=== PATIENT | male | born 1985 | race African-American/Black ===

== ENCOUNTER 2016-07-21 06:58 | Inpatient (IN) ==
--- NOTE | 2016-07-21 07:21 | Emergency Department Note ---
Disposition Clinical Impression: Suicidal ideation Depression Qualifiers: Depression Type: major depressive disorder Major depression recurrence: recurrent Active/Remission status: currently active Major depression episode severity: moderate Qualified Code(s): F33.1 - Major depressive disorder, recurrent, moderate Disposition: Admitted As Inpatient Time of Disposition: 11:00 Psych HPI - General Chief Complaint: ED Psychiatric Symptoms Stated Complaint: needs to see 1A Time Seen by Provider: 07/21/16 07:19 Source: patient Mode of arrival: ambulatory Limitations: altered mental status Nursing Notes Reviewed: Yes Vital Signs Reviewed: Yes - History of Present Illness HPI Narrative: She presents to the emergency department with complaints of suicidal and possibly homicidal ideation. States that he has been on his medication taking it regularly however he continues to hear voices, he states that he smokes much more frustrated with people like he is going to hurt somebody. He is not on had any attempts at suicide or self-harm. States that he has done cocaine and heroin in the past couple days. States that he smokes marijuana on a daily basis. He apparently comes from [facility] and states that it he does not have a psychiatrist at this time nor does he have a counselor. He has been admitted in the to the hospital in the past for similar SI complaints. At this time is quite cooperative and agreeable. Pt complaint: suicidal ideation, feels depressed, anxiety If medical clearance, reason: psychiatric condition Onset (ago): unknown Duration: changing over time, getting worse History of similar episodes: Yes Improves with: none Worsens with: none Associated Psychiatric Symptoms: suicidal ideation, homicidal ideation, auditory hallucinations Associated symptoms: Reports: denies other symptoms Traumatic symptoms: denies traumatic injury Treatments prior to arrival: psychiatric referral Self harm or harm to others: admits thoughts of self harm, admits thoughts of harming others, denies having a plan - Related Data Previous Rx's Medication Instructions Recorded Albuterol Sulfate [Albuterol 2 puff IH [id number] PRN #1 inhaler 04/29/16 Inhaler] Benztropine [Cogentin] 0.5 mg PO BID #60 tablet 04/29/16 ClonazePAM [Klonopin] 1 mg PO BID PRN #60 tablet 04/29/16 Divalproex (24 HR) [Depakote ER 2,000 mg PO HS #120 tab.er.24h 04/29/16 (24 HR)] Fluphenazine [Prolixin] 10 mg PO DAILY #30 tablet 04/29/16 HydrOXYzine Pamoate 25 mg PO TID #90 capsule 04/29/16 Omeprazole [PriLOSEC] 20 mg PO DAILY #30 capsule. 04/29/16 Quetiapine Fumarate [Seroquel] 100 mg PO HS PRN #30 tablet 04/29/16 Allergies Allergy/AdvReac Type Severity Reaction Status Date / Time chlorpromazine Allergy Hives Verified 08/23/15 18:23 [From Thorazine] haloperidol [From Haldol] AdvReac Intermediate See Verified 02/15/16 15:12 Comments All systems ED: reviewed and negative except as stated. Constitutional: Denies: fever, chills, weakness, weight change Eyes: Denies: eye pain, eye discharge, vision change ENT ED: Denies: ear pain, throat pain, dental pain, hearing loss, epistaxis, congestion, dysphagia Cardiovascular: Denies: chest pain, palpitations, dyspnea on exertion, edema, syncope Respiratory: Denies: cough, dyspnea, wheezes, hemoptysis, stridor Psychiatric: Reports: anxiety, depression, suicidal thoughts, homicidal thoughts , auditory hallucinations Endocrine: Denies: fatigue Past Medical History - Past Medical History Attestation: Yes The following information was validated with the patient. Source: patient, nursing notes reviewed Medical history: Reports: asthma Surgical history: Reports: other Psychiatric history: Reports: schizophrenia, previous psychiatric hospitalization, other - Social History Smoking Status: Current every day smoker Smokeless Tobacco Status: No Alcohol use: Reports: occasionally Drug use: Reports: cocaine, opiates, marijuana, methamphetamine, IVDU, prescription drug abuse Physical Exam - General Limitations: no limitations General appearance: alert, in no apparent distress - Head Head exam: atraumatic, normocephalic, normal inspection - Eye Eye exam: Present: normal appearance, PERRL, EOMI - ENT ENT exam: normal exam, normal oropharynx, mucous membranes moist - Neck Neck exam: Present: normal inspection, full ROM, trachea midline - Chest Chest inspection: Present: normal inspection, symmetric chest wall rise - Respiratory Respiratory exam: Present: normal lung sounds bilaterally - Cardiovascular Cardiovascular exam: Present: regular rate, normal rhythm, normal heart sounds - Abdominal Exam Abdominal exam: Present: soft, Non-Tender, normal bowel sounds. Absent: tenderness, distention, guarding, rebound, rigidity - Extremities Exam Extremities exam: Present: normal inspection, full ROM. Absent: tenderness, pedal edema - Back Exam Back exam: Present: normal inspection, full ROM. Absent: tenderness - Neurological Exam Neurological exam: Present: alert, oriented X3, CN II-XII intact, normal gait - Psychiatric Psychiatric exam: Present: anxious, homicidal ideation, suicidal ideation - Skin Skin exam: Present: warm, dry, intact, normal color Course Vital Signs Temperature 97.8 F 07/21/16 06:59 Pulse Rate 164 07/21/16 06:59 Respiratory Rate 20 07/21/16 06:59 Blood Pressure 125/78 07/21/16 06:59 O2 Sat by Pulse Oximetry 96 07/21/16 06:59 Temperature 98.1 F 07/21/16 11:13 Pulse Rate 80 07/21/16 10:58 Respiratory Rate 16 07/21/16 11:13 Blood Pressure 100/67 07/21/16 11:13 O2 Sat by Pulse Oximetry 95 07/21/16 10:58 Oxygen Delivery Oxygen Delivery Room Air Psych - Lab Data Result diagrams: 07/21/16 07:51 07/21/16 07:51 Lab Results 07/21/16 07/21/16 07/21/16 Range/Units 07:51 07:51 08:21 WBC 13.5 H (4.3-11.1) K/mcL RBC 4.70 (4.19-5.50) M/mcL Hgb 13.6 (12.9-16.9) g/dL Hct 39.4 (37.5-50.1) % MCV 83.8 (83.0-100.0) fL MCH 28.9 (28.0-33.3) pg MCHC 34.5 (31.6-35.5) g/dL RDW 13.4 (11.5-14.5) % Plt Count 195 (140-400) K/mcL MPV 11.8 (9.4-12.4) fL Immature Gran % 0.3 (0-4) % Seg Neutrophils % 50.2 % Lymphocytes % 39.0 % Monocytes % 7.7 % Eosinophils % 2.5 % Basophils % 0.3 % Neutrophils # 6.7 (1.6-8.9) K/mcL Lymphocytes # 5.3 H (0.6-4.6) K/mcL Monocytes # 1.0 (0.0-1.3) K/mcL Eosinophils # 0.3 (0.0-0.6) K/mcL Basophils # 0.0 (0.0-0.2) K/mcL Immature Plt Fraction 11.3 H (1.1-6.1) % Sodium 139 (136-145) mEq/L Potassium 3.7 (3.5-4.5) mEq/L Chloride 108 (98-109) mEq/L Carbon Dioxide 20 (19-29) mEq/L BUN 12 (8-26) mg/dL Creatinine 0.68 L (0.72-1.25) mg/dL Est GFR ( Amer) > 60 (> 60) Est GFR (Non-Af Amer) > 60 (> 60) BUN/Creatinine Ratio 18 (6-26) Glucose 90 (70-99) mg/dL Calculated Osmolality 287 (280-300) Calcium 8.7 (8.6-10.8) mg/dL Urine Color (Yellow) Urine Clarity (Clear) Urine pH (5.0-8.0) pH Units Ur Specific [place] (1.010-1.025) Urine Protein (Neg-Trace) mg/dL Urine Glucose (UA) (Normal) mg/dL Urine Ketones (Negative) mg/dL Urine Blood (Negative) Urine Nitrite (Negative) Urine Bilirubin (Negative) Urine Urobilinogen (Normal) mg/dL Ur Leukocyte Esterase (Negative) Salicylates < 5.0 L (15-30) mg/dL Urine Opiates Screen Negative (Icoixl=664) ng/mL Acetaminophen < 1.0 L (10-30) mcg/mL Ur Barbiturates Screen Negative (Ezumvc=192) ng/mL Ur Phencyclidine Scrn Negative (Cutoff=25) ng/mL Ur Amphetamines Screen Negative (Ybcnwu=9073) ng/mL U Benzodiazepines Scrn Negative (Dvneer=994) ng/mL Urine Cocaine Screen Negative (Cutoff= 300) ng/mL U Marijuana (THC) Screen Positive H (Cutoff = 50) ng/mL Ethyl Alcohol < 10 (0-10) mg/dL 07/21/16 Range/Units 08:24 WBC (4.3-11.1) K/mcL RBC (4.19-5.50) M/mcL Hgb (12.9-16.9) g/dL Hct (37.5-50.1) % MCV (83.0-100.0) fL MCH (28.0-33.3) pg MCHC (31.6-35.5) g/dL RDW (11.5-14.5) % Plt Count (140-400) K/mcL MPV (9.4-12.4) fL Immature Gran % (0-4) % Seg Neutrophils % % Lymphocytes % % Monocytes % % Eosinophils % % Basophils % % Neutrophils # (1.6-8.9) K/mcL Lymphocytes # (0.6-4.6) K/mcL Monocytes # (0.0-1.3) K/mcL Eosinophils # (0.0-0.6) K/mcL Basophils # (0.0-0.2) K/mcL Immature Plt Fraction (1.1-6.1) % Sodium (136-145) mEq/L Potassium (3.5-4.5) mEq/L Chloride (98-109) mEq/L Carbon Dioxide (19-29) mEq/L BUN (8-26) mg/dL Creatinine (0.72-1.25) mg/dL Est GFR ( Amer) (> 60) Est GFR (Non-Af Amer) (> 60) BUN/Creatinine Ratio (6-26) Glucose (70-99) mg/dL Calculated Osmolality (280-300) Calcium (8.6-10.8) mg/dL Urine Color Yellow (Yellow) Urine Clarity Clear (Clear) Urine pH 6.0 (5.0-8.0) pH Units Ur Specific [place] 1.025 (1.010-1.025) Urine Protein Negative (Neg-Trace) mg/dL Urine Glucose (UA) Normal (Normal) mg/dL Urine Ketones Negative (Negative) mg/dL Urine Blood Negative (Negative) Urine Nitrite Negative (Negative) Urine Bilirubin Negative (Negative) Urine Urobilinogen Normal (Normal) mg/dL Ur Leukocyte Esterase Negative (Negative) Salicylates (15-30) mg/dL Urine Opiates Screen (Fuepuh=583) ng/mL Acetaminophen (10-30) mcg/mL Ur Barbiturates Screen (Sdrgpd=730) ng/mL Ur Phencyclidine Scrn (Cutoff=25) ng/mL Ur Amphetamines Screen (Gbrnwe=7597) ng/mL U Benzodiazepines Scrn (Ggcacq=834) ng/mL Urine Cocaine Screen (Cutoff= 300) ng/mL U Marijuana (THC) Screen (Cutoff = 50) ng/mL Ethyl Alcohol (0-10) mg/dL Psychiatric Medical Clearance - Medical Clearance Checklist Does the patient have a NEW psychiatric condition?: No Any abnormalities indicating possible medical illness?: No Any history of medical issues?: No Medical History: No Social History Section defined Any abnormal vital signs prior to transfer?: No Current Vitals: Last Vital Signs Temp 98.1 F 07/21/16 11:13 Pulse 80 07/21/16 10:58 Resp 16 07/21/16 11:13 BP 100/67 07/21/16 11:13 Pulse Ox 95 07/21/16 10:58 Is the patient intoxicated or cognitively impaired?: No Psychiatric Lab Panel: Drug Levels and Toxicity 07/21/16 07/21/16 07:51 08:21 Urine Opiates Screen Negative Acetaminophen < 1.0 L Ur Barbiturates Screen Negative Ur Phencyclidine Scrn Negative Ur Amphetamines Screen Negative U Benzodiazepines Scrn Negative Urine Cocaine Screen Negative U Marijuana (THC) Screen Positive H Ethyl Alcohol < 10 Any abnormalities on the physical exam?: No Any abnormal labs?: No (+Marijuana) Abnormal Labs: Abnormal lab results WBC 13.5 K/mcL (4.3-11.1) H 07/21/16 07:51 Lymphocytes # 5.3 K/mcL (0.6-4.6) H 07/21/16 07:51 Immature Plt Fraction 11.3 % (1.1-6.1) H 07/21/16 07:51 Creatinine 0.68 mg/dL (0.72-1.25) L 07/21/16 07:51 Salicylates < 5.0 mg/dL (15-30) L 07/21/16 07:51 Acetaminophen < 1.0 mcg/mL (10-30) L 07/21/16 07:51 U Marijuana (THC) Screen Positive ng/mL (Cutoff = 50) H 07/21/16 08:21 Does the patient require durable medical equiptment?: No Is the patient ambulatory?: Yes Is the patient a fall risk?: No Has the patient been medically cleared?: Yes Any acute medical condition require Tx prior to transfer?: No Statement of Medical Clearance: I have evaluated the patient, reviewed diagnostic information, and certify that the patient's medical condition is sufficiently stable that transfer to the psychiatric unit does not pose a significant risk of deterioration.
[2016-07-21 08:14] LABS: Basophils % 0.3 %; Eosinophils # 0.3 K/mcL (0.0-0.6); Eosinophils % 2.5 %; Hematocrit 39.4 % (37.5-50.1); Hemoglobin 13.6 g/dL (12.9-16.9); Immature Granulocytes % 0.3 % (0-4); Immature Platelets 11.3 % (1.1-6.1); Lymphocytes # 5.3 K/mcL (0.6-4.6); Mean Corpuscular HGB Conc 34.5 g/dL (31.6-35.5); Mean Corpuscular Hemoglobin 28.9 pg (28.0-33.3); Mean Corpuscular Volume 83.8 fL (83.0-100.0); Mean Platelet Volume 11.8 fL (9.4-12.4); Monocytes % 7.7 %; Neutrophils # 6.7 K/mcL (1.6-8.9); Platelet Count 195 K/mcL (140-400); Red Cell Distribution Width 13.4 % (11.5-14.5); Segmented Neutrophils % 50.2 %
[2016-07-21 08:38] LABS: BUN/Creatinine Ratio 18 (6-26); Blood Urea Nitrogen 12 mg/dL (8-26); Calcium 8.7 mg/dL (8.6-10.8); Carbon Dioxide 20 mEq/L (19-29); Chloride 108 mEq/L (98-109); Glucose 90 mg/dL (70-99); Osmolality,Calculated 287 (280-300); Potassium 3.7 mEq/L (3.5-4.5); Sodium 139 mEq/L (136-145); eGFR For African Americans > 60 (> 60); eGFR For Non-African Americans > 60 (> 60)
[2016-07-21 08:39] LABS: Acetaminophen < 1.0 mcg/mL (10-30); Ethanol < 10 mg/dL (0-10); Salicylate < 5.0 mg/dL (15-30)
[2016-07-21 09:05] LABS: Bilirubin,Urine Negative (Negative); Blood,Urine Negative (Negative); Clarity,Urine Clear (Clear); Color,Urine Yellow (Yellow); Glucose,Urine (UA) Normal (Normal); Ketones,Urine Negative (Negative); Leukocyte Esterase,Urine Negative (Negative); Nitrite,Urine Negative (Negative); Protein,Urine Negative (Neg-Trace); Specific Gravity,Urine 1.025 (1.010-1.025); Urobilinogen,Urine Normal (Normal)
[2016-07-21 09:11] LABS: Amphetamine Screen,Urine Negative ng/mL (Cutoff=1000); Barbiturate Screen,Urine Negative ng/mL (Cutoff=200); Benzodiazepines Screen,Urine Negative ng/mL (Cutoff=200); Cannabinoid Screen,Urine Positive ng/mL (Cutoff = 50); Cocaine Screen,Urine Negative ng/mL (Cutoff= 300); Opiate Screen,Urine Negative ng/mL (Cutoff=300); Phencyclidine Screen,Urine Negative ng/mL (Cutoff=25)
--- NOTE | 2016-07-21 10:46 | Emergency Department Note ---
START Narrative - START START: I examined this patient and my medical decision-making was reviewed with the RED LEADER/PA/Advanced Practice Nurse/Resident Physician. I agree with the documented findings, disposition and treatment plan as described except to the extent set forth below. Patient emergency department with suicidal thoughts. Also thoughts of harming others. Exam shows him in no distress. Flat affect. Heart regular lungs clear., Cooperative. Plan. Medically cleared. Evaluated by Ia and patient is appropriate for admission. [place] slip on chart.
[2016-07-21] MEDS ORDERED: MOM Conc 10 ML UD.LIQ PO PRN (15:50)
[2016-07-21] MEDS ORDERED: hydrOXYzine pamoate 25 MG CAPSULE PO PRN (15:50)
[2016-07-21] MEDS ORDERED: Mag Hydrox/Al Hydrox/Simeth 30 ML UDC PO PRN (15:50)
[2016-07-21] MEDS ORDERED: Acetaminophen 325 MG TABLET PO PRN (15:50)
[2016-07-21] MEDS ORDERED: traZODone 50 MG TABLET PO PRN (15:50)
[2016-07-21] MEDS: Divalproex (24 HR) 500 MG TABLET PO SCH (20:22)
[2016-07-21] MEDS: hydrOXYzine pamoate 25 MG CAPSULE PO SCH (20:24)
[2016-07-22] MEDS: hydrOXYzine pamoate 25 MG CAPSULE PO SCH ×3 (08:49→21:40)
[2016-07-22] MEDS: clonazePAM 1 MG TABLET PO PRN ×2 (08:55→21:40)
--- NOTE | 2016-07-22 13:05 | Psychiatry History & Physical ---
Date of Encounter: 07/23/16 Time of Encounter: 13:03 History of Present Illness Patient Stated Chief Complaint: suicidal, hearig voices Medicare Admission Attestation: For traditional Medicare patients the provided hospital inpatient services are reasonable and necessary and in the case of services not specified as inpatient -only under 42 CFR 419.22 (n), that they are appropriately provided as inpatient services in accordance 42 CFR 412.3. For Critical Access Hospital the patient may reasonably be expected to be discharged or transferred to a hospital within 96 hours after admission to the Critical Access Hospital. Admitted From: Emergency Dept History of Present Illness: Mr. Barrientos is a 30 year old male was long history of psychiatric treatment for chronic schizophrenia who presented to the emergency room complaining of auditory hallucinations and thought broadcasting. He is HE was also thinking about hurting people listen to thoughts he admitted to using drugs. His mission and cocaine and THC. Patient apparently has been noncompliant with his medication including injectable Prolixin however he presented to the hospital before she deteriorated as reported by staff who are familiar with him. Please see social work notes and emergency room notes. Past Med Surg Social Fam HX - Past Medical History Medical history: asthma - Past Psychiatric History Psychiatric history: Reports: bipolar, schizophrenia, previous psychiatric hospitalization Family psychiatric history: Unknown Family History of Suicide: Unknown - Past Surgical History Surgical History: other - Social History Smoking Status: Current every day smoker Smokeless Tobacco Status: No Alcohol use: occasionally Drug use: cocaine, opiates, marijuana, methamphetamine, IVDU, prescription drug abuse Medications & Allergies Albuterol Sulfate [Albuterol Inhaler] 2 puff IH [id number] PRN #1 inhaler 04/29/16 [Rx] Benztropine [Cogentin] 0.5 mg PO BID #60 tablet 04/29/16 [Rx] ClonazePAM [Klonopin] 1 mg PO BID PRN #60 tablet 04/29/16 [Rx] Divalproex (24 HR) [Depakote ER (24 HR)] 2,000 mg PO HS #120 tab.er.24h [Rx] Fluphenazine [Prolixin] 10 mg PO DAILY #30 tablet 04/29/16 [Rx] HydrOXYzine Pamoate 25 mg PO TID #90 capsule 04/29/16 [Rx] Omeprazole [PriLOSEC] 20 mg PO DAILY #30 capsule. 04/29/16 [Rx] Quetiapine Fumarate [Seroquel] 100 mg PO HS PRN #30 tablet 04/29/16 [Rx] Fluphenazine Decanoate [Prolixin] 25 mg IM Q4W 07/22/16 [History] Allergies chlorpromazine [From Thorazine] Allergy (Verified 08/23/15 18:23) Hives haloperidol [From Haldol] Adverse Reaction (Intermediate, Verified 02/15/16 15: 12) See Comments EPS Review of Systems Psychiatric: Reports: anxiety, suicidal ideation, auditory hallucinations Mental Status Exam Patient orientation: Yes Person, Yes Time, Yes Place Level of alertness: Sedated Patient appearance: Unkempt, Disheveled, Bizarre Behavior: nervous, anxious, suspicious, distractible, withdrawn Psychomotor activity: Slowed Eye contact: Minimal Contact Mood description: Anxious, Irritable Affect description: constricted, blunted, anxious Speech pattern: Normal rate, Normal rhythm, Clear, Limited Speech volume: Normal Thought process: Thought Blocking, Disorganized Thought content: Yes Suicidal ideation, Yes Paranoid delusion, Yes Thought broadcasting Perceptual disturbances: Yes Reacting to internal stimuli, Yes Auditory hallucinations Attention span: Unable to Focus Memory description: Immediate Impaired, Remote Impaired Patient reliability: Questionable Historian Intelligence estimate: Average Judgment: Limited Insight: Partial Results - Vital Signs Vital signs: Temp Pulse Resp BP Pulse Ox 97.6 F 69 16 130/88 95 07/22/16 09:00 07/22/16 09:00 07/22/16 09:00 07/22/16 09:00 07/21/16 10:58 - Labs Labs: Laboratory Last Values WBC 13.5 K/mcL (4.3-11.1) H 07/21/16 07:51 RBC 4.70 M/mcL (4.19-5.50) 07/21/16 07:51 Hgb 13.6 g/dL (12.9-16.9) 07/21/16 07:51 Hct 39.4 % (37.5-50.1) 07/21/16 07:51 MCV 83.8 fL (83.0-100.0) 07/21/16 07:51 MCH 28.9 pg (28.0-33.3) 07/21/16 07:51 MCHC 34.5 g/dL (31.6-35.5) 07/21/16 07:51 RDW 13.4 % (11.5-14.5) 07/21/16 07:51 Plt Count 195 K/mcL (140-400) 07/21/16 07:51 MPV 11.8 fL (9.4-12.4) 07/21/16 07:51 Immature Gran % 0.3 % (0-4) 07/21/16 07:51 Seg Neutrophils % 50.2 % 07/21/16 07:51 Lymphocytes % 39.0 % 07/21/16 07:51 Monocytes % 7.7 % 07/21/16 07:51 Eosinophils % 2.5 % 07/21/16 07:51 Basophils % 0.3 % 07/21/16 07:51 Neutrophils # 6.7 K/mcL (1.6-8.9) 07/21/16 07:51 Lymphocytes # 5.3 K/mcL (0.6-4.6) H 07/21/16 07:51 Monocytes # 1.0 K/mcL (0.0-1.3) 07/21/16 07:51 Eosinophils # 0.3 K/mcL (0.0-0.6) 07/21/16 07:51 Basophils # 0.0 K/mcL (0.0-0.2) 07/21/16 07:51 Immature Plt Fraction 11.3 % (1.1-6.1) H 07/21/16 07:51 Sodium 139 mEq/L (136-145) 07/21/16 07:51 Potassium 3.7 mEq/L (3.5-4.5) 07/21/16 07:51 Chloride 108 mEq/L (98-109) 07/21/16 07:51 Carbon Dioxide 20 mEq/L (19-29) 07/21/16 07:51 BUN 12 mg/dL (8-26) 07/21/16 07:51 Creatinine 0.68 mg/dL (0.72-1.25) L 07/21/16 07:51 Est GFR ( Amer) > 60 (> 60) 07/21/16 07:51 Est GFR (Non-Af Amer) > 60 (> 60) 07/21/16 07:51 BUN/Creatinine Ratio 18 (6-26) 07/21/16 07:51 Glucose 90 mg/dL (70-99) 07/21/16 07:51 Calculated Osmolality 287 (280-300) 07/21/16 07:51 Calcium 8.7 mg/dL (8.6-10.8) 07/21/16 07:51 Urine Color Yellow (Yellow) 07/21/16 08:24 Urine Clarity Clear (Clear) 07/21/16 08:24 Urine pH 6.0 pH Units (5.0-8.0) 07/21/16 08:24 Ur Specific [place] 1.025 (1.010-1.025) 07/21/16 08:24 Urine Protein Negative mg/dL (Neg-Trace) 07/21/16 08:24 Urine Glucose (UA) Normal mg/dL (Normal) 07/21/16 08:24 Urine Ketones Negative mg/dL (Negative) 07/21/16 08:24 Urine Blood Negative (Negative) 07/21/16 08:24 Urine Nitrite Negative (Negative) 07/21/16 08:24 Urine Bilirubin Negative (Negative) 07/21/16 08:24 Urine Urobilinogen Normal mg/dL (Normal) 07/21/16 08:24 Ur Leukocyte Esterase Negative (Negative) 07/21/16 08:24 Salicylates < 5.0 mg/dL (15-30) L 07/21/16 07:51 Urine Opiates Screen Negative ng/mL (Qfmnli=733) 07/21/16 08:21 Acetaminophen < 1.0 mcg/mL (10-30) L 07/21/16 07:51 Ur Barbiturates Screen Negative ng/mL (Brjlbc=777) 07/21/16 08:21 Ur Phencyclidine Scrn Negative ng/mL (Cutoff=25) 07/21/16 08:21 Ur Amphetamines Screen Negative ng/mL (Ggijlq=5038) 07/21/16 08:21 U Benzodiazepines Scrn Negative ng/mL (Hiwmvc=681) 07/21/16 08:21 Urine Cocaine Screen Negative ng/mL (Cutoff= 300) 07/21/16 08:21 U Marijuana (THC) Screen Positive ng/mL (Cutoff = 50) H 07/21/16 08:21 Ethyl Alcohol < 10 mg/dL (0-10) 07/21/16 07:51 Assessment and Plan (1) Chronic schizophrenia Current visit: Yes Status: Acute Plan: Admit inpatient for safety and stabilization, Close observation, Suicide Precautions per unit protocol, Encourage participation in unit milieu, Group Therapy, Monitor sleep, Monitor appetite Risks, benefits, side effects, alternatives discussed w/pt: Yes Patient agreeable to treatment: Yes Estimated Length of Stay (Days): 7
[2016-07-22] MEDS: Divalproex (24 HR) 500 MG TABLET PO SCH (21:39)
[2016-07-22] MEDS: Nicotine 2 MG GUM BC PRN (22:06)
[2016-07-23] MEDS: hydrOXYzine pamoate 25 MG CAPSULE PO SCH ×3 (08:31→21:00)
--- NOTE | 2016-07-23 14:03 | Psychiatry Progress Note ---
Date of Encounter: 07/23/16 Time of Encounter: 13:30 Subjective Interval history: Patient seen for follow-up. Nursing staff reports he is seclusive to his room most of time also reported that she spent many hours sleep is not lethargic, and not agitated he is not interested in participating in group activities or therapy. He is compliant with his medication, he is interacting appropriately with his staff. Nursing staff found out that he is on Prolixin decanoate injection that will be given by the end of the month. Will continue treatment and monitor his behaviors. Review of Systems Psychiatric: Reports: depression, anxiety, suicidal ideation, auditory hallucinations, irritability Objective: Exam Patient orientation: Yes Person, Yes Time, Yes Place Level of alertness: Sedated Patient appearance: Unkempt, Disheveled, Bizarre Behavior: nervous, anxious, suspicious, distractible, withdrawn Psychomotor activity: Slowed Eye contact: Minimal Contact Mood description: Anxious, Irritable Affect description: constricted, blunted, anxious Speech pattern: Normal rate, Normal rhythm, Clear, Limited Speech volume: Normal Thought process: Thought Blocking, Disorganized Thought content: Yes Suicidal ideation, Yes Paranoid delusion, Yes Thought broadcasting Perceptual disturbances: Yes Reacting to internal stimuli, Yes Auditory hallucinations Judgment: Limited Insight: Partial Results - Vital Signs Vital Signs: Temp Pulse Resp BP Pulse Ox 97.9 F 76 16 126/69 95 07/23/16 09:00 07/23/16 09:00 07/23/16 09:00 07/23/16 09:00 07/21/16 10:58 Assessment and Plan (1) Chronic schizophrenia Current visit: Yes Status: Acute Risks, benefits, side effects, alternatives discussed w/pt: Yes Patient agreeable to treatment: Yes Consult Discharge Plan - Plan Additional Instructions: Patient's last dose of Prolixin Decanoate 25 mg was given on 07/08/2016. Next dose is due in 4 weeks from that date. [facility]Outside[facility] - 07/27/16 3:00 pm (The above appointment is with Samantha Daniels. You will also see psychiatric prescriber, Vicki Cullen , on 08/03/2016 @ 3:20pm.)
[2016-07-23] MEDS: Nicotine 2 MG GUM BC PRN (17:11)
[2016-07-23] MEDS: Divalproex (24 HR) 500 MG TABLET PO SCH (20:59)
[2016-07-23] MEDS: clonazePAM 1 MG TABLET PO PRN (23:19)
[2016-07-24] MEDS: hydrOXYzine pamoate 25 MG CAPSULE PO SCH ×3 (09:06→21:01)
--- NOTE | 2016-07-24 13:24 | Psychiatry Progress Note ---
Date of Encounter: 07/24/16 Time of Encounter: 13:22 Subjective Interval history: Patient is here for follow-up. She self-reports he is showing some improvements he is working this auditory hallucination still continued to be seclusive to his room but is more interactive. He is tolerating his medication well. He still admitted to change his discharge plan for follow-up and I advised him to discuss this with social science teacher otherwise he is cooperative and interactive and inguinal control. Review of Systems Psychiatric: Reports: anxiety, suicidal ideation, auditory hallucinations, irritability Objective: Exam Patient orientation: Yes Person, Yes Time, Yes Place Level of alertness: Alert Patient appearance: Unkempt, Disheveled, Bizarre Behavior: cooperative, anxious, suspicious, distractible, withdrawn Psychomotor activity: Slowed Eye contact: Minimal Contact Mood description: Anxious, Irritable Affect description: constricted, blunted, anxious Speech pattern: Normal rate, Normal rhythm, Clear, Limited Speech volume: Normal Thought process: Thought Blocking, Disorganized Thought content: Yes Suicidal ideation, Yes Paranoid delusion, Yes Thought broadcasting Perceptual disturbances: Yes Reacting to internal stimuli, Yes Auditory hallucinations Judgment: Fair Insight: Partial Results - Vital Signs Vital Signs: Temp Pulse Resp BP Pulse Ox 98.3 F 79 16 106/71 95 07/24/16 08:19 07/24/16 08:19 07/24/16 08:19 07/24/16 08:19 07/21/16 10:58 Assessment and Plan (1) Chronic schizophrenia Current visit: Yes Status: Acute Plan: Continue hospitalization, Close observation, Suicide Precautions per unit protocol, Encourage participation in unit milieu, Group Therapy, Monitor sleep, Monitor appetite Risks, benefits, side effects, alternatives discussed w/pt: Yes Patient agreeable to treatment: Yes Consult Discharge Plan - Plan Additional Instructions: Patient's last dose of Prolixin Decanoate 25 mg was given on 07/08/2016. Next dose is due in 4 weeks from that date. [facility] - 07/27/16 3:00 pm (The above appointment is with Samantha Daniels. You will also see psychiatric prescriber, Vicki Cullen , on 08/03/2016 @ 3:20pm.)
[2016-07-24] MEDS: clonazePAM 1 MG TABLET PO PRN ×2 (16:56→21:12)
[2016-07-24] MEDS: Nicotine 2 MG GUM BC PRN (16:56)
[2016-07-24] MEDS: Divalproex (24 HR) 500 MG TABLET PO SCH (21:12)
[2016-07-25] MEDS: hydrOXYzine pamoate 25 MG CAPSULE PO SCH ×3 (09:19→20:54)
--- NOTE | 2016-07-25 13:53 | Psychiatry Progress Note ---
Date of Encounter: 07/25/16 Time of Encounter: 13:51 Subjective Interval history: Patient is seen for follow-up. She staff report he has been seclusive to his room most of the time and avoiding peers. He is not agitated reports voices are less and denies any problem with sleep or appetite. His current medication monitored and were maintained his compliance with medication and social work is working on his discharge plans. He is not at baseline. Review of Systems Psychiatric: Reports: anxiety, auditory hallucinations, difficulty concentrating , irritability. Denies: suicidal ideation, homicidal ideation Objective: Exam Patient orientation: Yes Person, Yes Time, Yes Place Level of alertness: Alert Patient appearance: Unkempt, Disheveled, Bizarre Behavior: cooperative, anxious, suspicious, distractible, withdrawn Psychomotor activity: Slowed Eye contact: Minimal Contact Mood description: Anxious, Irritable Affect description: constricted, blunted, anxious Speech pattern: Normal rate, Normal rhythm, Clear, Limited Speech volume: Normal Thought process: Thought Blocking, Disorganized Thought content: Yes Suicidal ideation, Yes Paranoid delusion, Yes Thought broadcasting, Yes Poverty of Content Perceptual disturbances: Yes Reacting to internal stimuli, Yes Auditory hallucinations Judgment: Fair Insight: Partial Results - Vital Signs Vital Signs: Temp Pulse Resp BP Pulse Ox 97.0 F L 73 16 116/81 95 07/25/16 08:54 07/25/16 08:54 07/25/16 08:54 07/25/16 08:54 07/21/16 10:58 Assessment and Plan (1) Chronic schizophrenia Current visit: Yes Status: Acute Plan: Continue hospitalization, Close observation, Suicide Precautions per unit protocol, Encourage participation in unit milieu, Group Therapy, Monitor sleep, Monitor appetite Risks, benefits, side effects, alternatives discussed w/pt: Yes Patient agreeable to treatment: Yes Consult Discharge Plan - Plan Additional Instructions: Patient's last dose of Prolixin Decanoate 25 mg was given on 07/08/2016. Next dose is due in 4 weeks from that date. Referrals: [facility] [Outside] - 07/27/16 3:00 pm (The above appointment is with Samantha Daniels. You will also see psychiatric prescriber, Vicki Cullen , on 08/03/2016 @ 3:20pm.)
[2016-07-25] MEDS: clonazePAM 1 MG TABLET PO PRN ×2 (17:09→20:54)
[2016-07-25] MEDS: Nicotine 2 MG GUM BC PRN (17:19)
[2016-07-25] MEDS: Divalproex (24 HR) 500 MG TABLET PO SCH (20:53)
[2016-07-26] MEDS: hydrOXYzine pamoate 25 MG CAPSULE PO SCH ×3 (09:06→21:24)
--- NOTE | 2016-07-26 16:30 | Psychiatry Progress Note ---
Date of Encounter: 07/26/16 Time of Encounter: 16:20 Subjective Interval history: Patient is here for follow-up report to the continued to be seclusive to his room. He is compliant with medication and denies any side effects. Discharge plans are review words was social work and family. Denies suicidal or homicidal ideation. Review of Systems Psychiatric: Reports: anxiety, auditory hallucinations, difficulty concentrating , irritability. Denies: suicidal ideation, homicidal ideation Objective: Exam Patient orientation: Yes Person, Yes Time, Yes Place Level of alertness: Alert Patient appearance: Unkempt, Disheveled, Bizarre Behavior: cooperative, anxious, suspicious, distractible, withdrawn Psychomotor activity: Slowed Eye contact: Minimal Contact Mood description: Anxious, Irritable Affect description: constricted, blunted, anxious Speech pattern: Normal rate, Normal rhythm, Clear, Limited Speech volume: Normal Thought process: Thought Blocking, Disorganized Thought content: Yes Suicidal ideation, Yes Paranoid delusion, Yes Thought broadcasting, Yes Poverty of Content Perceptual disturbances: Yes Reacting to internal stimuli, Yes Auditory hallucinations Judgment: Fair Insight: Partial Results - Vital Signs Vital Signs: Temp Pulse Resp BP Pulse Ox 97.6 F 77 16 116/77 95 07/26/16 08:48 07/26/16 08:48 07/26/16 08:48 07/26/16 08:48 07/21/16 10:58 Assessment and Plan (1) Chronic schizophrenia Current visit: Yes Status: Acute Plan: Continue hospitalization, Close observation, Suicide Precautions per unit protocol, Encourage participation in unit milieu, Group Therapy, Monitor sleep, Monitor appetite Risks, benefits, side effects, alternatives discussed w/pt: Yes Patient agreeable to treatment: Yes Consult Discharge Plan - Plan Additional Instructions: Patient's last dose of Prolixin Decanoate 25 mg was given on 07/08/2016. Next dose is due in 4 weeks from that date. [facility]: [facility] [Outside] - 07/27/16 3:00 pm (The above appointment is with Samantha Daniels. You will also see psychiatric prescriber, Vicki Cullen , on 08/03/2016 @ 3:20pm.)
[2016-07-26] MEDS: clonazePAM 1 MG TABLET PO PRN ×2 (17:15→21:24)
[2016-07-26] MEDS: Nicotine 2 MG GUM BC PRN (17:42)
[2016-07-26] MEDS: Divalproex (24 HR) 500 MG TABLET PO SCH (21:24)
[2016-07-27] MEDS: hydrOXYzine pamoate 25 MG CAPSULE PO SCH ×3 (09:39→21:10)
--- NOTE | 2016-07-27 14:05 | Psychiatry Progress Note ---
Date of Encounter: 07/27/16 Time of Encounter: 14:00 Subjective Interval history: Patient is here for follow-up. Nursing staff reports that he is having less auditory hallucination he is more hyperactive but seclusive to his room most of the time. He is not using any when necessary's and his sleep is stable and he reported feeling good also he is aware of his discharge plans. As mentioned before a contact and his speech is appropriate. He feels he is much better forward to discharge. Denied any suicidal or homicidal ideation but continued to have auditory hallucinations. Review of Systems Psychiatric: Reports: anxiety, auditory hallucinations, difficulty concentrating , irritability. Denies: suicidal ideation, homicidal ideation Objective: Exam Patient orientation: Yes Person, Yes Time, Yes Place Level of alertness: Alert Patient appearance: Unkempt, Disheveled, Bizarre Behavior: cooperative, anxious, suspicious, distractible, withdrawn Psychomotor activity: Slowed Eye contact: Minimal Contact Mood description: Anxious, Irritable Affect description: constricted, blunted, anxious Speech pattern: Normal rate, Normal rhythm, Clear, Limited Speech volume: Normal Thought process: Thought Blocking, Disorganized Thought content: No Suicidal ideation, No Homicidal ideation, Yes Paranoid delusion, Yes Thought broadcasting, Yes Poverty of Content Perceptual disturbances: Yes Reacting to internal stimuli, Yes Auditory hallucinations Judgment: Fair Insight: Partial Results - Vital Signs Vital Signs: Temp Pulse Resp BP Pulse Ox 97.8 F 80 16 109/76 95 07/27/16 08:49 07/27/16 08:49 07/27/16 08:49 07/27/16 08:49 07/21/16 10:58 Assessment and Plan (1) Chronic schizophrenia Current visit: Yes Status: Acute Plan: Continue hospitalization, Close observation, Suicide Precautions per unit protocol, Encourage participation in unit milieu, Group Therapy, Monitor sleep, Monitor appetite Risks, benefits, side effects, alternatives discussed w/pt: Yes Patient agreeable to treatment: Yes Consult Discharge Plan - Plan Additional Instructions: Patient's last dose of Prolixin Decanoate 25 mg was given on 07/08/2016. Next dose is due in 4 weeks from that date. Referrals: [facility] [Outside] - 08/03/16 3:00 pm (The above appointment is with Samantha Daniels. You will also see psychiatric prescriber, Vicki Cullen , on 08/03/2016 @ 3:20pm.)
[2016-07-27] MEDS: clonazePAM 1 MG TABLET PO PRN ×2 (17:53→21:13)
[2016-07-27] MEDS: Nicotine 2 MG GUM BC PRN (18:21)
[2016-07-27] MEDS: Divalproex (24 HR) 500 MG TABLET PO SCH (21:09)
[2016-07-28 08:29] VITALS: BP 113/83
[2016-07-28] MEDS: hydrOXYzine pamoate 25 MG CAPSULE PO SCH (08:46)
[2016-07-28] MEDS: Nicotine 2 MG GUM BC PRN (10:50)
--- NOTE | 2016-07-28 12:59 | Discharge Summary ---
Date of Encounter: 07/28/16 Time of Encounter: 12:50 Diagnosis - Discharge Diagnosis (1) Chronic schizophrenia Priority: Primary Status: Acute (2) Suicidal ideation Priority: Secondary Status: Acute Medications - Discharge Medications Prescriptions: Benztropine [Cogentin] 0.5 mg PO BID #60 tablet ClonazePAM [Klonopin] 1 mg PO BID PRN #60 tablet PRN Reason: Anxiety Divalproex (24 HR) [Depakote ER (24 HR)] 2,000 mg PO HS #120 tab.er.24h Fluphenazine [Prolixin] 10 mg PO DAILY #30 tablet HydrOXYzine Pamoate 25 mg PO TID #90 capsule Quetiapine Fumarate [Seroquel] 100 mg PO HS PRN #30 tablet PRN Reason: Insomnia Albuterol Sulfate [Albuterol Inhaler] 2 puff IH [id number] PRN #1 inhaler 04/29/16 [Rx] Omeprazole [PriLOSEC] 20 mg PO DAILY #30 capsule. 04/29/16 [Rx] Fluphenazine Decanoate [Prolixin] 25 mg IM Q4W 07/22/16 [History] Benztropine [Cogentin] 0.5 mg PO BID #60 tablet 07/28/16 [Rx] ClonazePAM [Klonopin] 1 mg PO BID PRN #60 tablet 07/28/16 [Rx] Divalproex (24 HR) [Depakote ER (24 HR)] 2,000 mg PO HS #120 tab.er.24h [Rx] Fluphenazine [Prolixin] 10 mg PO DAILY #30 tablet 07/28/16 [Rx] HydrOXYzine Pamoate 25 mg PO TID #90 capsule 07/28/16 [Rx] Quetiapine Fumarate [Seroquel] 100 mg PO HS PRN #30 tablet 07/28/16 [Rx] Allergies chlorpromazine [From Thorazine] Allergy (Verified 08/23/15 18:23) Hives haloperidol [From Haldol] Adverse Reaction (Intermediate, Verified 02/15/16 15: 12) See Comments EPS Provider Date of admission: 07/21/16 10:43 Primary care physician: PCP NO Discharging clinician: Joaquin Fernandez Assessment and Plan - Patient/Caregiver Discharge Instructions Activity: resume usual activities as tolerated Diet: regular diet Additional Instructions: Patient's last dose of Prolixin Decanoate 25 mg was given on 07/08/2016. Next dose is due in 4 weeks from that date. - Follow up Plan Follow up with: [facility] [Outside] - 08/03/16 3:00 pm (The above appointment is with Samantha Daniels. You will also see psychiatric prescriber, Vicki Cullen , on 08/03/2016 @ 3:20pm.) Overall status at discharge: Stable Disposition: Home, Self-Care Hospital Course Hospital course: Mr. Barrientos is a 30 year old male admitted for exacerbation of schizophrenia was auditory hallucination and suicidal ideation. For details of the admission please see H&P. On admission patient medication were reviewed and restarted, patient was compliant with his medication and showed improvement in his symptoms worse reduction of his auditory hallucinations he spent most of time in his room seclusive but she was appropriately interacting with staff and peers. He did not display any episodes of agitation. Prior to discharge he was medically stable and denies suicidal ideation morning and affect were improved he was denying suicidal ideation and he reports the voices are much less disturbing than before. His discharge plan was reviewed with him and his family and social media job titles and he is looking forward to be discharged. - Time Spent with Patient Total time spent providing and/or coordinating discharge services: Less than 30 minutes Quality - Multiple Antipsychotics Patient discharged on 2 or more antipsychotic medications: No Procedures - Procedures Procedures: Medication Management, Crisis Stabilization, Supportive Therapy, Group Therapy, Psychoeducational Therapy Mental Status Exam - Mental Status Exam Patient orientation: Yes Person, Yes Time, Yes Place Level of alertness: Alert Patient appearance: Appropriate, Bizarre Behavior: cooperative, anxious, withdrawn Psychomotor activity: Normal Eye contact: Maintains Eye Contact Mood description: Euthymic/stable, Anxious Affect description: congruent with mood, anxious Speech pattern: Normal rate, Normal rhythm, Clear, Coherent, Limited Speech Volume: Normal Thought process: Linear, Goal Oriented Thought Content: No Suicidal ideation, No Homicidal ideation, Yes Paranoid delusion, Yes Thought broadcasting Perceptual Disturbances: Yes Reacting to internal stimuli, Yes Auditory hallucinations Judgment: Fair Insight: Partial
== END 2016-07-28 14:25 | disposition home or self-care (01) | DRG 750 ==
LOC: EMEROO 06:58 → 1ANU 10:43
PROVIDERS: ADMIT Psychiatry & Neurology Psychiatry; ATTEND Psychiatry & Neurology Psychiatry

== ENCOUNTER 2016-09-24 13:54 | Inpatient (IN) ==
[2016-09-24] MEDS ORDERED: Ondansetron 4 MG/2 ML VIAL IVP PRN (16:34)
[2016-09-24] MEDS ORDERED: Naloxone 0.4 MG/ML INJ IVP PRN (16:34)
[2016-09-24] MEDS ORDERED: Acetaminophen IV 1,000 MG/100 ML INFUS..BTL IVPB PRN (16:42)
--- NOTE | 2016-09-24 16:42 | General Surg History&Physical ---
<Hunter Woodard - Last Filed: 09/24/16 16:40> Date of Encounter: 09/24/16 Time of Encounter: 16:40 Assessment and Plan (1) Acute cholecystitis Current Visit: Yes Status: Acute The assessment and plan as outlined above was discussed with the patient and/or family members who expressed understanding and agreement. All questions were answered. Direct admit from [place] [facility] Persistent RUQ pain with nausea and vomiting WBC 25.3 tachycardic: 109, hypertensive 150/109 Plan for lap cholecystectomy tomorrow NPO except ice chips, NPO after midnight IVF pain control, antiemetics IV tylenol PRN fever GI prophylaxis w/protonix 40mg qday DVT prophylaxis w/ heparin subq 5000 BID morning labs (2) Schizoaffective disorder Current Visit: Yes Status: Acute continue home meds Qualifiers: Schizoaffective disorder type: unspecified Qualified Code(s): F25.9 - Schizoaffective disorder, unspecified (3) DVT prophylaxis Current Visit: Yes Status: Acute heparin subq 5000 BID History of Present Illness Chief complaint: abdominal pain HPI: Mr. Barrientos is a 30 year old male who presented to [facility] with RUQ on 09/23. He has a hx of Schizoaffective disorder, tobacco abuse, and polysubstance abuse. The pain was rated 10/10 and was associated with nausea,vomiting, and anorexia. He was treated with pain medicine, antiemetics, and discharged home. He returned to [facility] this am with persistent RUQ pain and was then directly admitted to the surgical service for acute cholecystitis. The pain is worse with palpation, is colicky, non-radiating, rated at 10/10. He has been having nausea and vomiting with the pain for the past few days. He states he has had problems with his gallbladder in the past. Past Med Surg Social Fam HX - Past Medical History Medical history: asthma Psychiatric history: bipolar, schizophrenia, previous psychiatric hospitalization - Past Surgical History Surgical History: arthroscopy - Social History Smoking Status: Current every day smoker Packs per day: 1 Smokeless Tobacco Status: No Alcohol use: occasionally Drug use: cocaine, opiates, marijuana, methamphetamine, IVDU, prescription drug abuse - Family History Grandfather Adopted: No Family Member Ethnicity: Non- Living Status: Still Living Hx Family Cardiac Disorders: No Hx Family Respiratory Disorders: No Hx Family Cancer: No Hx Family GI Disorders: No Hx Family Genitourinary Disorders: No Hx Family Endocrine Disorder: Yes (THYROID DISORDER) Hx Family Musculoskeletal Disorders: No Hx Family Neuromuscular Disorders: No Hx Family Neurologic Disorders: No Hx Family HEENT Disorders: No Hx Family Autoimmune Disorders: No Hx Family Reproductive Disorders: No Hx Family Psychosocial Disorders: No Hx Family Medical Disorders: No Medications and Allergies Albuterol Sulfate [Albuterol Inhaler] 2 puff IH [id number] PRN #1 inhaler 04/29/16 [Rx] ClonazePAM [Klonopin] 1 mg PO BID PRN #60 tablet 07/28/16 [Rx] Divalproex (24 HR) [Depakote ER (24 HR)] 2,000 mg PO HS #120 tab.er.24h [Rx] Fluphenazine [Prolixin] 10 mg PO DAILY #30 tablet 07/28/16 [Rx] HydrOXYzine Pamoate 25 mg PO TID #90 capsule 07/28/16 [Rx] Esomeprazole Magnesium [Nexium] 20 mg PO DAILY #30 capsule.dr 09/23/16 [Rx] Benztropine Mesylate 1 mg PO BID 09/24/16 [History] FLUoxetine HCl [Fluoxetine HCl] 30 mg PO DAILY 09/24/16 [History] Quetiapine Fumarate [SEROquel] 100 mg PO HS 09/24/16 [History] Allergies chlorpromazine [From Thorazine] Allergy (Verified 08/23/15 18:23) Hives haloperidol [From Haldol] Adverse Reaction (Intermediate, Verified 02/15/16 15: 12) See Comments EPS Review of Systems All systems PM: A 10-system review of systems was performed and is negative for pertinent findings except as documented above in the HPI. - Constitutional anorexia, malaise - Cardiovascular no chest pain - Respiratory no cough, no dyspnea - Gastrointestinal abdominal pain, belching, bloating, nausea, vomiting - Neurological no confusion, no syncope - Psychiatric other (hx of schizoaffective) General Surgery Exam Vital Signs Temperature 98.9 F 09/24/16 16:39 Pulse Rate 109 09/24/16 16:39 Respiratory Rate 16 09/24/16 16:39 Blood Pressure 150/109 09/24/16 16:39 O2 Sat by Pulse Oximetry 97 09/24/16 16:39 Temperature 98.9 F 09/24/16 16:39 Pulse Rate 109 09/24/16 16:39 Respiratory Rate 16 09/24/16 16:39 Blood Pressure 150/109 09/24/16 16:39 O2 Sat by Pulse Oximetry 97 09/24/16 16:39 - General physical appearance well developed, well nourished, moderate pain, obese - Eyes normal ocular movement - Neck trachea midline - Respiratory normal expansion, clear to auscultation - Cardiovascular Cardiovascular exam: Present: tachycardia, regular rhythm - Abdomen Abdomen general surgery: Present: bowel sounds present, soft, tender. Absent: guarding, rebound Abdominal Tenderness: Present: RUQ - Neurologic Present: CN 2-12 grossly intact - Psychiatric Psychiatric general surgery: Present: A&Ox3, other (hx of schizoaffective. Flat affect) Results - Labs All other labs normal. <Syed Guerra - Last Filed: 09/25/16 13:16> Date of Encounter: 09/24/16 History of Present Illness HPI: Mr. Barrientos is a 30 year old male Review of Systems All systems PM: A 10-system review of systems was performed and is negative for pertinent findings except as documented above in the HPI. General Surgery Exam Initial Vital Signs Temp Pulse Resp BP Pulse Ox 98.9 F 109 16 150/109 97 09/24/16 16:39 09/24/16 16:39 09/24/16 16:39 09/24/16 16:39 09/24/16 16:39 Results - Labs 09/25/16 08:12 09/25/16 05:48 Abnormal lab results WBC 18.7 K/mcL (4.3-11.1) H 09/25/16 08:12 Neutrophils # 11.6 K/mcL (1.6-8.9) H 09/25/16 05:48 Monocytes # 2.0 K/mcL (0.0-1.3) H 09/25/16 05:48 Glucose 108 mg/dL (70-99) H 09/25/16 05:48 POC Glucose 106 (58-89) H 09/25/16 05:36 Calcium 8.5 mg/dL (8.6-10.8) L 09/25/16 05:48 Diabetes panel 09/25/16 Range/Units 05:48 Sodium 138 (136-145) mEq/L Potassium 3.5 (3.5-4.5) mEq/L Chloride 106 (98-109) mEq/L Carbon Dioxide 22 (19-29) mEq/L BUN 11 (8-26) mg/dL Creatinine 1.25 D (0.72-1.25) mg/dL Glucose 108 H (70-99) mg/dL Calcium 8.5 L (8.6-10.8) mg/dL Calcium panel 09/25/16 Range/Units 05:48 Calcium 8.5 L (8.6-10.8) mg/dL Pituitary panel 09/25/16 Range/Units 05:48 Sodium 138 (136-145) mEq/L Potassium 3.5 (3.5-4.5) mEq/L Chloride 106 (98-109) mEq/L Carbon Dioxide 22 (19-29) mEq/L BUN 11 (8-26) mg/dL Creatinine 1.25 D (0.72-1.25) mg/dL Glucose 108 H (70-99) mg/dL Calcium 8.5 L (8.6-10.8) mg/dL Adrenal panel 09/25/16 Range/Units 05:48 Sodium 138 (136-145) mEq/L Potassium 3.5 (3.5-4.5) mEq/L Chloride 106 (98-109) mEq/L Carbon Dioxide 22 (19-29) mEq/L BUN 11 (8-26) mg/dL Creatinine 1.25 D (0.72-1.25) mg/dL Glucose 108 H (70-99) mg/dL Calcium 8.5 L (8.6-10.8) mg/dL All other labs normal. - Attending Attestation I examined this patient and my medical decision-making was reviewed with the CORRESPONDENCE SPECIALIST/PA/Advanced Practice Nurse/Resident Physician. I agree with the documented findings, disposition and treatment plan as described except to the extent set forth below. The patient is seen and evaluated with the resident. His physical examination clinical course is consistent with acute cholecystitis however his CAT scan demonstrates minimal findings. We will plan ultrasound of the right upper quadrant and subsequent lap scop cholecystectomy if these findings are consistent with acute cholecystitis. Syed Guerra MD FACS
[2016-09-24] MEDS ORDERED: clonazePAM 1 MG TABLET PO PRN (17:07)
[2016-09-24] MEDS: *HR* Heparin 5,000 UNIT/ML VIAL SQ SCH (19:02)
[2016-09-24] MEDS: Pantoprazole 40 MG VIAL IVP SCH (19:02)
[2016-09-24] MEDS: 0.9 % Sodium Chloride 1,000 ML IVC SCH (19:02)
[2016-09-24] MEDS: *HR* HYDROmorphone (PF) 1 MG/ML SYRINGE IVP PRN ×2 (19:20→23:32)
[2016-09-24] MEDS ORDERED: Divalproex (24 HR) 500 MG TABLET PO SCH (21:00)
[2016-09-24] MEDS: cefOXitin 2,000 MG in D5% in Water (Mini-Bag+) 100 ML IVPB SCH (21:42)
[2016-09-24] MEDS: Nicotine 21 MG PATCH.TD24 TD SCH (21:42)
[2016-09-25] MEDS: cefOXitin 2,000 MG in D5% in Water (Mini-Bag+) 100 ML IVPB SCH ×2 (00:42→18:01)
[2016-09-25] MEDS: *HR* HYDROmorphone (PF) 1 MG/ML SYRINGE IVP PRN ×10 (03:32→21:56)
[2016-09-25] MEDS ORDERED: cefOXitin 2,000 MG in D5% in Water (Mini-Bag+) 100 ML IVPB SCH (05:00)
[2016-09-25] MEDS: 0.9 % Sodium Chloride 1,000 ML IVC SCH ×3 (05:03→21:37)
[2016-09-25] MEDS: *HR* Heparin 5,000 UNIT/ML VIAL SQ SCH ×2 (05:55→18:04)
[2016-09-25 06:12] LABS: Basophils # 0.1 K/mcL (0.0-0.2); Basophils % 0.4 %; Eosinophils # 0.3 K/mcL (0.0-0.6); Eosinophils % 1.7 %; Hematocrit 42.2 % (37.5-50.1); Immature Granulocytes % 0.5 % (0-4); Lymphocytes # 4.1 K/mcL (0.6-4.6); Lymphocytes % 22.5 %; Mean Corpuscular HGB Conc 33.2 g/dL (31.6-35.5); Mean Corpuscular Hemoglobin 28.2 pg (28.0-33.3); Mean Corpuscular Volume 84.9 fL (83.0-100.0); Mean Platelet Volume 12.5 fL (9.4-12.4); Monocytes % 10.8 %; Neutrophils # 11.6 K/mcL (1.6-8.9); Platelet Count 158 K/mcL (140-400); Red Blood Count 4.97 M/mcL (4.19-5.50); Red Cell Distribution Width 14.1 % (11.5-14.5); Segmented Neutrophils % 64.1 %
[2016-09-25 06:30] LABS: BUN/Creatinine Ratio 9 (6-26); Blood Urea Nitrogen 11 mg/dL (8-26); Calcium 8.5 mg/dL (8.6-10.8); Carbon Dioxide 22 mEq/L (19-29); Chloride 106 mEq/L (98-109); Glucose 108 mg/dL (70-99); Osmolality,Calculated 286 (280-300); Potassium 3.5 mEq/L (3.5-4.5); Sodium 138 mEq/L (136-145); eGFR For African Americans > 60 (> 60); eGFR For Non-African Americans > 60 (> 60)
[2016-09-25] MEDS: Pantoprazole 40 MG VIAL IVP SCH (07:31)
[2016-09-25] MEDS: Nicotine 21 MG PATCH.TD24 TD SCH (07:33)
[2016-09-25 08:23] LABS: Hematocrit 41.4 % (37.5-50.1); Hemoglobin 13.7 g/dL (12.9-16.9); Mean Corpuscular HGB Conc 33.1 g/dL (31.6-35.5); Mean Corpuscular Hemoglobin 28.1 pg (28.0-33.3); Mean Corpuscular Volume 84.8 fL (83.0-100.0); Mean Platelet Volume 12.1 fL (9.4-12.4); Platelet Count 157 K/mcL (140-400); Red Blood Count 4.88 M/mcL (4.19-5.50)
--- NOTE | 2016-09-25 08:41 | Anesthesia Evaluation PreOp ---
Date of Encounter: 09/25/16 Time of Encounter: 10:15 - Past History Planned Operation: Lap. [facility]sey. Cardiac History: Denies any Significant Hx Pulmonary History: Smoker, Asthma [place] History: Other (Bipolar, Schizophrenic) Other Medical History: Denies Any Significant HX Anesthesia History: No Prior Anesthetic Complications, Past Anesthesia (Knee scope, arm sx) Alcohol Use: occasionally Drug use: cocaine, opiates, marijuana, methamphetamine, IVDU, prescription drug abuse Medications and Allergies Albuterol Sulfate [Albuterol Inhaler] 2 puff IH [id number] PRN #1 inhaler 04/29/16 [Rx] ClonazePAM [Klonopin] 1 mg PO BID PRN #60 tablet 07/28/16 [Rx] Divalproex (24 HR) [Depakote ER (24 HR)] 2,000 mg PO HS #120 tab.er.24h [Rx] Fluphenazine [Prolixin] 10 mg PO DAILY #30 tablet 07/28/16 [Rx] HydrOXYzine Pamoate 25 mg PO TID #90 capsule 07/28/16 [Rx] Esomeprazole Magnesium [Nexium] 20 mg PO DAILY #30 capsule. 09/23/16 [Rx] Benztropine Mesylate 1 mg PO BID 09/24/16 [History] FLUoxetine HCl [Fluoxetine HCl] 30 mg PO DAILY 09/24/16 [History] Quetiapine Fumarate [SEROquel] 100 mg PO HS 09/24/16 [History] Allergies chlorpromazine [From Thorazine] Allergy (Verified 08/23/15 18:23) Hives haloperidol [From Haldol] Adverse Reaction (Intermediate, Verified 02/15/16 15: 12) See Comments EPS - Meds/Allergy Pre-op Review Medications Reviewed: Yes Allergies Reviewed: Yes Beta Blockers on Current Med List: No Anesthesia Results - Labs 09/25/16 08:12 09/25/16 05:48 - Imaging EKG: image reviewed (SR) Anesthesia Exam O2 Sat Height 1.78 m Weight 101.469 kg O2 Sat by Pulse Oximetry 97 O2 Sat by Pulse Oximetry 97 O2 Sat by Pulse Oximetry 96 O2 Sat by Pulse Oximetry 96 O2 Sat by Pulse Oximetry 98 O2 Sat by Pulse Oximetry 96 O2 Sat by Pulse Oximetry 97 Vital Signs Temp Pulse Resp BP Pulse Ox 98.9 F 109 16 150/109 97 09/24/16 16:39 09/24/16 16:39 09/24/16 16:39 09/24/16 16:39 09/24/16 16:39 Vital Signs/O2 Sat, Most Current Temp Pulse Resp BP Pulse Ox 98.6 F 99 18 157/96 97 09/25/16 07:23 09/25/16 07:23 09/25/16 07:23 09/25/16 07:23 09/25/16 07:23 Height: 5'10'' Weight: 253# NPO (# of Hours): > 8 hrs Pain Scale: 0 Pain Scale Used: Numeric (1 - 10) - HEENT Pupil (Motor): Pupils equal, EOMI Mallampati: III Teeth: Normal Oral Opening: Greater than 3 - [place] LOC: Oriented [place] Motor: Normal RUE, Normal LUE, Normal RLE, Normal LLE, Normal Face [place] Sensory: Normal: RUE, LUE, RLE, LLE, Face - Cardiac Rhythm: Regular Murmur: None JVD: No Carotid Bruit: No - Pulmonary Breath Sounds: bilateral Clear Respiratory Effort: Symmetrical Anesthesia Assess/Plan ASA Score: 3 Modified Michela Scale for Level of Consciousness: Cooperative, oriented, and tranquil Anesthetic Plan: General Autologous Blood: Yes Monitoring Plan: Standard Monitors Recovery Plan: PACU
[2016-09-25] MEDS ORDERED: *HR* Rocuronium Bromide 50 MG/5 ML VIAL ONE (09:58)
[2016-09-25] MEDS ORDERED: Lidocaine -MPF 2% 2 ML VIAL ONE (09:58)
[2016-09-25] MEDS ORDERED: Ondansetron 4 MG/2 ML VIAL ONE (09:58)
[2016-09-25] MEDS ORDERED: Dexamethasone 4 MG/ML VIAL ONE (09:58)
[2016-09-25] MEDS ORDERED: *HR* Midazolam HCl 2 MG/2 ML VIAL ONE (09:59)
[2016-09-25] MEDS ORDERED: *HR* Propofol 200 MG/20 ML VIAL IVP ONE (09:59)
[2016-09-25] MEDS ORDERED: *HR* FentaNYL (PF) 100 MCG/2 ML VIAL ONE ×3 (09:59→10:53)
[2016-09-25] MEDS ORDERED: Albuterol 2.5 MG/3 ML NEBULIZER ONE (10:12)
[2016-09-25] MEDS ORDERED: *HR* Promethazine 25 MG/ML VIAL IVP PRN (10:19)
[2016-09-25] MEDS ORDERED: *HR* Labetalol 100 MG/20 ML MDV IVP PRN (10:19)
[2016-09-25] MEDS ORDERED: Ondansetron 4 MG/2 ML VIAL IVP ONE (10:19)
[2016-09-25] MEDS ORDERED: Albuterol 2.5 MG/3 ML NEBULIZER IH ONE (10:19)
[2016-09-25] MEDS ORDERED: CefOXitin 2,000 MG VIAL IVPB ONE (10:31)
[2016-09-25] MEDS ORDERED: *HR* Labetalol 20 MG/4 ML SYRINGE IVP ONE (11:24)
--- NOTE | 2016-09-25 11:54 | Operative Note ---
Date of procedure: 09/25/16 Pre-op diagnosis: Acute cholecystitis Post-op diagnosis: other (Gangrenous cholecystitis) Procedure: Laparoscopic cholecystectomy, cholangiogram +30% gangrenous gallbladder Anesthesia: CLARISSE Surgeon: Syed Guerra Estimated blood loss (cc): 100 Specimen: Gallbladder and contents Condition: stable Disposition: PACU Procedure in Detail: Laparoscopic cholecystectomy and intraoperative cholangiogram +30% for gangrenous cholecystitis requiring prolonged dissection Operative procedure after informed consent and appropriate patient identification timeout the patient's take major operating suite and placed supine position given adequate general endotracheal anesthesia the abdomen is prepped and draped in sterile fashion utilizing ChloraPrep standard draping techniques timeout was taken patient is identified. I made a vertical midline incision below the umbilicus dissected down to level of fascia there are 2 traction stitches placed in the abdominal cavity was entered visually. A Fish trocar was placed in the abdomen and the abdomen was insufflated to 15 mmHg pressure CO2 the gallbladder was visualized. A placement 11 port in the subxiphoid area and 2 5 mm ports in the subcostal area. The gallbladder was encased in inflammatory adhesions. Once the inflammatory adhesions were removed gallbladder was totally obstructed and gangrenous.. I decompressed the gallbladder with a gallbladder decompression needle which took an additional 15 minutes. The gallbladder was grasped and elevated. A variety of blunt and sharp dissection techniques were used to isolate the cystic duct and cystic artery. The dissection took an additional 15 minutes secondary to intense inflammatory response from the gangrenous gallbladder. The cystic artery was controlled with 2 surgical clips proximally and one distally and it was divided I placed a surgical clip on the neck the gallbladder and obtained an intraoperative cholangiogram using 10 mL of Isovue. Intraoperative cholangiogram was normal. The cholangiocatheter was removed and the cystic duct was controlled with 2 surgical clips proximally and was divided the gallbladder was removed from the gallbladder fossae using electrocautery. The dissection took an additional 15 minutes because of the intense inflammatory response from gangrenous gallbladder. The gallbladder was removed through the umbilical port site in a specimen bag. This required lengthening the fascial opening in the umbilicus.. I replaced the is on port and irrigated with copious amounts of antibiotic containing solution. There is no evidence of bleeding or bile leak. All trochars were removed. Fascia was closed with 0 Vicryl skin with 2-0 and 4-0 Vicryl he tolerated the procedure well and was transferred to recovery in stable condition
--- NOTE | 2016-09-25 12:42 | Anesthesia Evaluation Post Op ---
Date of Encounter: 09/25/16 Time of Encounter: 12:40 - Vital Signs Vital Signs: Vital Signs/O2 Sat, Most Current Temp Pulse Resp BP Pulse Ox 98.2 F 75 16 135/84 98 09/25/16 11:57 09/25/16 12:27 09/25/16 12:27 09/25/16 12:27 09/25/16 12:27 - Lungs Lungs: Clear Ascult./Percussion - Airway Airway: Non-obstructed - Cardiovascular Regular Rate - Mental Status Mental Status: Alert & Oriented, Answers Appropriately - Pain Pain Scale: 7 (comfortable, eating ice chips,NAD) Pain Scale used: Numeric (1 - 10) - Nausea Vomiting Nausea Vomiting: Not Present - Hydration Hydration: Ice chips, Has not voided - Discharge PostOp Status: Transfer Patient to floor
[2016-09-25] MEDS ORDERED: Acetaminophen IV 1,000 MG/100 ML INFUS..BTL IVPB PRN (12:47)
[2016-09-25] MEDS ORDERED: clonazePAM 1 MG TABLET PO PRN (12:47)
[2016-09-25] MEDS ORDERED: Divalproex (24 HR) 500 MG TABLET PO SCH (21:00)
[2016-09-26] MEDS: cefOXitin 2,000 MG in D5% in Water (Mini-Bag+) 100 ML IVPB SCH (02:47)
[2016-09-26] MEDS: *HR* HYDROmorphone (PF) 1 MG/ML SYRINGE IVP PRN (04:58)
[2016-09-26] MEDS: *HR* Heparin 5,000 UNIT/ML VIAL SQ SCH (04:59)
[2016-09-26 06:13] LABS: Basophils % 0.1 %; Eosinophils # 0.1 K/mcL (0.0-0.6); Eosinophils % 0.9 %; Hematocrit 33.5 % (37.5-50.1); Immature Granulocytes % 0.4 % (0-4); Lymphocytes # 3.6 K/mcL (0.6-4.6); Lymphocytes % 23.7 %; Mean Corpuscular HGB Conc 33.7 g/dL (31.6-35.5); Mean Corpuscular Volume 86.1 fL (83.0-100.0); Mean Platelet Volume 12.3 fL (9.4-12.4); Monocytes # 1.5 K/mcL (0.0-1.3); Monocytes % 10.1 %; Neutrophils # 9.8 K/mcL (1.6-8.9); Platelet Count 130 K/mcL (140-400); Red Blood Count 3.89 M/mcL (4.19-5.50); Red Cell Distribution Width 14.2 % (11.5-14.5); Segmented Neutrophils % 64.8 %
[2016-09-26 06:15] LABS: Hemoglobin 11.3 g/dL (12.9-16.9)
[2016-09-26 06:23] LABS: BUN/Creatinine Ratio 11 (6-26); Blood Urea Nitrogen 7 mg/dL (8-26); Carbon Dioxide 23 mEq/L (19-29); Chloride 106 mEq/L (98-109); Glucose 96 mg/dL (70-99); Osmolality,Calculated 282 (280-300); Potassium 3.5 mEq/L (3.5-4.5); Sodium 137 mEq/L (136-145); eGFR For African Americans > 60 (> 60); eGFR For Non-African Americans > 60 (> 60)
[2016-09-26 07:17] VITALS: BP 128/76
[2016-09-26] MEDS: 0.9 % Sodium Chloride 1,000 ML IVC SCH (08:08)
--- NOTE | 2016-09-26 09:15 | Discharge Summary ---
<Hunter Woodard - Last Filed: 09/26/16 09:13> Date of Encounter: 09/26/16 Time of Encounter: 09:13 - Discharge Diagnosis (1) Acute cholecystitis Priority: Primary Status: Resolved (2) Schizoaffective disorder Priority: Secondary Status: Acute Qualifiers: Schizoaffective disorder type: unspecified Qualified Code(s): F25.9 - Schizoaffective disorder, unspecified (3) DVT prophylaxis Priority: Primary Status: Acute - Discharge Medications Prescriptions: Oxycodone HCl/Acetaminophen [Percocet 10-325 mg Tablet] 1 each PO Q6H PRN #24 tablet PRN Reason: Pain Home Medications: Albuterol Sulfate [Albuterol Inhaler] 2 puff IH [id number] PRN #1 inhaler 04/29/16 [Rx] ClonazePAM [Klonopin] 1 mg PO BID PRN #60 tablet 07/28/16 [Rx] Divalproex (24 HR) [Depakote ER (24 HR)] 2,000 mg PO HS #120 tab.er.24h [Rx] Fluphenazine [Prolixin] 10 mg PO DAILY #30 tablet 07/28/16 [Rx] HydrOXYzine Pamoate 25 mg PO TID #90 capsule 07/28/16 [Rx] Esomeprazole Magnesium [Nexium] 20 mg PO DAILY #30 capsule. 09/23/16 [Rx] Benztropine Mesylate 1 mg PO BID 09/24/16 [History] FLUoxetine HCl [Fluoxetine HCl] 30 mg PO DAILY 09/24/16 [History] Quetiapine Fumarate [Seroquel] 100 mg PO HS 09/24/16 [History] Oxycodone HCl/Acetaminophen [Percocet 10-325 mg Tablet] 1 each PO Q6H PRN #24 tablet 09/26/16 [Rx] Allergies/Adverse Reactions: Allergies chlorpromazine [From Thorazine] Allergy (Verified 08/23/15 18:23) Hives haloperidol [From Haldol] Adverse Reaction (Intermediate, Verified 02/15/16 15: 12) See Comments EPS General Surgery Exam Initial Vital Signs Temp Pulse Resp BP Pulse Ox 98.9 F 109 16 150/109 97 09/24/16 16:39 09/24/16 16:39 09/24/16 16:39 09/24/16 16:39 09/24/16 16:39 - General physical appearance well developed, well nourished, no distress - Neck trachea midline - Respiratory normal expansion, clear to auscultation - Cardiovascular Cardiovascular exam: Present: RRR, no murmurs/rubs/gallops - Abdomen Abdomen general surgery: Present: bowel sounds present, soft, tender (expected post-op incisional tenderness) - Neurologic Present: CN 2-12 grossly intact - Psychiatric Psychiatric general surgery: Present: A&Ox3 Date of admission: 09/24/16 16:34 Primary care physician: PCP NO Discharging clinician: Syed Guerra Anticipated date of discharge: 09/26/16 - Patient Status Disposition: Home, Self-Care Condition: Good Overall status at discharge: patient is progressing back to baseline - Discharge Instructions Follow Up With: Syed Guerra MD [Partnered Physician] - 10/11/16 10:10 am Additional Instructions: Follow up with Dr. Guerra in 1-2 weeks - Diet and Activity Activity: resume usual activities as tolerated Diet: low fat, low cholesterol - Hospital Course Hospital course: Mr. Barrientos is a 30 year old male who presented to [place] [facility] with RUQ on 09/23. He has a hx of Schizoaffective disorder, tobacco abuse, and polysubstance abuse. The pain was rated 10/10 and was associated with nausea,vomiting, and anorexia. He was treated with pain medicine, antiemetics, and discharged home. He returned to [place] [facility] this am with persistent RUQ pain and was then directly admitted to the surgical service for acute cholecystitis. The pain is worse with palpation, is colicky, non-radiating, rated at 10/10. He has been having nausea and vomiting with the pain for the past few days. He states he has had problems with his gallbladder in the past. Final Diagnosis: Cholecystits (resolved) by Laparoscopic cholecystectomy, cholangiogram +30% gangrenous gallbladder He was admitted to the surgical service. A gallbladder ultrasound revealed 1. Cholelithiasis, gallbladder wall thickening, sludge filled gallbladder and a positive sonographic Loaiza sign consistent with acute cholecystitis. 2. Dilatation of the common bile duct measuring 8 mm without choledocholithiasis evident. He had an elevated WBC count of 18.7 and was having severe RUQ pain. With his clinical, laboratory, and imaging findings it was felt he needed to have a cholecystectomy. Operative procedure after informed consent and appropriate patient identification timeout the patient's take major operating suite and placed supine position given adequate general endotracheal anesthesia the abdomen is prepped and draped in sterile fashion utilizing ChloraPrep standard draping techniques timeout was taken patient is identified. I made a vertical midline incision below the umbilicus dissected down to level of fascia there are 2 traction stitches placed in the abdominal cavity was entered visually. A Fish trocar was placed in the abdomen and the abdomen was insufflated to 15 mmHg pressure CO2 the gallbladder was visualized. A placement 11 port in the subxiphoid area and 2 5 mm ports in the subcostal area. The gallbladder was encased in inflammatory adhesions. Once the inflammatory adhesions were removed gallbladder was totally obstructed and gangrenous.. I decompressed the gallbladder with a gallbladder decompression needle which took an additional 15 minutes. The gallbladder was grasped and elevated. A variety of blunt and sharp dissection techniques were used to isolate the cystic duct and cystic artery. The dissection took an additional 15 minutes secondary to intense inflammatory response from the gangrenous gallbladder. The cystic artery was controlled with 2 surgical clips proximally and one distally and it was divided I placed a surgical clip on the neck the gallbladder and obtained an intraoperative cholangiogram using 10 mL of Isovue. Intraoperative cholangiogram was normal. The cholangiocatheter was removed and the cystic duct was controlled with 2 surgical clips proximally and was divided the gallbladder was removed from the gallbladder fossae using electrocautery. The dissection took an additional 15 minutes because of the intense inflammatory response from gangrenous gallbladder. The gallbladder was removed through the umbilical port site in a specimen bag. This required lengthening the fascial opening in the umbilicus.. I replaced the is on port and irrigated with copious amounts of antibiotic containing solution. There is no evidence of bleeding or bile leak. All trochars were removed. Fascia was closed with 0 Vicryl skin with 2-0 and 4-0 Vicryl he tolerated the procedure well and was transferred to recovery in stable condition Patients vitals were stable at the time of discharge. - Time Spent with Patient Total time spent providing and/or coordinating discharge services: Greater than 30 minutes Labs on day of discharge: Labs from last 24 hours 03/20/17 03/20/17 05:46 05:46 WBC 15.2 H RBC 3.89 L Hgb 11.3 L D Hct 33.5 L MCV 86.1 MCH 29.0 MCHC 33.7 RDW 14.2 Plt Count 130 L MPV 12.3 Immature Gran % 0.4 Seg Neutrophils % 64.8 Lymphocytes % 23.7 Monocytes % 10.1 Eosinophils % 0.9 Basophils % 0.1 Neutrophils # 9.8 H Lymphocytes # 3.6 Monocytes # 1.5 H Eosinophils # 0.1 Basophils # 0.0 Sodium 137 Potassium 3.5 Chloride 106 Carbon Dioxide 23 BUN 7 L Creatinine 0.66 L Est GFR ( Amer) > 60 Est GFR (Non-Af Amer) > 60 BUN/Creatinine Ratio 11 Glucose 96 Calculated Osmolality 282 Calcium 8.0 L - Impressions ITS Impressions Gallbladder Ultrasound 09/25/16 09:00 IMPRESSION: 1. Cholelithiasis, gallbladder wall thickening, sludge filled gallbladder and a positive sonographic Loaiza sign consistent with acute cholecystitis. 2. Dilatation of the common bile duct measuring 8 mm without choledocholithiasis evident. MRCP could be performed for further evaluation if clinically warranted. The findings were sent to the Radiology Results Communication [facility] at 9:26 am on 09/25/2016to be communicated to a licensed caregiver. D/ / 09/25/2016 09:28:49 Mike Bradley MD / bcarter Interpreting Provider: Mike Bradley MD Cholangiogram,Operative 09/25/16 11:13 IMPRESSION: No evidence of a leak or retained stones. Refer to surgical report. D/ / 09/25/2016 11:23:21 Raudel Harp MD / nancy Interpreting Provider: Raudel Harp MD <Syed Guerra T - Last Filed: 09/26/16 13:25> Date of Encounter: 09/26/16 General Surgery Exam Initial Vital Signs Temp Pulse Resp BP Pulse Ox 98.9 F 109 16 150/109 97 09/24/16 16:39 09/24/16 16:39 09/24/16 16:39 09/24/16 16:39 09/24/16 16:39 Date of admission: 09/24/16 16:34 Primary care physician: PCP NO - Patient Status Overall status at discharge: patient is progressing back to baseline - Hospital Course Hospital course: Mr. Barrientos is a 30 year old male - Time Spent with Patient Total time spent providing and/or coordinating discharge services: Labs on day of discharge: Labs from last 24 hours 09/26/16 09/26/16 05:46 05:46 WBC 15.2 H RBC 3.89 L Hgb 11.3 L D Hct 33.5 L MCV 86.1 MCH 29.0 MCHC 33.7 RDW 14.2 Plt Count 130 L MPV 12.3 Immature Gran % 0.4 Seg Neutrophils % 64.8 Lymphocytes % 23.7 Monocytes % 10.1 Eosinophils % 0.9 Basophils % 0.1 Neutrophils # 9.8 H Lymphocytes # 3.6 Monocytes # 1.5 H Eosinophils # 0.1 Basophils # 0.0 Sodium 137 Potassium 3.5 Chloride 106 Carbon Dioxide 23 BUN 7 L Creatinine 0.66 L Est GFR ( Amer) > 60 Est GFR (Non-Af Amer) > 60 BUN/Creatinine Ratio 11 Glucose 96 Calculated Osmolality 282 Calcium 8.0 L - Impressions ITS Impressions Gallbladder Ultrasound 09/25/16 09:00 IMPRESSION: 1. Cholelithiasis, gallbladder wall thickening, sludge filled gallbladder and a positive sonographic Loaiza sign consistent with acute cholecystitis. 2. Dilatation of the common bile duct measuring 8 mm without choledocholithiasis evident. MRCP could be performed for further evaluation if clinically warranted. The findings were sent to the Radiology Results Communication Center at 9:26 am on 09/25/2016to be communicated to a licensed caregiver. D/ / 09/25/2016 09:28:49 Mike Bradley MD / bcarter Interpreting Provider: Mike Bradley MD Cholangiogram,Operative 09/25/16 11:13 IMPRESSION: No evidence of a leak or retained stones. Refer to surgical report. D/ / 09/25/2016 11:23:21 Raudel Harp MD / nancy Interpreting Provider: Raudel Harp MD - Attending Attestation I examined this patient and my medical decision-making was reviewed with the ELIGIBILITY SPECIALIST/PA/Advanced Practice Nurse/Resident Physician. I agree with the documented findings, disposition and treatment plan as described except to the extent set forth below. The patient was seen and evaluated on morning rounds with the resident. He is having some mild incisional pain. His preoperative pain is gone. He is afebrile. He is ready for discharge. I will see him back in 1 week. Syed Guerra MD FACS
== END 2016-09-26 10:04 | disposition home or self-care (01) | DRG 263 ==
LOC: 3ANU
PROVIDERS: ADMIT Family Medicine; ATTEND Surgery

== ENCOUNTER 2016-11-16 16:13 | Inpatient (IN) ==
[2016-11-16 17:55] LABS: Bilirubin,Urine Small (Negative); Blood,Urine Negative (Negative); Clarity,Urine Clear (Clear); Color,Urine Dark Yellow (Yellow); Glucose,Urine (UA) Normal (Normal); Ketones,Urine Trace mg/dL (Negative); Leukocyte Esterase,Urine Trace (Negative); Nitrite,Urine Negative (Negative); Protein,Urine Trace mg/dL (Neg-Trace); Specific Gravity,Urine > 1.030 (1.010-1.025); Urobilinogen,Urine Normal (Normal)
[2016-11-16 17:56] LABS: Bacteria,Urine None Seen per hpf (None-Few); Hyaline Casts,Urine Moderate per lpf (None-Few); Squamous Epithelial Cell,Urine Many per lpf (None-Few)
--- NOTE | 2016-11-16 18:01 | Emergency Department Note ---
Disposition Clinical Impression: Acute psychosis, Suicidal ideation, Homicidal ideation Disposition: Admitted As Inpatient Condition: Good Time of Disposition: 20:35 Psych HPI - General Chief Complaint: ED Psychiatric Symptoms Stated Complaint: psych eval/not SI Time Seen by Provider: 11/16/16 17:32 Source: patient, family Mode of arrival: ambulatory Limitations: no limitations Nursing Notes Reviewed: Yes Vital Signs Reviewed: Yes - History of Present Illness HPI Narrative: 30-year-old with history of depression and schizophrenia presents with very poorly controlled disease despite being compliant with his medications. He states that he has been regularly hearing voices that scream at him and tell him he is worthless as well as seeing demons that try to kill him and a bird that was flying around his home today trying to kill him. He states that he would like to find a gun to kill his roommate and himself. He currently does not have access to any guns. He admits to marijuana use daily and snorting methamphetamine several times per week. He last used methamphetamine 2 days ago. He smokes cigarettes daily and drinks alcohol occasionally. He states that he drank 6 beers over the last few days. He denies any recent illness or injury. He is status post cholecystectomy one month ago with Dr. Guerra and has had significantly improved GI symptoms since then. He was afraid that he might have some gangrene in his abdomen due to mild right upper quadrant discomfort occasionally, but does note that these symptoms are improving since the surgery and are not noticeable today. Eyes any fevers, nausea or vomiting, cough or cold symptoms, changes in bowel movements or urination, rashes or edema. - Related Data Home Medications Medication Instructions Recorded Confirmed Benztropine Mesylate 1 mg PO BID 09/24/16 11/16/16 FLUoxetine HCl [Fluoxetine HCl] 30 mg PO DAILY 09/24/16 11/16/16 Quetiapine Fumarate [Seroquel] 100 mg PO HS 09/24/16 11/16/16 Previous Rx's Medication Instructions Recorded Divalproex (24 HR) [Depakote ER 2,000 mg PO HS #120 tab.er.24h 07/28/16 (24 HR)] Fluphenazine [Prolixin] 10 mg PO DAILY #30 tablet 07/28/16 clonazePAM [Klonopin] 1 mg PO BID PRN #60 tablet 07/28/16 Allergies Allergy/AdvReac Type Severity Reaction Status Date / Time chlorpromazine Allergy Hives Verified 11/16/16 16:20 [From Thorazine] haloperidol [From Haldol] AdvReac Intermediate See Verified 11/16/16 16:20 Comments All systems ED: reviewed and negative except as stated. Past Medical History - Past Medical History Attestation: Yes The following information was validated with the patient. Source: patient Medical history: Reports: asthma Surgical history: Reports: arthroscopy Psychiatric history: Reports: bipolar, schizophrenia, previous psychiatric hospitalization - Social History Smoking Status: Current every day smoker Smokeless Tobacco Status: No Alcohol use: Reports: occasionally Drug use: Reports: cocaine, opiates, marijuana, methamphetamine, IVDU, prescription drug abuse Physical Exam - Head Head exam: atraumatic, normocephalic, normal inspection - Eye Eye exam: Present: normal appearance, PERRL, EOMI - ENT ENT exam: normal exam, normal oropharynx, mucous membranes moist - Neck Neck exam: Present: normal inspection, full ROM, trachea midline - Chest Chest inspection: Present: normal inspection, symmetric chest wall rise - Respiratory Respiratory exam: Clear to auscultation bilaterally without wheezes rales or rhonchi Cardiovascular Cardiovascular exam: Present: regular rate, normal rhythm, normal heart sounds - Abdominal Exam Abdominal exam: Present: soft, Non-Tender. Absent: tenderness, distention, guarding, rebound, rigidity. Incisions clean and dry and intact without any surrounding signs of infection. - Extremities Exam Extremities exam: Present: normal inspection, full ROM - Expanded Lower Extremity Exam Hip/Pelvis exam: Present: normal inspection, full ROM - Back Exam Back exam: Present: normal inspection, full ROM. Absent: tenderness, CVA tenderness (R), CVA tenderness (L) - Neurological Exam Neurological exam: Present: alert, oriented X3, CN II-XII intact - Psychiatric Psychiatric exam: Patient appears to be having hallucinations while we talked he will look around the room apparently seeing things that are not there. At times, he seems to be hearing voices as well. - Skin Skin exam: Present: warm, dry, intact, normal color - General Limitations: no limitations General appearance: alert, in no apparent distress Course - Reevaluation(s) Reevaluation #1: Patient seen by psychiatric nurse and accepted to the psychiatric unit. Stable for admission at this time. Time: 20:34 Vital Signs Temperature 98.2 F 11/16/16 16:21 Pulse Rate 98 11/16/16 16:21 Respiratory Rate 15 11/16/16 16:21 Blood Pressure 122/83 11/16/16 16:21 O2 Sat by Pulse Oximetry 97 11/16/16 16:21 Temperature 98.2 F 11/16/16 21:00 Pulse Rate 54 11/16/16 21:00 Respiratory Rate 16 11/16/16 21:00 Blood Pressure 122/83 11/16/16 21:00 O2 Sat by Pulse Oximetry 97 11/16/16 20:24 Oxygen Delivery Oxygen Delivery Room Air Psych - Lab Data Result diagrams: 11/16/16 18:29 11/16/16 18:29 Lab Results 11/16/16 11/16/16 11/16/16 Range/Units 17:45 17:45 18:29 WBC 13.6 H (4.3-11.1) K/mcL RBC 4.53 (4.19-5.50) M/mcL Hgb 13.0 (12.9-16.9) g/dL Hct 38.8 (37.5-50.1) % MCV 85.7 (83.0-100.0) fL MCH 28.7 (28.0-33.3) pg MCHC 33.5 (31.6-35.5) g/dL RDW 14.1 (11.5-14.5) % Plt Count 192 (140-400) K/mcL MPV 12.2 (9.4-12.4) fL Immature Gran % 0.4 (0-4) % Seg Neutrophils % 57.6 % Lymphocytes % 32.0 % Monocytes % 7.4 % Eosinophils % 2.3 % Basophils % 0.3 % Neutrophils # 7.8 (1.6-8.9) K/mcL Lymphocytes # 4.4 (0.6-4.6) K/mcL Monocytes # 1.0 (0.0-1.3) K/mcL Eosinophils # 0.3 (0.0-0.6) K/mcL Basophils # 0.0 (0.0-0.2) K/mcL Sodium (136-145) mEq/L Potassium (3.5-4.5) mEq/L Chloride (98-109) mEq/L Carbon Dioxide (19-29) mEq/L BUN (8-26) mg/dL Creatinine (0.72-1.25) mg/dL Est GFR ( Amer) (> 60) Est GFR (Non-Af Amer) (> 60) BUN/Creatinine Ratio (6-26) Glucose (70-99) mg/dL Calculated Osmolality (280-300) Calcium (8.6-10.8) mg/dL Urine Color Dark Yellow (Yellow) Urine Clarity Clear (Clear) Urine pH 6.0 (5.0-8.0) pH Units Ur Specific [place] > 1.030 H (1.010-1.025) Urine Protein Trace (Neg-Trace) mg/dL Urine Glucose (UA) Normal (Normal) mg/dL Urine Ketones Trace H (Negative) mg/dL Urine Blood Negative (Negative) Urine Nitrite Negative (Negative) Urine Bilirubin Small H (Negative) Urine Urobilinogen Normal (Normal) mg/dL Ur Leukocyte Esterase Trace H (Negative) Urine Microscopic RBC 5-15 H (0-3) per hpf Urine Microscopic WBC 5-15 H (0-3) per hpf Ur Squamous Epith Cells Many H (None-Few) per lpf Urine Bacteria None Seen (None-Few) per hpf Hyaline Casts Moderate H (None-Few) per lpf Salicylates (15-30) mg/dL Urine Opiates Screen Positive H (Dipppt=986) ng/mL Acetaminophen (10-30) mcg/mL Ur Barbiturates Screen Negative (Qeqpcx=025) ng/mL Valproic Acid (50-100) mcg/mL Ur Phencyclidine Scrn Negative (Cutoff=25) ng/mL Ur Amphetamines Screen Negative (Yfsjmo=0289) ng/mL U Benzodiazepines Scrn Positive H (Rxthal=157) ng/mL Urine Cocaine Screen Positive H (Cutoff= 300) ng/mL U Marijuana (THC) Screen Positive H (Cutoff = 50) ng/mL Ethyl Alcohol (0-10) mg/dL 11/16/16 Range/Units 18:29 WBC (4.3-11.1) K/mcL RBC (4.19-5.50) M/mcL Hgb (12.9-16.9) g/dL Hct (37.5-50.1) % MCV (83.0-100.0) fL MCH (28.0-33.3) pg MCHC (31.6-35.5) g/dL RDW (11.5-14.5) % Plt Count (140-400) K/mcL MPV (9.4-12.4) fL Immature Gran % (0-4) % Seg Neutrophils % % Lymphocytes % % Monocytes % % Eosinophils % % Basophils % % Neutrophils # (1.6-8.9) K/mcL Lymphocytes # (0.6-4.6) K/mcL Monocytes # (0.0-1.3) K/mcL Eosinophils # (0.0-0.6) K/mcL Basophils # (0.0-0.2) K/mcL Sodium 140 (136-145) mEq/L Potassium 3.7 (3.5-4.5) mEq/L Chloride 107 (98-109) mEq/L Carbon Dioxide 24 (19-29) mEq/L BUN 8 (8-26) mg/dL Creatinine 0.74 (0.72-1.25) mg/dL Est GFR ( Amer) > 60 (> 60) Est GFR (Non-Af Amer) > 60 (> 60) BUN/Creatinine Ratio 11 (6-26) Glucose 85 (70-99) mg/dL Calculated Osmolality 288 (280-300) Calcium 8.9 (8.6-10.8) mg/dL Urine Color (Yellow) Urine Clarity (Clear) Urine pH (5.0-8.0) pH Units Ur Specific [place] (1.010-1.025) Urine Protein (Neg-Trace) mg/dL Urine Glucose (UA) (Normal) mg/dL Urine Ketones (Negative) mg/dL Urine Blood (Negative) Urine Nitrite (Negative) Urine Bilirubin (Negative) Urine Urobilinogen (Normal) mg/dL Ur Leukocyte Esterase (Negative) Urine Microscopic RBC (0-3) per hpf Urine Microscopic WBC (0-3) per hpf Ur Squamous Epith Cells (None-Few) per lpf Urine Bacteria (None-Few) per hpf Hyaline Casts (None-Few) per lpf Salicylates < 5.0 L (15-30) mg/dL Urine Opiates Screen (Tytggt=899) ng/mL Acetaminophen < 1.0 L (10-30) mcg/mL Ur Barbiturates Screen (Urppvf=179) ng/mL Valproic Acid 39.10 L (50-100) mcg/mL Ur Phencyclidine Scrn (Cutoff=25) ng/mL Ur Amphetamines Screen (Fcznpw=0602) ng/mL U Benzodiazepines Scrn (Rnuppf=056) ng/mL Urine Cocaine Screen (Cutoff= 300) ng/mL U Marijuana (THC) Screen (Cutoff = 50) ng/mL Ethyl Alcohol < 10 (0-10) mg/dL Psychiatric Medical Clearance - Medical Clearance Checklist Medical History: No Social History Section defined Current Vitals: Last Vital Signs Temp 98.2 F 11/16/16 21:00 Pulse 54 11/16/16 21:00 Resp 16 11/16/16 21:00 BP 122/83 11/16/16 21:00 Pulse Ox 97 11/16/16 20:24 Psychiatric Lab Panel: Drug Levels and Toxicity 11/16/16 11/16/16 17:45 18:29 Urine Opiates Screen Positive H Acetaminophen < 1.0 L Ur Barbiturates Screen Negative Ur Phencyclidine Scrn Negative Ur Amphetamines Screen Negative U Benzodiazepines Scrn Positive H Urine Cocaine Screen Positive H U Marijuana (THC) Screen Positive H Ethyl Alcohol < 10 Abnormal Labs: Abnormal lab results WBC 13.6 K/mcL (4.3-11.1) H 11/16/16 18:29 Ur Specific [place] > 1.030 (1.010-1.025) H 11/16/16 17:45 Urine Ketones Trace mg/dL (Negative) H 11/16/16 17:45 Urine Bilirubin Small (Negative) H 11/16/16 17:45 Ur Leukocyte Esterase Trace (Negative) H 11/16/16 17:45 Urine Microscopic RBC 5-15 per hpf (0-3) H 11/16/16 17:45 Urine Microscopic WBC 5-15 per hpf (0-3) H 11/16/16 17:45 Ur Squamous Epith Cells Many per lpf (None-Few) H 11/16/16 17:45 Hyaline Casts Moderate per lpf (None-Few) H 11/16/16 17:45 Salicylates < 5.0 mg/dL (15-30) L 11/16/16 18:29 Urine Opiates Screen Positive ng/mL (Iawohk=705) H 11/16/16 17:45 Acetaminophen < 1.0 mcg/mL (10-30) L 11/16/16 18:29 Valproic Acid 39.10 mcg/mL (50-100) L 11/16/16 18:29 U Benzodiazepines Scrn Positive ng/mL (Xtjyue=265) H 11/16/16 17:45 Urine Cocaine Screen Positive ng/mL (Cutoff= 300) H 11/16/16 17:45 U Marijuana (THC) Screen Positive ng/mL (Cutoff = 50) H 11/16/16 17:45 Attestation Statement - Attestation Attestation: I examined this patient and my medical decision-making was reviewed with the KILN REMOVER/PA/Advanced Practice Nurse/Resident Physician. I agree with the documented findings, disposition and treatment plan as described except to the extent set forth below. Patient emergency department with hallucinations. Has made suicidal and homicidal threats. Admits to drug abuse. Exam shows some agitated but cooperative. Plan. Medical clearance and 1A evaluation. Patient medically cleared. Awaiting 1A evaluation. Admitted to psych. Raysal slip filled out.
[2016-11-16 18:04] LABS: Amphetamine Screen,Urine Negative ng/mL (Cutoff=1000); Barbiturate Screen,Urine Negative ng/mL (Cutoff=200); Benzodiazepines Screen,Urine Positive ng/mL (Cutoff=200); Cannabinoid Screen,Urine Positive ng/mL (Cutoff = 50); Cocaine Screen,Urine Positive ng/mL (Cutoff= 300); Opiate Screen,Urine Positive ng/mL (Cutoff=300); Phencyclidine Screen,Urine Negative ng/mL (Cutoff=25)
[2016-11-16 18:39] LABS: Basophils % 0.3 %; Eosinophils # 0.3 K/mcL (0.0-0.6); Eosinophils % 2.3 %; Hematocrit 38.8 % (37.5-50.1); Immature Granulocytes % 0.4 % (0-4); Lymphocytes # 4.4 K/mcL (0.6-4.6); Mean Corpuscular HGB Conc 33.5 g/dL (31.6-35.5); Mean Corpuscular Hemoglobin 28.7 pg (28.0-33.3); Mean Corpuscular Volume 85.7 fL (83.0-100.0); Mean Platelet Volume 12.2 fL (9.4-12.4); Monocytes % 7.4 %; Neutrophils # 7.8 K/mcL (1.6-8.9); Platelet Count 192 K/mcL (140-400); Red Blood Count 4.53 M/mcL (4.19-5.50); Red Cell Distribution Width 14.1 % (11.5-14.5); Segmented Neutrophils % 57.6 %
[2016-11-16 18:52] LABS: BUN/Creatinine Ratio 11 (6-26); Blood Urea Nitrogen 8 mg/dL (8-26); Calcium 8.9 mg/dL (8.6-10.8); Carbon Dioxide 24 mEq/L (19-29); Chloride 107 mEq/L (98-109); Glucose 85 mg/dL (70-99); Osmolality,Calculated 288 (280-300); Potassium 3.7 mEq/L (3.5-4.5); Sodium 140 mEq/L (136-145); eGFR For African Americans > 60 (> 60); eGFR For Non-African Americans > 60 (> 60)
[2016-11-16 18:53] LABS: Acetaminophen < 1.0 mcg/mL (10-30); Ethanol < 10 mg/dL (0-10); Salicylate < 5.0 mg/dL (15-30)
[2016-11-16] MEDS ORDERED: *HR* LORazepam 2 MG/ML VIAL IM PRN (20:41)
[2016-11-16] MEDS ORDERED: *HR* LORazepam 1 MG TABLET PO PRN (20:41)
[2016-11-16] MEDS ORDERED: hydrOXYzine pamoate 25 MG CAPSULE PO PRN (20:41)
[2016-11-16] MEDS ORDERED: Mag Hydrox/Al Hydrox/Simeth 30 ML UDC PO PRN (20:41)
[2016-11-16] MEDS ORDERED: Acetaminophen 325 MG TABLET PO PRN (20:41)
[2016-11-16] MEDS ORDERED: MOM Conc 10 ML UD.LIQ PO PRN (20:41)
[2016-11-16] MEDS ORDERED: Ziprasidone 20 MG CAPSULE PO PRN (20:44)
[2016-11-16] MEDS: Divalproex (24 HR) 500 MG TABLET PO SCH (21:26)
[2016-11-17] MEDS: FLUoxetine HCl 10 MG CAPSULE PO SCH (09:41)
--- NOTE | 2016-11-17 14:46 | Psychiatry History & Physical ---
Date of Encounter: 11/17/16 Time of Encounter: 14:41 History of Present Illness Patient Stated Chief Complaint: homicidal ideation Medicare Admission Attestation: For traditional Medicare patients the provided hospital inpatient services are reasonable and necessary and in the case of services not specified as inpatient -only under 42 CFR 419.22 (n), that they are appropriately provided as inpatient services in accordance 42 CFR 412.3. For Critical Access Hospital the patient may reasonably be expected to be discharged or transferred to a hospital within 96 hours after admission to the Critical Access Hospital. Admitted From: Home Plans for Post Hospital Care: Transfer Inp Rehab Fac History of Present Illness: Mr. Barrientos is a 30 year old male who was admitted secondary to psychosis and homicidal ideation toward his roommate. Long standing history of drug use. Reports he does everything but PCP. Tox screen positive for multiple substances. Chronically noncompliant with treating his Schizoaffective Disorder secondary to losing housing and using drugs. Per staff he has not even been able to remain compliant with long acting injectables. He won't stay in supportive housing and rehab facilities are reluctant to take him due to his psychotic symptoms. According to social work there is a new rehab center affiliated with a respite care facility in the area. Amadou is agreeable to a referral. Reports he cannot return to his current living situation secondary to HI toward roommate. Actively psychotic. Endorses AH and VH. Responding to IS. Delayed responses. Denies suicidal ideation, plan, or intent. Past Med Surg Social Fam HX - Past Medical History Medical history: asthma - Past Psychiatric History Psychiatric history: Reports: schizophrenia, previous psychiatric hospitalization - Past Surgical History Surgical History: arthroscopy - Social History Smoking Status: Current every day smoker Smokeless Tobacco Status: No Alcohol use: occasionally Drug use: cocaine, opiates, marijuana, methamphetamine, IVDU, prescription drug abuse - Family History Grandfather Adopted: No Family Member Ethnicity: Non- Living Status: Still Living Hx Family Cardiac Disorders: No Hx Family Respiratory Disorders: No Hx Family Cancer: No Hx Family GI Disorders: No Hx Family Endocrine Disorder: Yes (THYROID DISORDER) Hx Family Neuromuscular Disorders: No Hx Family Neurologic Disorders: No Hx Family HEENT Disorders: No Hx Family Autoimmune Disorders: No Medications & Allergies Divalproex (24 HR) [Depakote ER (24 HR)] 2,000 mg PO HS #120 tab.er.24h [Rx] Fluphenazine [Prolixin] 10 mg PO DAILY #30 tablet 07/28/16 [Rx] clonazePAM [Klonopin] 1 mg PO BID PRN #60 tablet 07/28/16 [Rx] Benztropine Mesylate 1 mg PO BID 09/24/16 [History] FLUoxetine HCl [Fluoxetine HCl] 30 mg PO DAILY 09/24/16 [History] Quetiapine Fumarate [Seroquel] 100 mg PO HS 09/24/16 [History] Allergies chlorpromazine [From Thorazine] Allergy (Verified 11/16/16 16:20) Hives haloperidol [From Haldol] Adverse Reaction (Intermediate, Verified 11/16/16 16: 20) See Comments EPS Review of Systems Constitutional: Denies: fever, chills, weakness, weight change Eyes: Denies: eye pain, vision change Ears, Nose, Throat: Denies: ear pain, throat pain, dental pain, hearing loss, congestion Cardiovascular: Denies: chest pain, palpitations, dyspnea on exertion Respiratory: Denies: cough, dyspnea, wheezes Gastrointestinal: Denies: abdominal pain, nausea, vomiting, diarrhea, constipation Genitourinary male: Denies: urgency, dysuria, frequency, genital lesions Genitourinary female: Denies: urgency, dysuria, frequency, abnormal menses, dyspareunia Musculoskeletal: Denies: joint swelling, joint pain Integumentary: Denies: rash, lesions, pruritus Neurological: Denies: headache, weakness, numbness, memory loss Endocrine: Denies: fatigue, heat or cold intolerance Hematologic/Lymphatic: Denies: easy bruising, lymphadenopathy Allergic/Immunologic: Denies: urticaria, itchy eyes Mental Status Exam Patient orientation: Yes Person, Yes Time, Yes Place Level of alertness: Alert Patient appearance: Unkempt, Disheveled Behavior: distractible Psychomotor activity: Normal Eye contact: Minimal Contact Mood description: Depressed Affect description: congruent with mood Speech pattern: Delayed Speech volume: Normal Thought process: Thought Blocking Thought content: Yes Homicidal ideation Perceptual disturbances: Yes Reacting to internal stimuli, Yes Auditory hallucinations, Yes Visual hallucinations Attention span: Unable to Sustain Attention Memory description: Grossly Intact Patient reliability: Questionable Historian Intelligence estimate: Average Judgment: Poor Insight: Minimal Exam - HEENT Head exam IM: Present: atraumatic Eye exam IM: Present: EOMI ENT exam IM: Present: mucous membranes moist - Neurological Neurological exam IM: Present: alert, oriented X3 - Respiratory Respiratory exam IM: Present: CTAB - GI/Abdominal GI/Abdominal exam IM: Present: normal bowel sounds - Extremities Extremities exam IM: Present: full ROM - Skin Skin exam IM: Present: normal color Results - Vital Signs Vital signs: Temp Pulse Resp BP Pulse Ox 98 F 85 18 133/85 97 11/17/16 09:00 11/17/16 09:00 11/17/16 09:00 11/17/16 09:00 11/16/16 20:24 - Labs Labs: Laboratory Last Values WBC 13.6 K/mcL (4.3-11.1) H 11/16/16 18:29 RBC 4.53 M/mcL (4.19-5.50) 11/16/16 18:29 Hgb 13.0 g/dL (12.9-16.9) 11/16/16 18:29 Hct 38.8 % (37.5-50.1) 11/16/16 18:29 MCV 85.7 fL (83.0-100.0) 11/16/16 18:29 MCH 28.7 pg (28.0-33.3) 11/16/16 18: MCHC 33.5 g/dL (31.6-35.5) 11/16/16 18:29 RDW 14.1 % (11.5-14.5) 11/16/16 18:29 Plt Count 192 K/mcL (140-400) 11/16/16 18:29 MPV 12.2 fL (9.4-12.4) 11/16/16 18:29 Immature Gran % 0.4 % (0-4) 11/16/16 18:29 Seg Neutrophils % 57.6 % 11/16/16 18:29 Lymphocytes % 32.0 % 11/16/16 18:29 Monocytes % 7.4 % 11/16/16 18:29 Eosinophils % 2.3 % 11/16/16 18:29 Basophils % 0.3 % 11/16/16 18:29 Neutrophils # 7.8 K/mcL (1.6-8.9) 11/16/16 18: Lymphocytes # 4.4 K/mcL (0.6-4.6) 11/16/16 18:29 Monocytes # 1.0 K/mcL (0.0-1.3) 11/16/16 18:29 Eosinophils # 0.3 K/mcL (0.0-0.6) 11/16/16 18:29 Basophils # 0.0 K/mcL (0.0-0.2) 11/16/16 18:29 Sodium 140 mEq/L (136-145) 11/16/16 18: Potassium 3.7 mEq/L (3.5-4.5) 11/16/16 18: Chloride 107 mEq/L (98-109) 11/16/16 18: Carbon Dioxide 24 mEq/L (19-29) 11/16/16 18: BUN 8 mg/dL (8-26) 11/16/16 18: Creatinine 0.74 mg/dL (0.72-1.25) 11/16/16 18: Est GFR ( Amer) > 60 (> 60) 11/16/16 18: Est GFR (Non-Af Amer) > 60 (> 60) 11/16/16 18: BUN/Creatinine Ratio 11 (6-26) 11/16/16 18: Glucose 85 mg/dL (70-99) 11/16/16 18: Calculated Osmolality 288 (280-300) 11/16/16 18: Calcium 8.9 mg/dL (8.6-10.8) 11/16/16 18:29 Urine Color Dark Yellow (Yellow) 11/16/16 17:45 Urine Clarity Clear (Clear) 11/16/16 17:45 Urine pH 6.0 pH Units (5.0-8.0) 11/16/16 17:45 Ur Specific [place] > 1.030 (1.010-1.025) H 11/16/16 17:45 Urine Protein Trace mg/dL (Neg-Trace) 11/16/16 17:45 Urine Glucose (UA) Normal mg/dL (Normal) 11/16/16 17:45 Urine Ketones Trace mg/dL (Negative) H 11/16/16 17:45 Urine Blood Negative (Negative) 11/16/16 17:45 Urine Nitrite Negative (Negative) 11/16/16 17:45 Urine Bilirubin Small (Negative) H 11/16/16 17:45 Urine Urobilinogen Normal mg/dL (Normal) 11/16/16 17:45 Ur Leukocyte Esterase Trace (Negative) H 11/16/16 17:45 Urine Microscopic RBC 5-15 per hpf (0-3) H 11/16/16 17:45 Urine Microscopic WBC 5-15 per hpf (0-3) H 11/16/16 17:45 Ur Squamous Epith Cells Many per lpf (None-Few) H 11/16/16 17:45 Urine Bacteria None Seen per hpf (None-Few) 11/16/16 17:45 Hyaline Casts Moderate per lpf (None-Few) H 11/16/16 17:45 Salicylates < 5.0 mg/dL (15-30) L 11/16/16 18:29 Urine Opiates Screen Positive ng/mL (Wueirv=782) H 11/16/16 17:45 Acetaminophen < 1.0 mcg/mL (10-30) L 11/16/16 18:29 Ur Barbiturates Screen Negative ng/mL (Ouuvat=456) 11/16/16 17:45 Valproic Acid 39.10 mcg/mL (50-100) L 11/16/16 18:29 Ur Phencyclidine Scrn Negative ng/mL (Cutoff=25) 11/16/16 17:45 Ur Amphetamines Screen Negative ng/mL (Mrlckp=1836) 11/16/16 17:45 U Benzodiazepines Scrn Positive ng/mL (Jptutr=011) H 11/16/16 17:45 Urine Cocaine Screen Positive ng/mL (Cutoff= 300) H 11/16/16 17:45 U Marijuana (THC) Screen Positive ng/mL (Cutoff = 50) H 11/16/16 17:45 Ethyl Alcohol < 10 mg/dL (0-10) 11/16/16 18:29 Assessment and Plan (1) Psychosis Current visit: No Status: Acute Plan: Admit inpatient for safety and stabilization, Close observation, Suicide Precautions per unit protocol, Encourage participation in unit milieu, Group Therapy, Monitor sleep, Monitor appetite, Secure weapons Risks, benefits, side effects, alternatives discussed w/pt: Yes Patient agreeable to treatment : Yes Plans for Post Hospital Care: Transfer Inp Rehab Fac Qualifiers: Psychosis type: schizoaffective disorder Schizoaffective disorder type: bipolar Qualified Code(s): F25.0 - Schizoaffective disorder, bipolar type
[2016-11-17] MEDS: Divalproex (24 HR) 500 MG TABLET PO SCH (21:02)
[2016-11-17] MEDS: clonazePAM 1 MG TABLET PO PRN (21:11)
[2016-11-18] MEDS: FLUoxetine HCl 10 MG CAPSULE PO SCH (09:17)
--- NOTE | 2016-11-18 10:50 | Psychiatry Progress Note ---
Date of Encounter: 11/18/16 Time of Encounter: 10:46 Subjective Interval history: Looks a little better. Reports he is still experiencing AH and VH but far less responding to IS is noted by this check writer salesperson. Slept well overnight and ate 100% of breakfast. Feels he is overmedicated but meds do seem to be helping him. Less HI toward roommate today. Still agreeable to inpatient rehab but has already told other staff he wants to leave. Staff are very familiar with him and have let him go from ER on past evaluations. However, this time he looked bad with hands and feet caked with dirt and actively psychotic. Likely needs to be a little more stable before a rehab facility will take him. Review of Systems Constitutional: Denies: fever, chills, weakness, weight change Eyes: Denies: eye pain, vision change Ears, Nose, Throat: Denies: ear pain, throat pain, dental pain, hearing loss, congestion Cardiovascular: Denies: chest pain, palpitations, dyspnea on exertion Respiratory: Denies: cough, dyspnea, wheezes Gastrointestinal: Denies: abdominal pain, nausea, vomiting, diarrhea, constipation Musculoskeletal: Denies: joint swelling, joint pain Neurological: Denies: headache, weakness, numbness, memory loss Objective: Exam Patient orientation: Yes Person, Yes Time, Yes Place Level of alertness: Alert Patient appearance: Unkempt, Disheveled Behavior: distractible Psychomotor activity: Normal Eye contact: Minimal Contact Mood description: Irritable Affect description: congruent with mood Speech pattern: Normal rate, Normal rhythm, Normal tone Speech volume: Normal Thought process: Thought Blocking Thought content: No Suicidal ideation, No Homicidal ideation, No Overt delusions Perceptual disturbances: Yes Reacting to internal stimuli, Yes Auditory hallucinations, Yes Visual hallucinations Judgment: Poor Insight: Minimal Results - Vital Signs Vital Signs: Temp Pulse Resp BP Pulse Ox 99.2 F 75 18 112/72 97 11/18/16 09:00 11/18/16 09:00 11/18/16 09:00 11/18/16 09:00 11/16/16 20:24 Assessment and Plan (1) Psychosis Current visit: No Status: Acute Plan: Continue hospitalization, Close observation, Suicide Precautions per unit protocol, Encourage participation in unit milieu, Group Therapy, Monitor sleep, Monitor appetite, Secure weapons Risks, benefits, side effects, alternatives discussed w/pt: Yes Patient agreeable to treatment: Yes Qualifiers: Psychosis type: schizoaffective disorder Schizoaffective disorder type: bipolar Qualified Code(s): F25.0 - Schizoaffective disorder, bipolar type Consult Discharge Plan - Plan Referrals: NO,PCP [Primary Care Provider] -
[2016-11-18] MEDS: clonazePAM 1 MG TABLET PO PRN ×2 (14:41→20:40)
[2016-11-18] MEDS: Divalproex (24 HR) 500 MG TABLET PO SCH (20:40)
[2016-11-19] MEDS: FLUoxetine HCl 10 MG CAPSULE PO SCH (09:37)
--- NOTE | 2016-11-19 10:06 | Psychiatry Progress Note ---
Date of Encounter: 11/19/16 Time of Encounter: 10:02 Subjective Interval history: Reports he is feeling better. Still experiencing AH and VH but they have lessened. Continues to respond to IS but it is less intense. Clearly wanting to use as he is asking to leave. Insisting he be discharged no later then Monday. Will not wait for rehab bed if it is not available on Monday. According to staff he is coming out for meals and meds but he is otherwise isolating to his room. Staff report this is typical behavior for him as is wanting to leave shortly after starting treatment. Still psychotic but no longer reporting any suicidal ideation, plan, or intent. Review of Systems Constitutional: Denies: fever, chills, weakness, weight change Eyes: Denies: eye pain, vision change Ears, Nose, Throat: Denies: ear pain, throat pain, dental pain, hearing loss, congestion Cardiovascular: Denies: chest pain, palpitations, dyspnea on exertion Respiratory: Denies: cough, dyspnea, wheezes Gastrointestinal: Denies: abdominal pain, nausea, vomiting, diarrhea, constipation Musculoskeletal: Denies: joint swelling, joint pain Neurological: Denies: headache, weakness, numbness, memory loss Objective: Exam Patient orientation: Yes Person, Yes Time, Yes Place Level of alertness: Alert Patient appearance: Unkempt, Disheveled Behavior: anxious Psychomotor activity: Increased Eye contact: Minimal Contact Mood description: Irritable Affect description: congruent with mood Speech pattern: Normal rate, Normal rhythm, Normal tone Speech volume: Normal Thought process: Thought Blocking Thought content: No Suicidal ideation, No Homicidal ideation, No Overt delusions Perceptual disturbances: Yes Reacting to internal stimuli, Yes Auditory hallucinations, Yes Visual hallucinations Judgment: Poor Insight: Minimal Results - Vital Signs Vital Signs: Temp Pulse Resp BP Pulse Ox 97.6 F 76 16 110/78 97 11/18/16 20:35 11/18/16 20:35 11/18/16 20:35 11/18/16 20:35 11/16/16 20:24 Assessment and Plan (1) Psychosis Current visit: No Status: Acute Plan: Continue hospitalization, Close observation, Suicide Precautions per unit protocol, Encourage participation in unit milieu, Group Therapy, Monitor sleep, Monitor appetite, Secure weapons Risks, benefits, side effects, alternatives discussed w/pt: Yes Patient agreeable to treatment: Yes Qualifiers: Psychosis type: schizoaffective disorder Schizoaffective disorder type: bipolar Qualified Code(s): F25.0 - Schizoaffective disorder, bipolar type Consult Discharge Plan - Plan Referrals: NO,PCP [Primary Care Provider] -
[2016-11-19] MEDS: clonazePAM 1 MG TABLET PO PRN ×2 (10:58→17:47)
[2016-11-19] MEDS: Nicotine 2 MG GUM BC PRN (17:58)
[2016-11-19] MEDS: Divalproex (24 HR) 500 MG TABLET PO SCH (20:54)
[2016-11-20] MEDS: clonazePAM 1 MG TABLET PO PRN ×2 (07:31→13:59)
[2016-11-20] MEDS: FLUoxetine HCl 10 MG CAPSULE PO SCH (10:06)
--- NOTE | 2016-11-20 10:29 | Psychiatry Progress Note ---
Date of Encounter: 11/20/16 Time of Encounter: 10:22 Subjective Interval history: Itching to leave. 72 hour hold expires tomorrow. Plan is to have rehab facility evaluate him for inpatient alcohol and drug treatment. Amadou is willing to talk to them but will only consider it if they can see him tomorrow. Still psychotic but symptoms have improved. Admits he has AH and VH at his baseline. Still responding to IS but much less so and able to have a more lucid conversation. Reports he can go back to his previous living situation because roommate not currently there. Denying HI toward his roommate now but admits "I always have those thoughts." Denying suicidal ideation, plan, or intent. Likely not probatable at this point but really needs AOD treatment. Amadou will likely refuse as he is chronically noncompliant with treatment but the facility is new and something he has not tried before if he can tolerate waiting until they evaluate him. Review of Systems Constitutional: Denies: fever, chills, weakness, weight change Eyes: Denies: eye pain, vision change Ears, Nose, Throat: Denies: ear pain, throat pain, dental pain, hearing loss, congestion Cardiovascular: Denies: chest pain, palpitations, dyspnea on exertion Respiratory: Denies: cough, dyspnea, wheezes Gastrointestinal: Denies: abdominal pain, nausea, vomiting, diarrhea, constipation Musculoskeletal: Denies: joint swelling, joint pain Neurological: Denies: headache, weakness, numbness, memory loss Objective: Exam Patient orientation: Yes Person, Yes Time, Yes Place Level of alertness: Alert Patient appearance: Unkempt, Disheveled Behavior: calm Psychomotor activity: Increased Eye contact: Minimal Contact Mood description: Irritable Affect description: congruent with mood Speech pattern: Normal rate, Normal rhythm, Normal tone Speech volume: Normal Thought process: Thought Blocking Thought content: No Suicidal ideation, No Homicidal ideation, No Overt delusions Perceptual disturbances: Yes Reacting to internal stimuli, Yes Auditory hallucinations, Yes Visual hallucinations Judgment: Limited Insight: Minimal Results - Vital Signs Vital Signs: Temp Pulse Resp BP Pulse Ox 97.7 F 77 18 115/77 97 11/20/16 09:00 11/20/16 09:00 11/20/16 09:00 11/20/16 09:00 11/16/16 20:24 Assessment and Plan (1) Psychosis Current visit: No Status: Acute Plan: Continue hospitalization, Close observation, Suicide Precautions per unit protocol, Encourage participation in unit milieu, Group Therapy, Monitor sleep, Monitor appetite, Secure weapons Risks, benefits, side effects, alternatives discussed w/pt: Yes Patient agreeable to treatment: Yes Qualifiers: Psychosis type: schizoaffective disorder Schizoaffective disorder type: bipolar Qualified Code(s): F25.0 - Schizoaffective disorder, bipolar type Consult Discharge Plan - Plan Referrals: NO,PCP [Primary Care Provider] -
[2016-11-20] MEDS: Nicotine 2 MG GUM BC PRN (13:55)
[2016-11-20] MEDS: Divalproex (24 HR) 500 MG TABLET PO SCH (21:04)
[2016-11-21] MEDS: FLUoxetine HCl 10 MG CAPSULE PO SCH (09:31)
[2016-11-21 10:35] VITALS: BP 103/73
[2016-11-21] MEDS: Nicotine 2 MG GUM BC PRN (11:15)
[2016-11-21] MEDS: clonazePAM 1 MG TABLET PO PRN (11:22)
--- NOTE | 2016-11-21 13:55 | Discharge Summary ---
Date of Encounter: 11/21/16 Time of Encounter: 13:30 Diagnosis - Discharge Diagnosis (1) Chronic schizophrenia Status: Acute (2) Cannabis abuse Status: Acute Medications - Discharge Medications Prescriptions: Benztropine Mesylate 1 mg PO BID #60 tablet Divalproex (24 HR) [Depakote ER (24 HR)] 2,000 mg PO HS #120 tab.er.24h FLUoxetine HCl [Fluoxetine HCl] 30 mg PO DAILY #30 capsule Fluphenazine [Prolixin] 10 mg PO DAILY #30 tablet Quetiapine Fumarate [Seroquel] 50 mg PO HS PRN #60 tablet PRN Reason: Insomnia Quetiapine Fumarate [Seroquel] 300 mg PO HS #30 tablet clonazePAM [Klonopin] 1 mg PO BID PRN #60 tablet 07/28/16 [Rx] Benztropine Mesylate 1 mg PO BID #60 tablet 11/21/16 [Rx] Divalproex (24 HR) [Depakote ER (24 HR)] 2,000 mg PO HS #120 tab.er.24h [Rx] FLUoxetine HCl [Fluoxetine HCl] 30 mg PO DAILY #30 capsule 11/21/16 [Rx] Fluphenazine [Prolixin] 10 mg PO DAILY #30 tablet 11/21/16 [Rx] Quetiapine Fumarate [Seroquel] 50 mg PO HS PRN #60 tablet 11/21/16 [Rx] Quetiapine Fumarate [Seroquel] 300 mg PO HS #30 tablet 11/21/16 [Rx] Allergies chlorpromazine [From Thorazine] Allergy (Verified 11/16/16 16:20) Hives haloperidol [From Haldol] Adverse Reaction (Intermediate, Verified 11/16/16 16: 20) See Comments EPS Provider Date of admission: 11/16/16 20:35 Primary care physician: PCP NO Discharging clinician: Joaquin Fernandez Assessment and Plan - Patient/Caregiver Discharge Instructions Activity: resume usual activities as tolerated Diet: regular diet - Follow up Plan Follow up with: [facility] [Outside] - 12/01/16 11:00 am (The above appointment is with Zita Santana for counseling. You will alse see Vicki Cullen, psychiatric provider, on 12/13/2016 at 10:30am.) Functional capacity at discharge: independent ambulation Overall status at discharge: Stable Disposition: Home, Self-Care Hospital Course Hospital course: Mr. Barrientos is a 30 year old male admitted for exacerbation of schizophrenia and homicidal ideation. For details of the admission please see H&P On the units patient was started on his medication, he was cooperative and compliant with medication. He denied auditory or visual hallucinations, he denied suicidal and homicidal ideation. He was aware of his discharge plan and follow-up plans. [employer] knock out worker contacted his mother and shared with her discharge plans and safety issues. Prior to discharge patient was medically stable and future oriented. - Time Spent with Patient Total time spent providing and/or coordinating discharge services: Greater than 30 minutes Quality - Multiple Antipsychotics Patient discharged on 2 or more antipsychotic medications: Yes - Justification Documentation of: History 3 failed trials of monotherapy Procedures - Procedures Procedures: Medication Management, Crisis Stabilization, Supportive Therapy, Group Therapy, Psychoeducational Therapy Mental Status Exam - Mental Status Exam Patient orientation: Yes Person, Yes Time, Yes Place Level of alertness: Alert Patient appearance: Appropriate, Unkempt, Disheveled Behavior: cooperative, nervous, anxious Psychomotor activity: Normal Eye contact: Minimal Contact Mood description: Euthymic/stable, Anxious Affect description: congruent with mood, labile Speech pattern: Normal rate, Normal rhythm, Normal tone Speech Volume: Normal Thought process: Linear, Goal Oriented Thought Content: No Suicidal ideation, No Homicidal ideation, No Overt delusions Perceptual Disturbances: No Auditory hallucinations, No Visual hallucinations Judgment: Limited Insight: Partial
== END 2016-11-21 17:45 | disposition home or self-care (01) | DRG 750 ==
LOC: EMEROO 16:13 → 1ANU 20:35 → SUATTDRO 20:35 → 1ANU 20:42
PROVIDERS: ADMIT Psychiatry & Neurology Psychiatry; ATTEND Psychiatry & Neurology Psychiatry

== ENCOUNTER 2016-12-07 20:59 | Inpatient (IN) ==
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
[2016-12-07 21:30] LABS: Bilirubin,Urine Small (Negative); Blood,Urine Negative (Negative); Clarity,Urine Clear (Clear); Color,Urine Yellow (Yellow); Glucose,Urine (UA) Normal (Normal); Ketones,Urine 80 mg/dL (Negative); Leukocyte Esterase,Urine Negative (Negative); Nitrite,Urine Negative (Negative); PH,Urine 5.5 pH Units (5.0-8.0); Protein,Urine Negative (Neg-Trace); Specific Gravity,Urine > 1.030 (1.010-1.025); Urobilinogen,Urine Normal (Normal)
[2016-12-07 21:36] LABS: Amphetamine Screen,Urine Positive ng/mL (Cutoff=1000); Barbiturate Screen,Urine Negative ng/mL (Cutoff=200); Benzodiazepines Screen,Urine Negative ng/mL (Cutoff=200); Cannabinoid Screen,Urine Positive ng/mL (Cutoff = 50); Cocaine Screen,Urine Negative ng/mL (Cutoff= 300); Opiate Screen,Urine Negative ng/mL (Cutoff=300); Phencyclidine Screen,Urine Negative ng/mL (Cutoff=25)
[2016-12-07 21:46] LABS: Basophils # 0.1 K/mcL (0.0-0.2); Basophils % 0.3 %; Eosinophils # 0.4 K/mcL (0.0-0.6); Eosinophils % 2.5 %; Hematocrit 43.1 % (37.5-50.1); Hemoglobin 14.4 g/dL (12.9-16.9); Immature Granulocytes % 0.5 % (0-4); Lymphocytes # 4.2 K/mcL (0.6-4.6); Lymphocytes % 27.4 %; Mean Corpuscular HGB Conc 33.4 g/dL (31.6-35.5); Mean Corpuscular Volume 83.7 fL (83.0-100.0); Mean Platelet Volume 11.9 fL (9.4-12.4); Monocytes % 13.1 %; Neutrophils # 8.7 K/mcL (1.6-8.9); Platelet Count 225 K/mcL (140-400); Red Blood Count 5.15 M/mcL (4.19-5.50); Red Cell Distribution Width 13.7 % (11.5-14.5); Segmented Neutrophils % 56.2 %
[2016-12-07 22:04] LABS: BUN/Creatinine Ratio 32 (6-26); Blood Urea Nitrogen 36 mg/dL (8-26); Calcium 9.6 mg/dL (8.6-10.8); Carbon Dioxide 22 mEq/L (19-29); Chloride 100 mEq/L (98-109); Glucose 80 mg/dL (70-99); Osmolality,Calculated 285 (280-300); Potassium 3.9 mEq/L (3.5-4.5); Sodium 134 mEq/L (136-145); eGFR For African Americans > 60 (> 60); eGFR For Non-African Americans > 60 (> 60)
[2016-12-07 22:05] LABS: Acetaminophen < 1.0 mcg/mL (10-30); Ethanol < 10 mg/dL (0-10); Salicylate < 5.0 mg/dL (15-30)
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
[2016-12-07] MEDS ORDERED: *HR* LORazepam 2 MG/ML VIAL IM ONE (23:37)
[2016-12-07] MEDS ORDERED: Ziprasidone injection 20 MG/ML VIAL IM ONE (23:37)
[2016-12-07] MEDS ORDERED: Water for inj. (sterile) 10 ML IV ONE (23:45)
[2016-12-08] MEDS ORDERED: Mag Hydrox/Al Hydrox/Simeth 30 ML UDC PO PRN (00:13)
[2016-12-08] MEDS ORDERED: *HR* LORazepam 2 MG/ML VIAL IM PRN (00:13)
[2016-12-08] MEDS ORDERED: MOM Conc 10 ML UD.LIQ PO PRN (00:13)
[2016-12-08] MEDS ORDERED: Ziprasidone injection 20 MG/ML VIAL IM PRN (00:23)
[2016-12-08] MEDS ORDERED: Ziprasidone 20 MG CAPSULE PO PRN (00:25)
[2016-12-08] MEDS: Nicotine 21 MG PATCH.TD24 TD SCH (08:14)
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
[2016-12-08] MEDS: Ibuprofen 400 MG TABLET PO PRN ×2 (12:03→20:55)
[2016-12-08] MEDS: *HR* LORazepam 1 MG TABLET PO PRN (12:30)
[2016-12-08] MEDS: FLUoxetine HCl 10 MG CAPSULE PO SCH (20:54)
[2016-12-08] MEDS: clonazePAM 1 MG TABLET PO PRN (20:55)
[2016-12-08] MEDS: Divalproex (24 HR) 500 MG TABLET PO SCH (20:55)
[2016-12-08] MEDS: traZODone 50 MG TABLET PO PRN (20:56)
[2016-12-09] MEDS: FLUoxetine HCl 10 MG CAPSULE PO SCH (08:21)
[2016-12-09] MEDS: Nicotine 21 MG PATCH.TD24 TD SCH (08:22)
--- NOTE | 2016-12-09 14:15 | Psychiatry Progress Note ---
Date of Encounter: 12/09/16 Time of Encounter: 14:00 Subjective Interval history: Patient is seen for follow-up. He reports feeling tired and sleeping. He denies any problem with medication. He was reported by staff yesterday he was talking to himself loud and pacing, he was delusional and his speech was disorganized. Patient was off his medication for several weeks prior to admission. He is guarded and answered questions briefly but coherent. Review of Systems Psychiatric: Reports: anxiety, abnormal sleep pattern, auditory hallucinations, confusion Objective: Exam Patient orientation: Yes Person, Yes Time, Yes Place Level of alertness: Alert, Sedated Patient appearance: Appropriate, Well Groomed Behavior: calm, cooperative, guarded, distractible Psychomotor activity: Slowed Eye contact: Minimal Contact Mood description: Anxious Affect description: congruent with mood, blunted, flat Speech pattern: Normal rate, Normal rhythm, Normal tone, Limited, Impoverished Speech volume: Normal Thought process: Tangential, Thought Blocking, Disorganized Thought content: No Suicidal ideation, No Homicidal ideation, No Overt delusions Perceptual disturbances: Yes Auditory hallucinations, Yes Visual hallucinations Judgment: Fair Insight: Partial Results - Vital Signs Vital Signs: Temp Pulse Resp BP Pulse Ox 97.8 F 99 16 132/76 97 12/09/16 09:00 12/09/16 09:00 12/09/16 09:00 12/09/16 09:00 12/07/16 21:08 Assessment and Plan (1) Schizoaffective disorder, bipolar type Current visit: Yes Status: Acute Plan: Continue hospitalization, Close observation, Suicide Precautions per unit protocol, Encourage participation in unit milieu, Group Therapy, Monitor sleep, Monitor appetite Risks, benefits, side effects, alternatives discussed w/pt: Yes Patient agreeable to treatment: Yes (2) Cannabis abuse Current visit: No Status: Acute Plan: Continue hospitalization, Close observation, Suicide Precautions per unit protocol, Encourage participation in unit milieu, Group Therapy, Monitor sleep, Monitor appetite (3) Methamphetamine abuse Current visit: Yes Status: Acute Plan: Continue hospitalization, Close observation, Suicide Precautions per unit protocol, Encourage participation in unit milieu, Group Therapy, Monitor sleep, Monitor appetite Consult Discharge Plan - Plan Referrals: [facility] [Outside]
[2016-12-09] MEDS: clonazePAM 1 MG TABLET PO PRN (17:23)
[2016-12-09] MEDS: Divalproex (24 HR) 500 MG TABLET PO SCH (20:17)
[2016-12-10] MEDS: FLUoxetine HCl 10 MG CAPSULE PO SCH (08:16)
[2016-12-10] MEDS: Nicotine 21 MG PATCH.TD24 TD SCH (08:17)
--- NOTE | 2016-12-10 12:30 | Psychiatry Progress Note ---
Date of Encounter: 12/10/16 Time of Encounter: 12:30 Subjective Interval history: Patient is seen for follow-up. Staff report he is less paranoid, cooperative and not pacing or talking to self loudly. He is compliant with medication and reports feeling tired and need for sleep. He denies any auditory hallucinations or suicidal ideation. Review of Systems Psychiatric: Reports: anxiety, abnormal sleep pattern, auditory hallucinations, confusion Objective: Exam Patient orientation: Yes Person, Yes Time, Yes Place Level of alertness: Alert Patient appearance: Appropriate, Unkempt Behavior: calm, cooperative, guarded, withdrawn Psychomotor activity: Normal Eye contact: Minimal Contact Mood description: Euthymic/stable Affect description: congruent with mood, blunted Speech pattern: Normal rate, Normal rhythm, Normal tone, Limited Speech volume: Normal Thought process: Linear, Goal Oriented Thought content: No Suicidal ideation, No Homicidal ideation, No Overt delusions Perceptual disturbances: No Auditory hallucinations, No Visual hallucinations Judgment: Fair Insight: Partial Results - Vital Signs Vital Signs: Temp Pulse Resp BP Pulse Ox 97.4 F L 83 16 106/69 97 12/10/16 09:00 12/10/16 09:00 12/10/16 09:00 12/10/16 09:00 12/07/16 21:08 Assessment and Plan (1) Schizoaffective disorder, bipolar type Current visit: Yes Status: Acute Plan: Continue hospitalization, Close observation, Suicide Precautions per unit protocol, Encourage participation in unit milieu, Group Therapy, Monitor sleep, Monitor appetite Additional Plan: Depakote level will be checked Monday Risks, benefits, side effects, alternatives discussed w/pt: Yes Patient agreeable to treatment: Yes (2) Cannabis abuse Current visit: No Status: Acute Plan: Continue hospitalization, Close observation, Suicide Precautions per unit protocol, Encourage participation in unit milieu, Group Therapy, Monitor sleep, Monitor appetite (3) Methamphetamine abuse Current visit: Yes Status: Acute Plan: Continue hospitalization, Close observation, Suicide Precautions per unit protocol, Encourage participation in unit milieu, Group Therapy, Monitor sleep, Monitor appetite Consult Discharge Plan - Plan Referrals: [facility] [Outside] - 12/21/16 1:00 pm (The above appointment is with Zita Santana for counseling. You will also see Vicki Cullen, psychiatric prescriber, on 02/07/2017 at 1:00pm. This is the first available appointment. You may contact the office regularly to check for cancellations that would allow you to be seen sooner.)
[2016-12-10] MEDS: Divalproex (24 HR) 500 MG TABLET PO SCH (20:41)
[2016-12-11] MEDS: Nicotine 21 MG PATCH.TD24 TD SCH (08:33)
[2016-12-11] MEDS: FLUoxetine HCl 10 MG CAPSULE PO SCH (08:41)
--- NOTE | 2016-12-11 13:06 | Psychiatry Progress Note ---
Date of Encounter: 12/11/16 Time of Encounter: 13:00 Subjective Interval history: Patient is seen for follow-up. Staff report she is less paranoid and more interactive continued to be internally stimulated and distractible. His medication compliant complaining of feeling tired and sleeping extended hours and he is agreeable to reduce his dose of Seroquel from 300 to 200mg hs. he is interested and anxious to get into rehabilitation. Denies any suicidal ideation or auditory hallucinations. Review of Systems Psychiatric: Reports: anxiety, abnormal sleep pattern, auditory hallucinations, confusion Objective: Exam Patient orientation: Yes Person, Yes Time, Yes Place Level of alertness: Alert Patient appearance: Appropriate, Well Groomed Behavior: calm, cooperative, anxious, guarded Psychomotor activity: Normal Eye contact: Maintains Eye Contact Mood description: Euthymic/stable, Anxious Affect description: congruent with mood, flat Speech pattern: Normal rate, Normal rhythm, Normal tone, Clear, Limited Speech volume: Normal Thought process: Linear, Goal Oriented, Thought Blocking Thought content: No Suicidal ideation, No Homicidal ideation, No Overt delusions Perceptual disturbances: No Auditory hallucinations, No Visual hallucinations Judgment: Fair Insight: Partial Results - Vital Signs Vital Signs: Temp Pulse Resp BP Pulse Ox 97.8 F 68 18 114/68 97 12/11/16 09:00 12/11/16 09:00 12/11/16 09:00 12/11/16 09:00 12/07/16 21:08 - Labs Labs: Laboratory Results - last 24 hr 12/11/16 12:19 Valproic Acid 76.18 Assessment and Plan (1) Schizoaffective disorder, bipolar type Current visit: Yes Status: Acute Plan: Continue hospitalization, Close observation, Suicide Precautions per unit protocol, Encourage participation in unit milieu, Group Therapy, Monitor sleep, Monitor appetite Additional Plan: Will change Seroquel to 200 mg at bedtime. Patient complained of sedation Risks, benefits, side effects, alternatives discussed w/pt: Yes Patient agreeable to treatment: Yes (2) Cannabis abuse Current visit: No Status: Acute Plan: Continue hospitalization, Close observation, Suicide Precautions per unit protocol, Encourage participation in unit milieu, Group Therapy, Monitor sleep, Monitor appetite (3) Methamphetamine abuse Current visit: Yes Status: Acute Plan: Continue hospitalization, Close observation, Suicide Precautions per unit protocol, Encourage participation in unit milieu, Group Therapy, Monitor sleep, Monitor appetite Consult Discharge Plan - Plan Referrals: [facility] [Outside] - 12/21/16 1:00 pm (The above appointment is with Zita Santana for counseling. You will also see Vicki Cullen, psychiatric prescriber, on 02/07/2017 at 1:00pm. This is the first available appointment. You may contact the office regularly to check for cancellations that would allow you to be seen sooner.)
[2016-12-11] MEDS: Nicotine 2 MG GUM BC PRN ×2 (18:36→20:42)
[2016-12-11] MEDS: clonazePAM 1 MG TABLET PO PRN (19:16)
[2016-12-11] MEDS: hydrOXYzine pamoate 25 MG CAPSULE PO PRN (20:41)
[2016-12-11] MEDS: Divalproex (24 HR) 500 MG TABLET PO SCH (20:42)
[2016-12-11] MEDS: Ibuprofen 400 MG TABLET PO PRN (23:08)
[2016-12-12] MEDS: FLUoxetine HCl 10 MG CAPSULE PO SCH (08:25)
[2016-12-12] MEDS: *HR* LORazepam 1 MG TABLET PO PRN (12:25)
[2016-12-12] MEDS: Nicotine 2 MG GUM BC PRN ×2 (12:34→20:42)
--- NOTE | 2016-12-12 15:26 | Psychiatry Progress Note ---
Date of Encounter: 12/12/16 Time of Encounter: 15:15 Subjective Interval history: Patient is seen for follow-up. She is compliant with medication, continued to improve. No overt psychotic symptoms. No agitation or paranoia. Sleep and appetite are stable. Discharge planning is ongoing. Patient signed involuntarily. Review of Systems Psychiatric: Reports: anxiety, abnormal sleep pattern, auditory hallucinations, confusion Objective: Exam Patient orientation: Yes Person, Yes Time, Yes Place Level of alertness: Alert Patient appearance: Appropriate, Unkempt Behavior: calm, cooperative, guarded Psychomotor activity: Normal Eye contact: Maintains Eye Contact Mood description: Euthymic/stable Affect description: congruent with mood, labile Speech pattern: Normal rate, Normal rhythm, Normal tone, Limited, Impoverished Speech volume: Normal Thought process: Linear, Goal Oriented Thought content: No Suicidal ideation, No Homicidal ideation, No Overt delusions Perceptual disturbances: No Auditory hallucinations, No Visual hallucinations Judgment: Fair Insight: Partial Results - Vital Signs Vital Signs: Temp Pulse Resp BP Pulse Ox 97.6 F 72 20 108/63 97 12/12/16 09:00 12/12/16 09:00 12/12/16 09:00 12/12/16 09:00 12/07/16 21:08 Assessment and Plan (1) Schizoaffective disorder, bipolar type Current visit: Yes Status: Acute Plan: Continue hospitalization, Close observation, Suicide Precautions per unit protocol, Encourage participation in unit milieu, Group Therapy, Monitor sleep, Monitor appetite Risks, benefits, side effects, alternatives discussed w/pt: Yes Patient agreeable to treatment: Yes (2) Cannabis abuse Current visit: No Status: Acute Plan: Continue hospitalization, Close observation, Suicide Precautions per unit protocol, Encourage participation in unit milieu, Group Therapy, Monitor sleep, Monitor appetite (3) Methamphetamine abuse Current visit: Yes Status: Acute Plan: Continue hospitalization, Close observation, Suicide Precautions per unit protocol, Encourage participation in unit milieu, Group Therapy, Monitor sleep, Monitor appetite Consult Discharge Plan - Plan [facility] 1:00 pm (The above appointment is with Zita Santana for counseling. You will also see Vicki Cullen, psychiatric prescriber, on 02/07/2017 at 1:00pm. This is the first available appointment. You may contact the office regularly to check for cancellations that would allow you to be seen sooner.)
[2016-12-12] MEDS: hydrOXYzine pamoate 25 MG CAPSULE PO PRN (20:03)
[2016-12-12] MEDS: Divalproex (24 HR) 500 MG TABLET PO SCH (21:50)
[2016-12-13] MEDS: FLUoxetine HCl 10 MG CAPSULE PO SCH (08:53)
[2016-12-13] MEDS: hydrOXYzine pamoate 25 MG CAPSULE PO PRN (15:48)
--- NOTE | 2016-12-13 15:58 | Psychiatry Progress Note ---
Date of Encounter: 12/13/16 Time of Encounter: 15:30 Subjective Interval history: Patient is seen for follow-up. He is cooperative, compliant with medication. He is showing improvement not delusional with paranoid he is anxious to start rehabilitation as scheduled this week showing some insight. He does not endorse suicidal ideation or hallucinations. Review of Systems Psychiatric: Reports: anxiety, abnormal sleep pattern, auditory hallucinations, confusion Objective: Exam Patient orientation: Yes Person, Yes Time, Yes Place Level of alertness: Alert Patient appearance: Appropriate, Well Groomed Behavior: calm, cooperative, anxious Psychomotor activity: Increased Eye contact: Fleeting Contact Mood description: Euthymic/stable, Anxious Affect description: congruent with mood, constricted Speech pattern: Normal rate, Normal rhythm, Normal tone, Limited, Impoverished Speech volume: Normal Thought process: Linear, Goal Oriented, Thought Blocking Thought content: No Suicidal ideation, No Homicidal ideation, No Overt delusions Perceptual disturbances: Yes Reacting to internal stimuli, No Auditory hallucinations, No Visual hallucinations Judgment: Fair Insight: Partial Results - Vital Signs Vital Signs: Temp Pulse Resp BP Pulse Ox 98 F 18 67 127/88 97 12/13/16 09:55 12/13/16 09:55 12/13/16 09:55 12/13/16 09:55 12/07/16 21:08 Assessment and Plan (1) Schizoaffective disorder, bipolar type Current visit: Yes Status: Acute Plan: Continue hospitalization, Close observation, Suicide Precautions per unit protocol, Encourage participation in unit milieu, Group Therapy, Monitor sleep, Monitor appetite Risks, benefits, side effects, alternatives discussed w/pt: Yes Patient agreeable to treatment: Yes (2) Cannabis abuse Current visit: No Status: Acute Plan: Continue hospitalization, Close observation, Suicide Precautions per unit protocol, Encourage participation in unit milieu, Group Therapy, Monitor sleep, Monitor appetite (3) Methamphetamine abuse Current visit: Yes Status: Acute Plan: Continue hospitalization, Close observation, Suicide Precautions per unit protocol, Encourage participation in unit milieu, Group Therapy, Monitor sleep, Monitor appetite Consult Discharge Plan - Plan Referrals: [facility] [Outside] - 12/21/16 1:00 pm (The above appointment is with Zita Santana for counseling. You will also see Vicki Cullen, psychiatric prescriber, on 02/07/2017 at 1:00pm. This is the first available appointment. You may contact the office regularly to check for cancellations that would allow you to be seen sooner.)
[2016-12-13] MEDS: Ibuprofen 400 MG TABLET PO PRN (18:31)
[2016-12-13] MEDS: Nicotine 2 MG GUM BC PRN ×2 (18:32→21:01)
[2016-12-13] MEDS: Ibuprofen 800 MG TABLET PO PRN (21:00)
[2016-12-13] MEDS: Divalproex (24 HR) 500 MG TABLET PO SCH (21:01)
[2016-12-14] MEDS: FLUoxetine HCl 10 MG CAPSULE PO SCH (08:44)
[2016-12-14] MEDS: hydrOXYzine pamoate 25 MG CAPSULE PO PRN ×2 (12:06→20:44)
[2016-12-14] MEDS: Nicotine 2 MG GUM BC PRN ×2 (12:22→17:10)
--- NOTE | 2016-12-14 15:17 | Psychiatry Progress Note ---
Date of Encounter: 12/14/16 Time of Encounter: 15:00 Subjective Interval history: Patient is seen for follow-up. He is showing brighter affect and stable mood, no overt psychotic symptoms, no delusions. compliant with medication and does not attend groups. He is excited about rehabilitation program. He is more interactive. Review of Systems Psychiatric: Reports: anxiety, abnormal sleep pattern, auditory hallucinations, confusion Objective: Exam Patient orientation: Yes Person, Yes Time, Yes Place Level of alertness: Alert Patient appearance: Appropriate, Well Groomed Behavior: calm, cooperative, guarded Psychomotor activity: Normal Eye contact: Maintains Eye Contact Mood description: Euthymic/stable Affect description: congruent with mood, euthymic Speech pattern: Normal rate, Normal rhythm, Normal tone, Limited Speech volume: Normal Thought process: Linear, Goal Oriented Thought content: No Suicidal ideation, No Homicidal ideation, No Overt delusions Perceptual disturbances: No Auditory hallucinations, No Visual hallucinations Judgment: Fair Insight: Partial Results - Vital Signs Vital Signs: Temp Pulse Resp BP Pulse Ox 98.2 F 67 16 126/79 97 12/14/16 09:00 12/14/16 09:00 12/14/16 09:00 12/14/16 09:00 12/07/16 21:08 Assessment and Plan (1) Schizoaffective disorder, bipolar type Current visit: Yes Status: Acute Plan: Continue hospitalization, Close observation, Suicide Precautions per unit protocol, Encourage participation in unit milieu, Group Therapy, Monitor sleep, Monitor appetite Risks, benefits, side effects, alternatives discussed w/pt: Yes Patient agreeable to treatment: Yes (2) Cannabis abuse Current visit: No Status: Acute Plan: Continue hospitalization, Close observation, Suicide Precautions per unit protocol, Encourage participation in unit milieu, Group Therapy, Monitor sleep, Monitor appetite (3) Methamphetamine abuse Current visit: Yes Status: Acute Plan: Continue hospitalization, Close observation, Suicide Precautions per unit protocol, Encourage participation in unit milieu, Group Therapy, Monitor sleep, Monitor appetite Consult Discharge Plan - Plan [facility] 1:00 pm (The above appointment is with Zita Santana for counseling. You will also see Vicki Cullen, psychiatric prescriber, on 02/07/2017 at 1:00pm. This is the first available appointment. You may contact the office regularly to check for cancellations that would allow you to be seen sooner.)
[2016-12-14] MEDS: Ibuprofen 800 MG TABLET PO PRN (19:23)
[2016-12-14] MEDS: Divalproex (24 HR) 500 MG TABLET PO SCH (20:44)
[2016-12-14] MEDS: traZODone 50 MG TABLET PO PRN (20:45)
[2016-12-15] MEDS: hydrOXYzine pamoate 25 MG CAPSULE PO PRN ×4 (00:15→21:44)
[2016-12-15] MEDS: FLUoxetine HCl 10 MG CAPSULE PO SCH (09:00)
[2016-12-15] MEDS: Nicotine 2 MG GUM BC PRN (12:38)
[2016-12-15] MEDS: Divalproex (24 HR) 500 MG TABLET PO SCH (21:43)
--- NOTE | 2016-12-16 08:29 | Psychiatry Progress Note ---
Date of Encounter: 12/15/16 Time of Encounter: 16:30 Subjective Interval history: Patient is seen for follow-up. Staff report he is anxious and pacing at times. Compliant with medication, more interactive and talkative. She is showing improved insight and motivated to get into rehabilitation. Denies hallucinations or suicidal ideation. He was encouraged to participate in his rehabilitation. Awaiting placement on Monday. Review of Systems Psychiatric: Reports: anxiety, abnormal sleep pattern, auditory hallucinations, confusion Objective: Exam Patient orientation: Yes Person, Yes Time, Yes Place Level of alertness: Alert Patient appearance: Appropriate, Well Groomed Behavior: calm, cooperative, anxious, talkative Psychomotor activity: Increased Eye contact: Fleeting Contact Mood description: Euthymic/stable, Anxious Affect description: congruent with mood, full range Speech pattern: Normal rate, Normal rhythm, Normal tone Speech volume: Normal Thought process: Linear, Goal Oriented Thought content: No Suicidal ideation, No Homicidal ideation, No Overt delusions Perceptual disturbances: No Auditory hallucinations, No Visual hallucinations Judgment: Fair Insight: Partial Results - Vital Signs Vital Signs: Temp Pulse Resp BP Pulse Ox 98.3 F 71 18 113/79 97 12/15/16 21:00 12/15/16 21:00 12/15/16 21:00 12/15/16 21:00 12/07/16 21:08 Assessment and Plan (1) Schizoaffective disorder, bipolar type Current visit: Yes Status: Acute Plan: Continue hospitalization, Close observation, Suicide Precautions per unit protocol, Encourage participation in unit milieu, Group Therapy, Monitor sleep, Monitor appetite Risks, benefits, side effects, alternatives discussed w/pt: Yes Patient agreeable to treatment: Yes (2) Cannabis abuse Current visit: No Status: Acute Plan: Continue hospitalization, Close observation, Suicide Precautions per unit protocol, Encourage participation in unit milieu, Group Therapy, Monitor sleep, Monitor appetite (3) Methamphetamine abuse Current visit: Yes Status: Acute Plan: Continue hospitalization, Close observation, Suicide Precautions per unit protocol, Encourage participation in unit milieu, Group Therapy, Monitor sleep, Monitor appetite Consult Discharge Plan - Plan Referrals: [facility] [Outside] ([facility] [place] [facility] [place] on discharge. You will receive treatment in groups and 1 on 1. You will see Zita Santana for mental health counseling on 12/21/2016 at 1:00pm. You will see [facility], psychiatric prescriber, on 02/07/2017 at 1:00pm.)
[2016-12-16] MEDS: FLUoxetine HCl 10 MG CAPSULE PO SCH (08:37)
[2016-12-16 09:45] VITALS: BP 126/81
--- NOTE | 2016-12-16 09:58 | Discharge Summary ---
Date of Encounter: 12/16/16 Time of Encounter: 14:00 Diagnosis - Discharge Diagnosis (1) Schizoaffective disorder, bipolar type Status: Acute (2) Cannabis abuse Status: Acute (3) Methamphetamine abuse Status: Acute Medications - Discharge Medications Prescriptions: hydrOXYzine pamoate [HydrOXYzine Pamoate] 50 mg PO TID PRN #90 capsule PRN Reason: Anxiety Quetiapine Fumarate [Seroquel] 200 mg PO HS #60 tablet Benztropine Mesylate 1 mg PO BID #60 tablet 11/21/16 [Rx] Divalproex (24 HR) [Depakote ER (24 HR)] 2,000 mg PO HS #120 tab.er.24h [Rx] FLUoxetine HCl [Fluoxetine HCl] 30 mg PO DAILY #30 capsule 11/21/16 [Rx] Fluphenazine [Prolixin] 10 mg PO DAILY #30 tablet 11/21/16 [Rx] Omeprazole [PriLOSEC] 20 mg PO DAILY 12/08/16 [History] Quetiapine Fumarate [Seroquel] 200 mg PO HS #60 tablet 12/16/16 [Rx] hydrOXYzine pamoate [HydrOXYzine Pamoate] 50 mg PO TID PRN #90 capsule 12/16/16 [Rx] Allergies chlorpromazine [From Thorazine] Allergy (Verified 11/16/16 16:20) Hives haloperidol [From Haldol] Adverse Reaction (Intermediate, Verified 11/16/16 16: 20) See Comments EPS Results Procedures and tests throughout hospitalization: Completed Lab Orders Category Date Time Status Valproate Routine Lab 12/11/16 12:19 Completed Provider Date of admission: 12/07/16 23:41 Primary care physician: PCP NO Discharging clinician: Joaquin Fernandez Assessment and Plan - Patient/Caregiver Discharge Instructions Activity: resume usual activities as tolerated Diet: regular diet - Follow up Plan Follow up with: [facility] [Outside] (You are going into [facility] abuse treatment program on discharge. You will receive treatment in groups and 1 on 1. You will see Zita Santana for mental health counseling on 12/21/2016 at 1:00pm. You will see Vicki Cullen, psychiatric prescriber, on 02/07/2017 at 1:00pm.) Jose Blunt, PAC [Physician Gage Designer] - 12/20/16 12:00 pm (The above appointment is with Cris Gonzalez CNP, and associate of Jose Blunt, at [facility]. This appointment is to establish you with a primary care provider. Please arrive 15 minutes early to complete paperwork. Please bring your insurance card, photo ID and list of current medications to your first appointment. This is the first available appointment. ) Functional capacity at discharge: independent ambulation Overall status at discharge: Stable Disposition: Transfer Psychiatric Hosp Hospital Course Hospital course: Mr. Barrientos is a 30 year old male admitted for treatment of psychotic episode with delusions and hallucinations. For details of admission please see H&P On the unit patient medication were adjusted, his Seroquel dose was reduced, his Klonopin was discontinued, hydroxyzine was given for anxiety, and he continued on fluoxetine, fluphenazine and Depakote. Depakote level was checked at level of 76 which is therapeutic. Patient's symptoms improved including paranoia, pacing, suspiciousness and talking to herself loudly. Patient's sleep was improving, he did not participate in groups, he was more interactive and showing improved insights. He was motivated to be discharged to drug rehabilitation service. He denied any suicidal ideation or auditory hallucinations. On discharge she was medically stable and nonsuicidal and future oriented. - Time Spent with Patient Total time spent providing and/or coordinating discharge services: Less than 30 minutes Quality - Multiple Antipsychotics Patient discharged on 2 or more antipsychotic medications: Yes - Justification Documentation of: Recommended plan to taper to monotherapy (Fluphenazine would be tapered off) Procedures - Procedures Procedures: Medication Management, Crisis Stabilization, Supportive Therapy, Group Therapy, Psychoeducational Therapy Mental Status Exam - Mental Status Exam Patient orientation: Yes Person, Yes Time, Yes Place Level of alertness: Alert Patient appearance: Appropriate, Well Groomed Behavior: calm, cooperative, anxious Psychomotor activity: Normal Eye contact: Maintains Eye Contact Mood description: Euthymic/stable Affect description: congruent with mood, full range, anxious Speech pattern: Normal rate, Normal rhythm, Normal tone Speech Volume: Normal Thought process: Linear, Goal Oriented Thought Content: No Suicidal ideation, No Homicidal ideation, No Overt delusions Perceptual Disturbances: No Auditory hallucinations, No Visual hallucinations Judgment: Limited Insight: Partial
== END 2016-12-16 12:00 | DRG 750 ==
LOC: EMEROO 20:59 → 1ANU 23:41
PROVIDERS: ADMIT Psychiatry & Neurology Psychiatry; ATTEND Psychiatry & Neurology Psychiatry

== ENCOUNTER 2017-03-05 21:31 | Inpatient (IN) ==
--- NOTE | 2017-03-05 21:45 | Emergency Department Note ---
Disposition Clinical Impression: Suicidal ideations, Homicidal ideations Psychosis Qualifiers: Psychosis type: unspecified psychosis type Qualified Code(s): F29 - Unspecified psychosis not due to a substance or known physiological condition Schizoaffective disorder Qualifiers: Schizoaffective disorder type: unspecified Qualified Code(s): F25.9 - Schizoaffective disorder, unspecified Disposition: Still a Patient Condition: Good Referrals: Unassigned,Provider [Non-Partnered Physician] - Forms: ED Satisfaction Letter Time of Disposition: 02:21 Psych HPI - General Chief Complaint: ED Psychiatric Symptoms Stated Complaint: SI Time Seen by Provider: 03/05/17 21:33 Source: patient, EMS Mode of arrival: EMS Limitations: no limitations Nursing Notes Reviewed: Yes Vital Signs Reviewed: Yes - History of Present Illness HPI Narrative: 31-year-old male history of schizoaffective disorder presents with suicidal and homicidal ideation. States his had thoughts of hurting himself for the past 3 days last night reports taken all his nighttime medication. His plan is to take all his medications. He is unaware of what medication he takes. He also reports visual and auditory hallucinations staying he sees Junior and Adolph he has been talking to them and they want him to . He admits to smoking marijuana. He denies any cocaine, heroin or amphetamine use in the past 3 months. He would like to be evaluated by a psychiatrist. Med clearance orders at initiated. Also get EKG as he is on multiple psych medications. Denies any other physical complaints at this time including headache, neck pain, chest pain , shortness of breath, abdominal pain or extremity pain. Pt complaint: suicidal ideation - Related Data Home Medications Medication Instructions Recorded Confirmed Omeprazole [PriLOSEC] 20 mg PO DAILY 12/08/16 12/08/16 Previous Rx's Medication Instructions Recorded Benztropine Mesylate 1 mg PO BID #60 tablet 11/21/16 Divalproex (24 HR) [Depakote ER 2,000 mg PO HS #120 tab.er.24h 11/21/16 (24 HR)] FLUoxetine HCl [Fluoxetine HCl] 30 mg PO DAILY #30 capsule 11/21/16 Fluphenazine [Prolixin] 10 mg PO DAILY #30 tablet 11/21/16 Quetiapine Fumarate [Seroquel] 200 mg PO HS #60 tablet 12/16/16 hydrOXYzine pamoate [HydrOXYzine 50 mg PO TID PRN #90 capsule 12/16/16 Pamoate] Allergies Allergy/AdvReac Type Severity Reaction Status Date / Time chlorpromazine Allergy Hives Verified 03/05/17 21:33 [From Thorazine] haloperidol [From Haldol] AdvReac Intermediate See Verified 03/05/17 21:33 Comments All systems ED: reviewed and negative except as stated. Review of Systems: As Per HPI Constitutional: Denies: fever, chills Cardiovascular: Denies: chest pain, dyspnea on exertion Respiratory: Denies: cough, dyspnea Gastrointestinal: Denies: abdominal pain, nausea, vomiting Genitourinary: Denies: urgency, dysuria Musculoskeletal: Denies: back pain, neck pain Integumentary: Denies: rash, abrasion, lesions Neurological: Denies: headache Psychiatric: Reports: suicidal thoughts, homicidal thoughts, auditory hallucinations, visual hallucinations. Denies: anxiety Past Medical History - Past Medical History Attestation: Yes The following information was validated with the patient. Source: patient Medical history: Reports: asthma Surgical history: Reports: arthroscopy Psychiatric history: Reports: bipolar, prior suicide attempt, schizophrenia, previous psychiatric hospitalization - Social History Smoking Status: Current every day smoker Smokeless Tobacco Status: No Alcohol use: Reports: occasionally Drug use: Reports: cocaine, opiates, marijuana, methamphetamine, IV Drug Use, prescription drug abuse Physical Exam - General Limitations: no limitations General appearance: other (Patient is very tangential, unable to keep focus, will repeat questions back and still not answer appropriately) - Head Head exam: atraumatic, normocephalic, normal inspection - Eye Eye exam: Present: normal appearance, PERRL, EOMI. Absent: nystagmus - ENT ENT exam: normal exam, normal oropharynx, mucous membranes moist - Neck Neck exam: Present: normal inspection, full ROM, trachea midline. Absent: tenderness - Chest Chest inspection: Present: normal inspection, symmetric chest wall rise. Absent : tenderness - Respiratory Respiratory exam: Present: normal lung sounds bilaterally. Absent: respiratory distress, wheezes - Cardiovascular Cardiovascular exam: Present: regular rate, normal rhythm, normal heart sounds - Abdominal Exam Abdominal exam: Present: soft, Non-Tender, normal bowel sounds. Absent: tenderness, distention, guarding, rebound, rigidity - Back Exam Back exam: Present: normal inspection, full ROM. Absent: tenderness, vertebral tenderness - Neurological Exam Neurological exam: Present: alert, oriented X3 - Psychiatric Psychiatric exam: Present: flat affect, homicidal ideation, suicidal ideation - Expanded Psychiatric Exam Expanded psych exam: Present: poor eye contact, pressured speech, loose associations - Skin Skin exam: Present: warm, dry, intact, normal color Course Course Narrative: 31-year-old male presenting with suicidal and homicidal ideation. Review of his medical records shows recent admission and discharge few months ago. States he attempted to overdose on his nighttime medications. He takes valproic acid and I was checked. EKG does not show any prolongation of intervals are any acute ischemic changes. His labs for medical clearance were unremarkable. He is positive for marijuana. Urinalysis does not appear consistent with infection. - Reevaluation(s) Reevaluation #1: 1A called for evaulation. [place] slip on the chart. Time: 22:57 Reevaluation #2: Plan is for admission to psychosis, HI, SI, and hallucinations. Will attempt to have him placed at another outside facility. Will be a psych hold. Time: 02:14 Vital Signs Temperature 98.2 F 03/05/17 21:33 Pulse Rate 81 03/05/17 21:33 Respiratory Rate 18 03/05/17 21:33 Blood Pressure 145/97 03/05/17 21:33 O2 Sat by Pulse Oximetry 97 03/05/17 21:33 Temperature 98.2 F 03/05/17 21:33 Pulse Rate 81 03/05/17 21:33 Respiratory Rate 18 03/05/17 21:33 Blood Pressure 145/97 03/05/17 21:33 O2 Sat by Pulse Oximetry 97 03/05/17 21:33 Oxygen Delivery Oxygen Delivery Room Air Psych - Lab Data Result diagrams: 03/05/17 22:01 03/05/17 22:01 Lab Results 03/05/17 03/05/17 03/05/17 Range/Units 21:45 21:45 22:01 WBC 13.7 H (4.3-11.1) K/mcL RBC 5.05 (4.19-5.50) M/mcL Hgb 14.0 (12.9-16.9) g/dL Hct 42.3 (37.5-50.1) % MCV 83.8 (83.0-100.0) fL MCH 27.7 L (28.0-33.3) pg MCHC 33.1 (31.6-35.5) g/dL RDW 13.3 (11.5-14.5) % Plt Count 218 (140-400) K/mcL MPV 12.2 (9.4-12.4) fL Immature Gran % 0.2 (0-4) % Seg Neutrophils % 49.1 % Lymphocytes % 41.2 % Monocytes % 7.6 % Eosinophils % 1.5 % Basophils % 0.4 % Neutrophils # 6.7 (1.6-8.9) K/mcL Lymphocytes # 5.7 H (0.6-4.6) K/mcL Monocytes # 1.0 (0.0-1.3) K/mcL Eosinophils # 0.2 (0.0-0.6) K/mcL Basophils # 0.1 (0.0-0.2) K/mcL Immature Plt Fraction 11.8 H (1.1-6.1) % Sodium (136-145) mEq/L Potassium (3.5-4.5) mEq/L Chloride (98-109) mEq/L Carbon Dioxide (19-29) mEq/L BUN (8-26) mg/dL Creatinine (0.72-1.25) mg/dL Est GFR ( Amer) (> 60) Est GFR (Non-Af Amer) (> 60) BUN/Creatinine Ratio (6-26) Glucose (70-99) mg/dL Calculated Osmolality (280-300) Calcium (8.6-10.8) mg/dL Urine Color Dark Yellow (Yellow) Urine Clarity Clear (Clear) Urine pH 6.0 (5.0-8.0) pH Units Ur Specific [place] 1.027 H (1.010-1.025) Urine Protein 30 H (Neg-Trace) mg/dL Urine Glucose (UA) Normal (Normal) mg/dL Urine Ketones Trace H (Negative) mg/dL Urine Blood Negative (Negative) Urine Nitrite Negative (Negative) Urine Bilirubin Negative (Negative) Urine Urobilinogen Normal (Normal) mg/dL Ur Leukocyte Esterase Negative (Negative) Urine Microscopic RBC 0-3 (0-3) per hpf Urine Microscopic WBC 3-5 H (0-3) per hpf Ur Squamous Epith Cells Moderate H (None-Few) per lpf Ur Transition Epith Cell Few (None-Few) per hpf Urine Bacteria Few (None-Few) per hpf Hyaline Casts Few (None-Few) per lpf Urine Mucus Moderate H (Few) Salicylates (15-30) mg/dL Urine Opiates Screen Negative (Axgoyu=139) ng/mL Acetaminophen (10-30) mcg/mL Ur Barbiturates Screen Negative (Ugfijl=468) ng/mL Valproic Acid (50-100) mcg/mL Ur Phencyclidine Scrn Negative (Cutoff=25) ng/mL Ur Amphetamines Screen Negative (Mpqtdt=5273) ng/mL U Benzodiazepines Scrn Negative (Ehhjhs=577) ng/mL Urine Cocaine Screen Negative (Cutoff= 300) ng/mL U Marijuana (THC) Screen Positive H (Cutoff = 50) ng/mL Ethyl Alcohol (0-10) mg/dL 03/05/17 Range/Units 22:01 WBC (4.3-11.1) K/mcL RBC (4.19-5.50) M/mcL Hgb (12.9-16.9) g/dL Hct (37.5-50.1) % MCV (83.0-100.0) fL MCH (28.0-33.3) pg MCHC (31.6-35.5) g/dL RDW (11.5-14.5) % Plt Count (140-400) K/mcL MPV (9.4-12.4) fL Immature Gran % (0-4) % Seg Neutrophils % % Lymphocytes % % Monocytes % % Eosinophils % % Basophils % % Neutrophils # (1.6-8.9) K/mcL Lymphocytes # (0.6-4.6) K/mcL Monocytes # (0.0-1.3) K/mcL Eosinophils # (0.0-0.6) K/mcL Basophils # (0.0-0.2) K/mcL Immature Plt Fraction (1.1-6.1) % Sodium 138 (136-145) mEq/L Potassium 3.9 (3.5-4.5) mEq/L Chloride 106 (98-109) mEq/L Carbon Dioxide 20 (19-29) mEq/L BUN 12 (8-26) mg/dL Creatinine 0.77 (0.72-1.25) mg/dL Est GFR ( Amer) > 60 (> 60) Est GFR (Non-Af Amer) > 60 (> 60) BUN/Creatinine Ratio 16 (6-26) Glucose 85 (70-99) mg/dL Calculated Osmolality 285 (280-300) Calcium 9.7 (8.6-10.8) mg/dL Urine Color (Yellow) Urine Clarity (Clear) Urine pH (5.0-8.0) pH Units Ur Specific [place] (1.010-1.025) Urine Protein (Neg-Trace) mg/dL Urine Glucose (UA) (Normal) mg/dL Urine Ketones (Negative) mg/dL Urine Blood (Negative) Urine Nitrite (Negative) Urine Bilirubin (Negative) Urine Urobilinogen (Normal) mg/dL Ur Leukocyte Esterase (Negative) Urine Microscopic RBC (0-3) per hpf Urine Microscopic WBC (0-3) per hpf Ur Squamous Epith Cells (None-Few) per lpf Ur Transition Epith Cell (None-Few) per hpf Urine Bacteria (None-Few) per hpf Hyaline Casts (None-Few) per lpf Urine Mucus (Few) Salicylates < 5.0 L (15-30) mg/dL Urine Opiates Screen (Ywvdtz=580) ng/mL Acetaminophen < 1.0 L (10-30) mcg/mL Ur Barbiturates Screen (Sxdmqn=207) ng/mL Valproic Acid 15.84 L (50-100) mcg/mL Ur Phencyclidine Scrn (Cutoff=25) ng/mL Ur Amphetamines Screen (Crepit=5472) ng/mL U Benzodiazepines Scrn (Xflzer=821) ng/mL Urine Cocaine Screen (Cutoff= 300) ng/mL U Marijuana (THC) Screen (Cutoff = 50) ng/mL Ethyl Alcohol < 10 (0-10) mg/dL - EKG Data EKG attestation: Yes I reviewed and interpreted this EKG. EKG results narrative: EKG performed 2153 normal sinus rhythm 85 bpm, normal axis, no ST elevations or depression, no T wave inversion, intervals are within normal limits [place] interval 198 QRS 93 QT QTC 341 384. Compared to old EKG performed 03/03/2016 shows normal sinus rhythm with consistent findings. No acute ischemic changes. Intervals are normal. Psychiatric Medical Clearance - Medical Clearance Checklist Medical History: No Social History Section defined Current Vitals: Last Vital Signs Temp 98.2 F 03/05/17 21:33 Pulse 81 03/05/17 21:33 Resp 18 03/05/17 21:33 BP 145/97 03/05/17 21:33 Pulse Ox 97 03/05/17 21:33 Psychiatric Lab Panel: Drug Levels and Toxicity 03/05/17 03/05/17 21:45 22:01 Urine Opiates Screen Negative Acetaminophen < 1.0 L Ur Barbiturates Screen Negative Ur Phencyclidine Scrn Negative Ur Amphetamines Screen Negative U Benzodiazepines Scrn Negative Urine Cocaine Screen Negative U Marijuana (THC) Screen Positive H Ethyl Alcohol < 10 Abnormal Labs: Abnormal lab results WBC 13.7 K/mcL (4.3-11.1) H 03/05/17 22:01 MCH 27.7 pg (28.0-33.3) L 03/05/17 22:01 Lymphocytes # 5.7 K/mcL (0.6-4.6) H 03/05/17 22:01 Immature Plt Fraction 11.8 % (1.1-6.1) H 03/05/17 22:01 Ur Specific [place] 1.027 (1.010-1.025) H 03/05/17 21:45 Urine Protein 30 mg/dL (Neg-Trace) H 03/05/17 21:45 Urine Ketones Trace mg/dL (Negative) H 03/05/17 21:45 Urine Microscopic WBC 3-5 per hpf (0-3) H 03/05/17 21:45 Ur Squamous Epith Cells Moderate per lpf (None-Few) H 03/05/17 21:45 Urine Mucus Moderate (Few) H 03/05/17 21:45 Salicylates < 5.0 mg/dL (15-30) L 03/05/17 22:01 Acetaminophen < 1.0 mcg/mL (10-30) L 03/05/17 22:01 Valproic Acid 15.84 mcg/mL (50-100) L 03/05/17 22:01 U Marijuana (THC) Screen Positive ng/mL (Cutoff = 50) H 03/05/17 21:45 Statement of Medical Clearance: I have evaluated the patient, reviewed diagnostic information, and certify that the patient's medical condition is sufficiently stable that transfer to the psychiatric unit does not pose a significant risk of deterioration. Attestation Statement - Attestation Attestation: I personally interviewed and examined this patient and my medical decision- making was reviewed with the Resident Physician. I agree with the documented findings, disposition and treatment plan as described except to the extent set forth below. She has a history of schizoaffective disorder is a 31-year-old male who presents to the emergency department today complaining that he is feeling homicidal and suicidal and 2 days ago took all of his medications in an attempt to harm himself. Patient states he is hearing voices and does not feel safe around anyone else and is also having thoughts of harming himself. Patient states that he ingested his Prolixin Cogentin and Depakote and reports taking whatever was left in the bottles. Patient denies any pain just mild agitation and is restless. Patient's physical exam findings as documented. Patient had an EKG which was unremarkable for any ischemic changes. Labs were drawn and sent which showed a low Depakote level. Also presence of marijuana. We are awaiting evaluation by one A and final disposition. Patient is hemodynamically stable and cooperative at this time. Patient is medically cleared for psychiatric evaluation.
[2017-03-05 21:53] LABS: Bilirubin,Urine Negative (Negative); Blood,Urine Negative (Negative); Clarity,Urine Clear (Clear); Color,Urine Dark Yellow (Yellow); Glucose,Urine (UA) Normal (Normal); Ketones,Urine Trace mg/dL (Negative); Leukocyte Esterase,Urine Negative (Negative); Nitrite,Urine Negative (Negative); Protein,Urine 30 mg/dL (Neg-Trace); Specific Gravity,Urine 1.027 (1.010-1.025); Urobilinogen,Urine Normal (Normal)
[2017-03-05 21:59] LABS: Amphetamine Screen,Urine Negative ng/mL (Cutoff=1000); Barbiturate Screen,Urine Negative ng/mL (Cutoff=200); Benzodiazepines Screen,Urine Negative ng/mL (Cutoff=200); Cannabinoid Screen,Urine Positive ng/mL (Cutoff = 50); Cocaine Screen,Urine Negative ng/mL (Cutoff= 300); Opiate Screen,Urine Negative ng/mL (Cutoff=300); Phencyclidine Screen,Urine Negative ng/mL (Cutoff=25)
[2017-03-05 22:02] LABS: Bacteria,Urine Few per hpf (None-Few); Hyaline Casts,Urine Few per lpf (None-Few); Mucus,Urine Moderate (Few); RBC,Urine 0-3 per hpf (0-3); Squamous Epithelial Cell,Urine Moderate per lpf (None-Few); Transitional Epi Cells,Urine Few per hpf (None-Few)
[2017-03-05 22:06] LABS: Basophils # 0.1 K/mcL (0.0-0.2); Basophils % 0.4 %; Eosinophils # 0.2 K/mcL (0.0-0.6); Eosinophils % 1.5 %; Hematocrit 42.3 % (37.5-50.1); Immature Granulocytes % 0.2 % (0-4); Immature Platelets 11.8 % (1.1-6.1); Lymphocytes # 5.7 K/mcL (0.6-4.6); Lymphocytes % 41.2 %; Mean Corpuscular HGB Conc 33.1 g/dL (31.6-35.5); Mean Corpuscular Hemoglobin 27.7 pg (28.0-33.3); Mean Corpuscular Volume 83.8 fL (83.0-100.0); Mean Platelet Volume 12.2 fL (9.4-12.4); Monocytes % 7.6 %; Neutrophils # 6.7 K/mcL (1.6-8.9); Platelet Count 218 K/mcL (140-400); Red Blood Count 5.05 M/mcL (4.19-5.50); Red Cell Distribution Width 13.3 % (11.5-14.5); Segmented Neutrophils % 49.1 %
[2017-03-05 22:19] LABS: Acetaminophen < 1.0 mcg/mL (10-30); BUN/Creatinine Ratio 16 (6-26); Blood Urea Nitrogen 12 mg/dL (8-26); Calcium 9.7 mg/dL (8.6-10.8); Carbon Dioxide 20 mEq/L (19-29); Chloride 106 mEq/L (98-109); Ethanol < 10 mg/dL (0-10); Glucose 85 mg/dL (70-99); Osmolality,Calculated 285 (280-300); Potassium 3.9 mEq/L (3.5-4.5); Salicylate < 5.0 mg/dL (15-30); Sodium 138 mEq/L (136-145); eGFR For African Americans > 60 (> 60); eGFR For Non-African Americans > 60 (> 60)
[2017-03-05 22:54] LABS: Valproate 15.84 mcg/mL (50-100)
[2017-03-06] MEDS ORDERED: *HR* LORazepam 2 MG/ML VIAL IVP ONE (12:34)
[2017-03-06] MEDS ORDERED: *HR* Water for inj. (sterile) 10 ML VIAL IV ONE (12:34)
[2017-03-06] MEDS ORDERED: Ziprasidone injection 20 MG/ML VIAL IM ONE (12:34)
[2017-03-06] MEDS ORDERED: *HR* LORazepam 1 MG TABLET PO ONE (12:48)
--- NOTE | 2017-03-06 13:36 | Electrocardiograph Report ---
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
[2017-03-06] MEDS ORDERED: *HR* LORazepam 2 MG/ML VIAL IM PRN (17:24)
[2017-03-06] MEDS ORDERED: MOM Conc 10 ML UD.LIQ PO PRN (17:24)
[2017-03-06] MEDS ORDERED: Haloperidol Lactate 5 MG/ML VIAL IM PRN (17:24)
[2017-03-06] MEDS ORDERED: Mag Hydrox/Al Hydrox/Simeth 30 ML UDC PO PRN (17:24)
[2017-03-06] MEDS ORDERED: Acetaminophen 325 MG TABLET PO PRN (17:24)
[2017-03-06] MEDS: Ziprasidone 20 MG CAPSULE PO PRN (19:23)
--- NOTE | 2017-03-07 13:43 | Psychiatry History & Physical ---
Date of Encounter: 03/07/17 Time of Encounter: 13:41 History of Present Illness Patient Stated Chief Complaint: "i need a med adjustment" Medicare Admission Attestation: For traditional Medicare patients the provided hospital inpatient services are reasonable and necessary and in the case of services not specified as inpatient -only under 42 CFR 419.22 (n), that they are appropriately provided as inpatient services in accordance 42 CFR 412.3. For Critical Access Hospital the patient may reasonably be expected to be discharged or transferred to a hospital within 96 hours after admission to the Critical Access Hospital. Admitted From: Home Plans for Post Hospital Care: Home History of Present Illness: Mr. Barrientos is a 31 year old male with psychiatric history of schizoaffective disorder bipolar type admitted to inpatient psychiatric unit for safety and stabilization. Patient was a very poor historian during evaluation patient was not able to tell this provider the events leading up to admission patient is kept repeating "I need a medication adjustment" patient was not able to tell this provider what medication he has been on and what symptoms he needed a medication adjustment for. On approach patient was in his room asleep and did accompany this provider to evaluation room but was not able to give further information. Patient reported that he has not been sleeping he reports prior to hospitalization he did not sleep for approximately 3 days and reports that he "needs medication for sleep". Patient seemed to be very slow in responding to questions being asked and made minimal eye contact throughout evaluation. Discussed with patient restarting Prolixin as well as claiming a Depakote level due to patient not being up until this provider the last time he had taken medication or if he is currently compliant with it. Past Med Surg Social Fam HX - Past Medical History Medical history: asthma - Past Psychiatric History Psychiatric history: Reports: bipolar, schizophrenia, previous psychiatric hospitalization Past psychiatric history details: inpatient hospitalization: multiple SA: pt unable to answer past meds: pt reorpts he doesnt know current meds: pt reports he doesnt know medical hx: pt reports he doesnt know Family psychiatric history: Yes Family History of Suicide: None - Past Surgical History Surgical History: arthroscopy - Social History Smoking Status: Current every day smoker Smokeless Tobacco Status: No Alcohol use: occasionally Drug use: cocaine, opiates, marijuana, methamphetamine, IV Drug Use, prescription drug abuse - Family History Grandfather Adopted: No Family Member Ethnicity: Non- Living Status: Still Living Hx Family Cardiac Disorders: No Hx Family Respiratory Disorders: No Hx Family Cancer: No Hx Family GI Disorders: No Hx Family Endocrine Disorder: Yes (THYROID DISORDER) Hx Family Neuromuscular Disorders: No Hx Family Neurologic Disorders: No Hx Family HEENT Disorders: No Hx Family Autoimmune Disorders: No Medications & Allergies Benztropine Mesylate 1 mg PO BID #60 tablet 11/21/16 [Rx] Divalproex (24 HR) [Depakote ER (24 HR)] 2,000 mg PO HS #120 tab.er.24h [Rx] FLUoxetine HCl [Fluoxetine HCl] 30 mg PO DAILY #30 capsule 11/21/16 [Rx] Fluphenazine [Prolixin] 10 mg PO DAILY #30 tablet 11/21/16 [Rx] Omeprazole [PriLOSEC] 20 mg PO DAILY 12/08/16 [History] Quetiapine Fumarate [Seroquel] 200 mg PO HS #60 tablet 12/16/16 [Rx] hydrOXYzine pamoate [HydrOXYzine Pamoate] 50 mg PO TID PRN #90 capsule 12/16/16 [Rx] 3 Allergy/AdvReac Type Severity Reaction Status Date / Time chlorpromazine Allergy Hives Verified 03/05/17 21:33 [From Thorazine] haloperidol [From Haldol] AdvReac Intermediate See Verified 03/05/17 21:33 Comments Review of Systems Psychiatric: Reports: anxiety, abnormal sleep pattern, change in appetite, auditory hallucinations, confusion, memory loss, difficulty concentrating, irritability, mood swings Mental Status Exam Patient orientation: Yes Person, Yes Place Level of alertness: Sedated Patient appearance: Unkempt, Disheveled Behavior: hostile, uncooperative, guarded, suspicious Psychomotor activity: Slowed Eye contact: Avoids Eye Contact Mood description: Labile, Irritable Affect description: blunted, flat Speech pattern: Disorganized, Limited, Difficulty finding words Speech volume: Soft/Quiet Thought process: Loose Associations, Tangential, Thought Blocking, Disorganized , Slowed Thinking Thought content: Yes Preoccupation, Yes Paranoid delusion, Yes Shinto delusion Perceptual disturbances: Yes Auditory hallucinations, Yes Visual hallucinations Attention span: Unable to Focus, Unable to Sustain Attention Memory description: Immediate Impaired, Recent Impaired, Remote Impaired Patient reliability: Not Reliable Historian Intelligence estimate: Below Average Judgment: Poor Insight: Minimal Exam - HEENT Head exam IM: Present: normal inspection - Neurological Neurological exam IM: Present: oriented X3 Results - Vital Signs Vital signs: Temp Pulse Resp BP Pulse Ox 98.6 F 96 16 145/98 97 03/07/17 09:00 03/07/17 09:00 03/07/17 09:00 03/07/17 09:00 03/06/17 16:36 - Labs Labs: Laboratory Last Values WBC 13.7 K/mcL (4.3-11.1) H 03/05/17 22:01 RBC 5.05 M/mcL (4.19-5.50) 03/05/17 22:01 Hgb 14.0 g/dL (12.9-16.9) 03/05/17 22:01 Hct 42.3 % (37.5-50.1) 03/05/17 22:01 MCV 83.8 fL (83.0-100.0) 03/05/17 22:01 MCH 27.7 pg (28.0-33.3) L 03/05/17 22:01 MCHC 33.1 g/dL (31.6-35.5) 03/05/17 22:01 RDW 13.3 % (11.5-14.5) 03/05/17 22:01 Plt Count 218 K/mcL (140-400) 03/05/17 22:01 MPV 12.2 fL (9.4-12.4) 03/05/17 22:01 Immature Gran % 0.2 % (0-4) 03/05/17 22:01 Seg Neutrophils % 49.1 % 03/05/17 22:01 Lymphocytes % 41.2 % 03/05/17 22:01 Monocytes % 7.6 % 03/05/17 22:01 Eosinophils % 1.5 % 03/05/17 22:01 Basophils % 0.4 % 03/05/17 22:01 Neutrophils # 6.7 K/mcL (1.6-8.9) 03/05/17 22:01 Lymphocytes # 5.7 K/mcL (0.6-4.6) H 03/05/17 22:01 Monocytes # 1.0 K/mcL (0.0-1.3) 03/05/17 22:01 Eosinophils # 0.2 K/mcL (0.0-0.6) 03/05/17 22:01 Basophils # 0.1 K/mcL (0.0-0.2) 03/05/17 22:01 Immature Plt Fraction 11.8 % (1.1-6.1) H 03/05/17 22:01 Sodium 138 mEq/L (136-145) 03/05/17 22:01 Potassium 3.9 mEq/L (3.5-4.5) 03/05/17 22:01 Chloride 106 mEq/L (98-109) 03/05/17 22:01 Carbon Dioxide 20 mEq/L (19-29) 03/05/17 22:01 BUN 12 mg/dL (8-26) 03/05/17 22:01 Creatinine 0.77 mg/dL (0.72-1.25) 03/05/17 22:01 Est GFR ( Amer) > 60 (> 60) 03/05/17 22:01 Est GFR (Non-Af Amer) > 60 (> 60) 03/05/17 22:01 BUN/Creatinine Ratio 16 (6-26) 03/05/17 22:01 Glucose 85 mg/dL (70-99) 03/05/17 22:01 Calculated Osmolality 285 (280-300) 03/05/17 22:01 Calcium 9.7 mg/dL (8.6-10.8) 03/05/17 22:01 Urine Color Dark Yellow (Yellow) 03/05/17 21:45 Urine Clarity Clear (Clear) 03/05/17 21:45 Urine pH 6.0 pH Units (5.0-8.0) 03/05/17 21:45 Ur Specific [place] 1.027 (1.010-1.025) H 03/05/17 21:45 Urine Protein 30 mg/dL (Neg-Trace) H 03/05/17 21:45 Urine Glucose (UA) Normal mg/dL (Normal) 03/05/17 21:45 Urine Ketones Trace mg/dL (Negative) H 03/05/17 21:45 Urine Blood Negative (Negative) 03/05/17 21:45 Urine Nitrite Negative (Negative) 03/05/17 21:45 Urine Bilirubin Negative (Negative) 03/05/17 21:45 Urine Urobilinogen Normal mg/dL (Normal) 03/05/17 21:45 Ur Leukocyte Esterase Negative (Negative) 03/05/17 21:45 Urine Microscopic RBC 0-3 per hpf (0-3) 03/05/17 21:45 Urine Microscopic WBC 3-5 per hpf (0-3) H 03/05/17 21:45 Ur Squamous Epith Cells Moderate per lpf (None-Few) H 03/05/17 21:45 Ur Transition Epith Cell Few per hpf (None-Few) 03/05/17 21:45 Urine Bacteria Few per hpf (None-Few) 03/05/17 21:45 Hyaline Casts Few per lpf (None-Few) 03/05/17 21:45 Urine Mucus Moderate (Few) H 03/05/17 21:45 Salicylates < 5.0 mg/dL (15-30) L 03/05/17 22:01 Urine Opiates Screen Negative ng/mL (Nevygt=887) 03/05/17 21:45 Acetaminophen < 1.0 mcg/mL (10-30) L 03/05/17 22:01 Ur Barbiturates Screen Negative ng/mL (Jhkfhj=249) 03/05/17 21:45 Valproic Acid 15.84 mcg/mL (50-100) L 03/05/17 22:01 Ur Phencyclidine Scrn Negative ng/mL (Cutoff=25) 03/05/17 21:45 Ur Amphetamines Screen Negative ng/mL (Aguouz=9281) 03/05/17 21:45 U Benzodiazepines Scrn Negative ng/mL (Gxlytr=998) 03/05/17 21:45 Urine Cocaine Screen Negative ng/mL (Cutoff= 300) 03/05/17 21:45 U Marijuana (THC) Screen Positive ng/mL (Cutoff = 50) H 03/05/17 21:45 Ethyl Alcohol < 10 mg/dL (0-10) 03/05/17 22:01 Assessment and Plan (1) Schizoaffective disorder, bipolar type Current visit: No Status: Acute Plan: Admit inpatient for safety and stabilization, Encourage participation in unit milieu, Group Therapy, Monitor sleep, Monitor appetite Risks, benefits, side effects, alternatives discussed w/pt: Yes Patient agreeable to treatment : Yes Plans for Post Hospital Care: Home Estimated Length of Stay (Days): 7
[2017-03-07] MEDS: *HR* LORazepam 1 MG TABLET PO PRN (20:01)
[2017-03-07] MEDS: Nicotine 2 MG GUM BC PRN (20:01)
[2017-03-07] MEDS: Ziprasidone 20 MG CAPSULE PO PRN (21:02)
[2017-03-07] MEDS: hydrOXYzine pamoate 25 MG CAPSULE PO PRN (21:02)
--- NOTE | 2017-03-08 14:31 | Psychiatry Progress Note ---
Date of Encounter: 03/08/17 Time of Encounter: 14:31 Subjective Interval history: Patient seen and evaluated this morning. Patient was a little more alert than yesterday but still seemed to be very guarded and evasive. Patient reports that he slept well last night. Patient reports he continues to hear voices seems as though patient has not having thought blocking due to responding to internal stimuli. We will continue to observe mood symptoms. Review of Systems Psychiatric: Reports: anxiety, abnormal sleep pattern, change in appetite, auditory hallucinations, confusion, memory loss, difficulty concentrating, irritability, mood swings Results - Vital Signs Vital Signs: Temp Pulse Resp BP Pulse Ox 98.1 F 70 18 134/83 97 03/08/17 09:00 03/08/17 09:00 03/08/17 09:00 03/08/17 09:00 03/06/17 16:36 - Labs Labs: Laboratory Results - last 24 hr 03/07/17 14:04 Valproic Acid 2.58 L Assessment and Plan (1) Schizoaffective disorder, bipolar type Current visit: No Status: Acute Risks, benefits, side effects, alternatives discussed w/pt: Yes Patient agreeable to treatment: Yes Consult Discharge Plan - Plan Referrals: Amlaia Tejada [facility] [Outside] - 03/16/17 11:00 am (The above appointment is with Lizandro Cardenas, PhD, for competency evaluation.)
[2017-03-08] MEDS: Nicotine 2 MG GUM BC PRN (15:00)
[2017-03-08] MEDS: Ziprasidone 20 MG CAPSULE PO PRN (20:39)
[2017-03-08] MEDS: *HR* LORazepam 1 MG TABLET PO PRN (20:40)
--- NOTE | 2017-03-09 14:12 | Psychiatry Progress Note ---
Date of Encounter: 03/09/17 Time of Encounter: 14:10 Subjective Interval history: Patient seen and evaluated this morning patient was watching TV. Patient was more alert than admission and he reports his mood as "good" "home". Patient continues to be responding to internal stimuli during evaluation patient was looking out the window and looking around the room the patient was able to have a more clear thought process then he did on admission there is improvement but at the same time he still has some thought blocking still present. Patient is minimizing and denying auditory hallucinations and reports to this provider that is 0 out of 10 with 10 being the most in regards to auditory hallucinations. Patient has been observed to be responding as well as pacing all patient has required some when necessary medication as well as yesterday evening per staff. Review of Systems Psychiatric: Reports: anxiety, abnormal sleep pattern, change in appetite, auditory hallucinations, confusion, memory loss, difficulty concentrating, irritability, mood swings Objective: Exam Patient orientation: Yes Person, Yes Time Level of alertness: Alert Patient appearance: Unkempt Behavior: anxious, guarded, suspicious Psychomotor activity: Slowed Eye contact: Minimal Contact Mood description: Anxious, Labile, Irritable Affect description: flat Thought process: Loose Associations Thought content: Yes Paranoid delusion Perceptual disturbances: Yes Auditory hallucinations Judgment: Limited Insight: Minimal Results - Vital Signs Vital Signs: Temp Pulse Resp BP Pulse Ox 98 F 85 18 128/94 97 03/09/17 09:00 03/09/17 09:00 03/09/17 09:00 03/09/17 09:00 03/06/17 16:36 Assessment and Plan (1) Schizoaffective disorder, bipolar type Current visit: No Status: Acute Risks, benefits, side effects, alternatives discussed w/pt: Yes Patient agreeable to treatment: Yes Consult Discharge Plan - Plan Referrals: Amalia Tejada [facility] [Outside] - 03/16/17 11:00 am (The above appointment is with Lizandro Cardenas, PhD, for competency evaluation.)
[2017-03-09] MEDS: Nicotine 2 MG GUM BC PRN (15:04)
[2017-03-09] MEDS: OLANZapine 10 MG TAB.RAPDIS PO SCH (20:51)
[2017-03-10] MEDS: OLANZapine 10 MG TAB.RAPDIS PO SCH ×2 (09:00→20:43)
--- NOTE | 2017-03-10 09:08 | Psychiatry Progress Note ---
Date of Encounter: 03/10/17 Time of Encounter: 09:06 Subjective Interval history: Patient seen and evaluated in his room today patient had breakfast and was laying in bed. Patient continues to be very guarded and responding to internal stimuli patient continues to report "I just want to go home". Patient is very adamant on wanting to go home has to be redirected multiple times. Patient does get a little restless in the afternoon but is easily redirected at times. Per staff patient was upset that his Seroquel was increased and the timing was changed to earlier patient was hesitant to take it then asked appear and then did go forward and take the medication. This provider has attempted to change patient's antipsychotic but every time any antipsychotic his change patient reports he has an allergy to it or he had EPS symptoms to her or that it was "really bad". And he will refuse these medications. So far the medication that he will only take his someone we have on currently at this time. Patient tries to minimize his psychotic symptoms and will say that his voices are a 0 out of 10 but patient has been seen by staff and this provider responding to internal stimuli Review of Systems Psychiatric: Reports: anxiety, abnormal sleep pattern, change in appetite, auditory hallucinations, confusion, memory loss, difficulty concentrating, irritability, mood swings Objective: Exam Patient orientation: Yes Person, Yes Time Level of alertness: Other Patient appearance: Unkempt Behavior: hostile, uncooperative, guarded, suspicious Psychomotor activity: Slowed Eye contact: Minimal Contact Mood description: Labile Affect description: flat Thought process: Loose Associations, Thought Blocking, Disorganized Thought content: Yes Preoccupation, Yes Paranoid delusion Perceptual disturbances: Yes Auditory hallucinations Judgment: Limited Insight: Minimal Results - Vital Signs Vital Signs: Temp Pulse Resp BP Pulse Ox 97.4 F L 68 16 122/84 97 03/10/17 09:00 03/10/17 09:00 03/10/17 09:00 03/10/17 09:00 03/06/17 16:36 Assessment and Plan (1) Schizoaffective disorder, bipolar type Current visit: No Status: Acute Plan: Continue hospitalization, Encourage participation in unit milieu, Group Therapy, Monitor sleep, Monitor appetite Risks, benefits, side effects, alternatives discussed w/pt: Yes Patient agreeable to treatment: Yes Consult Discharge Plan - Plan Referrals: [facility] [Outside] - 03/16/17 11:00 am (The above appointment is with Lizandro Cardenas, PhD, for competency evaluation.)
[2017-03-10] MEDS: Nicotine 2 MG GUM BC PRN (09:49)
[2017-03-11] MEDS: OLANZapine 10 MG TAB.RAPDIS PO SCH ×2 (08:51→20:45)
--- NOTE | 2017-03-11 12:53 | Psychiatry Progress Note ---
Date of Encounter: 03/11/17 Time of Encounter: 12:33 Subjective Interval history: Patient seen and interviewed history and physical examination reviewed. Not much change from previous condition. Patient continues to remain guarded and suspicious. According to staff patient continues to respond to internal stimuli with minimal interaction with staff and patients. He has been tolerating medications fairly well. Patient is denying any auditory hallucinations however he still is preoccupied with delusional concerns. He is focused on getting out of the hospital. I encouraged him to attend groups and participate in activities and work on a safety plan. Sleep and appetite is improved Review of Systems Psychiatric: Reports: anxiety, change in appetite, auditory hallucinations, confusion, memory loss, difficulty concentrating, irritability, mood swings Objective: Exam Patient orientation: Yes Person, Yes Time, Yes Place Level of alertness: Alert Patient appearance: Unkempt, Disheveled Behavior: anxious, guarded, suspicious Psychomotor activity: Normal Eye contact: Minimal Contact Mood description: Anxious Affect description: constricted, dysphoric Speech pattern: Normal rate, Normal rhythm, Normal tone Speech volume: Soft/Quiet Thought process: Circumstantial, Slowed Thinking Thought content: Yes Overt delusions, Yes Ideas of reference, Yes Rastafari delusion Perceptual disturbances: Yes Reacting to internal stimuli Judgment: Limited Insight: Minimal Results - Vital Signs Vital Signs: Temp Pulse Resp BP Pulse Ox 97.2 F L 78 16 136/93 97 03/11/17 09:00 03/11/17 09:00 03/11/17 09:00 03/11/17 09:00 03/06/17 16:36 Assessment and Plan (1) Schizoaffective disorder, bipolar type Current visit: No Status: Acute Plan: Continue hospitalization, Close observation, Suicide Precautions per unit protocol, Encourage participation in unit milieu, Group Therapy, Monitor sleep, Monitor appetite Risks, benefits, side effects, alternatives discussed w/pt: Yes Patient agreeable to treatment: Yes Consult Discharge Plan - Plan Referrals: Amalia Tejada [facility] [Outside] - 03/16/17 11:00 am (The above appointment is with Lizandro Cardenas, PhD, for competency evaluation.)
[2017-03-11] MEDS: hydrOXYzine pamoate 25 MG CAPSULE PO PRN ×2 (13:50→20:45)
[2017-03-12] MEDS: OLANZapine 10 MG TAB.RAPDIS PO SCH ×2 (08:50→21:02)
[2017-03-12] MEDS: Nicotine 2 MG GUM BC PRN (09:51)
[2017-03-12] MEDS: hydrOXYzine pamoate 25 MG CAPSULE PO PRN (18:37)
[2017-03-12] MEDS: Ziprasidone 20 MG CAPSULE PO PRN (21:02)
[2017-03-13] MEDS: OLANZapine 10 MG TAB.RAPDIS PO SCH ×2 (09:43→20:20)
--- NOTE | 2017-03-13 13:17 | Psychiatry Progress Note ---
Date of Encounter: 03/13/17 Time of Encounter: 13:15 Subjective Interval history: Patient seen and evaluated this morning patient was pacing the hallway. Patient reports that he feels he is ready to go home patient reports he is feeling "better". Patient denied having any auditory or visual hallucinations. The patient has been at times seen responding to internal stimuli but has improved since admission. Patient reports he is sleeping and eating okay patient has been med compliant but continues to be very guarded when taking medication and continues to state that he is allergic her cannot take certain medication. Waiting on probate hearing for patient Review of Systems Psychiatric: Reports: anxiety, auditory hallucinations, confusion, memory loss, difficulty concentrating, irritability, mood swings Objective: Exam Patient orientation: Yes Person, Yes Time, Yes Place Level of alertness: Alert Patient appearance: Unkempt Behavior: calm, anxious Psychomotor activity: Slowed Eye contact: Maintains Eye Contact Mood description: Anxious Affect description: flat Speech pattern: Normal rate Speech volume: Normal Thought process: Intact Thought content: Yes Intact, Yes Preoccupation, Yes Paranoid delusion Perceptual disturbances: Yes Auditory hallucinations Judgment: Limited Insight: Partial Results - Vital Signs Vital Signs: Temp Pulse Resp BP Pulse Ox 97.8 F 72 16 141/89 97 03/13/17 09:00 03/13/17 09:00 03/13/17 09:00 03/13/17 09:00 03/06/17 16:36 Assessment and Plan (1) Schizoaffective disorder, bipolar type Current visit: No Status: Acute Plan: Continue hospitalization, Encourage participation in unit milieu, Group Therapy, Monitor sleep, Monitor appetite Risks, benefits, side effects, alternatives discussed w/pt: Yes Patient agreeable to treatment: Yes Consult Discharge Plan - Plan Referrals: Am[facility] [Outside] - 03/16/17 11:00 am (The above appointment is with Lizandro Cardenas, PhD, for competency evaluation.)
[2017-03-13] MEDS: hydrOXYzine pamoate 25 MG CAPSULE PO PRN (15:30)
[2017-03-13] MEDS: Ziprasidone 20 MG CAPSULE PO PRN (15:30)
[2017-03-14] MEDS: Ziprasidone 20 MG CAPSULE PO PRN ×2 (04:02→20:38)
[2017-03-14] MEDS: hydrOXYzine pamoate 25 MG CAPSULE PO PRN (04:43)
[2017-03-14] MEDS: OLANZapine 10 MG TAB.RAPDIS PO SCH ×2 (08:35→20:37)
--- NOTE | 2017-03-14 15:13 | Psychiatry Progress Note ---
Date of Encounter: 03/14/17 Time of Encounter: 15:11 Subjective Interval history: Patient seen and evaluated this morning patient was pacing the hallways talking to himself and responding to internal semi-patient continues to be very demanding regarding discharge. Patient continues to report that he is not hearing voices but then states that it Scots worries and he is "doomed". Patient has limited insight and judgment patient has been taking his medication for requires stronger medication patient's paperwork has been filed for probate. Review of Systems Psychiatric: Reports: anxiety, auditory hallucinations, confusion, memory loss, difficulty concentrating, irritability, mood swings Objective: Exam Patient orientation: Yes Person, Yes Time, Yes Place Level of alertness: Alert Behavior: anxious, restless, distractible, impulsive, talkative Psychomotor activity: Increased Eye contact: Minimal Contact Mood description: Anxious, Labile Affect description: flat Thought process: Loose Associations, Flight of Ideas Thought content: Yes Paranoid delusion, Yes Caodaism delusion, Yes Grandiose delusion Perceptual disturbances: Yes Auditory hallucinations Results - Vital Signs Vital Signs: Temp Pulse Resp BP Pulse Ox 97.8 F 72 16 125/94 97 03/14/17 09:00 03/14/17 09:00 03/14/17 09:00 03/14/17 09:00 03/06/17 16:36 Assessment and Plan (1) Schizoaffective disorder, bipolar type Current visit: No Status: Acute Plan: Continue hospitalization, Encourage participation in unit milieu, Group Therapy, Monitor sleep, Monitor appetite, Family/Supportive other meeting Risks, benefits, side effects, alternatives discussed w/pt: Yes Patient agreeable to treatment: Yes Consult Discharge Plan - Plan Referrals: Amalia Tejada [facility] [Outside] - 03/16/17 11:00 am (The above appointment is with Lizandro Cardenas, PhD, for competency evaluation.)
[2017-03-14] MEDS: *HR* LORazepam 1 MG TABLET PO PRN (20:38)
[2017-03-15] MEDS: OLANZapine 10 MG TAB.RAPDIS PO SCH ×2 (09:34→20:54)
--- NOTE | 2017-03-15 10:50 | Psychiatry Progress Note ---
Date of Encounter: 03/15/17 Time of Encounter: 10:46 Subjective Interval history: Patient seen and evaluated this morning patient continues to be responding to internal stimuli and patient did require when necessary medication last night due to getting irritable patient continues to talk to himself and has no insight into his illness patient continues to be very guarded with any new medication that has been started Review of Systems Psychiatric: Reports: anxiety, auditory hallucinations, confusion, memory loss, difficulty concentrating, irritability, mood swings Results - Vital Signs Vital Signs: Temp Pulse Resp BP Pulse Ox 97.8 F 94 16 123/86 97 03/15/17 09:00 03/15/17 09:00 03/15/17 09:00 03/15/17 09:00 03/06/17 16:36 Assessment and Plan (1) Schizoaffective disorder, bipolar type Current visit: No Status: Acute Plan: Continue hospitalization, Encourage participation in unit milieu, Group Therapy, Monitor sleep, Monitor appetite Risks, benefits, side effects, alternatives discussed w/pt: Yes Patient agreeable to treatment: Yes Consult Discharge Plan - Plan Referrals: Amalia Tejada [facility] [Outside] - 03/16/17 11:00 am (The above appointment is with Lizandro Cardenas, PhD, for competency evaluation.)
[2017-03-15] MEDS: Ziprasidone 20 MG CAPSULE PO SCH ×2 (12:12→17:36)
[2017-03-15] MEDS: hydrOXYzine pamoate 25 MG CAPSULE PO PRN ×2 (14:09→20:54)
[2017-03-16] MEDS: OLANZapine 10 MG TAB.RAPDIS PO SCH ×2 (08:20→20:50)
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
[2017-03-16] MEDS: Ziprasidone 20 MG CAPSULE PO SCH ×2 (12:26→17:04)
--- NOTE | 2017-03-17 09:43 | Psychiatry Progress Note ---
Date of Encounter: 03/17/17 Time of Encounter: 09:42 Subjective Interval history: Patient seen and evaluated this morning patient is very irritable patient denied his medications last night after he heard the word "Haldol". Once this provider attempted to speak with patient patient flicked this provider off and walked away. Patient continues to be restless and pacing and responding to internal stimuli patient continues to refuse any medication that is suggested due to patient stating that he is either allergic to it or has side effects from it or it has not worked in the past. Patient is scheduled to go to probate court on Monday. Review of Systems Psychiatric: Reports: anxiety, auditory hallucinations, confusion, memory loss, difficulty concentrating, irritability, mood swings Results - Vital Signs Vital Signs: Temp Pulse Resp BP Pulse Ox 97.8 F 90 16 139/88 97 03/16/17 09:15 03/16/17 09:15 03/16/17 09:15 03/16/17 09:15 03/06/17 16:36 Assessment and Plan (1) Schizoaffective disorder, bipolar type Current visit: No Status: Acute Plan: Continue hospitalization, Group Therapy, Monitor sleep, Monitor appetite Risks, benefits, side effects, alternatives discussed w/pt: Yes Patient agreeable to treatment: Yes Consult Discharge Plan - Plan Referrals: Amalia Tejada [facility] [Outside] - 03/16/17 11:00 am (The above appointment is with Lizandro Cardenas, PhD, for competency evaluation.)
[2017-03-17] MEDS: OLANZapine 10 MG TAB.RAPDIS PO SCH ×2 (10:49→21:52)
[2017-03-17] MEDS: Ziprasidone 20 MG CAPSULE PO SCH (11:30)
[2017-03-17] MEDS ORDERED: Ziprasidone injection 20 MG/ML VIAL IM ONE (16:46)
[2017-03-18] MEDS: Ziprasidone 20 MG CAPSULE PO SCH ×3 (08:12→17:46)
[2017-03-18] MEDS: OLANZapine 10 MG TAB.RAPDIS PO SCH ×2 (09:31→20:15)
[2017-03-18] MEDS: Ziprasidone 20 MG CAPSULE PO PRN (09:37)
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
[2017-03-19] MEDS: OLANZapine 10 MG TAB.RAPDIS PO SCH ×3 (08:22→20:17)
[2017-03-19] MEDS: Ziprasidone 20 MG CAPSULE PO SCH ×2 (11:06→17:36)
--- NOTE | 2017-03-19 11:17 | Psychiatry Progress Note ---
Date of Encounter: 03/19/17 Time of Encounter: 10:49 Subjective Interval history: Patient seen and interviewed. Having a lot better today. Less paranoid and more cooperative. Patient took his nighttime and morning medications. He is requesting an increase in dose of Seroquel because he is reporting that he is still paranoid and delusional. He is denying any homicidal suicidal ideations. He apologized for his behavior yesterday. He does endorse that he is suspicious and paranoid and still feels that he can be harmed while in the hospital. He slept better. He is still responding to internal stimuli. Review of Systems Psychiatric: Reports: anxiety, auditory hallucinations, confusion, memory loss, difficulty concentrating, irritability, mood swings Objective: Exam Patient orientation: Yes Person, Yes Time, Yes Place Level of alertness: Alert Patient appearance: Unkempt, Disheveled, Malodorous Behavior: anxious, guarded, suspicious Psychomotor activity: Increased Eye contact: Minimal Contact Mood description: Anxious Affect description: flat, dysphoric Speech pattern: Normal rate, Normal rhythm, Normal tone Speech volume: Normal Thought process: [place] Thought content: Yes Ideas of reference, Yes Paranoid delusion Perceptual disturbances: Yes Reacting to internal stimuli Judgment: Limited Insight: Minimal Results - Vital Signs Vital Signs: Temp Pulse Resp BP Pulse Ox 97.2 F L 76 18 135/89 97 03/19/17 08:33 03/19/17 08:33 03/19/17 08:33 03/19/17 08:33 03/06/17 16:36 Assessment and Plan (1) Schizoaffective disorder, bipolar type Current visit: No Status: Acute Plan: Continue hospitalization, Close observation, Suicide Precautions per unit protocol, Encourage participation in unit milieu, Group Therapy, Monitor sleep, Monitor appetite Additional Plan: We will increase Seroquel from 300 mg at bedtime to 600 mg at bedtime Risks, benefits, side effects, alternatives discussed w/pt: Yes Patient agreeable to treatment: Yes Consult Discharge Plan - Plan Referrals: Amalia Tejada [facility] [Outside] - 03/16/17 11:00 am (The above appointment is with Lizandro Cardenas, PhD, for competency evaluation.)
[2017-03-19] MEDS: hydrOXYzine pamoate 25 MG CAPSULE PO PRN (20:26)
[2017-03-20] MEDS: OLANZapine 10 MG TAB.RAPDIS PO SCH ×2 (08:32→20:04)
--- NOTE | 2017-03-20 08:50 | Psychiatry Progress Note ---
Date of Encounter: 03/20/17 Time of Encounter: 08:30 Subjective Interval history: Amadou is seen today for follow-up. Previous notes reviewed. Patient reports that he still feels really scared" I have no friends and everybody is out to get me." He does not appear agitated today. He remains withdrawn to the quiet room. He states "I am not sure where I am." His speech remained slow and he does appear to be thought blocking. He reports he slept well. Review of Systems ROS limited: due to patient condition Psychiatric: Reports: anxiety, auditory hallucinations, confusion, memory loss, difficulty concentrating, irritability, mood swings Objective: Exam Patient orientation: Yes Person, No Time, No Place, No Circumstance Level of alertness: Alert Patient appearance: Unkempt, Disheveled Behavior: guarded, suspicious Psychomotor activity: Slowed Eye contact: Diverts Contact Mood description: Euthymic/stable Affect description: blunted, dysphoric, incongruent with mood Speech pattern: Impover[place] Speech volume: Soft/Quiet Thought process: Slowed Thinking Thought content: Yes Paranoid delusion, Yes Thought broadcasting Perceptual disturbances: No Auditory hallucinations, No Visual hallucinations Judgment: Poor Insight: None Results - Vital Signs Vital Signs: Temp Pulse Resp BP Pulse Ox 97.6 F 103 18 123/93 97 03/19/17 20:15 03/19/17 20:15 03/19/17 20:15 03/19/17 20:15 03/06/17 16:36 Assessment and Plan (1) Schizoaffective disorder Current visit: Yes Status: Acute Plan: Continue hospitalization, Close observation, Suicide Precautions per unit protocol, Encourage participation in unit milieu, Group Therapy, Monitor sleep, Monitor appetite Additional Plan: Continue current dose of Seroquel. Monitor for side effects of medications. Monitor for continued symptoms. Probate hearing tomorrow. Risks, benefits, side effects, alternatives discussed w/pt: Yes Patient agreeable to treatment: Yes Qualifiers: Schizoaffective disorder type: unspecified Qualified Code(s): F25.9 - Schizoaffective disorder, unspecified Consult Discharge Plan - Plan [facility] 11:00 am (The above appointment is with Lizandro Cardenas, PhD, for competency evaluation.)
[2017-03-20] MEDS: hydrOXYzine pamoate 25 MG CAPSULE PO PRN (20:02)
[2017-03-21] MEDS: Ziprasidone 20 MG CAPSULE PO PRN ×2 (01:39→14:24)
[2017-03-21] MEDS: OLANZapine 10 MG TAB.RAPDIS PO SCH ×2 (08:55→20:05)
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
[2017-03-21] MEDS: hydrOXYzine pamoate 25 MG CAPSULE PO PRN (18:11)
--- NOTE | 2017-03-22 08:28 | Psychiatry Progress Note ---
Date of Encounter: 03/22/17 Time of Encounter: 08:30 Subjective Interval history: Amadou is seen today for follow-up for his schizoaffective disorder. Patient's reports that he does not want to talk to this provider. He did start refusing medications today but we will encourage patient to take medications by mouth before giving him IM medications. He has had some increased agitation and irritability. Patient has been witnessed actively responding to internal stimuli by staff. He has had some improvement since his initial admission and we will continue to encourage medication compliance and outpatient treatment. Review of Systems ROS limited: due to patient condition Psychiatric: Reports: anxiety, auditory hallucinations, visual hallucinations, confusion, memory loss, difficulty concentrating, irritability, mood swings Objective: Exam Patient orientation: Yes Person Level of alertness: Alert Patient appearance: Unkempt, Disheveled Behavior: uncooperative, guarded, suspicious Psychomotor activity: Agitated Eye contact: Diverts Contact Mood description: Labile, Irritable Affect description: congruent with mood Speech pattern: Normal rate, Normal rhythm, Normal tone Speech volume: Loud Thought process: [place] Thought content: Yes Paranoid delusion, Yes Thought insertion Perceptual disturbances: Yes Reacting to internal stimuli, No Auditory hallucinations, No Visual hallucinations Judgment: Poor Insight: None Results - Vital Signs Vital Signs: Temp Pulse Resp BP Pulse Ox 97.2 F L 101 16 135/89 97 03/21/17 21:00 03/21/17 21:00 03/21/17 21:00 03/21/17 21:00 03/06/17 16:36 Assessment and Plan (1) Schizoaffective disorder Current visit: Yes Status: Acute Plan: Continue hospitalization, Close observation, Suicide Precautions per unit protocol, Encourage participation in unit milieu, Group Therapy, Monitor sleep, Monitor appetite Additional Plan: Change seroquel dose to bedtime. Change Zyprexa to 5mg TID (0900, 1300, 1800). Monitor for side effects. Monitor for continued symptoms. Encourage positive coping strategies. Continue to encourage medications by mouth. Risks, benefits, side effects, alternatives discussed w/pt: Yes Patient agreeable to treatment: Yes Qualifiers: Schizoaffective disorder type: unspecified Qualified Code(s): F25.9 - Schizoaffective disorder, unspecified Consult Discharge Plan - Plan Referrals: Amalia Tejada [facility] [Outside] - 03/16/17 11:00 am (The above appointment is with Lizandro Cardenas, PhD, for competency evaluation.)
[2017-03-22] MEDS: OLANZapine 10 MG TAB.RAPDIS PO SCH ×4 (09:09→20:28)
[2017-03-23] MEDS: OLANZapine 10 MG TAB.RAPDIS PO SCH ×3 (08:29→20:10)
[2017-03-23] MEDS: Ziprasidone 20 MG CAPSULE PO PRN (10:21)
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
[2017-03-24] MEDS: hydrOXYzine pamoate 25 MG CAPSULE PO PRN ×2 (03:41→20:40)
[2017-03-24] MEDS: OLANZapine 10 MG TAB.RAPDIS PO SCH ×3 (08:15→20:43)
[2017-03-24] MEDS: Ziprasidone 20 MG CAPSULE PO PRN (12:24)
--- NOTE | 2017-03-24 12:43 | Psychiatry Progress Note ---
Date of Encounter: 03/24/17 Time of Encounter: 12:35 Subjective Interval history: Amadou is seen today for follow-up. He refuses to speak with this provider but is pacing up and down the hallways blankets tied to him. He is talking fast and rhyming words. He does appear to be responding to internal stimuli and he is very guarded and and suspicious with staff. He has been offered by mouth medications several times for increased agitation and pacing but he has declined. We will avoid IM meds unless patient is not redirectable. He is not sleeping well per staff. He has been taking his regularly scheduled meds but is refusing any as needed meds. Review of Systems ROS limited: due to patient condition Psychiatric: Reports: anxiety, auditory hallucinations, visual hallucinations, confusion, memory loss, difficulty concentrating, irritability, mood swings Objective: Exam Patient orientation: Yes Person Level of alertness: Alert Patient appearance: Inappropriate, Bizarre Behavior: agitated, restless, uncooperative, guarded, suspicious Psychomotor activity: Increased Eye contact: Diverts Contact Mood description: Labile, Irritable Affect description: congruent with mood Speech pattern: Rambling, Pressured Speech volume: Normal Thought process: Thought Blocking, Disorganized Thought content: Yes Paranoid delusion, Yes Sabianism delusion, Yes Grandiose delusion Perceptual disturbances: Yes Reacting to internal stimuli, Yes Auditory hallucinations, Yes Visual hallucinations Judgment: Poor Insight: None Results - Vital Signs Vital Signs: Temp Pulse Resp BP Pulse Ox 97.0 F L 84 16 149/95 97 03/24/17 08:33 03/24/17 08:33 03/24/17 08:33 03/24/17 08:33 03/06/17 16:36 Assessment and Plan (1) Schizoaffective disorder Current visit: Yes Status: Acute Plan: Continue hospitalization, Close observation, Suicide Precautions per unit protocol, Encourage participation in unit milieu, Group Therapy, Monitor sleep, Monitor appetite Additional Plan: Continue inpatient admission. Increase Seroquel at bedtime. IM medications if needed for severe agitation. Monitor for side effects. We will continue to discuss the possibility of getting patient to state hospital. Risks, benefits, side effects, alternatives discussed w/pt: Yes Patient agreeable to treatment: Yes Qualifiers: Schizoaffective disorder type: bipolar Qualified Code(s): F25.0 - Schizoaffective disorder, bipolar type Consult Discharge Plan - Plan Referrals: Amalia Tejada [facility] [address] [Outside] - 03/16/17 11:00 am (The above appointment is with Lizandro Cardenas, PhD, for competency evaluation.)
[2017-03-25] MEDS: OLANZapine 10 MG TAB.RAPDIS PO SCH ×3 (09:30→21:17)
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
[2017-03-26] MEDS: OLANZapine 10 MG TAB.RAPDIS PO SCH ×3 (09:50→20:55)
--- NOTE | 2017-03-26 10:37 | Psychiatry Progress Note ---
Date of Encounter: 03/26/17 Time of Encounter: 10:00 Subjective Interval history: Patient seen today for follow-up. He states that he is taking his meds. Staff did find a capsule in his room that may have been Benadryl. Last night staff did notice that patient went to the bathroom and flush the toilet after med check. Patient is still paranoid and very suspicious of staff. He continues to pace in the hallway and rap and curse. Per staff he does appear to be sleeping better. Review of Systems Psychiatric: Reports: anxiety, auditory hallucinations, visual hallucinations, confusion, memory loss, difficulty concentrating, irritability, mood swings Objective: Exam Patient orientation: Yes Person, Yes Circumstance Level of alertness: Alert Patient appearance: Unkempt, Bizarre Behavior: agitated, guarded, suspicious Psychomotor activity: Slowed Eye contact: Diverts Contact Mood description: Euthymic/stable Affect description: labile, flat Speech pattern: Disorganized Speech volume: Normal Thought process: Disorganized Thought content: Yes Ideas of reference, Yes Paranoid delusion, Yes Religion delusion, Yes Grandiose delusion Perceptual disturbances: Yes Reacting to internal stimuli, No Auditory hallucinations, No Visual hallucinations Judgment: Poor Insight: None Results - Vital Signs Vital Signs: Temp Pulse Resp BP Pulse Ox 98.0 F 96 18 147/97 97 03/26/17 08:44 03/26/17 08:44 03/26/17 08:44 03/26/17 08:44 03/06/17 16:36 Assessment and Plan (1) Schizoaffective disorder Current visit: Yes Status: Acute Plan: Continue hospitalization, Close observation, Suicide Precautions per unit protocol, Encourage participation in unit milieu, Group Therapy, Monitor sleep, Monitor appetite Additional Plan: We will instruct staff to monitor patient 20-30 minutes after medication administration to insure patient is not cheeking meds. If this continues with a transition completely to IM medications to avoid this problem. Start Ativan for severe agitation 3 times a day. Continue to monitor behavior. Risks, benefits, side effects, alternatives discussed w/pt: Yes Patient agreeable to treatment: Yes Qualifiers: Schizoaffective disorder type: bipolar Qualified Code(s): F25.0 - Schizoaffective disorder, bipolar type Consult Discharge Plan - Plan Referrals: Amalia Roger [facility] [Outside] - 03/16/17 11:00 am (The above appointment is with Lizandro Cardenas, PhD, for competency evaluation.)
[2017-03-26] MEDS: *HR* LORazepam 1 MG TABLET PO SCH ×2 (15:54→20:56)
[2017-03-27] MEDS: *HR* LORazepam 1 MG TABLET PO SCH ×3 (09:41→20:23)
[2017-03-27] MEDS: OLANZapine 10 MG TAB.RAPDIS PO SCH (09:41)
--- NOTE | 2017-03-27 13:33 | Psychiatry Progress Note ---
Date of Encounter: 03/27/17 Time of Encounter: 12:30 Subjective Interval history: Patient seen today for follow up , is admitted since 03/06 , court ordered , chart reviewed and case d/w treatment team , he is still pacing, angry, dishelved and intrusive. [facility] put charge against me , they are racists and i left. patient as per staff has been monitored for not cheeking medication. he is on 2 anti psychotics and still pranoid and angry and irritable, feels people at desk and patients are being mean to him. he is wanting to go home today , has no insight and he is still having visual hallucinations, positive paranoia , i have thoughts of hurting others , usually i throw temper tantrums and get over it but i do get them. will try to give injectable as not much response with meds , he denies side effects. Review of Systems Psychiatric: Reports: anxiety, homicidal ideation, auditory hallucinations, visual hallucinations, confusion, memory loss, difficulty concentrating, irritability, mood swings Objective: Exam Patient orientation: Yes Person, Yes Time, Yes Place Level of alertness: Alert Patient appearance: Unkempt, Disheveled Behavior: cooperative, anxious Psychomotor activity: Agitated Eye contact: Minimal Contact Mood description: Anxious, Irritable Affect description: congruent with mood Speech pattern: Coherent Speech volume: Loud Thought process: Jemison Thought content: Yes Homicidal ideation, Yes Paranoid delusion, Yes Poverty of Content Perceptual disturbances: Yes Visual hallucinations Judgment: Poor Insight: None Results - Vital Signs Vital Signs: Temp Pulse Resp BP Pulse Ox 97.8 F 94 14 139/85 97 03/27/17 09:00 03/27/17 09:00 03/27/17 09:00 03/27/17 09:00 03/06/17 16:36 Assessment and Plan (1) Anxiety disorder Current visit: No Status: Acute Plan: Continue hospitalization, Close observation, Suicide Precautions per unit protocol, Encourage participation in unit milieu, Group Therapy, Monitor sleep, Monitor appetite, Family/Supportive other meeting Risks, benefits, side effects, alternatives discussed w/pt: Yes Patient agreeable to treatment: Yes Qualifiers: Anxiety disorder type: unspecified anxiety disorder Qualified Code(s): F41.9 - Anxiety disorder, unspecified (2) Schizoaffective disorder, bipolar type Current visit: No Status: Acute Plan: Continue hospitalization, Close observation, Suicide Precautions per unit protocol, Encourage participation in unit milieu, Group Therapy, Monitor sleep, Monitor appetite, Family/Supportive other meeting Risks, benefits, side effects, alternatives discussed w/pt: Yes Patient agreeable to treatment: Yes (3) Homicidal ideation Current visit: No Status: Acute Plan: Continue hospitalization, Close observation, Suicide Precautions per unit protocol, Encourage participation in unit milieu, Group Therapy, Monitor sleep, Monitor appetite Risks, benefits, side effects, alternatives discussed w/pt: Yes Patient agreeable to treatment: Yes Consult Discharge Plan - Plan Referrals: Amalia Roger [facility] [Outside] - 03/16/17 11:00 am (The above appointment is with Lizandro Cardenas, PhD, for competency evaluation.)
[2017-03-27] MEDS: OLANZapine 5 MG TAB.RAPDIS PO SCH (15:25)
[2017-03-27] MEDS: Divalproex (12 HR) 250 MG TABLET PO SCH (20:24)
[2017-03-27] MEDS ORDERED: OLANZapine 5 MG TAB.RAPDIS PO SCH (21:00)
[2017-03-28] MEDS: Nicotine 2 MG GUM BC PRN (07:23)
[2017-03-28] MEDS: OLANZapine 5 MG TAB.RAPDIS PO SCH ×2 (08:46→15:29)
[2017-03-28] MEDS: *HR* LORazepam 1 MG TABLET PO SCH ×3 (08:47→21:13)
[2017-03-28] MEDS: Divalproex (12 HR) 250 MG TABLET PO SCH (08:47)
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
[2017-03-28] MEDS: Divalproex (12 HR) 500 MG TABLET PO SCH (21:13)
[2017-03-29] MEDS: Divalproex (12 HR) 500 MG TABLET PO SCH ×2 (08:28→20:32)
[2017-03-29] MEDS: *HR* LORazepam 1 MG TABLET PO SCH ×3 (08:29→20:31)
[2017-03-29] MEDS: OLANZapine 5 MG TAB.RAPDIS PO SCH ×3 (08:29→20:32)
--- NOTE | 2017-03-29 13:27 | Psychiatry Progress Note ---
Date of Encounter: 03/29/17 Time of Encounter: 13:08 Subjective Interval history: patient seen today , case d/w staff , he remains same pacing and irritable. states i am better than normal today. i have charges against me from [facility] and trying to hurt me by sending me to care home. slept better , meds doses increased. will dc invega as increase pacing and more irritable also sustenna not available at present, will increase zyprexa to 5 mg tid . denies side effects. i feel hallucinations getting better as per him , paranoia he denies, has poor eye contact and is dishelved with body odour. patient not showing much improvement , he wants to go home and be discharged , no insight and poor judgement. Review of Systems Psychiatric: Reports: anxiety, homicidal ideation, auditory hallucinations, visual hallucinations, confusion, memory loss, difficulty concentrating, irritability, mood swings Objective: Exam Patient orientation: Yes Person, Yes Time, Yes Place Level of alertness: Alert Patient appearance: Disheveled Behavior: anxious, agitated Psychomotor activity: Increased Eye contact: Minimal Contact Mood description: Irritable Affect description: blunted Speech pattern: Coherent Speech volume: Loud Thought content: Yes Paranoid delusion Perceptual disturbances: Yes Auditory hallucinations, Yes Visual hallucinations Judgment: Poor Insight: Minimal Results - Vital Signs Vital Signs: Temp Pulse Resp BP Pulse Ox 97.6 F 83 16 137/90 97 03/29/17 09:35 03/29/17 09:35 03/29/17 09:35 03/29/17 09:35 03/06/17 16:36 Assessment and Plan (1) Schizoaffective disorder, bipolar type Current visit: No Status: Acute Risks, benefits, side effects, alternatives discussed w/pt: Yes Patient agreeable to treatment: Yes (2) Anxiety disorder Current visit: No Status: Acute Risks, benefits, side effects, alternatives discussed w/pt: Yes Patient agreeable to treatment: Yes Qualifiers: Anxiety disorder type: unspecified anxiety disorder Qualified Code(s): F41.9 - Anxiety disorder, unspecified (3) Homicidal ideation Current visit: No Status: Acute Risks, benefits, side effects, alternatives discussed w/pt: Yes Patient agreeable to treatment: Yes Consult Discharge Plan - Plan Referrals: Amalia Tejada [facility] [Outside] - 03/16/17 11:00 am (The above appointment is with Lizandro Cardenas, PhD, for competency evaluation.)
[2017-03-29] MEDS: hydrOXYzine pamoate 25 MG CAPSULE PO PRN (19:15)
[2017-03-30] MEDS: *HR* LORazepam 1 MG TABLET PO SCH ×3 (08:31→20:43)
[2017-03-30] MEDS: Divalproex (12 HR) 500 MG TABLET PO SCH ×2 (08:31→20:43)
[2017-03-30] MEDS: OLANZapine 5 MG TAB.RAPDIS PO SCH ×3 (08:31→20:43)
--- NOTE | 2017-03-30 11:14 | Psychiatry Progress Note ---
Date of Encounter: 03/30/17 Time of Encounter: 11:00 Subjective Interval history: Patient seen today , case d/w staff remains same, pacing irritable and intrusive. he states i am just fine and want to go home, has poor insight and judgement. he agreed to shower yesterday , but wearing same clothes, he slept well, appetite is good. he is still paranoid and visual hallucination. my body is working weed out of my system. its only way i laugh and do not take things seriously. zyprexa was increased yesterday ,denies side effects. awaiting transfer to [facility]. Review of Systems Psychiatric: Reports: anxiety, homicidal ideation, auditory hallucinations, visual hallucinations, confusion, memory loss, difficulty concentrating, irritability, mood swings Objective: Exam Patient orientation: Yes Person, Yes Time, Yes Place Level of alertness: Alert Patient appearance: Disheveled Behavior: guarded, withdrawn Psychomotor activity: Increased Eye contact: Minimal Contact Mood description: Anxious, Irritable Affect description: congruent with mood, constricted Speech pattern: Inappropriate to situation Speech volume: Normal Thought process: Loose Associations Thought content: Yes Preoccupation, Yes Paranoid delusion Perceptual disturbances: Yes Auditory hallucinations, Yes Visual hallucinations Judgment: Poor Insight: None Results - Vital Signs Vital Signs: Temp Pulse Resp BP Pulse Ox 97.5 F L 93 18 141/93 97 03/30/17 08:07 03/30/17 08:07 03/30/17 08:07 03/30/17 08:07 03/06/17 16:36 Assessment and Plan (1) Schizoaffective disorder, bipolar type Current visit: No Status: Acute Risks, benefits, side effects, alternatives discussed w/pt: Yes Patient agreeable to treatment: Yes (2) Anxiety disorder Current visit: No Status: Acute Risks, benefits, side effects, alternatives discussed w/pt: Yes Patient agreeable to treatment: Yes Qualifiers: Anxiety disorder type: unspecified anxiety disorder Qualified Code(s): F41.9 - Anxiety disorder, unspecified (3) Homicidal ideation Current visit: No Status: Acute Risks, benefits, side effects, alternatives discussed w/pt: Yes Patient agreeable to treatment: Yes Consult Discharge Plan - Plan Additional Instructions: Outpatient follow-up appointments will be arranged by [facility] staff once your discharge date from there is known. Referrals: NONE,PCP [Primary Care Provider] -
--- NOTE | 2017-03-30 15:17 | Psychiatry Progress Note ---
Date of Encounter: 03/12/17 Time of Encounter: 11:07 Subjective Interval history: Pt seen and interviewed Continue to remain delusional and paranoid and religiously preoccupied Behavior slightly better controlled Unable to engage in activities or groups on the unit Responding to internal stimuli Review of Systems Psychiatric: Reports: anxiety, homicidal ideation, auditory hallucinations, visual hallucinations, confusion, memory loss, difficulty concentrating, irritability, mood swings Objective: Exam Patient orientation: Yes Person, Yes Time, Yes Place Level of alertness: Alert Patient appearance: Unkempt, Disheveled, Bizarre Behavior: anxious, restless, guarded, suspicious Psychomotor activity: Increased Eye contact: Minimal Contact Mood description: Angry, Irritable Affect description: dysphoric Speech pattern: Slowed, Pressured Speech volume: Normal Thought process: Loose Associations Thought content: Yes Paranoid delusion, Yes Congregation delusion Perceptual disturbances: Yes Auditory hallucinations Judgment: Poor Insight: None Results - Vital Signs Vital Signs: Temp Pulse Resp BP Pulse Ox 97.5 F L 93 18 141/93 97 03/30/17 08:07 03/30/17 08:07 03/30/17 08:07 03/30/17 08:07 03/06/17 16:36 Assessment and Plan (1) Schizoaffective disorder, bipolar type Current visit: No Status: Acute Plan: Continue hospitalization, Close observation, Suicide Precautions per unit protocol, Encourage participation in unit milieu, Group Therapy, Monitor sleep, Monitor appetite Risks, benefits, side effects, alternatives discussed w/pt: Yes Patient agreeable to treatment: Yes Consult Discharge Plan - Plan Additional Instructions: Outpatient follow-up appointments will be arranged by [facility] staff once your discharge date from there is known. Referrals: NONE,PCP [Primary Care Provider] -
[2017-03-30] MEDS: hydrOXYzine pamoate 25 MG CAPSULE PO PRN (20:43)
[2017-03-31] MEDS: Divalproex (12 HR) 500 MG TABLET PO SCH ×2 (08:55→21:21)
[2017-03-31] MEDS: *HR* LORazepam 1 MG TABLET PO SCH ×3 (08:56→21:21)
[2017-03-31] MEDS: OLANZapine 5 MG TAB.RAPDIS PO SCH ×3 (08:56→21:21)
[2017-03-31] MEDS: Nicotine 2 MG GUM BC PRN (10:32)
--- NOTE | 2017-03-31 10:39 | Psychiatry Progress Note ---
Date of Encounter: 03/31/17 Time of Encounter: 10:20 Subjective Interval history: Patientt seen , case d/w staff and chart reviewed. has been given prn medication and still pacing , irritable , restless and bautista , has not threathened anyone verbally but his gestures are. he admits to visual hallucination , states i donot react to them i let them do what they want as i took Acid. denies side effects. sleep and appetite is good. he has poor insight and judgement and is increase risk to get agitated i am restless about going home. Review of Systems Psychiatric: Reports: anxiety, homicidal ideation, auditory hallucinations, visual hallucinations, confusion, memory loss, difficulty concentrating, irritability, mood swings Objective: Exam Patient orientation: Yes Person, Yes Time, Yes Place Level of alertness: Alert Patient appearance: Disheveled Behavior: anxious, restless, distractible Psychomotor activity: Increased Eye contact: Minimal Contact Mood description: Angry, Depressed, Anxious, Irritable Affect description: blunted Speech pattern: Excessive Speech volume: Normal Thought process: Tangential Thought content: Yes Preoccupation, Yes Paranoid delusion Perceptual disturbances: Yes Auditory hallucinations, Yes Visual hallucinations Judgment: Poor Insight: None Results - Vital Signs Vital Signs: Temp Pulse Resp BP Pulse Ox 97.6 F 80 18 144/99 97 03/31/17 09:00 03/31/17 09:00 03/31/17 09:00 03/31/17 09:00 03/06/17 16:36 Assessment and Plan (1) Schizoaffective disorder, bipolar type Current visit: No Status: Acute Risks, benefits, side effects, alternatives discussed w/pt: Yes Patient agreeable to treatment: Yes (2) Anxiety disorder Current visit: No Status: Acute Risks, benefits, side effects, alternatives discussed w/pt: Yes Patient agreeable to treatment: Yes Qualifiers: Anxiety disorder type: unspecified anxiety disorder Qualified Code(s): F41.9 - Anxiety disorder, unspecified (3) Homicidal ideation Current visit: No Status: Acute Risks, benefits, side effects, alternatives discussed w/pt: Yes Patient agreeable to treatment: Yes Consult Discharge Plan - Plan Additional Instructions: Outpatient follow-up appointments will be arranged by [facility] staff once your discharge date from there is known. Referrals: NONE,PCP [Primary Care Provider] -
[2017-03-31] MEDS: hydrOXYzine pamoate 25 MG CAPSULE PO PRN (21:22)
[2017-04-01] MEDS: Divalproex (12 HR) 500 MG TABLET PO SCH ×2 (08:31→20:40)
[2017-04-01] MEDS: *HR* LORazepam 1 MG TABLET PO SCH ×3 (08:32→20:41)
[2017-04-01] MEDS: OLANZapine 5 MG TAB.RAPDIS PO SCH ×3 (08:32→20:41)
--- NOTE | 2017-04-01 13:49 | Psychiatry Progress Note ---
Date of Encounter: 04/01/17 Time of Encounter: 13:00 Subjective Interval history: Patient seen today case d/w staff , more in his room and as per him he is keeping self busy by doing puzzles and is doing great, i need to go home and start exercise, and take it easy one at a time. my hallucinations are down , i feel this new medicine might work. sleep is good , appetite fine. still paranoia and nervous about the court. remains dishelved and poor eye contact and guarded Review of Systems Psychiatric: Reports: anxiety, homicidal ideation, auditory hallucinations, visual hallucinations, confusion, memory loss, difficulty concentrating, irritability, mood swings Objective: Exam Patient orientation: Yes Person, Yes Time, Yes Place Level of alertness: Alert Patient appearance: Unkempt, Disheveled Behavior: guarded Psychomotor activity: Increased Eye contact: Minimal Contact Mood description: Anxious, Irritable Affect description: blunted Speech pattern: Limited Speech volume: Normal Thought process: Disorganized Thought content: Yes Preoccupation, Yes Paranoid delusion Perceptual disturbances: Yes Visual hallucinations Judgment: Poor Insight: None Results - Vital Signs Vital Signs: Temp Pulse Resp BP Pulse Ox 97.8 F 84 16 143/93 97 04/01/17 09:00 04/01/17 09:00 04/01/17 09:00 04/01/17 09:00 03/06/17 16:36 Assessment and Plan (1) Schizoaffective disorder, bipolar type Current visit: No Status: Acute Risks, benefits, side effects, alternatives discussed w/pt: Yes Patient agreeable to treatment: Yes (2) Anxiety disorder Current visit: No Status: Acute Risks, benefits, side effects, alternatives discussed w/pt: Yes Patient agreeable to treatment: Yes Qualifiers: Anxiety disorder type: unspecified anxiety disorder Qualified Code(s): F41.9 - Anxiety disorder, unspecified (3) Homicidal ideation Current visit: No Status: Acute Risks, benefits, side effects, alternatives discussed w/pt: Yes Patient agreeable to treatment: Yes Consult Discharge Plan - Plan Referrals: NONE,PCP [Primary Care Provider] -
[2017-04-01] MEDS: Nicotine 2 MG GUM BC PRN (14:02)
[2017-04-01] MEDS: hydrOXYzine pamoate 25 MG CAPSULE PO PRN (20:41)
[2017-04-02] MEDS: OLANZapine 5 MG TAB.RAPDIS PO SCH ×3 (09:52→20:48)
[2017-04-02] MEDS: Divalproex (12 HR) 500 MG TABLET PO SCH ×2 (09:52→20:48)
[2017-04-02] MEDS: *HR* LORazepam 1 MG TABLET PO SCH ×3 (09:52→20:48)
--- NOTE | 2017-04-02 13:14 | Psychiatry Progress Note ---
Date of Encounter: 04/02/17 Time of Encounter: 13:00 Subjective Interval history: Patient seen today , case d/w staff. States i am doing much better and not even hallucinating , slept well and i want to go home , i am back to normal , its pretty good. states my plans are keep up maintainance of my apartment and do exercise. he is focused on discharge and at present denying any problem. patient is in his room lately and not pacing as much. denies suicidal or homicidal ideas. Review of Systems Psychiatric: Reports: anxiety, homicidal ideation, auditory hallucinations, visual hallucinations, confusion, memory loss, difficulty concentrating, irritability, mood swings Objective: Exam Patient orientation: Yes Person, Yes Time, Yes Place Level of alertness: Alert Patient appearance: Disheveled Behavior: guarded Psychomotor activity: Increased Eye contact: Minimal Contact Mood description: Anxious, Irritable Affect description: congruent with mood Speech pattern: Coherent Speech volume: Normal Thought process: Intact Thought content: Yes Preoccupation Perceptual disturbances: Yes Visual hallucinations Judgment: Poor Insight: Minimal Results - Vital Signs Vital Signs: Temp Pulse Resp BP Pulse Ox 97 F L 94 18 145/95 97 04/02/17 09:00 04/02/17 09:00 04/02/17 09:00 04/02/17 09:00 03/06/17 16:36 Assessment and Plan (1) Schizoaffective disorder, bipolar type Current visit: No Status: Acute Risks, benefits, side effects, alternatives discussed w/pt: Yes Patient agreeable to treatment: Yes (2) Anxiety disorder Current visit: No Status: Acute Risks, benefits, side effects, alternatives discussed w/pt: Yes Patient agreeable to treatment: Yes Qualifiers: Anxiety disorder type: unspecified anxiety disorder Qualified Code(s): F41.9 - Anxiety disorder, unspecified (3) Homicidal ideation Current visit: No Status: Acute Risks, benefits, side effects, alternatives discussed w/pt: Yes Patient agreeable to treatment: Yes Consult Discharge Plan - Plan Referrals: NONE,PCP [Primary Care Provider] -
[2017-04-03] MEDS: OLANZapine 5 MG TAB.RAPDIS PO SCH ×3 (08:24→20:56)
[2017-04-03] MEDS: Divalproex (12 HR) 500 MG TABLET PO SCH ×2 (08:24→20:56)
[2017-04-03] MEDS: *HR* LORazepam 1 MG TABLET PO SCH ×3 (08:25→20:56)
--- NOTE | 2017-04-03 16:03 | Psychiatry Progress Note ---
Date of Encounter: 04/03/17 Time of Encounter: 13:45 Subjective Interval history: Patient is here for follow-up. I reviewed the chart and records discussed the case was treatment team. Patient reports he is doing well and feels he is ready for discharge. Staff report he is less pacing and his behavior has been martel controlled and compliance with medication has been consistent for the last few days. He stayed in control and shared with me and his desire to be discharged and he was agreeable to discuss it tomorrow. There is no evidence of any stiffness or side effects of medication. Review of Systems Psychiatric: Reports: anxiety, homicidal ideation, auditory hallucinations, visual hallucinations, confusion, memory loss, difficulty concentrating, irritability, mood swings Objective: Exam Patient orientation: Yes Person, Yes Time, Yes Place Level of alertness: Alert Patient appearance: Appropriate, Unkempt Behavior: calm, cooperative, nervous, guarded, distractible Psychomotor activity: Slowed Eye contact: Fleeting Contact Mood description: Euthymic/stable, Anxious Affect description: congruent with mood, labile Speech pattern: Normal rate, Normal rhythm, Normal tone Speech volume: Normal Thought process: Linear, Goal Oriented Thought content: No Suicidal ideation, No Homicidal ideation, Yes Overt delusions Perceptual disturbances: Yes Auditory hallucinations, No Visual hallucinations Judgment: Fair Insight: Partial Results - Vital Signs Vital Signs: Temp Pulse Resp BP Pulse Ox 98.2 F 96 18 133/92 97 04/03/17 09:00 04/03/17 09:00 04/03/17 09:00 04/03/17 09:00 03/06/17 16:36 Assessment and Plan (1) Schizoaffective disorder, bipolar type Current visit: No Status: Acute Plan: Continue hospitalization, Close observation, Suicide Precautions per unit protocol, Encourage participation in unit milieu, Group Therapy, Monitor sleep, Monitor appetite Risks, benefits, side effects, alternatives discussed w/pt: Yes Patient agreeable to treatment: Yes Consult Discharge Plan - Plan Referrals: NONE,PCP [Primary Care Provider] -
[2017-04-03] MEDS: hydrOXYzine pamoate 25 MG CAPSULE PO PRN (20:57)
[2017-04-03] MEDS: traZODone 50 MG TABLET PO PRN (20:57)
[2017-04-04] MEDS: OLANZapine 5 MG TAB.RAPDIS PO SCH ×3 (08:20→20:10)
[2017-04-04] MEDS: Divalproex (12 HR) 500 MG TABLET PO SCH ×2 (08:20→20:11)
[2017-04-04] MEDS: *HR* LORazepam 1 MG TABLET PO SCH ×3 (08:20→20:11)
--- NOTE | 2017-04-04 15:35 | Psychiatry Progress Note ---
Date of Encounter: 04/04/17 Time of Encounter: 15:00 Subjective Interval history: Patient was seen for follow-up with the protective services social worker. His discharge plans are pending receiving information from the court related to his domestic legal issues. We explained to the patient's current situation and how his discharge plans are pending dose information and he seemed to be receptive to this explanation. Otherwise he is cooperative compliant with medication showing improvements he is not showing any agitation or irritability. Reports his sleep has been adequate and good quality there are no reports of any disruptive behavior agitation or overt delusional psychotic behavior. Review of Systems Psychiatric: Reports: anxiety, homicidal ideation, auditory hallucinations, visual hallucinations, confusion, memory loss, difficulty concentrating, irritability, mood swings Objective: Exam Patient orientation: Yes Person, Yes Time, Yes Place Level of alertness: Alert Patient appearance: Appropriate, Unkempt Behavior: calm, cooperative, guarded Psychomotor activity: Normal Eye contact: Maintains Eye Contact Mood description: Euthymic/stable, Irritable Affect description: congruent with mood, constricted Speech pattern: Normal rate, Normal rhythm, Normal tone, Limited Speech volume: Normal Thought process: Linear, Goal Oriented Thought content: No Suicidal ideation, No Homicidal ideation, No Overt delusions Perceptual disturbances: No Auditory hallucinations, No Visual hallucinations Judgment: Fair Insight: Partial Results - Vital Signs Vital Signs: Temp Pulse Resp BP Pulse Ox 98.8 F 105 18 132/94 97 04/04/17 09:00 04/04/17 09:00 04/04/17 09:00 04/04/17 09:00 03/06/17 16:36 Assessment and Plan (1) Schizoaffective disorder, bipolar type Current visit: No Status: Acute Plan: Continue hospitalization, Close observation, Suicide Precautions per unit protocol, Encourage participation in unit milieu, Group Therapy, Monitor sleep, Monitor appetite Risks, benefits, side effects, alternatives discussed w/pt: Yes Patient agreeable to treatment: Yes Consult Discharge Plan - Plan Referrals: NONE,PCP [Primary Care Provider] -
[2017-04-04] MEDS: hydrOXYzine pamoate 25 MG CAPSULE PO PRN (19:54)
[2017-04-04] MEDS: traZODone 50 MG TABLET PO PRN (20:11)
[2017-04-05] MEDS: Divalproex (12 HR) 500 MG TABLET PO SCH ×2 (08:34→20:41)
[2017-04-05] MEDS: *HR* LORazepam 1 MG TABLET PO SCH ×3 (08:34→20:41)
[2017-04-05] MEDS: OLANZapine 5 MG TAB.RAPDIS PO SCH ×3 (08:34→20:41)
--- NOTE | 2017-04-05 15:10 | Psychiatry Progress Note ---
Date of Encounter: 04/05/17 Time of Encounter: 15:06 Subjective Interval history: Patient was seen for follow-up. Case discussed in detail with the social security specialist. Patient was updated regarding his discharge plans and and anticipated time as will be reported by the court. He is receptive to the information but obviously anxious regarding all of the details. He was assured that his medication will be continued through all the proceedings and would make sure that his treatment is not interrupteds under any condition. Currently he denies any problem with sleep tolerating his medication and compliant. Review of Systems Psychiatric: Reports: anxiety, homicidal ideation, auditory hallucinations, visual hallucinations, confusion, memory loss, difficulty concentrating, irritability, mood swings Objective: Exam Patient orientation: Yes Person, Yes Time, Yes Place Level of alertness: Alert Patient appearance: Appropriate, Well Groomed Behavior: calm, cooperative, anxious, guarded, withdrawn Psychomotor activity: Normal Eye contact: Maintains Eye Contact Mood description: Euthymic/stable, Anxious Affect description: congruent with mood, dysphoric Speech pattern: Normal rate, Normal rhythm, Normal tone, Coherent Speech volume: Normal Thought process: Linear, Goal Oriented Thought content: No Suicidal ideation, No Homicidal ideation, No Overt delusions Perceptual disturbances: No Auditory hallucinations, No Visual hallucinations Judgment: Fair Insight: Partial Results - Vital Signs Vital Signs: Temp Pulse Resp BP Pulse Ox 97.1 F L 107 16 130/92 97 04/05/17 09:45 04/05/17 09:45 04/05/17 09:45 04/05/17 09:45 03/06/17 16:36 Assessment and Plan (1) Schizoaffective disorder, bipolar type Current visit: No Status: Acute Plan: Continue hospitalization, Close observation, Suicide Precautions per unit protocol, Encourage participation in unit milieu, Group Therapy, Monitor sleep, Monitor appetite Risks, benefits, side effects, alternatives discussed w/pt: Yes Patient agreeable to treatment: Yes Consult Discharge Plan - Plan Referrals: NONE,PCP [Primary Care Provider] -
[2017-04-06] MEDS: OLANZapine 5 MG TAB.RAPDIS PO SCH ×3 (09:08→20:08)
[2017-04-06] MEDS: Divalproex (12 HR) 500 MG TABLET PO SCH ×2 (09:08→20:08)
[2017-04-06] MEDS: *HR* LORazepam 1 MG TABLET PO SCH ×3 (09:08→20:08)
--- NOTE | 2017-04-06 15:13 | Discharge Summary ---
Date of Encounter: 04/07/17 Time of Encounter: 14:54 Diagnosis - Discharge Diagnosis (1) Schizoaffective disorder, bipolar type Status: Acute Medications - Discharge Medications Prescriptions: Benztropine [Cogentin] 1 mg PO BID #60 tablet Divalproex (12 HR) [Depakote (12 HR)] 500 mg PO BID #60 tablet. hydrOXYzine pamoate [HydrOXYzine Pamoate] 25 mg PO TID PRN #60 capsule PRN Reason: Anxiety LORazepam [Ativan] 1 mg PO TID #90 tablet OLANZapine [Zyprexa Zydis] 5 mg PO TID #90 tab.rapdis Omeprazole [PriLOSEC] 20 mg PO DAILY #30 capsule. Quetiapine Fumarate [Seroquel] 800 mg PO HS 30 Days #60 tablet traZODone [TraZODone] 50 mg PO HS PRN #30 tablet PRN Reason: Insomnia Ziprasidone [Geodon] 40 mg PO Q4H PRN #30 capsule PRN Reason: Agitation Benztropine [Cogentin] 1 mg PO BID #60 tablet 04/06/17 [Rx] Divalproex (12 HR) [Depakote (12 HR)] 500 mg PO BID #60 tablet. 04/06/17 [Rx] LORazepam [Ativan] 1 mg PO TID #90 tablet 04/06/17 [Rx] OLANZapine [Zyprexa Zydis] 5 mg PO TID #90 tab.rapdis 04/06/17 [Rx] Omeprazole [PriLOSEC] 20 mg PO DAILY #30 capsule. 04/06/17 [Rx] Quetiapine Fumarate [Seroquel] 800 mg PO HS 30 Days #60 tablet 04/06/17 [Rx] Ziprasidone [Geodon] 40 mg PO Q4H PRN #30 capsule 04/06/17 [Rx] hydrOXYzine pamoate [HydrOXYzine Pamoate] 25 mg PO TID PRN #60 capsule 04/06/17 [Rx] traZODone [TraZODone] 50 mg PO HS PRN #30 tablet 04/06/17 [Rx] 3 Allergy/AdvReac Type Severity Reaction Status Date / Time chlorpromazine Allergy Hives Verified 03/05/17 21:33 [From Thorazine] haloperidol [From Haldol] AdvReac Intermediate See Verified 03/05/17 21:33 Comments Results Procedures and tests throughout hospitalization: Completed Lab Orders Category Date Time Status Valproate Stat Lab 03/07/17 14:04 Completed Valproate Stat Lab 03/31/17 11:34 Completed Provider Date of admission: 03/06/17 16:48 Primary care physician: PCP NONE Discharging clinician: Joaquin Fernandez Assessment and Plan - Patient/Caregiver Discharge Instructions Activity: resume usual activities as tolerated Diet: regular diet Additional Instructions: Discharge appointments will be made once your discharge date from forensic psychiatric placement at [facility] is known. - Follow up Plan Follow up with: NONE,PCP [Primary Care Provider] - Functional capacity at discharge: independent ambulation Overall status at discharge: Stable Disposition: Transfer Other Hospital Course Hospital course: Mr. Barrientos is a 31 year old male admitted for treatment of schizoaffective disorder bipolar type with increased in hallucinations and suicidal ideation. For details of admission please see H&P On the unit patient hospitalization was complex , his response to treatment was inadequate and he continued to have episodes of agitation and delusional thinking and hallucinations. Patient responded to treatment with Seroquel and olanzapine he displayed controlled behavior, improved sleep and lack of overt psychosis. Patient discharge plans were complex because of involvement of court related to criminal charges and scheduled for hearing, on discharge. Patient was educated about his discharge plans and expectation and medication compliance and answered his question . in addition the adoption social worker also shared the same with patient's family. On discharge the patient was medically stable denied any auditory or visual hallucinations denied any suicidal ideation seem anxious about the legal proceeding but he is aware of the procedure and understands his treatment plan and follow-up. Patient is discharged in stable condition to [facility] to attend court hearing regarding his criminal charges. - Time Spent with Patient Total time spent providing and/or coordinating discharge services: Less than 30 minutes Quality - Multiple Antipsychotics Patient discharged on 2 or more antipsychotic medications: Yes - Justification Documentation of: History 3 failed trials of monotherapy Procedures - Procedures Procedures: Medication Management, Crisis Stabilization, Supportive Therapy, Group Therapy, Psychoeducational Therapy Mental Status Exam - Mental Status Exam Patient orientation: Yes Person, Yes Time, Yes Place Level of alertness: Alert Patient appearance: Appropriate, Unkempt Behavior: calm, cooperative, anxious Psychomotor activity: Normal Eye contact: Maintains Eye Contact Mood description: Euthymic/stable, Anxious Affect description: congruent with mood, full range Speech pattern: Normal rate, Normal rhythm, Normal tone Speech Volume: Normal Thought process: Linear, Goal Oriented Thought Content: No Suicidal ideation, No Homicidal ideation, No Overt delusions Perceptual Disturbances: No Auditory hallucinations, No Visual hallucinations Judgment: Limited Insight: Partial
--- NOTE | 2017-04-06 15:37 | Psychiatry Progress Note ---
Date of Encounter: 04/06/17 Time of Encounter: 15:35 Subjective Interval history: Patient is seen for follow-up. Case was discussed and reviewed some nursing staff and school social worker and discharge plan for him were reviewed. He is informed and educated about the discharge process and "hearing scheduled for tomorrow and subsequent procedures. He shows understanding he has some anxiety about these proceeding but he was reassured that his medication will be continuous and not interrupted under any condition. He denied any problem with sleep or side effects from medication. He is in good control. Review of Systems Psychiatric: Reports: anxiety, homicidal ideation, auditory hallucinations, visual hallucinations, confusion, memory loss, difficulty concentrating, irritability, mood swings Objective: Exam Patient orientation: Yes Person, Yes Time, Yes Place Level of alertness: Alert Patient appearance: Appropriate, Disheveled, Obese Behavior: calm, cooperative Psychomotor activity: Normal Eye contact: Maintains Eye Contact Mood description: Euthymic/stable, Anxious Affect description: congruent with mood, constricted Speech pattern: Normal rate, Normal rhythm, Normal tone, Impoverished Speech volume: Normal Thought process: Linear, Goal Oriented, Thought Blocking Thought content: No Suicidal ideation, No Homicidal ideation, No Overt delusions Perceptual disturbances: No Auditory hallucinations, No Visual hallucinations Judgment: Fair Insight: Partial Results - Vital Signs Vital Signs: Temp Pulse Resp BP Pulse Ox 97.5 F L 98 16 136/93 97 04/06/17 09:24 04/06/17 09:24 04/06/17 09:24 04/06/17 09:24 03/06/17 16:36 Assessment and Plan (1) Schizoaffective disorder, bipolar type Current visit: No Status: Acute Plan: Continue hospitalization, Close observation, Suicide Precautions per unit protocol, Encourage participation in unit milieu, Group Therapy, Monitor sleep, Monitor appetite Risks, benefits, side effects, alternatives discussed w/pt: Yes Patient agreeable to treatment: Yes Consult Discharge Plan - Plan Additional Instructions: Discharge appointments will be made once your discharge date from forensic psychiatric placement at [facility] is known. Referrals: NONE,PCP [Primary Care Provider] - Prescriptions: Benztropine [Cogentin] 1 mg PO BID #60 tablet Divalproex (12 HR) [Depakote (12 HR)] 500 mg PO BID #60 tablet. hydrOXYzine pamoate [HydrOXYzine Pamoate] 25 mg PO TID PRN #60 capsule PRN Reason: Anxiety LORazepam [Ativan] 1 mg PO TID #90 tablet OLANZapine [Zyprexa Zydis] 5 mg PO TID #90 tab.rapdis Omeprazole [PriLOSEC] 20 mg PO DAILY #30 capsule. Quetiapine Fumarate [Seroquel] 800 mg PO HS 30 Days #60 tablet traZODone [TraZODone] 50 mg PO HS PRN #30 tablet PRN Reason: Insomnia Ziprasidone [Geodon] 40 mg PO Q4H PRN #30 capsule PRN Reason: Agitation
[2017-04-06] MEDS: traZODone 50 MG TABLET PO PRN (23:02)
[2017-04-07] MEDS: hydrOXYzine pamoate 25 MG CAPSULE PO PRN (03:29)
[2017-04-07] MEDS: *HR* LORazepam 1 MG TABLET PO SCH ×2 (08:40→14:56)
[2017-04-07] MEDS: Divalproex (12 HR) 500 MG TABLET PO SCH (08:40)
[2017-04-07] MEDS: OLANZapine 5 MG TAB.RAPDIS PO SCH ×2 (08:40→14:55)
[2017-04-07 08:51] VITALS: BP 122/86
== END 2017-04-07 17:45 | disposition other institution (70) | DRG 750 ==
LOC: EMEROO 21:31 → SUATTDRO 03-06 16:48 → 1ANU 03-06 16:48
PROVIDERS: ADMIT Psychiatry & Neurology Psychiatry; ATTEND Psychiatry & Neurology Psychiatry

== ENCOUNTER 2017-08-04 13:26 | Inpatient (IN) ==
[2017-08-04] MEDS ORDERED: Haloperidol Lactate 5 MG/ML VIAL ONE (13:39)
[2017-08-04] MEDS ORDERED: *HR* LORazepam 2 MG/ML VIAL ONE (13:40)
[2017-08-04] MEDS ORDERED: Ziprasidone injection 20 MG/ML VIAL IM ONE ×2 (13:44)
[2017-08-04] MEDS ORDERED: Water for inj. (sterile) 10 ML IV ONE (13:45)
[2017-08-04 14:02] LABS: Hematocrit 44.5 % (37.5-50.1); Hemoglobin 14.2 g/dL (12.9-16.9); Immature Granulocytes % 0.4 % (0-4); Lymphocytes % 30.1 %; Mean Corpuscular HGB Conc 31.9 g/dL (31.6-35.5); Mean Corpuscular Hemoglobin 27.4 pg (28.0-33.3); Mean Corpuscular Volume 85.7 fL (83.0-100.0); Mean Platelet Volume 11.4 fL (9.4-12.4); Platelet Count 256 K/mcL (140-400); Red Blood Count 5.19 M/mcL (4.19-5.50); Red Cell Distribution Width 15.3 % (11.5-14.5); Segmented Neutrophils % 60.2 %
[2017-08-04 14:03] LABS: Basophils # 0.1 K/mcL (0.0-0.2); Basophils % 0.3 %; Eosinophils # 0.2 K/mcL (0.0-0.6); Eosinophils % 1.5 %; Lymphocytes # 4.6 K/mcL (0.6-4.6); Monocytes # 1.1 K/mcL (0.0-1.3); Monocytes % 7.5 %; Neutrophils # 9.2 K/mcL (1.6-8.9)
[2017-08-04 14:30] LABS: BUN/Creatinine Ratio 17 (6-26); Blood Urea Nitrogen 12 mg/dL (6-20); Calcium 9.2 mg/dL (8.6-10.3); Carbon Dioxide 23 mEq/L (23-29); Chloride 106 mEq/L (98-107); Glucose 107 mg/dL (70-105); Osmolality,Calculated 286 (280-300); Potassium 3.7 mEq/L (3.5-5.1); Sodium 138 mEq/L (136-145); eGFR For African Americans > 60 (> 60); eGFR For Non-African Americans > 60 (> 60)
[2017-08-04 14:33] LABS: Acetaminophen < 1.0 mcg/mL (10-30); Ethanol < 10 mg/dL (0-10); Salicylate < 5.0 mg/dL (15.0-30.0)
[2017-08-04 14:41] LABS: Thyroid Stimulating Hormone 1.737 mcIU/mL (0.340-5.600)
[2017-08-04 14:58] LABS: VBG HCO3 26 mEq/L (21-27); VBG PCO2 49 mmHg (41-51); VBG PH 7.34 pH Units (7.32-7.42); VBG PO2 68 mmHg (25-50)
[2017-08-04 14:59] LABS: Bilirubin,Urine Negative (Negative); Blood,Urine Negative (Negative); Clarity,Urine Clear (Clear); Color,Urine Yellow (Yellow); Glucose,Urine (UA) Normal (Normal); Ketones,Urine Negative (Negative); Leukocyte Esterase,Urine Negative (Negative); Nitrite,Urine Negative (Negative); Protein,Urine Trace mg/dL (Neg-Trace); Specific Gravity,Urine 1.026 (1.010-1.025)
[2017-08-04 15:02] LABS: Bacteria,Urine None Seen per hpf (None-Few); Hyaline Casts,Urine None Seen per lpf (None-Few); Squamous Epithelial Cell,Urine Few per lpf (None-Few); WBC,Urine 0-3 per hpf (0-3)
[2017-08-04 15:04] LABS: Amphetamine Screen,Urine Negative ng/mL (Cutoff=1000); Barbiturate Screen,Urine Negative ng/mL (Cutoff=200); Benzodiazepines Screen,Urine Negative ng/mL (Cutoff=200); Cannabinoid Screen,Urine Positive ng/mL (Cutoff = 50); Cocaine Screen,Urine Negative ng/mL (Cutoff= 300); Opiate Screen,Urine Negative ng/mL (Cutoff=300); Phencyclidine Screen,Urine Negative ng/mL (Cutoff=25)
--- NOTE | 2017-08-04 15:20 | Emergency Department Note ---
Disposition Clinical Impression: Psychosis Qualifiers: Psychosis type: unspecified psychosis type Qualified Code(s): F29 - Unspecified psychosis not due to a substance or known physiological condition Disposition: Still a Patient Condition: Good Referrals: NONE,PCP [Primary Care Provider] - Forms: ED Satisfaction Letter Psych HPI - General Chief Complaint: ED Psychiatric Symptoms Stated Complaint: Suicidal Ideations Time Seen by Provider: 08/04/17 13:27 Source: EMS Mode of arrival: EMS Limitations: altered mental status Nursing Notes Reviewed: Yes Vital Signs Reviewed: Yes - History of Present Illness HPI Narrative: 31-year-old male with a known psychiatric history presents to the ER via EMS due to altered mental status. Patient is tangential in the room and is unable to provide a history. He tells me that he saw Junior today and that mary carmen tucker will be running this [employer] within the year. He states someone was trying to kill his mother and that he was trying to protect her. He became combative whenever he was told he needed to get into a gown and required chemical restraint. Pt complaint: altered mental status Onset (ago): unknown Associated symptoms: Reports: denies other symptoms Traumatic symptoms: denies traumatic injury Treatments prior to arrival: none - Related Data Previous Rx's Medication Instructions Recorded Benztropine [Cogentin] 1 mg PO BID #60 tablet 04/06/17 Divalproex (12 HR) [Depakote (12 500 mg PO BID #60 tablet. 04/06/17 HR)] LORazepam [Ativan] 1 mg PO TID #90 tablet 04/06/17 OLANZapine [Zyprexa Zydis] 5 mg PO TID #90 tab.rapdis 04/06/17 Omeprazole [PriLOSEC] 20 mg PO DAILY #30 capsule. 04/06/17 Quetiapine Fumarate [Seroquel] 800 mg PO HS 30 Days #60 tablet 04/06/17 Ziprasidone [Geodon] 40 mg PO Q4H PRN #30 capsule 04/06/17 hydrOXYzine pamoate [HydrOXYzine 25 mg PO TID PRN #60 capsule 04/06/17 Pamoate] traZODone [TraZODone] 50 mg PO HS PRN #30 tablet 04/06/17 Allergies Allergy/AdvReac Type Severity Reaction Status Date / Time chlorpromazine Allergy Hives Verified 03/05/17 21:33 [From Thorazine] haloperidol [From Haldol] AdvReac Intermediate See Verified 03/05/17 21:33 Comments Limitations: ROS unobtainable due to patients medical condition Past Medical History - Past Medical History Attestation: Yes The following information was validated with the patient. Source: old records reviewed Medical history: Reports: asthma Surgical history: Reports: arthroscopy Psychiatric history: Reports: bipolar, schizophrenia, previous psychiatric hospitalization - Social History Smoking Status: Current every day smoker Smokeless Tobacco Status: No Alcohol use: Reports: occasionally Drug use: Reports: cocaine, opiates, marijuana, methamphetamine, IV Drug Use, prescription drug abuse Physical Exam Unable to fully complete exam as the patient did not want me to listen to his heart or lungs or touch his abdomen. He became combative shortly after this and required restraint. - General Limitations: altered mental status General appearance: alert, anxious - Head Head exam: atraumatic, normocephalic - Eye Eye exam: Present: normal appearance - ENT ENT exam: normal exam - Neck Neck exam: Present: normal inspection - Extremities Exam Extremities exam: Present: normal inspection, full ROM - Expanded Upper Extremity Exam Shoulder exam: Present: normal inspection, full ROM Arm exam: Present: normal inspection, full ROM Elbow exam: Present: normal inspection, full ROM Forearm/Wrist exam: Present: normal inspection, full ROM Hand exam: Present: normal inspection, full ROM - Expanded Lower Extremity Exam Hip/Pelvis exam: Present: normal inspection, full ROM Upper leg exam: Present: normal inspection, full ROM Knee exam: Present: normal inspection, full ROM Lower leg exam: Present: normal inspection, full ROM Ankle exam: Present: normal inspection, full ROM Foot/toe exam: Present: normal inspection, full ROM - Psychiatric Psychiatric exam: Present: anxious, manic - Expanded Psychiatric Exam Expanded psych exam: Present: paranoid - Skin Skin exam: Present: warm Course Course Narrative: Patient seen and examined. He required restraint due to being combative. Patient is pink slipped. We will get medical clearance labs as well as a CT scan of his head and blood gas for other reasons for altered mental status. Likely psychotic event. We will have psychiatric services evaluated him after. Vital Signs Temperature 98.5 F 08/04/17 13:27 Pulse Rate 99 08/04/17 13:27 Respiratory Rate 18 08/04/17 13:27 Blood Pressure 172/96 08/04/17 13:27 O2 Sat by Pulse Oximetry 99 08/04/17 13:27 Temperature 98.0 F 08/04/17 20:11 Pulse Rate 93 08/04/17 20:11 Respiratory Rate 16 08/04/17 20:11 Blood Pressure 146/99 08/04/17 20:11 O2 Sat by Pulse Oximetry 97 08/04/17 20:11 Oxygen Delivery Oxygen Delivery Room Air Psych - MDM Narrative Medical decision making narrative: 31-year-old male presents to the ER psychotic. He is tangential and difficult to follow and his speech. Prior psychiatric admission per chart as well as current psychiatric disorder. Patient initially required chemical restraint. He is medically cleared for psychiatric evaluation. At the time of this they have attempted to talk with him but he has been sedated from his previous medications. He is signed out pending psychiatric evaluation. - Lab Data Lab results reviewed: Yes I reviewed the patient's lab results. Result diagrams: 08/04/17 13:50 08/04/17 13:50 Lab Results 08/04/17 08/04/17 08/04/17 Range/Units 13:50 13:50 13:50 WBC 15.2 H (4.3-11.1) K/mcL RBC 5.19 (4.19-5.50) M/mcL Hgb 14.2 (12.9-16.9) g/dL Hct 44.5 (37.5-50.1) % MCV 85.7 (83.0-100.0) fL MCH 27.4 L (28.0-33.3) pg MCHC 31.9 (31.6-35.5) g/dL RDW 15.3 H (11.5-14.5) % Plt Count 256 (140-400) K/mcL MPV 11.4 (9.4-12.4) fL Immature Gran % 0.4 (0-4) % Seg Neutrophils % 60.2 % Lymphocytes % 30.1 % Monocytes % 7.5 % Eosinophils % 1.5 % Basophils % 0.3 % Neutrophils # 9.2 H (1.6-8.9) K/mcL Lymphocytes # 4.6 (0.6-4.6) K/mcL Monocytes # 1.1 (0.0-1.3) K/mcL Eosinophils # 0.2 (0.0-0.6) K/mcL Basophils # 0.1 (0.0-0.2) K/mcL VBG pH (7.32-7.42) pH Units VBG pCO2 (41-51) mmHg VBG pO2 (25-50) mmHg VBG HCO3 (21-27) mEq/L Carboxyhemoglobin (0-5) % Sodium 138 (136-145) mEq/L Potassium 3.7 (3.5-5.1) mEq/L Chloride 106 (98-107) mEq/L Carbon Dioxide 23 (23-29) mEq/L BUN 12 (6-20) mg/dL Creatinine 0.70 (0.70-1.30) mg/dL Est GFR ( Amer) > 60 (> 60) Est GFR (Non-Af Amer) > 60 (> 60) BUN/Creatinine Ratio 17 (6-26) Glucose 107 H (70-105) mg/dL Calculated Osmolality 286 (280-300) Calcium 9.2 (8.6-10.3) mg/dL TSH 1.737 (0.340-5.600) mcIU/mL Urine Color (Yellow) Urine Clarity (Clear) Urine pH (5.0-8.0) pH Units Ur Specific [place] (1.010-1.025) Urine Protein (Neg-Trace) mg/dL Urine Glucose (UA) (Normal) mg/dL Urine Ketones (Negative) mg/dL Urine Blood (Negative) Urine Nitrite (Negative) Urine Bilirubin (Negative) Urine Urobilinogen (Normal) mg/dL Ur Leukocyte Esterase (Negative) Urine Microscopic RBC (0-3) per hpf Urine Microscopic WBC (0-3) per hpf Ur Squamous Epith Cells (None-Few) per lpf Urine Bacteria (None-Few) per hpf Hyaline Casts (None-Few) per lpf Salicylates < 5.0 L (15.0-30.0) mg/dL Urine Opiates Screen (Fxfbvb=762) ng/mL Acetaminophen < 1.0 L (10-30) mcg/mL Ur Barbiturates Screen (Ajugoj=254) ng/mL Valproic Acid 41 L (50-100) mcg/mL Ur Phencyclidine Scrn (Cutoff=25) ng/mL Ur Amphetamines Screen (Cpdtcr=0068) ng/mL U Benzodiazepines Scrn (Kvfhsw=777) ng/mL Urine Cocaine Screen (Cutoff= 300) ng/mL U Marijuana (THC) Screen (Cutoff = 50) ng/mL Ethyl Alcohol < 10 (0-10) mg/dL 08/04/17 08/04/17 08/04/17 Range/Units 14:43 14:49 14:49 WBC (4.3-11.1) K/mcL RBC (4.19-5.50) M/mcL Hgb (12.9-16.9) g/dL Hct (37.5-50.1) % MCV (83.0-100.0) fL MCH (28.0-33.3) pg MCHC (31.6-35.5) g/dL RDW (11.5-14.5) % Plt Count (140-400) K/mcL MPV (9.4-12.4) fL Immature Gran % (0-4) % Seg Neutrophils % % Lymphocytes % % Monocytes % % Eosinophils % % Basophils % % Neutrophils # (1.6-8.9) K/mcL Lymphocytes # (0.6-4.6) K/mcL Monocytes # (0.0-1.3) K/mcL Eosinophils # (0.0-0.6) K/mcL Basophils # (0.0-0.2) K/mcL VBG pH (7.32-7.42) pH Units VBG pCO2 (41-51) mmHg VBG pO2 (25-50) mmHg VBG HCO3 (21-27) mEq/L Carboxyhemoglobin 8.1 H (0-5) % Sodium (136-145) mEq/L Potassium (3.5-5.1) mEq/L Chloride (98-107) mEq/L Carbon Dioxide (23-29) mEq/L BUN (6-20) mg/dL Creatinine (0.70-1.30) mg/dL Est GFR ( Amer) (> 60) Est GFR (Non-Af Amer) (> 60) BUN/Creatinine Ratio (6-26) Glucose (70-105) mg/dL Calculated Osmolality (280-300) Calcium (8.6-10.3) mg/dL TSH (0.340-5.600) mcIU/mL Urine Color Yellow (Yellow) Urine Clarity Clear (Clear) Urine pH 6.0 (5.0-8.0) pH Units Ur Specific [place] 1.026 H (1.010-1.025) Urine Protein Trace (Neg-Trace) mg/dL Urine Glucose (UA) Normal (Normal) mg/dL Urine Ketones Negative (Negative) mg/dL Urine Blood Negative (Negative) Urine Nitrite Negative (Negative) Urine Bilirubin Negative (Negative) Urine Urobilinogen 2.0 H (Normal) mg/dL Ur Leukocyte Esterase Negative (Negative) Urine Microscopic RBC 5-15 H (0-3) per hpf Urine Microscopic WBC 0-3 (0-3) per hpf Ur Squamous Epith Cells Few (None-Few) per lpf Urine Bacteria None Seen (None-Few) per hpf Hyaline Casts None Seen (None-Few) per lpf Salicylates (15.0-30.0) mg/dL Urine Opiates Screen Negative (Wmwydm=881) ng/mL Acetaminophen (10-30) mcg/mL Ur Barbiturates Screen Negative (Nlihlz=012) ng/mL Valproic Acid (50-100) mcg/mL Ur Phencyclidine Scrn Negative (Cutoff=25) ng/mL Ur Amphetamines Screen Negative (Mcakdl=6145) ng/mL U Benzodiazepines Scrn Negative (Rbnkhb=100) ng/mL Urine Cocaine Screen Negative (Cutoff= 300) ng/mL U Marijuana (THC) Screen Positive H (Cutoff = 50) ng/mL Ethyl Alcohol (0-10) mg/dL 08/04/17 Range/Units 14:54 WBC (4.3-11.1) K/mcL RBC (4.19-5.50) M/mcL Hgb (12.9-16.9) g/dL Hct (37.5-50.1) % MCV (83.0-100.0) fL MCH (28.0-33.3) pg MCHC (31.6-35.5) g/dL RDW (11.5-14.5) % Plt Count (140-400) K/mcL MPV (9.4-12.4) fL Immature Gran % (0-4) % Seg Neutrophils % % Lymphocytes % % Monocytes % % Eosinophils % % Basophils % % Neutrophils # (1.6-8.9) K/mcL Lymphocytes # (0.6-4.6) K/mcL Monocytes # (0.0-1.3) K/mcL Eosinophils # (0.0-0.6) K/mcL Basophils # (0.0-0.2) K/mcL VBG pH 7.34 (7.32-7.42) pH Units VBG pCO2 49 (41-51) mmHg VBG pO2 68 H (25-50) mmHg VBG HCO3 26 (21-27) mEq/L Carboxyhemoglobin (0-5) % Sodium (136-145) mEq/L Potassium (3.5-5.1) mEq/L Chloride (98-107) mEq/L Carbon Dioxide (23-29) mEq/L BUN (6-20) mg/dL Creatinine (0.70-1.30) mg/dL Est GFR ( Amer) (> 60) Est GFR (Non-Af Amer) (> 60) BUN/Creatinine Ratio (6-26) Glucose (70-105) mg/dL Calculated Osmolality (280-300) Calcium (8.6-10.3) mg/dL TSH (0.340-5.600) mcIU/mL Urine Color (Yellow) Urine Clarity (Clear) Urine pH (5.0-8.0) pH Units Ur Specific [place] (1.010-1.025) Urine Protein (Neg-Trace) mg/dL Urine Glucose (UA) (Normal) mg/dL Urine Ketones (Negative) mg/dL Urine Blood (Negative) Urine Nitrite (Negative) Urine Bilirubin (Negative) Urine Urobilinogen (Normal) mg/dL Ur Leukocyte Esterase (Negative) Urine Microscopic RBC (0-3) per hpf Urine Microscopic WBC (0-3) per hpf Ur Squamous Epith Cells (None-Few) per lpf Urine Bacteria (None-Few) per hpf Hyaline Casts (None-Few) per lpf Salicylates (15.0-30.0) mg/dL Urine Opiates Screen (Heedyq=295) ng/mL Acetaminophen (10-30) mcg/mL Ur Barbiturates Screen (Pmwqyd=648) ng/mL Valproic Acid (50-100) mcg/mL Ur Phencyclidine Scrn (Cutoff=25) ng/mL Ur Amphetamines Screen (Yjjoem=6499) ng/mL U Benzodiazepines Scrn (Hdnqns=477) ng/mL Urine Cocaine Screen (Cutoff= 300) ng/mL U Marijuana (THC) Screen (Cutoff = 50) ng/mL Ethyl Alcohol (0-10) mg/dL Psychiatric Medical Clearance - Medical Clearance Checklist Medical History: Psychosis (Acute) Psychosis (Acute) Anxiety disorder (Acute) Schizoaffective disorder, bipolar type (Acute) Suicidal ideation (Acute) Chronic schizophrenia (Acute) Homicidal ideation (Acute) Cannabis abuse (Acute) Depression (Acute) Acute cholecystitis (Resolved) DVT prophylaxis (Acute) Schizoaffective disorder (Acute) Acute psychosis (Acute) Psychosis (Acute) Schizoaffective disorder, bipolar type (Acute) Methamphetamine abuse (Acute) Suicidal ideations (Acute) Homicidal ideations (Acute) Abdominal pain (Inactive) Abdominal pain (Inactive) Amphetamine abuse (Inactive) Atypical chest pain (Inactive) Chest pain (Inactive) Psychosis (Inactive) No Social History Section defined Current Vitals: Last Vital Signs Temp 98.0 F 08/04/17 20:11 Pulse 93 08/04/17 20:11 Resp 16 08/04/17 20:11 BP 146/99 08/04/17 20:11 Pulse Ox 97 08/04/17 20:11 Psychiatric Lab Panel: Drug Levels and Toxicity 08/04/17 08/04/17 13:50 14:49 Urine Opiates Screen Negative Acetaminophen < 1.0 L Ur Barbiturates Screen Negative Ur Phencyclidine Scrn Negative Ur Amphetamines Screen Negative U Benzodiazepines Scrn Negative Urine Cocaine Screen Negative U Marijuana (THC) Screen Positive H Ethyl Alcohol < 10 Abnormal Labs: Abnormal lab results WBC 15.2 K/mcL (4.3-11.1) H 08/04/17 13:50 MCH 27.4 pg (28.0-33.3) L 08/04/17 13:50 RDW 15.3 % (11.5-14.5) H 08/04/17 13:50 Neutrophils # 9.2 K/mcL (1.6-8.9) H 08/04/17 13:50 VBG pO2 68 mmHg (25-50) H 08/04/17 14:54 Carboxyhemoglobin 8.1 % (0-5) H 08/04/17 14:43 Glucose 107 mg/dL (70-105) H 08/04/17 13:50 Ur Specific [place] 1.026 (1.010-1.025) H 08/04/17 14:49 Urine Urobilinogen 2.0 mg/dL (Normal) H 08/04/17 14:49 Urine Microscopic RBC 5-15 per hpf (0-3) H 08/04/17 14:49 Salicylates < 5.0 mg/dL (15.0-30.0) L 08/04/17 13:50 Acetaminophen < 1.0 mcg/mL (10-30) L 08/04/17 13:50 Valproic Acid 41 mcg/mL (50-100) L 08/04/17 13:50 U Marijuana (THC) Screen Positive ng/mL (Cutoff = 50) H 08/04/17 14:49 Statement of Medical Clearance: I have evaluated the patient, reviewed diagnostic information, and certify that the patient's medical condition is sufficiently stable that transfer to the psychiatric unit does not pose a significant risk of deterioration. Attestation Statement - Attestation Attestation: I examined this patient and my medical decision-making was reviewed with the Resident Physician. I agree with the documented findings, disposition and treatment plan as described except to the extent set forth below. Findings consistent with tangential and agitated behavior consisted with acute psychosis. Patient will be admitted to psychiatric facility after evaluation by psychiatric nursing staff.
--- NOTE | 2017-08-05 01:08 | Emergency Department Note ---
Disposition Clinical Impression: Psychosis Qualifiers: Psychosis type: unspecified psychosis type Qualified Code(s): F29 - Unspecified psychosis not due to a substance or known physiological condition Disposition: Still a Patient Condition: Good Referrals: NONE,PCP [Primary Care Provider] - Forms: ED Satisfaction Letter Time of Disposition: 06:17 General Adult HPI - General Chief complaint: ED Psychiatric Symptoms Stated complaint: Suicidal Ideations Time Seen by Provider: 08/04/17 13:27 Source: EMS Mode of arrival: EMS Limitations: altered mental status - History of Present Illness Pain Scale: 0 - Related Data Previous Rx's Medication Instructions Recorded Benztropine [Cogentin] 1 mg PO BID #60 tablet 04/06/17 Divalproex (12 HR) [Depakote (12 500 mg PO BID #60 tablet. 04/06/17 HR)] LORazepam [Ativan] 1 mg PO TID #90 tablet 04/06/17 OLANZapine [Zyprexa Zydis] 5 mg PO TID #90 tab.rapdis 04/06/17 Omeprazole [PriLOSEC] 20 mg PO DAILY #30 capsule. 04/06/17 Quetiapine Fumarate [Seroquel] 800 mg PO HS 30 Days #60 tablet 04/06/17 Ziprasidone [Geodon] 40 mg PO Q4H PRN #30 capsule 04/06/17 hydrOXYzine pamoate [HydrOXYzine 25 mg PO TID PRN #60 capsule 04/06/17 Pamoate] traZODone [TraZODone] 50 mg PO HS PRN #30 tablet 04/06/17 Allergies Allergy/AdvReac Type Severity Reaction Status Date / Time chlorpromazine Allergy Hives Verified 03/05/17 21:33 [From Thorazine] haloperidol [From Haldol] AdvReac Intermediate See Verified 03/05/17 21:33 Comments Past Medical History - Past Medical History Medical history: Reports: asthma Surgical history: Reports: arthroscopy Psychiatric history: Reports: bipolar, schizophrenia, previous psychiatric hospitalization - Social History Smoking Status: Current every day smoker Smokeless Tobacco Status: No Alcohol use: Reports: occasionally Drug use: Reports: cocaine, opiates, marijuana, methamphetamine, IV Drug Use, prescription drug abuse Physical Exam - General Limitations: altered mental status General appearance: alert, anxious Course - Reevaluation(s) Reevaluation #1: Patient signed out pending evaluation by [facility]. they are attempting to place the patient to a psychiatric facility at this time. Time: 01:08 Reevaluation #2: Still attempting placement. Patient calm at this time without any concerns. Will be signed out to day shift. Time: 06:16 Vital Signs Temperature 98.5 F 08/04/17 13:27 Pulse Rate 99 08/04/17 13:27 Respiratory Rate 18 08/04/17 13:27 Blood Pressure 172/96 08/04/17 13:27 O2 Sat by Pulse Oximetry 99 08/04/17 13:27 Temperature 98.0 F 08/04/17 20:11 Pulse Rate 93 08/04/17 20:11 Respiratory Rate 16 08/04/17 20:11 Blood Pressure 146/99 08/04/17 20:11 O2 Sat by Pulse Oximetry 97 08/04/17 20:11 Oxygen Delivery Oxygen Delivery Room Air Medical Decision Making - Lab Data Result diagrams: 08/04/17 13:50 08/04/17 13:50 Lab Results 08/04/17 08/04/17 08/04/17 Range/Units 13:50 13:50 13:50 WBC 15.2 H (4.3-11.1) K/mcL RBC 5.19 (4.19-5.50) M/mcL Hgb 14.2 (12.9-16.9) g/dL Hct 44.5 (37.5-50.1) % MCV 85.7 (83.0-100.0) fL MCH 27.4 L (28.0-33.3) pg MCHC 31.9 (31.6-35.5) g/dL RDW 15.3 H (11.5-14.5) % Plt Count 256 (140-400) K/mcL MPV 11.4 (9.4-12.4) fL Immature Gran % 0.4 (0-4) % Seg Neutrophils % 60.2 % Lymphocytes % 30.1 % Monocytes % 7.5 % Eosinophils % 1.5 % Basophils % 0.3 % Neutrophils # 9.2 H (1.6-8.9) K/mcL Lymphocytes # 4.6 (0.6-4.6) K/mcL Monocytes # 1.1 (0.0-1.3) K/mcL Eosinophils # 0.2 (0.0-0.6) K/mcL Basophils # 0.1 (0.0-0.2) K/mcL VBG pH (7.32-7.42) pH Units VBG pCO2 (41-51) mmHg VBG pO2 (25-50) mmHg VBG HCO3 (21-27) mEq/L Carboxyhemoglobin (0-5) % Sodium 138 (136-145) mEq/L Potassium 3.7 (3.5-5.1) mEq/L Chloride 106 (98-107) mEq/L Carbon Dioxide 23 (23-29) mEq/L BUN 12 (6-20) mg/dL Creatinine 0.70 (0.70-1.30) mg/dL Est GFR ( Amer) > 60 (> 60) Est GFR (Non-Af Amer) > 60 (> 60) BUN/Creatinine Ratio 17 (6-26) Glucose 107 H (70-105) mg/dL Calculated Osmolality 286 (280-300) Calcium 9.2 (8.6-10.3) mg/dL TSH 1.737 (0.340-5.600) mcIU/mL Urine Color (Yellow) Urine Clarity (Clear) Urine pH (5.0-8.0) pH Units Ur Specific [place] (1.010-1.025) Urine Protein (Neg-Trace) mg/dL Urine Glucose (UA) (Normal) mg/dL Urine Ketones (Negative) mg/dL Urine Blood (Negative) Urine Nitrite (Negative) Urine Bilirubin (Negative) Urine Urobilinogen (Normal) mg/dL Ur Leukocyte Esterase (Negative) Urine Microscopic RBC (0-3) per hpf Urine Microscopic WBC (0-3) per hpf Ur Squamous Epith Cells (None-Few) per lpf Urine Bacteria (None-Few) per hpf Hyaline Casts (None-Few) per lpf Salicylates < 5.0 L (15.0-30.0) mg/dL Urine Opiates Screen (Vdqgxx=908) ng/mL Acetaminophen < 1.0 L (10-30) mcg/mL Ur Barbiturates Screen (Viryng=611) ng/mL Valproic Acid 41 L (50-100) mcg/mL Ur Phencyclidine Scrn (Cutoff=25) ng/mL Ur Amphetamines Screen (Nrxgva=8780) ng/mL U Benzodiazepines Scrn (Ulhzti=417) ng/mL Urine Cocaine Screen (Cutoff= 300) ng/mL U Marijuana (THC) Screen (Cutoff = 50) ng/mL Ethyl Alcohol < 10 (0-10) mg/dL 08/04/17 08/04/17 08/04/17 Range/Units 14:43 14:49 14:49 WBC (4.3-11.1) K/mcL RBC (4.19-5.50) M/mcL Hgb (12.9-16.9) g/dL Hct (37.5-50.1) % MCV (83.0-100.0) fL MCH (28.0-33.3) pg MCHC (31.6-35.5) g/dL RDW (11.5-14.5) % Plt Count (140-400) K/mcL MPV (9.4-12.4) fL Immature Gran % (0-4) % Seg Neutrophils % % Lymphocytes % % Monocytes % % Eosinophils % % Basophils % % Neutrophils # (1.6-8.9) K/mcL Lymphocytes # (0.6-4.6) K/mcL Monocytes # (0.0-1.3) K/mcL Eosinophils # (0.0-0.6) K/mcL Basophils # (0.0-0.2) K/mcL VBG pH (7.32-7.42) pH Units VBG pCO2 (41-51) mmHg VBG pO2 (25-50) mmHg VBG HCO3 (21-27) mEq/L Carboxyhemoglobin 8.1 H (0-5) % Sodium (136-145) mEq/L Potassium (3.5-5.1) mEq/L Chloride (98-107) mEq/L Carbon Dioxide (23-29) mEq/L BUN (6-20) mg/dL Creatinine (0.70-1.30) mg/dL Est GFR ( Amer) (> 60) Est GFR (Non-Af Amer) (> 60) BUN/Creatinine Ratio (6-26) Glucose (70-105) mg/dL Calculated Osmolality (280-300) Calcium (8.6-10.3) mg/dL TSH (0.340-5.600) mcIU/mL Urine Color Yellow (Yellow) Urine Clarity Clear (Clear) Urine pH 6.0 (5.0-8.0) pH Units Ur Specific [place] 1.026 H (1.010-1.025) Urine Protein Trace (Neg-Trace) mg/dL Urine Glucose (UA) Normal (Normal) mg/dL Urine Ketones Negative (Negative) mg/dL Urine Blood Negative (Negative) Urine Nitrite Negative (Negative) Urine Bilirubin Negative (Negative) Urine Urobilinogen 2.0 H (Normal) mg/dL Ur Leukocyte Esterase Negative (Negative) Urine Microscopic RBC 5-15 H (0-3) per hpf Urine Microscopic WBC 0-3 (0-3) per hpf Ur Squamous Epith Cells Few (None-Few) per lpf Urine Bacteria None Seen (None-Few) per hpf Hyaline Casts None Seen (None-Few) per lpf Salicylates (15.0-30.0) mg/dL Urine Opiates Screen Negative (Ykoqim=557) ng/mL Acetaminophen (10-30) mcg/mL Ur Barbiturates Screen Negative (Hfdadt=323) ng/mL Valproic Acid (50-100) mcg/mL Ur Phencyclidine Scrn Negative (Cutoff=25) ng/mL Ur Amphetamines Screen Negative (Hkylqj=6243) ng/mL U Benzodiazepines Scrn Negative (Uwyves=187) ng/mL Urine Cocaine Screen Negative (Cutoff= 300) ng/mL U Marijuana (THC) Screen Positive H (Cutoff = 50) ng/mL Ethyl Alcohol (0-10) mg/dL 08/04/17 Range/Units 14:54 WBC (4.3-11.1) K/mcL RBC (4.19-5.50) M/mcL Hgb (12.9-16.9) g/dL Hct (37.5-50.1) % MCV (83.0-100.0) fL MCH (28.0-33.3) pg MCHC (31.6-35.5) g/dL RDW (11.5-14.5) % Plt Count (140-400) K/mcL MPV (9.4-12.4) fL Immature Gran % (0-4) % Seg Neutrophils % % Lymphocytes % % Monocytes % % Eosinophils % % Basophils % % Neutrophils # (1.6-8.9) K/mcL Lymphocytes # (0.6-4.6) K/mcL Monocytes # (0.0-1.3) K/mcL Eosinophils # (0.0-0.6) K/mcL Basophils # (0.0-0.2) K/mcL VBG pH 7.34 (7.32-7.42) pH Units VBG pCO2 49 (41-51) mmHg VBG pO2 68 H (25-50) mmHg VBG HCO3 26 (21-27) mEq/L Carboxyhemoglobin (0-5) % Sodium (136-145) mEq/L Potassium (3.5-5.1) mEq/L Chloride (98-107) mEq/L Carbon Dioxide (23-29) mEq/L BUN (6-20) mg/dL Creatinine (0.70-1.30) mg/dL Est GFR ( Amer) (> 60) Est GFR (Non-Af Amer) (> 60) BUN/Creatinine Ratio (6-26) Glucose (70-105) mg/dL Calculated Osmolality (280-300) Calcium (8.6-10.3) mg/dL TSH (0.340-5.600) mcIU/mL Urine Color (Yellow) Urine Clarity (Clear) Urine pH (5.0-8.0) pH Units Ur Specific [place] (1.010-1.025) Urine Protein (Neg-Trace) mg/dL Urine Glucose (UA) (Normal) mg/dL Urine Ketones (Negative) mg/dL Urine Blood (Negative) Urine Nitrite (Negative) Urine Bilirubin (Negative) Urine Urobilinogen (Normal) mg/dL Ur Leukocyte Esterase (Negative) Urine Microscopic RBC (0-3) per hpf Urine Microscopic WBC (0-3) per hpf Ur Squamous Epith Cells (None-Few) per lpf Urine Bacteria (None-Few) per hpf Hyaline Casts (None-Few) per lpf Salicylates (15.0-30.0) mg/dL Urine Opiates Screen (Tvhwto=063) ng/mL Acetaminophen (10-30) mcg/mL Ur Barbiturates Screen (Ahewde=681) ng/mL Valproic Acid (50-100) mcg/mL Ur Phencyclidine Scrn (Cutoff=25) ng/mL Ur Amphetamines Screen (Lpirar=7570) ng/mL U Benzodiazepines Scrn (Xglybi=727) ng/mL Urine Cocaine Screen (Cutoff= 300) ng/mL U Marijuana (THC) Screen (Cutoff = 50) ng/mL Ethyl Alcohol (0-10) mg/dL
[2017-08-05] MEDS ORDERED: Ziprasidone 20 MG CAPSULE PO STA (02:37)
--- NOTE | 2017-08-05 07:09 | Emergency Department Note ---
Disposition Clinical Impression: Psychosis Qualifiers: Psychosis type: unspecified psychosis type Qualified Code(s): F29 - Unspecified psychosis not due to a substance or known physiological condition Disposition: Admitted As Inpatient Condition: Good Referrals: NONE,PCP [Primary Care Provider] - Forms: ED Satisfaction Letter Time of Disposition: 09:37 General Adult HPI - General Chief complaint: ED Psychiatric Symptoms Stated complaint: Suicidal Ideations Time Seen by Provider: 08/04/17 13:27 Source: EMS Mode of arrival: EMS Limitations: altered mental status - History of Present Illness Pain Scale: 0 - Related Data Previous Rx's Medication Instructions Recorded Benztropine [Cogentin] 1 mg PO BID #60 tablet 04/06/17 Divalproex (12 HR) [Depakote (12 500 mg PO BID #60 tablet. 04/06/17 HR)] LORazepam [Ativan] 1 mg PO TID #90 tablet 04/06/17 OLANZapine [Zyprexa Zydis] 5 mg PO TID #90 tab.rapdis 04/06/17 Omeprazole [PriLOSEC] 20 mg PO DAILY #30 capsule. 04/06/17 Quetiapine Fumarate [Seroquel] 800 mg PO HS 30 Days #60 tablet 04/06/17 Ziprasidone [Geodon] 40 mg PO Q4H PRN #30 capsule 04/06/17 hydrOXYzine pamoate [HydrOXYzine 25 mg PO TID PRN #60 capsule 04/06/17 Pamoate] traZODone [TraZODone] 50 mg PO HS PRN #30 tablet 04/06/17 Allergies Allergy/AdvReac Type Severity Reaction Status Date / Time chlorpromazine Allergy Hives Verified 03/05/17 21:33 [From Thorazine] haloperidol [From Haldol] AdvReac Intermediate See Verified 03/05/17 21:33 Comments Past Medical History - Past Medical History Medical history: Reports: asthma Surgical history: Reports: arthroscopy Psychiatric history: Reports: bipolar, schizophrenia, previous psychiatric hospitalization - Social History Smoking Status: Current every day smoker Smokeless Tobacco Status: No Alcohol use: Reports: occasionally Drug use: Reports: cocaine, opiates, marijuana, methamphetamine, IV Drug Use, prescription drug abuse Physical Exam - General Limitations: altered mental status General appearance: alert, anxious Course Vital Signs Temperature 98.5 F 08/04/17 13:27 Pulse Rate 99 08/04/17 13:27 Respiratory Rate 18 08/04/17 13:27 Blood Pressure 172/96 08/04/17 13:27 O2 Sat by Pulse Oximetry 99 08/04/17 13:27 Temperature 98.0 F 08/04/17 20:11 Pulse Rate 95 08/05/17 07:10 Respiratory Rate 16 08/05/17 07:10 Blood Pressure 138/94 08/05/17 07:10 O2 Sat by Pulse Oximetry 97 08/05/17 07:10 Oxygen Delivery Oxygen Delivery Room Air Medical Decision Making - Lab Data Result diagrams: 08/04/17 13:50 08/04/17 13:50 Lab Results 08/04/17 08/04/17 08/04/17 Range/Units 13:50 13:50 13:50 WBC 15.2 H (4.3-11.1) K/mcL RBC 5.19 (4.19-5.50) M/mcL Hgb 14.2 (12.9-16.9) g/dL Hct 44.5 (37.5-50.1) % MCV 85.7 (83.0-100.0) fL MCH 27.4 L (28.0-33.3) pg MCHC 31.9 (31.6-35.5) g/dL RDW 15.3 H (11.5-14.5) % Plt Count 256 (140-400) K/mcL MPV 11.4 (9.4-12.4) fL Immature Gran % 0.4 (0-4) % Seg Neutrophils % 60.2 % Lymphocytes % 30.1 % Monocytes % 7.5 % Eosinophils % 1.5 % Basophils % 0.3 % Neutrophils # 9.2 H (1.6-8.9) K/mcL Lymphocytes # 4.6 (0.6-4.6) K/mcL Monocytes # 1.1 (0.0-1.3) K/mcL Eosinophils # 0.2 (0.0-0.6) K/mcL Basophils # 0.1 (0.0-0.2) K/mcL VBG pH (7.32-7.42) pH Units VBG pCO2 (41-51) mmHg VBG pO2 (25-50) mmHg VBG HCO3 (21-27) mEq/L Carboxyhemoglobin (0-5) % Sodium 138 (136-145) mEq/L Potassium 3.7 (3.5-5.1) mEq/L Chloride 106 (98-107) mEq/L Carbon Dioxide 23 (23-29) mEq/L BUN 12 (6-20) mg/dL Creatinine 0.70 (0.70-1.30) mg/dL Est GFR ( Amer) > 60 (> 60) Est GFR (Non-Af Amer) > 60 (> 60) BUN/Creatinine Ratio 17 (6-26) Glucose 107 H (70-105) mg/dL Calculated Osmolality 286 (280-300) Calcium 9.2 (8.6-10.3) mg/dL TSH 1.737 (0.340-5.600) mcIU/mL Urine Color (Yellow) Urine Clarity (Clear) Urine pH (5.0-8.0) pH Units Ur Specific [place] (1.010-1.025) Urine Protein (Neg-Trace) mg/dL Urine Glucose (UA) (Normal) mg/dL Urine Ketones (Negative) mg/dL Urine Blood (Negative) Urine Nitrite (Negative) Urine Bilirubin (Negative) Urine Urobilinogen (Normal) mg/dL Ur Leukocyte Esterase (Negative) Urine Microscopic RBC (0-3) per hpf Urine Microscopic WBC (0-3) per hpf Ur Squamous Epith Cells (None-Few) per lpf Urine Bacteria (None-Few) per hpf Hyaline Casts (None-Few) per lpf Salicylates < 5.0 L (15.0-30.0) mg/dL Urine Opiates Screen (Uhgnwj=523) ng/mL Acetaminophen < 1.0 L (10-30) mcg/mL Ur Barbiturates Screen (Bzteai=036) ng/mL Valproic Acid 41 L (50-100) mcg/mL Ur Phencyclidine Scrn (Cutoff=25) ng/mL Ur Amphetamines Screen (Yvuqtk=7371) ng/mL U Benzodiazepines Scrn (Wbbtox=373) ng/mL Urine Cocaine Screen (Cutoff= 300) ng/mL U Marijuana (THC) Screen (Cutoff = 50) ng/mL Ethyl Alcohol < 10 (0-10) mg/dL 08/04/17 08/04/17 08/04/17 Range/Units 14:43 14:49 14:49 WBC (4.3-11.1) K/mcL RBC (4.19-5.50) M/mcL Hgb (12.9-16.9) g/dL Hct (37.5-50.1) % MCV (83.0-100.0) fL MCH (28.0-33.3) pg MCHC (31.6-35.5) g/dL RDW (11.5-14.5) % Plt Count (140-400) K/mcL MPV (9.4-12.4) fL Immature Gran % (0-4) % Seg Neutrophils % % Lymphocytes % % Monocytes % % Eosinophils % % Basophils % % Neutrophils # (1.6-8.9) K/mcL Lymphocytes # (0.6-4.6) K/mcL Monocytes # (0.0-1.3) K/mcL Eosinophils # (0.0-0.6) K/mcL Basophils # (0.0-0.2) K/mcL VBG pH (7.32-7.42) pH Units VBG pCO2 (41-51) mmHg VBG pO2 (25-50) mmHg VBG HCO3 (21-27) mEq/L Carboxyhemoglobin 8.1 H (0-5) % Sodium (136-145) mEq/L Potassium (3.5-5.1) mEq/L Chloride (98-107) mEq/L Carbon Dioxide (23-29) mEq/L BUN (6-20) mg/dL Creatinine (0.70-1.30) mg/dL Est GFR ( Amer) (> 60) Est GFR (Non-Af Amer) (> 60) BUN/Creatinine Ratio (6-26) Glucose (70-105) mg/dL Calculated Osmolality (280-300) Calcium (8.6-10.3) mg/dL TSH (0.340-5.600) mcIU/mL Urine Color Yellow (Yellow) Urine Clarity Clear (Clear) Urine pH 6.0 (5.0-8.0) pH Units Ur Specific [place] 1.026 H (1.010-1.025) Urine Protein Trace (Neg-Trace) mg/dL Urine Glucose (UA) Normal (Normal) mg/dL Urine Ketones Negative (Negative) mg/dL Urine Blood Negative (Negative) Urine Nitrite Negative (Negative) Urine Bilirubin Negative (Negative) Urine Urobilinogen 2.0 H (Normal) mg/dL Ur Leukocyte Esterase Negative (Negative) Urine Microscopic RBC 5-15 H (0-3) per hpf Urine Microscopic WBC 0-3 (0-3) per hpf Ur Squamous Epith Cells Few (None-Few) per lpf Urine Bacteria None Seen (None-Few) per hpf Hyaline Casts None Seen (None-Few) per lpf Salicylates (15.0-30.0) mg/dL Urine Opiates Screen Negative (Ejdhrm=045) ng/mL Acetaminophen (10-30) mcg/mL Ur Barbiturates Screen Negative (Hmoirk=138) ng/mL Valproic Acid (50-100) mcg/mL Ur Phencyclidine Scrn Negative (Cutoff=25) ng/mL Ur Amphetamines Screen Negative (Avvjqz=3381) ng/mL U Benzodiazepines Scrn Negative (Soqufw=717) ng/mL Urine Cocaine Screen Negative (Cutoff= 300) ng/mL U Marijuana (THC) Screen Positive H (Cutoff = 50) ng/mL Ethyl Alcohol (0-10) mg/dL 08/04/17 Range/Units 14:54 WBC (4.3-11.1) K/mcL RBC (4.19-5.50) M/mcL Hgb (12.9-16.9) g/dL Hct (37.5-50.1) % MCV (83.0-100.0) fL MCH (28.0-33.3) pg MCHC (31.6-35.5) g/dL RDW (11.5-14.5) % Plt Count (140-400) K/mcL MPV (9.4-12.4) fL Immature Gran % (0-4) % Seg Neutrophils % % Lymphocytes % % Monocytes % % Eosinophils % % Basophils % % Neutrophils # (1.6-8.9) K/mcL Lymphocytes # (0.6-4.6) K/mcL Monocytes # (0.0-1.3) K/mcL Eosinophils # (0.0-0.6) K/mcL Basophils # (0.0-0.2) K/mcL VBG pH 7.34 (7.32-7.42) pH Units VBG pCO2 49 (41-51) mmHg VBG pO2 68 H (25-50) mmHg VBG HCO3 26 (21-27) mEq/L Carboxyhemoglobin (0-5) % Sodium (136-145) mEq/L Potassium (3.5-5.1) mEq/L Chloride (98-107) mEq/L Carbon Dioxide (23-29) mEq/L BUN (6-20) mg/dL Creatinine (0.70-1.30) mg/dL Est GFR ( Amer) (> 60) Est GFR (Non-Af Amer) (> 60) BUN/Creatinine Ratio (6-26) Glucose (70-105) mg/dL Calculated Osmolality (280-300) Calcium (8.6-10.3) mg/dL TSH (0.340-5.600) mcIU/mL Urine Color (Yellow) Urine Clarity (Clear) Urine pH (5.0-8.0) pH Units Ur Specific [place] (1.010-1.025) Urine Protein (Neg-Trace) mg/dL Urine Glucose (UA) (Normal) mg/dL Urine Ketones (Negative) mg/dL Urine Blood (Negative) Urine Nitrite (Negative) Urine Bilirubin (Negative) Urine Urobilinogen (Normal) mg/dL Ur Leukocyte Esterase (Negative) Urine Microscopic RBC (0-3) per hpf Urine Microscopic WBC (0-3) per hpf Ur Squamous Epith Cells (None-Few) per lpf Urine Bacteria (None-Few) per hpf Hyaline Casts (None-Few) per lpf Salicylates (15.0-30.0) mg/dL Urine Opiates Screen (Ywngjb=817) ng/mL Acetaminophen (10-30) mcg/mL Ur Barbiturates Screen (Zsoqby=842) ng/mL Valproic Acid (50-100) mcg/mL Ur Phencyclidine Scrn (Cutoff=25) ng/mL Ur Amphetamines Screen (Hyeate=8150) ng/mL U Benzodiazepines Scrn (Fdxoqp=828) ng/mL Urine Cocaine Screen (Cutoff= 300) ng/mL U Marijuana (THC) Screen (Cutoff = 50) ng/mL Ethyl Alcohol (0-10) mg/dL Attestation Statement - Attestation Attestation: Care of patient assumed from Dr. Wade at 7 AM pending final psychiatric disposition. Patient was cleared medically for behavioral evaluation by the previous team. He is sleeping at the time of my exam 09:36: 1A requests ativan 1 mg PO x 1. Admits to 1A service
[2017-08-05] MEDS ORDERED: *HR* LORazepam 1 MG TABLET PO ONE (09:34)
[2017-08-05] MEDS: Divalproex (12 HR) 500 MG TABLET PO SCH ×2 (11:07→21:48)
[2017-08-05] MEDS: OLANZapine 5 MG TAB.RAPDIS PO SCH ×3 (11:07→23:33)
[2017-08-05] MEDS ORDERED: Mag Hydrox/Al Hydrox/Simeth 30 ML UDC PO PRN (17:40)
[2017-08-05] MEDS ORDERED: MOM Conc 10 ML UD.LIQ PO PRN (17:40)
[2017-08-05] MEDS ORDERED: Acetaminophen 325 MG TABLET PO PRN (17:40)
[2017-08-05] MEDS ORDERED: Ziprasidone injection 20 MG/ML VIAL IM PRN (17:47)
[2017-08-05] MEDS: *HR* LORazepam 1 MG TABLET PO SCH ×2 (18:03→21:48)
[2017-08-06] MEDS: OLANZapine 5 MG TAB.RAPDIS PO SCH ×3 (08:23→20:38)
[2017-08-06] MEDS: Divalproex (12 HR) 500 MG TABLET PO SCH ×2 (08:23→20:38)
[2017-08-06] MEDS: *HR* LORazepam 1 MG TABLET PO SCH ×3 (08:35→20:38)
[2017-08-06] MEDS: Nicotine 2 MG GUM BC PRN ×5 (09:32→19:33)
--- NOTE | 2017-08-06 12:28 | Psychiatry History & Physical ---
Date of Encounter: 08/06/17 Time of Encounter: 12:00 History of Present Illness Patient Stated Chief Complaint: I just want to go home Medicare Admission Attestation: For traditional Medicare patients the provided hospital inpatient services are reasonable and necessary and in the case of services not specified as inpatient -only under 42 CFR 419.22 (n), that they are appropriately provided as inpatient services in accordance 42 CFR 412.3. For Critical Access Hospital the patient may reasonably be expected to be discharged or transferred to a hospital within 96 hours after admission to the Critical Access Hospital. Admitted From: Intrahospital Transfer Plans for Post Hospital Care: Home History of Present Illness: Mr. Barrientos is a 31 year old male a the patient is a mixed raced single male he is sent in on a pink slip. He was in [facility] and released July 07 after a 90 day the patient has been keeping his apartment clean and "chilling". He is on SSI and wants to get his check. The patient says that he is here because his mom is jealous and called the police to send him here he says he is not dangerous when he was simply coming down to get some water when she called the regrader. The patient chart indicates that he was hostile and threatening to kill people because thought someone was going to kill his mother and was combative requiring multiple injections of Geodon. The patient was on the hospital floor for 1 day and required additional medicines including Ativan and Depakote and Zyprexa. The patient reports that he is compliant however the discharge summary from 2016 indicates that he is not compliant. The patient's hospitalization in 2004 was at [facility] probably for another 90 days the patient reports no incarceration in local correctional facilities. The patient recognizes he has a diagnoses of bipolar schizoaffective disorder bipolar type and that he is taking his medicines. He says the medicines are helpful and that the voices that he hears are better. Specifically he says that the voices are of musical artist was stolen his music specifically R AP. The patient had a head CT which showed only a mucosal system no intracranial abnormalities. The patient is on valproic acid but this was not checked. The patient had marijuana in his urine but other laboratory studies were essentially within normal limits. When asked further the patient says that some people came into his apartment and let them and thinking that they were cool but they still saw pepper shakers all of his medicine and 2 shirts. The patient says that he is sleeping okay that he is eating okay that he is always had trouble with concentration he denies suicidal ideation and homicidal ideation. He is interested in getting out for that he can be there when his check arrives During the interview the patient was up and pacing and had difficulty providing a full history due to thought blocking. He does acknowledge using marijuana marijuana and one or 2 beers. Past medical history: Surgeries: Times 3 gallbladder, knee, platelet left arm. Illnesses: Asthma does not have an inhaler PCP: Has home health care Meds does not know all meds but is on Depakote and Zyprexa. Allergies chlorpromazine and haloperidol Family history positive for bipolar disorder's cousin Do has bipolar disorder no alcohol or drug problems no history of suicide Social history patient completed high school and attended some college but has not worked a job he has been on SSI for 12 years he has no girlfriend he lives by himself he has no pets. Review of systems reveals the patient on care source. A phone call was made to his mother and a message was left at [phone]. This was typical compliant Past Med Surg Social Fam HX - Past Medical History Source: patient, old records reviewed Medical history: non-contributory, asthma - Past Psychiatric History Psychiatric history: Reports: previous psychiatric hospitalization Past psychiatric history details: The patient was hospitalized in the [facility] for 90 days in 2004 and again in 2017. He has been hospitalized on one A in 2017. His counselor is at the [facility] along with SUDHA English who is his prescriber Family psychiatric history: Yes Family History of Suicide: None - Past Surgical History Surgical History: non-contributory, arthroscopy - Social History Smoking Status: Current every day smoker Smokeless Tobacco Status: No Alcohol use: occasionally Drug use: cocaine, opiates, marijuana, methamphetamine, IV Drug Use, prescription drug abuse Occupational status: disabled Current living situation: Home - Independent Activity Level: Independent ambulation Recent Out of Country Travel Within the Last 8 Weeks: No Exposure or Possible Exposure to Illness During Travel: No - Family History Grandfather Adopted: No Family Member Ethnicity: Non- Living Status: Still Living Hx Family Cardiac Disorders: No Hx Family Respiratory Disorders: No Hx Family Cancer: No Hx Family GI Disorders: No Hx Family Endocrine Disorder: Yes (THYROID DISORDER) Hx Family Neuromuscular Disorders: No Hx Family Neurologic Disorders: No Hx Family HEENT Disorders: No Hx Family Autoimmune Disorders: No Medications & Allergies OLANZapine [Zyprexa Zydis] 5 mg PO TID #90 tab.rapdis 04/06/17 [Rx] Omeprazole [PriLOSEC] 20 mg PO DAILY #30 capsule. 04/06/17 [Rx] Aripiprazole [Abilify] 15 mg PO DAILY 08/05/17 [History] Divalproex (12 HR) [Depakote (12 HR)] 500 mg PO TID 08/05/17 [History] Quetiapine Fumarate [Seroquel] 400 mg PO HS 08/05/17 [History] hydroCHLOROthiazide [Hydrochlorothiazide] 25 mg PO DAILY 08/05/17 [History] 3 Allergy/AdvReac Type Severity Reaction Status Date / Time chlorpromazine Allergy Hives Verified 08/05/17 10:06 [From Thorazine] haloperidol [From Haldol] AdvReac Intermediate See Verified 08/05/17 10:06 Comments Review of Systems Constitutional: Denies: fever, chills, weakness, weight change Eyes: Denies: eye pain, vision change Ears, Nose, Throat: Denies: ear pain, throat pain, dental pain, hearing loss, congestion Cardiovascular: Denies: chest pain, palpitations, dyspnea on exertion Respiratory: Reports: other (asthma). Denies: cough, dyspnea, wheezes Gastrointestinal: Denies: abdominal pain, nausea, vomiting, diarrhea, constipation Genitourinary male: Denies: urgency, dysuria, frequency, genital lesions Genitourinary female: Denies: urgency, dysuria, frequency, abnormal menses, dyspareunia Musculoskeletal: Denies: joint swelling, joint pain Integumentary: Denies: rash, lesions, pruritus Neurological: Denies: headache, weakness, numbness, memory loss Psychiatric: Reports: irritability Endocrine: Denies: fatigue, heat or cold intolerance Mental Status Exam Patient orientation: Yes Person, Yes Time, Yes Place, Yes Circumstance Level of alertness: Alert Patient appearance: Well-nourished, Unkempt Behavior: agitated, impulsive Psychomotor activity: Increased Eye contact: Maintains Eye Contact Mood description: Irritable Affect description: labile, incongruent with mood Speech pattern: Difficulty finding words Speech volume: Loud Thought process: Thought Blocking Thought content: Yes Homicidal ideation, Yes Ideas of reference, Yes Paranoid delusion, Yes Grandiose delusion Perceptual disturbances: Yes Reacting to internal stimuli, Yes Auditory hallucinations Attention span: Unable to Sustain Attention Memory description: Recent Impaired Patient reliability: Not Reliable Historian Intelligence estimate: Above [place] Judgment: Poor Insight: None Exam - HEENT Head exam IM: Present: normal inspection Eye exam IM: Present: conjunctival injection ENT exam IM: Present: mucous membranes dry - Neurological Neurological exam IM: Present: alert, CN II-XII intact - Skin Skin exam IM: Present: warm Results - Vital Signs Vital signs: Temp Pulse Resp BP Pulse Ox 97.6 F 85 16 126/92 99 08/06/17 09:00 08/06/17 09:00 08/06/17 09:00 08/06/17 09:00 08/05/17 12:37 - Drug Levels and Toxicology Drug Levels and Toxicology: MJ + - Labs Labs: Laboratory Last Values WBC 15.2 K/mcL (4.3-11.1) H 08/04/17 13:50 RBC 5.19 M/mcL (4.19-5.50) 08/04/17 13:50 Hgb 14.2 g/dL (12.9-16.9) 08/04/17 13:50 Hct 44.5 % (37.5-50.1) 08/04/17 13:50 MCV 85.7 fL (83.0-100.0) 08/04/17 13:50 MCH 27.4 pg (28.0-33.3) L 08/04/17 13:50 MCHC 31.9 g/dL (31.6-35.5) 08/04/17 13:50 RDW 15.3 % (11.5-14.5) H 08/04/17 13:50 Plt Count 256 K/mcL (140-400) 08/04/17 13:50 MPV 11.4 fL (9.4-12.4) 08/04/17 13:50 Immature Gran % 0.4 % (0-4) 08/04/17 13:50 Seg Neutrophils % 60.2 % 08/04/17 13:50 Lymphocytes % 30.1 % 08/04/17 13:50 Monocytes % 7.5 % 08/04/17 13:50 Eosinophils % 1.5 % 08/04/17 13:50 Basophils % 0.3 % 08/04/17 13:50 Neutrophils # 9.2 K/mcL (1.6-8.9) H 08/04/17 13:50 Lymphocytes # 4.6 K/mcL (0.6-4.6) 08/04/17 13:50 Monocytes # 1.1 K/mcL (0.0-1.3) 08/04/17 13:50 Eosinophils # 0.2 K/mcL (0.0-0.6) 08/04/17 13:50 Basophils # 0.1 K/mcL (0.0-0.2) 08/04/17 13:50 VBG pH 7.34 pH Units (7.32-7.42) 08/04/17 14:54 VBG pCO2 49 mmHg (41-51) 08/04/17 14:54 VBG pO2 68 mmHg (25-50) H 08/04/17 14:54 VBG HCO3 26 mEq/L (21-27) 08/04/17 14:54 Carboxyhemoglobin 8.1 % (0-5) H 08/04/17 14:43 Sodium 138 mEq/L (136-145) 08/04/17 13:50 Potassium 3.7 mEq/L (3.5-5.1) 08/04/17 13:50 Chloride 106 mEq/L (98-107) 08/04/17 13:50 Carbon Dioxide 23 mEq/L (23-29) 08/04/17 13:50 BUN 12 mg/dL (6-20) 08/04/17 13:50 Creatinine 0.70 mg/dL (0.70-1.30) 08/04/17 13:50 Est GFR ( Amer) > 60 (> 60) 08/04/17 13:50 Est GFR (Non-Af Amer) > 60 (> 60) 08/04/17 13:50 BUN/Creatinine Ratio 17 (6-26) 08/04/17 13:50 Glucose 107 mg/dL (70-105) H 08/04/17 13:50 Calculated Osmolality 286 (280-300) 08/04/17 13:50 Calcium 9.2 mg/dL (8.6-10.3) 08/04/17 13:50 TSH 1.737 mcIU/mL (0.340-5.600) 08/04/17 13:50 Urine Color Yellow (Yellow) 08/04/17 14:49 Urine Clarity Clear (Clear) 08/04/17 14:49 Urine pH 6.0 pH Units (5.0-8.0) 08/04/17 14:49 Ur Specific [place] 1.026 (1.010-1.025) H 08/04/17 14:49 Urine Protein Trace mg/dL (Neg-Trace) 08/04/17 14:49 Urine Glucose (UA) Normal mg/dL (Normal) 08/04/17 14:49 Urine Ketones Negative mg/dL (Negative) 08/04/17 14:49 Urine Blood Negative (Negative) 08/04/17 14:49 Urine Nitrite Negative (Negative) 08/04/17 14:49 Urine Bilirubin Negative (Negative) 08/04/17 14:49 Urine Urobilinogen 2.0 mg/dL (Normal) H 08/04/17 14:49 Ur Leukocyte Esterase Negative (Negative) 08/04/17 14:49 Urine Microscopic RBC 5-15 per hpf (0-3) H 08/04/17 14:49 Urine Microscopic WBC 0-3 per hpf (0-3) 08/04/17 14:49 Ur Squamous Epith Cells Few per lpf (None-Few) 08/04/17 14:49 Urine Bacteria None Seen per hpf (None-Few) 08/04/17 14:49 Hyaline Casts None Seen per lpf (None-Few) 08/04/17 14:49 Salicylates < 5.0 mg/dL (15.0-30.0) L 08/04/17 13:50 Urine Opiates Screen Negative ng/mL (Swejbg=669) 08/04/17 14:49 Acetaminophen < 1.0 mcg/mL (10-30) L 08/04/17 13:50 Ur Barbiturates Screen Negative ng/mL (Cpofqh=936) 08/04/17 14:49 Valproic Acid 41 mcg/mL (50-100) L 08/04/17 13:50 Ur Phencyclidine Scrn Negative ng/mL (Cutoff=25) 08/04/17 14:49 Ur Amphetamines Screen Negative ng/mL (Kmugrx=1888) 08/04/17 14:49 U Benzodiazepines Scrn Negative ng/mL (Rgqvnp=884) 08/04/17 14:49 Urine Cocaine Screen Negative ng/mL (Cutoff= 300) 08/04/17 14:49 U Marijuana (THC) Screen Positive ng/mL (Cutoff = 50) H 08/04/17 14:49 Ethyl Alcohol < 10 mg/dL (0-10) 08/04/17 13:50 Assessment and Plan (1) Schizoaffective disorder, bipolar type Current visit: Yes Status: Acute Plan: Admit inpatient for safety and stabilization Additional Plan: Due to the patient's mother. Alba. She indicated that the patient was talking to people that were not there and interacting with them. She had handed him his medicine and he began throwing around the room saying I am not taking medicine for anything because they took my vital organs. When she went out of the car he grabbed a large mounted police knife and said that he was going to kill someone who would threaten her. She confronted him try to talk him down but the patient stood in the middle of the road blocking traffic for approximately 30 minutes. Risks, benefits, side effects, alternatives discussed w/pt: Yes Patient agreeable to treatment: Yes Plans for Post Hospital Care: Home Estimated Length of Stay (Days): 30 (2) Cannabis abuse with cannabis-induced anxiety disorder Current visit: Yes Status: Acute Plan: Close observation, Encourage participation in unit milieu, Monitor sleep Additional Plan: Patient will be encouraged to avoid cannabis. He is not a good candidate for medical marijuana Risks, benefits, side effects, alternatives discussed w/pt: Yes Patient agreeable to treatment: Yes Plans for Post Hospital Care: Home (3) Patient's noncompliance with other medical treatment and regimen Current visit: Yes Status: Acute Plan: Admit inpatient for safety and stabilization Additional Plan: Patient last received Abilify and the long-acting injection on July 11. He was sent home with an Abilify pill but did not take it. Previously he made some progress. The patient's mother told me that he was not restored competency and the criminal charges were dropped. The determination was that be unlikely that he would be restored competency. There are no charges at this time. The patient expressed an interest in pursuing involuntary hospitalization with forced medication and outpatient commitment for forced medication of an Abilify long-acting injectable. The dose is not known so I will selectAritsta at 662 with the possibility of Aristada 1064 q 8 weeks Risks, benefits, side effects, alternatives discussed w/pt: Yes Patient agreeable to treatment: Yes Plans for Post Hospital Care: Home (4) Adult antisocial behavior Current visit: Yes Status: Acute Plan: Monitor appetite Risks, benefits, side effects, alternatives discussed w /pt: Yes Patient agreeable to treatment: Yes Plans for Post Hospital Care: Home
[2017-08-06] MEDS: OLANZapine 10 MG TAB.RAPDIS PO PRN ×2 (12:39→20:57)
[2017-08-07] MEDS: *HR* LORazepam 1 MG TABLET PO SCH ×3 (09:19→21:09)
[2017-08-07] MEDS: OLANZapine 5 MG TAB.RAPDIS PO SCH ×3 (09:19→21:09)
[2017-08-07] MEDS: Divalproex (12 HR) 500 MG TABLET PO SCH ×2 (09:19→21:10)
[2017-08-07] MEDS: ARIPiprazole 10 MG TABLET PO SCH (09:19)
[2017-08-07] MEDS: OLANZapine 10 MG TAB.RAPDIS PO PRN ×2 (11:47→21:38)
[2017-08-07 13:24] LABS: Alanine Aminotransferase 18 Units/L (7-52); Albumin 4.4 g/dL (3.5-5.7); Albumin/Globulin Ratio 1.5 (1.1-2.2); Alkaline Phosphatase 56 Units/L (34-104); Amylase 35 Units/L (29-103); Aspartate Amino Transferase 21 Units/L (13-39); Bilirubin,Direct 0.1 mg/dL (0.0-0.2); Bilirubin,Indirect 0.5 mg/dL (0.0-1.2); Bilirubin,Total 0.6 mg/dL (0.3-1.0); Lipase 9 Units/L (11-82); Total Protein 7.4 g/dL (6.4-8.9)
--- NOTE | 2017-08-07 14:39 | Psychiatry Progress Note ---
Date of Encounter: 08/07/17 Time of Encounter: 14:10 Subjective Interval history: Patient was seen for an interview after taking some prn Zyprexa earlier and resting in his room. He asked me "Can I get out of here today". I explained to him he was on a 72 hour hold which would be in effect till Monday. And that we were waiting for medical records and needed to continue to monitor him and evaluate the situation to figure out how best to treat him. He explained that he did not do anything wrong and he did not need to be on a 72 hour hold. We are waiting on records from [facility] were he was hospitalized recently for 90 days up until the beginning of July. He was there for episcopalian to competency to stand trial and it appears he was not able to be restored and was released. It appeared that the medications they were listed as home medications were not the medications he was taking and discharged on from [place]. He is historically not compliant taking medications. There is a strong probability that he was on Clozaril, which he has not been taking outpatient which requires a great deal of monitoring closely by an agency or provider including lab work secondary to the potential side effects of medication can have on the body. Patient states that Zyprexa helps and he is fine taking the Zyprexa. He told me he was tired and did not want to talk further if he was not be discharged. He denied he was suicidal or homicidal. He denied auditory or visual hallucinations. Note: Earlier this morning and throughout the day multiple times he would walk down to my office wanting to talk and requesting to be discharged. He was able to be redirected but was irritable and has extensive history of violence. He was agreeable to taking his prn Zyprexa and it appears to have positive effect on him. Review of Systems Psychiatric: Reports: irritability Objective: Exam Patient orientation: Yes Person, Yes Time, Yes Place Level of alertness: Sedated Patient appearance: Unkempt, Obese Additional observations: Able to be redirected with great persistence Behavior: agitated Psychomotor activity: Slowed Eye contact: Fleeting Contact Mood description: Angry Affect description: anxious Speech pattern: Normal tone, Slowed Speech volume: Normal Thought process: Circumstantial, Evasive Thought content: Yes Intact Judgment: Limited Insight: Partial (He is an unreliable historian with an extensive mental health history. We will need collateral information and to talk to his mother to see what happened. He will also need tight involvement and monitoring in the community upon release.) Results - Vital Signs Vital Signs: Temp Pulse Resp BP Pulse Ox 97.3 F L 96 18 136/86 99 08/07/17 09:00 08/07/17 09:00 08/07/17 09:00 08/07/17 09:00 08/05/17 12:37 Assessment and Plan (1) Schizoaffective disorder, bipolar type Current visit: No Status: Acute Plan: Continue hospitalization, Close observation, Suicide Precautions per unit protocol, Encourage participation in unit milieu, Group Therapy, Monitor sleep, Monitor appetite Risks, benefits, side effects, alternatives discussed w/pt: Yes (Wants to be discharged. Noncomplaince history) Patient agreeable to treatment: Yes (but wants to go home) Consult Discharge Plan - Plan Referrals: Amalia Tejada [facility] [Outside] - 08/09/17 2:00 pm (The above appointment is with Darion Ambrose for outpatient mental health counseling services. You will also see Dena English for outpatient psychiatric assessment and medication management services on 08/17/2017 at 4:00 PM.)
[2017-08-07] MEDS: Nicotine 2 MG GUM BC PRN ×2 (17:02→21:09)
--- NOTE | 2017-08-08 09:02 | Psychiatry Progress Note ---
Date of Encounter: 08/08/17 Time of Encounter: 08:30 Subjective Interval history: Patient walked down to my office multiple times today wanting to talk. He is insistent upon being discharged and asking what he has to do in order to be discharged. He is intrusive and pacing throughout the morning. I talked to him regarding his medications and being on the Clozaril. He states that he was taking it sometimes. I explained to him and he understands the need for continuous bloodwork for the maintenance of being on Clozaril and the potential side effects. I am not sure he fully understands the side effects which were explained again, although he does understand it neeeds to take place. He does not feel it was helpful any way nor does he need it. He is now been off the Clozaril for at least 5 days and it is questionable whether he was taking it at home on his own anyway. I discussed with him about alternative medications and potentially using Zyprexa which he states he finds helpful and will take. I explained to him about increasing the morning dose and the evening dose, targeting his agitation and perseverative and delusional thought. He states that he would agree to take that. He does not fully understand nor acknowledge what he did that has him placed here. He states that people are racist and out to get him. He reportedly made a comment to his mother on the phone asking why she hated him so much. Patient has an extensive history of noncompliance except when contained and monitored an inpatient environment. The social studies teacher is working to find an agency to do in home healthcare with him; to monitor his medications and his mental health needs. Patient's 72 hour hold is up tomorrow. We will wait to see if the increase in Zyprexa helps his agitation and is perseverative delusional thought prior to making a decision about probating or discharging. Review of Systems Psychiatric: Reports: irritability Objective: Exam Patient orientation: Yes Person, Yes Place Level of alertness: Sedated Patient appearance: Unkempt Additional observations: pacing the hallways Behavior: anxious, agitated, restless Psychomotor activity: Slowed Eye contact: Fleeting Contact Mood description: Anxious Affect description: congruent with mood Speech pattern: Normal rate, Normal rhythm, Normal tone Speech volume: Normal Thought process: Circumstantial, Perseveration, [place] Judgment: Limited Insight: Minimal Results - Vital Signs Vital Signs: Temp Pulse Resp BP Pulse Ox 98.6 F 87 14 120/82 99 08/07/17 21:00 08/07/17 21:00 08/07/17 21:00 08/07/17 21:00 08/05/17 12:37 Assessment and Plan (1) Schizoaffective disorder, bipolar type Current visit: No Status: Acute Plan: Continue hospitalization, Close observation, Suicide Precautions per unit protocol, Encourage participation in unit milieu, Monitor sleep, Monitor appetite Risks, benefits, side effects, alternatives discussed w/pt: Yes (Pt agrees to increase in Zydis to 10 mg po q AM and 15 mg po q HS) Patient agreeable to treatment: Yes (but wants to go home, probable probate if he does respond to med adjust) Consult Discharge Plan - Plan Referrals: Amalia Tejada [facility] [Outside] - 08/09/17 2:00 pm (The above appointment is with Darion Ambrose for outpatient mental health counseling services. You will also see Dena English for outpatient psychiatric assessment and medication management services on 08/17/2017 at 4:00 PM.)
[2017-08-08] MEDS ORDERED: OLANZapine 5 MG TAB.RAPDIS PO PRN (09:27)
[2017-08-08] MEDS: OLANZapine 10 MG TAB.RAPDIS PO SCH (09:34)
[2017-08-08] MEDS: *HR* LORazepam 1 MG TABLET PO SCH ×3 (09:34→20:20)
[2017-08-08] MEDS: Divalproex (12 HR) 500 MG TABLET PO SCH ×2 (09:34→20:20)
[2017-08-08] MEDS: ARIPiprazole 10 MG TABLET PO SCH (09:36)
[2017-08-08] MEDS: OLANZapine 5 MG TAB.RAPDIS PO SCH ×2 (09:36→20:19)
[2017-08-08] MEDS: Nicotine 2 MG GUM BC PRN (10:04)
[2017-08-09] MEDS: OLANZapine 10 MG TAB.RAPDIS PO SCH (08:42)
[2017-08-09] MEDS: *HR* LORazepam 1 MG TABLET PO SCH ×3 (08:42→20:02)
[2017-08-09] MEDS: Divalproex (12 HR) 500 MG TABLET PO SCH ×2 (08:42→20:02)
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
[2017-08-09 12:43] LABS: Basophils % 0.6 %; Eosinophils # 0.2 K/mcL (0.0-0.6); Eosinophils % 2.1 %; Hematocrit 41.6 % (37.5-50.1); Hemoglobin 13.3 g/dL (12.9-16.9); Immature Granulocytes % 0.6 % (0-4); Lymphocytes % 41.5 %; Mean Corpuscular Hemoglobin 27.4 pg (28.0-33.3); Mean Corpuscular Volume 85.8 fL (83.0-100.0); Mean Platelet Volume 12.4 fL (9.4-12.4); Monocytes # 0.4 K/mcL (0.0-1.3); Monocytes % 5.4 %; Neutrophils # 3.5 K/mcL (1.6-8.9); Nucleated Red Blood Cells 0.3 /100 WBC (0); Platelet Count 212 K/mcL (140-400); Red Blood Count 4.85 M/mcL (4.19-5.50); Red Cell Distribution Width 14.9 % (11.5-14.5); Segmented Neutrophils % 49.8 %
[2017-08-09 13:32] LABS: VBG Base Excess 2 mEq/L; VBG Chloride 109 mEq/L (98-107); VBG Glucose 118 mg/dl (65-95); VBG HCO3 25 mEq/L (21-27); VBG Oxygen Saturation 100 %; VBG PCO2 34 mmHg (41-51); VBG PH 7.48 pH Units (7.32-7.42); VBG PO2 207 mmHg (25-50); VBG Total CO2 26 mEq/L
[2017-08-09] MEDS: OLANZapine 5 MG TAB.RAPDIS PO SCH (20:02)
[2017-08-10] MEDS: Divalproex (12 HR) 500 MG TABLET PO SCH ×2 (09:04→18:33)
[2017-08-10] MEDS: *HR* LORazepam 1 MG TABLET PO SCH ×3 (09:04→18:33)
[2017-08-10] MEDS: OLANZapine 10 MG TAB.RAPDIS PO SCH (09:04)
[2017-08-10] MEDS: Nicotine 2 MG GUM BC PRN ×2 (10:38→17:35)
[2017-08-10 10:44] VITALS: BP 138/88
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
--- NOTE | 2017-08-10 18:25 | Physician Discharge Referral ---
Home Health/Hosp Referral Info Transfer to: Home Health Attending Provider: DO Artemio Provider in Charge Post Discharge: Other - Diagnosis (1) Schizoaffective disorder, bipolar type Priority: Primary Status: Acute - Respiratory Orders Smoking Cessation: Smoking cessation has been advised. For more information, call the [place] Tobacco Quit Line at 4-704-LGPL-NOW. - Diet/Nutrition Diet/Nutrition Orders: Regular - Activity Activity Orders: Ambulate - Services Needed Following services are medically necessary services: Nursing (Daily medication education and reconciliation) - Transfer Medications Prescriptions: Divalproex (12 HR) [Depakote (12 HR)] 1,000 mg PO BID 10 Days #40 tablet. LORazepam [Ativan] 1 mg PO TID 10 Days #30 tablet OLANZapine [Zyprexa Zydis] 10 mg PO QDPC 10 Days #20 tab.rapdis OLANZapine [Zyprexa Zydis] 15 mg PO HS 10 Days #30 tab.rapdis Home Medications: Omeprazole [PriLOSEC] 20 mg PO DAILY #30 capsule. 04/06/17 [Rx] hydroCHLOROthiazide [Hydrochlorothiazide] 25 mg PO DAILY 08/05/17 [History] Divalproex (12 HR) [Depakote (12 HR)] 1,000 mg PO BID 10 Days #40 tablet. 07/27 [Rx] LORazepam [Ativan] 1 mg PO TID 10 Days #30 tablet 08/10/17 [Rx] OLANZapine [Zyprexa Zydis] 5 mg PO Q8H PRN tab.rapdis 08/10/17 [Rx] OLANZapine [Zyprexa Zydis] 10 mg PO QDPC 10 Days #20 tab.rapdis 08/10/17 [Rx] OLANZapine [Zyprexa Zydis] 15 mg PO HS 10 Days #30 tab.rapdis 08/10/17 [Rx] Allergies/Adverse Reactions: 3 Allergy/AdvReac Type Severity Reaction Status Date / Time chlorpromazine Allergy Hives Verified 08/05/17 10:06 [From Thorazine] haloperidol [From Haldol] AdvReac Intermediate See Verified 08/05/17 10:06 Comments Certification: Further, I certify that my clinical findings support that this patient is homebound (i.e. absences from home require considerable and taxing effort and are for medical reasons or mosque services or infrequently or short duration when for other reasons) because: Homebound Reason: Altered mental status requiring supervision when leaving home Attestation: My signature below is to certify that this patient is under my care and that I, or nurse practitioner, or a physician's transportation assistant working with me, has a face-to -face encounter with this patient.
[2017-08-10] MEDS: OLANZapine 5 MG TAB.RAPDIS PO SCH (18:36)
== END 2017-08-10 18:53 | disposition home health service (06) | DRG 750 ==
LOC: EMEROO 13:26 → 1ANU 08-05 16:34 → INTOOBSV 08-05 16:34 → 1ANU 08-05 17:12 → SUATTDRO 08-06 13:09
PROVIDERS: ADMIT Psychiatry & Neurology Forensic Psychiatry; ATTEND Psychiatry & Neurology Psychiatry

== ENCOUNTER 2017-09-15 18:32 | Inpatient (IN) ==
[2017-09-15] MEDS ORDERED: Ziprasidone injection 20 MG/ML VIAL IM ONE (19:04)
[2017-09-15 19:53] LABS: Basophils % 0.4 %; Eosinophils # 0.1 K/mcL (0.0-0.6); Eosinophils % 1.2 %; Hematocrit 46.1 % (37.5-50.1); Hemoglobin 15.1 g/dL (12.9-16.9); Immature Granulocytes % 0.3 % (0-4); Lymphocytes # 3.9 K/mcL (0.6-4.6); Lymphocytes % 35.5 %; Mean Corpuscular HGB Conc 32.8 g/dL (31.6-35.5); Mean Corpuscular Hemoglobin 27.7 pg (28.0-33.3); Mean Corpuscular Volume 84.4 fL (83.0-100.0); Monocytes # 0.8 K/mcL (0.0-1.3); Monocytes % 7.2 %; Neutrophils # 6.2 K/mcL (1.6-8.9); Platelet Count 217 K/mcL (140-400); Red Blood Count 5.46 M/mcL (4.19-5.50); Red Cell Distribution Width 13.2 % (11.5-14.5); Segmented Neutrophils % 55.4 %
[2017-09-15 20:06] LABS: Bilirubin,Urine Small (Negative); Blood,Urine Negative (Negative); Clarity,Urine Clear (Clear); Color,Urine Dark Yellow (Yellow); Glucose,Urine (UA) Normal (Normal); Ketones,Urine Trace mg/dL (Negative); Leukocyte Esterase,Urine Negative (Negative); Nitrite,Urine Negative (Negative); Protein,Urine 30 mg/dL (Neg-Trace); Specific Gravity,Urine > 1.030 (1.010-1.025); Urobilinogen,Urine Normal (Normal)
[2017-09-15 20:07] LABS: Bacteria,Urine None Seen per hpf (None-Few); Hyaline Casts,Urine None Seen per lpf (None-Few); Squamous Epithelial Cell,Urine Many per lpf (None-Few)
[2017-09-15 20:09] LABS: Ethanol < 10 mg/dL (0-10)
[2017-09-15 20:13] LABS: BUN/Creatinine Ratio 16 (6-26); Blood Urea Nitrogen 12 mg/dL (6-20); Calcium 9.8 mg/dL (8.6-10.3); Carbon Dioxide 22 mEq/L (23-29); Chloride 108 mEq/L (98-107); Glucose 90 mg/dL (70-105); Osmolality,Calculated 281 (280-300); Potassium 3.6 mEq/L (3.5-5.1); Sodium 136 mEq/L (136-145); eGFR For African Americans > 60 (> 60); eGFR For Non-African Americans > 60 (> 60)
[2017-09-15 20:14] LABS: Amphetamine Screen,Urine Negative ng/mL (Cutoff=1000); Barbiturate Screen,Urine Negative ng/mL (Cutoff=200); Benzodiazepines Screen,Urine Negative ng/mL (Cutoff=200); Cannabinoid Screen,Urine Positive ng/mL (Cutoff = 50); Cocaine Screen,Urine Negative ng/mL (Cutoff= 300); Opiate Screen,Urine Negative ng/mL (Cutoff=300); Phencyclidine Screen,Urine Negative ng/mL (Cutoff=25)
--- NOTE | 2017-09-15 22:29 | Emergency Department Note ---
Disposition Clinical Impression: Acute psychosis Disposition: Admitted As Inpatient Condition: Fair Referrals: NONE,PCP [Primary Care Provider] - Forms: ED Satisfaction Letter Time of Disposition: 22:30 Psych HPI - General Chief Complaint: ED Psychiatric Symptoms Stated Complaint: HI Time Seen by Provider: 09/15/17 18:38 Source: patient, EMS Nursing Notes Reviewed: Yes Vital Signs Reviewed: Yes - History of Present Illness HPI Narrative: 31-year-old with a history of psychosis presents to the ED by EMS because of active hallucinations and homicidal ideations. Patient is a very poor historian at this point because of ongoing active hallucinations. He states he has voices and is seeing images that are commanding him to hurt others. Uncertain as to whether he has been taking his medications. He admits to marijuana use. Denies any other drug use. No known medical illnesses. Pt complaint: suicidal ideation Onset (ago): unknown Duration: constant History of similar episodes: Yes Improves with: medication Associated Psychiatric Symptoms: auditory hallucinations (command hallucinations ), visual hallucinations, delusions Associated symptoms: Reports: denies other symptoms Self harm or harm to others: admits thoughts of self harm, admits thoughts of harming others - Related Data Home Medications Medication Instructions Recorded Confirmed hydroCHLOROthiazide 25 mg PO DAILY 08/05/17 08/05/17 [Hydrochlorothiazide] Previous Rx's Medication Instructions Recorded Omeprazole [PriLOSEC] 20 mg PO DAILY #30 capsule. 04/06/17 Divalproex (12 HR) [Depakote (12 1,000 mg PO BID 10 Days #40 08/10/17 HR)] tablet. LORazepam [Ativan] 1 mg PO TID 10 Days #30 tablet 08/10/17 OLANZapine [Zyprexa Zydis] 5 mg PO Q8H PRN tab.rapdis 08/10/17 OLANZapine [Zyprexa Zydis] 10 mg PO QDPC 10 Days #20 08/10/17 tab.rapdis OLANZapine [Zyprexa Zydis] 15 mg PO HS 10 Days #30 tab.rapdis 08/10/17 Allergies Allergy/AdvReac Type Severity Reaction Status Date / Time chlorpromazine Allergy Hives Verified 08/05/17 10:06 [From Thorazine] haloperidol [From Haldol] AdvReac Intermediate See Verified 08/05/17 10:06 Comments Limitations: ROS unobtainable due to patients medical condition Past Medical History - Past Medical History Medical history: Reports: non-contributory, asthma Surgical history: Reports: non-contributory, arthroscopy Psychiatric history: Reports: previous psychiatric hospitalization - Social History Smoking Status: Current every day smoker Smokeless Tobacco Status: No Alcohol use: Reports: occasionally Drug use: Reports: cocaine, opiates, marijuana, methamphetamine, IV Drug Use, prescription drug abuse Physical Exam Appears slightly agitated. He is having side conversations and appears to be having visual hallucinations. - General Limitations: no limitations General appearance: alert - Head Head exam: atraumatic, normocephalic - Eye Eye exam: Present: normal appearance - ENT ENT exam: normal exam, normal oropharynx - Neck Neck exam: Present: normal inspection - Chest Chest inspection: Present: normal inspection, symmetric chest wall rise - Respiratory Respiratory exam: Present: normal lung sounds bilaterally. Absent: respiratory distress - Cardiovascular Cardiovascular exam: Present: normal rhythm - Abdominal Exam Abdominal exam: Present: soft, Non-Tender - Extremities Exam Extremities exam: Present: normal inspection - Back Exam Back exam: Absent: CVA tenderness (R), CVA tenderness (L) - Neurological Exam Neurological exam: Present: alert. Absent: motor sensory deficit - Psychiatric Psychiatric exam: Present: flat affect - Skin Skin exam: Present: warm, dry Course Vital Signs Temperature 98.3 F 09/15/17 18:35 Pulse Rate 78 09/15/17 18:35 Respiratory Rate 16 09/15/17 18:35 Blood Pressure 125/91 09/15/17 18:35 O2 Sat by Pulse Oximetry 97 09/15/17 18:35 Temperature 98.3 F 09/15/17 18:35 Pulse Rate 78 09/15/17 18:35 Respiratory Rate 16 09/15/17 18:35 Blood Pressure 125/91 09/15/17 18:35 O2 Sat by Pulse Oximetry 97 09/15/17 18:35 Oxygen Delivery Oxygen Delivery Room Air Psych - Lab Data Result diagrams: 09/15/17 19:16 09/15/17 19:16 Lab Results 09/15/17 09/15/17 09/15/17 Range/Units 19:16 19:16 19:51 WBC 11.1 (4.3-11.1) K/mcL RBC 5.46 (4.19-5.50) M/mcL Hgb 15.1 (12.9-16.9) g/dL Hct 46.1 (37.5-50.1) % MCV 84.4 (83.0-100.0) fL MCH 27.7 L (28.0-33.3) pg MCHC 32.8 (31.6-35.5) g/dL RDW 13.2 (11.5-14.5) % Plt Count 217 (140-400) K/mcL MPV 12.0 (9.4-12.4) fL Immature Gran % 0.3 (0-4) % Seg Neutrophils % 55.4 % Lymphocytes % 35.5 % Monocytes % 7.2 % Eosinophils % 1.2 % Basophils % 0.4 % Neutrophils # 6.2 (1.6-8.9) K/mcL Lymphocytes # 3.9 (0.6-4.6) K/mcL Monocytes # 0.8 (0.0-1.3) K/mcL Eosinophils # 0.1 (0.0-0.6) K/mcL Basophils # 0.0 (0.0-0.2) K/mcL Sodium 136 (136-145) mEq/L Potassium 3.6 (3.5-5.1) mEq/L Chloride 108 H (98-107) mEq/L Carbon Dioxide 22 L (23-29) mEq/L BUN 12 (6-20) mg/dL Creatinine 0.73 (0.70-1.30) mg/dL Est GFR ( Amer) > 60 (> 60) Est GFR (Non-Af Amer) > 60 (> 60) BUN/Creatinine Ratio 16 (6-26) Glucose 90 (70-105) mg/dL Calculated Osmolality 281 (280-300) Calcium 9.8 (8.6-10.3) mg/dL Urine Color Dark Yellow (Yellow) Urine Clarity Clear (Clear) Urine pH 6.0 (5.0-8.0) pH Units Ur Specific [place] > 1.030 H (1.010-1.025) Urine Protein 30 H (Neg-Trace) mg/dL Urine Glucose (UA) Normal (Normal) mg/dL Urine Ketones Trace H (Negative) mg/dL Urine Blood Negative (Negative) Urine Nitrite Negative (Negative) Urine Bilirubin Small H (Negative) Urine Urobilinogen Normal (Normal) mg/dL Ur Leukocyte Esterase Negative (Negative) Urine Microscopic RBC 5-15 H (0-3) per hpf Urine Microscopic WBC 3-5 H (0-3) per hpf Ur Squamous Epith Cells Many H (None-Few) per lpf Urine Bacteria None Seen (None-Few) per hpf Hyaline Casts None Seen (None-Few) per lpf Urine Opiates Screen (Slohui=047) ng/mL Ur Barbiturates Screen (Enyioj=597) ng/mL Ur Phencyclidine Scrn (Cutoff=25) ng/mL Ur Amphetamines Screen (Kosbeu=8096) ng/mL U Benzodiazepines Scrn (Odnmpa=177) ng/mL Urine Cocaine Screen (Cutoff= 300) ng/mL U Marijuana (THC) Screen (Cutoff = 50) ng/mL Ethyl Alcohol < 10 (0-10) mg/dL 09/15/17 Range/Units 19:51 WBC (4.3-11.1) K/mcL RBC (4.19-5.50) M/mcL Hgb (12.9-16.9) g/dL Hct (37.5-50.1) % MCV (83.0-100.0) fL MCH (28.0-33.3) pg MCHC (31.6-35.5) g/dL RDW (11.5-14.5) % Plt Count (140-400) K/mcL MPV (9.4-12.4) fL Immature Gran % (0-4) % Seg Neutrophils % % Lymphocytes % % Monocytes % % Eosinophils % % Basophils % % Neutrophils # (1.6-8.9) K/mcL Lymphocytes # (0.6-4.6) K/mcL Monocytes # (0.0-1.3) K/mcL Eosinophils # (0.0-0.6) K/mcL Basophils # (0.0-0.2) K/mcL Sodium (136-145) mEq/L Potassium (3.5-5.1) mEq/L Chloride (98-107) mEq/L Carbon Dioxide (23-29) mEq/L BUN (6-20) mg/dL Creatinine (0.70-1.30) mg/dL Est GFR ( Amer) (> 60) Est GFR (Non-Af Amer) (> 60) BUN/Creatinine Ratio (6-26) Glucose (70-105) mg/dL Calculated Osmolality (280-300) Calcium (8.6-10.3) mg/dL Urine Color (Yellow) Urine Clarity (Clear) Urine pH (5.0-8.0) pH Units Ur Specific [place] (1.010-1.025) Urine Protein (Neg-Trace) mg/dL Urine Glucose (UA) (Normal) mg/dL Urine Ketones (Negative) mg/dL Urine Blood (Negative) Urine Nitrite (Negative) Urine Bilirubin (Negative) Urine Urobilinogen (Normal) mg/dL Ur Leukocyte Esterase (Negative) Urine Microscopic RBC (0-3) per hpf Urine Microscopic WBC (0-3) per hpf Ur Squamous Epith Cells (None-Few) per lpf Urine Bacteria (None-Few) per hpf Hyaline Casts (None-Few) per lpf Urine Opiates Screen Negative (Trsiep=945) ng/mL Ur Barbiturates Screen Negative (Rdwuvo=339) ng/mL Ur Phencyclidine Scrn Negative (Cutoff=25) ng/mL Ur Amphetamines Screen Negative (Epmnzh=0390) ng/mL U Benzodiazepines Scrn Negative (Khakcc=607) ng/mL Urine Cocaine Screen Negative (Cutoff= 300) ng/mL U Marijuana (THC) Screen Positive H (Cutoff = 50) ng/mL Ethyl Alcohol (0-10) mg/dL Psychiatric Medical Clearance - Medical Clearance Checklist Medical History: Psychosis (Acute) Psychosis (Acute) Anxiety disorder (Acute) Schizoaffective disorder, bipolar type (Acute) Suicidal ideation (Acute) Chronic schizophrenia (Acute) Homicidal ideation (Acute) Cannabis abuse (Acute) Depression (Acute) Acute cholecystitis (Resolved) DVT prophylaxis (Acute) Schizoaffective disorder (Acute) Acute psychosis (Acute) Psychosis (Acute) Schizoaffective disorder, bipolar type (Acute) Methamphetamine abuse (Acute) Suicidal ideations (Acute) Homicidal ideations (Acute) Schizoaffective disorder, bipolar type (Acute) 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) Patient's noncompliance with other medical treatment and regimen (Acute) Adult antisocial behavior (Acute) Abdominal pain (Inactive) Abdominal pain (Inactive) Amphetamine abuse (Inactive) Atypical chest pain (Inactive) Chest pain (Inactive) Psychosis (Inactive) No Social History Section defined Current Vitals: Last Vital Signs Temp 98.3 F 09/15/17 18:35 Pulse 78 09/15/17 18:35 Resp 16 09/15/17 18:35 BP 125/91 09/15/17 18:35 Pulse Ox 97 09/15/17 18:35 Psychiatric Lab Panel: Drug Levels and Toxicity 09/15/17 09/15/17 19:16 19:51 Urine Opiates Screen Negative Ur Barbiturates Screen Negative Ur Phencyclidine Scrn Negative Ur Amphetamines Screen Negative U Benzodiazepines Scrn Negative Urine Cocaine Screen Negative U Marijuana (THC) Screen Positive H Ethyl Alcohol < 10 Abnormal Labs: Abnormal lab results MCH 27.7 pg (28.0-33.3) L 09/15/17 19:16 Chloride 108 mEq/L (98-107) H 09/15/17 19:16 Carbon Dioxide 22 mEq/L (23-29) L 09/15/17 19:16 Ur Specific [place] > 1.030 (1.010-1.025) H 09/15/17 19:51 Urine Protein 30 mg/dL (Neg-Trace) H 09/15/17 19:51 Urine Ketones Trace mg/dL (Negative) H 09/15/17 19:51 Urine Bilirubin Small (Negative) H 09/15/17 19:51 Urine Microscopic RBC 5-15 per hpf (0-3) H 09/15/17 19:51 Urine Microscopic WBC 3-5 per hpf (0-3) H 09/15/17 19:51 Ur Squamous Epith Cells Many per lpf (None-Few) H 09/15/17 19:51 U Marijuana (THC) Screen Positive ng/mL (Cutoff = 50) H 09/15/17 19:51 Statement of Medical Clearance: I have evaluated the patient, reviewed diagnostic information, and certify that the patient's medical condition is sufficiently stable that transfer to the psychiatric unit does not pose a significant risk of deterioration.
[2017-09-16] MEDS ORDERED: *HR* LORazepam 1 MG TABLET PO PRN (00:07)
[2017-09-16] MEDS ORDERED: Acetaminophen 325 MG TABLET PO PRN (00:07)
[2017-09-16] MEDS ORDERED: *HR* LORazepam 2 MG/ML VIAL IM PRN (00:07)
[2017-09-16] MEDS ORDERED: MOM Conc 10 ML UD.LIQ PO PRN (00:17)
[2017-09-16] MEDS ORDERED: Mag Hydrox/Al Hydrox/Simeth 30 ML UDC PO PRN (00:17)
[2017-09-16] MEDS: *HR* LORazepam 1 MG TABLET PO SCH ×3 (06:47→21:39)
[2017-09-16] MEDS: OLANZapine 5 MG TAB.RAPDIS PO PRN ×2 (06:48→22:30)
[2017-09-16] MEDS ORDERED: Nicotine 21 MG PATCH.TD24 TD SCH (09:00)
[2017-09-16] MEDS: Divalproex (12 HR) 500 MG TABLET PO SCH ×2 (09:16→21:39)
[2017-09-16] MEDS: hydroCHLOROthiazide 25 MG TABLET PO SCH (09:17)
[2017-09-16] MEDS: OLANZapine 10 MG TAB.RAPDIS PO SCH (09:18)
--- NOTE | 2017-09-16 10:25 | Psychiatry History & Physical ---
Date of Encounter: 09/16/17 Time of Encounter: 10:00 History of Present Illness Patient Stated Chief Complaint: i was hearing voices Medicare Admission Attestation: For traditional Medicare patients the provided hospital inpatient services are reasonable and necessary and in the case of services not specified as inpatient -only under 42 CFR 419.22 (n), that they are appropriately provided as inpatient services in accordance 42 CFR 412.3. For Critical Access Hospital the patient may reasonably be expected to be discharged or transferred to a hospital within 96 hours after admission to the Critical Access Hospital. Admitted From: Emergency Dept Plans for Post Hospital Care: Home History of Present Illness: Mr. Barrientos is a 31 year old male admitted from ER bought in as agitated and , having hallucinations and had homicidal ideation. Mr Barrientos is known to this facility , carries dx of Scizoaffective disorder Bipolar type, he has multiple inpatient hospitalization , last one was on 2017. Records reviewed , Patient lives by himself, gets SSI . During this admission he is positive for marijuana , was making statements to hurt people who have hurt him and having auditory hallucinations. During his session today he was irritable, no eye contact and poor historian and wanted to leave the room, restless and difficulty providing a full history . He has h/o non compliance and probably has not used his medication and having psychosis and agitation. He denied any homicidal thoughts now states i am ok now as i am here. He remains restless, agitated and poor eye contact. Patient has had 90 hospitalization at [place] and was d/c on 07/07/17. family history : positive for bipolar no history of suicide. Past Med Surg Social Fam HX - Past Medical History Medical history: non-contributory, asthma - Past Surgical History Surgical History: non-contributory, arthroscopy, cholecystectomy - Social History Smoking Status: Current every day smoker Smokeless Tobacco Status: No Alcohol use: occasionally Drug use: cocaine, opiates, marijuana, methamphetamine, IV Drug Use, prescription drug abuse Occupational status: disabled Current living situation: Home - Independent Activity Level: Independent ambulation Recent Out of Country Travel Within the Last 8 Weeks: No Exposure or Possible Exposure to Illness During Travel: No - Family History Grandfather Adopted: No Family Member Ethnicity: Non- Living Status: Still Living Hx Family Cardiac Disorders: No Hx Family Respiratory Disorders: No Hx Family Cancer: No Hx Family GI Disorders: No Hx Family Endocrine Disorder: Yes (THYROID DISORDER) Hx Family Neuromuscular Disorders: No Hx Family Neurologic Disorders: No Hx Family HEENT Disorders: No Hx Family Autoimmune Disorders: No - Additional Family History Additional family history: patient has family history of bipolar , no history of suicide in family. Medications & Allergies LORazepam [Ativan] 1 mg PO TID 10 Days #30 tablet 08/10/17 [Rx] OLANZapine [Zyprexa Zydis] 10 mg PO QDPC 10 Days #20 tab.rapdis 08/10/17 [Rx] Divalproex (24 HR) [Depakote ER (24 HR)] 1,000 mg PO BID 09/16/17 [History] 3 Allergy/AdvReac Type Severity Reaction Status Date / Time chlorpromazine Allergy Hives Verified 09/16/17 10:23 [From Thorazine] haloperidol [From Haldol] AdvReac Intermediate See Verified 09/16/17 10:23 Comments Review of Systems Constitutional: Denies: fever, chills, weakness, weight change Eyes: Denies: eye pain, vision change Ears, Nose, Throat: Denies: ear pain, throat pain, dental pain, hearing loss, congestion Gastrointestinal: Denies: abdominal pain, nausea, vomiting, diarrhea, constipation Genitourinary male: Denies: urgency, dysuria, frequency, genital lesions Musculoskeletal: Denies: joint swelling, joint pain Integumentary: Denies: rash, lesions, pruritus Psychiatric: Reports: homicidal ideation, auditory hallucinations, difficulty concentrating, irritability, mood swings Endocrine: Denies: fatigue, heat or cold intolerance Exam - HEENT Head exam IM: Present: atraumatic, normal inspection, normocephalic Eye exam IM: Present: normal appearance ENT exam IM: Present: normal exam - Neurological Neurological exam: Present: CN II-XII intact, alert, no focal deficits - Constitutional Vitals: Temp Pulse Resp BP Pulse Ox 98.4 F 81 18 107/71 99 09/16/17 02:39 09/16/17 02:39 09/16/17 02:39 09/16/17 02:39 09/15/17 23:16 General appearance: unkempt, disheveled - Musculoskeletal Gait: normal Strength & Tone: normal for patient - Psychiatric Patient Orientation: Yes Person, Yes Time, Yes Place Level of alertness: Alert Behavior: agitated, restless, guarded Psychomotor activity: Increased Eye Contact: No Eye Contact Mood Description: Irritable Affect description: constricted Speech Volume: Normal Speech pattern: clear Language & Vocabulary: limited Thought Process: Thought Blocking Thought Content: Yes Homicidal ideation, Yes Preoccupation Perceptual Disturbances: Yes Auditory hallucinations Attention Span Ability: Unable to Sustain Attention Patient Reliability: Not Reliable Historian Fund of knowledge: Yes average Intelligence Estimate: Average Judgment: Poor Insight: Minimal Results - Drug Levels and Toxicology Drug Levels and Toxicology: positive for marijuana - Labs Labs: Laboratory Last Values WBC 11.1 K/mcL (4.3-11.1) 09/15/17 19:16 RBC 5.46 M/mcL (4.19-5.50) 09/15/17 19:16 Hgb 15.1 g/dL (12.9-16.9) 09/15/17 19:16 Hct 46.1 % (37.5-50.1) 09/15/17 19:16 MCV 84.4 fL (83.0-100.0) 09/15/17 19:16 MCH 27.7 pg (28.0-33.3) L 09/15/17 19:16 MCHC 32.8 g/dL (31.6-35.5) 09/15/17 19:16 RDW 13.2 % (11.5-14.5) 09/15/17 19:16 Plt Count 217 K/mcL (140-400) 09/15/17 19:16 MPV 12.0 fL (9.4-12.4) 09/15/17 19:16 Immature Gran % 0.3 % (0-4) 09/15/17 19:16 Seg Neutrophils % 55.4 % 09/15/17 19:16 Lymphocytes % 35.5 % 09/15/17 19:16 Monocytes % 7.2 % 09/15/17 19:16 Eosinophils % 1.2 % 09/15/17 19:16 Basophils % 0.4 % 09/15/17 19:16 Neutrophils # 6.2 K/mcL (1.6-8.9) 09/15/17 19:16 Lymphocytes # 3.9 K/mcL (0.6-4.6) 09/15/17 19:16 Monocytes # 0.8 K/mcL (0.0-1.3) 09/15/17 19:16 Eosinophils # 0.1 K/mcL (0.0-0.6) 09/15/17 19:16 Basophils # 0.0 K/mcL (0.0-0.2) 09/15/17 19:16 Sodium 136 mEq/L (136-145) 09/15/17 19:16 Potassium 3.6 mEq/L (3.5-5.1) 09/15/17 19:16 Chloride 108 mEq/L (98-107) H 09/15/17 19:16 Carbon Dioxide 22 mEq/L (23-29) L 09/15/17 19:16 BUN 12 mg/dL (6-20) 09/15/17 19:16 Creatinine 0.73 mg/dL (0.70-1.30) 09/15/17 19:16 Est GFR ( Amer) > 60 (> 60) 09/15/17 19:16 Est GFR (Non-Af Amer) > 60 (> 60) 09/15/17 19:16 BUN/Creatinine Ratio 16 (6-26) 09/15/17 19:16 Glucose 90 mg/dL (70-105) 09/15/17 19:16 Calculated Osmolality 281 (280-300) 09/15/17 19:16 Calcium 9.8 mg/dL (8.6-10.3) 09/15/17 19:16 Urine Color Dark Yellow (Yellow) 09/15/17 19:51 Urine Clarity Clear (Clear) 09/15/17 19:51 Urine pH 6.0 pH Units (5.0-8.0) 09/15/17 19:51 Ur Specific [place] > 1.030 (1.010-1.025) H 09/15/17 19:51 Urine Protein 30 mg/dL (Neg-Trace) H 09/15/17 19:51 Urine Glucose (UA) Normal mg/dL (Normal) 09/15/17 19:51 Urine Ketones Trace mg/dL (Negative) H 09/15/17 19:51 Urine Blood Negative (Negative) 09/15/17 19:51 Urine Nitrite Negative (Negative) 09/15/17 19:51 Urine Bilirubin Small (Negative) H 09/15/17 19:51 Urine Urobilinogen Normal mg/dL (Normal) 09/15/17 19:51 Ur Leukocyte Esterase Negative (Negative) 09/15/17 19:51 Urine Microscopic RBC 5-15 per hpf (0-3) H 09/15/17 19:51 Urine Microscopic WBC 3-5 per hpf (0-3) H 09/15/17 19:51 Ur Squamous Epith Cells Many per lpf (None-Few) H 09/15/17 19:51 Urine Bacteria None Seen per hpf (None-Few) 09/15/17 19:51 Hyaline Casts None Seen per lpf (None-Few) 09/15/17 19:51 Urine Opiates Screen Negative ng/mL (Wgtmvx=934) 09/15/17 19:51 Ur Barbiturates Screen Negative ng/mL (Wcmhme=740) 09/15/17 19:51 Ur Phencyclidine Scrn Negative ng/mL (Cutoff=25) 09/15/17 19:51 Ur Amphetamines Screen Negative ng/mL (Hguvqj=2644) 09/15/17 19:51 U Benzodiazepines Scrn Negative ng/mL (Iyaxvu=025) 09/15/17 19:51 Urine Cocaine Screen Negative ng/mL (Cutoff= 300) 09/15/17 19:51 U Marijuana (THC) Screen Positive ng/mL (Cutoff = 50) H 09/15/17 19:51 Ethyl Alcohol < 10 mg/dL (0-10) 09/15/17 19:16 Assessment and Plan (1) Homicidal ideation Current visit: No Status: Acute Plan: Admit inpatient for safety and stabilization, Close observation, Suicide Precautions per unit protocol, Encourage participation in unit milieu, Group Therapy, Monitor sleep, Monitor appetite, Family/Supportive other meeting Additional Plan: Inpatient for safety and stabilization. Risks, benefits, side effects, alternatives discussed w/pt: Yes Patient agreeable to treatment: Yes Plans for Post Hospital Care: at Home (2) Schizoaffective disorder, bipolar type Current visit: No Status: Acute Plan: Admit inpatient for safety and stabilization, Close observation, Suicide Precautions per unit protocol, Encourage participation in unit milieu, Group Therapy, Monitor sleep, Monitor appetite, Family/Supportive other meeting Additional Plan: Admit to inpatient for safety and stabilization Patient has h/o non compliance , needs education for compliance as per last record he was given abilify long acting on 07/11/17 , will need to confirm and continue. Risks, benefits, side effects, alternatives discussed w/pt: Yes Patient agreeable to treatment: Yes Plans for Post Hospital Care: at Home (3) Cannabis abuse Current visit: No Status: Acute Plan: Admit inpatient for safety and stabilization, Close observation, Suicide Precautions per unit protocol, Encourage participation in unit milieu, Group Therapy, Monitor sleep, Monitor appetite, Family/Supportive other meeting Additional Plan: patient will be encouraged to avoid cannabis Risks, benefits, side effects, alternatives discussed w/pt: Yes Patient agreeable to treatment: Yes Plans for Post Hospital Care: at Home
[2017-09-16] MEDS: OLANZapine 5 MG TAB.RAPDIS PO SCH (21:37)
[2017-09-16] MEDS: hydrOXYzine pamoate 25 MG CAPSULE PO PRN (22:30)
[2017-09-16] MEDS: traZODone 50 MG TABLET PO PRN (22:30)
[2017-09-17] MEDS: Divalproex (12 HR) 500 MG TABLET PO SCH ×2 (09:29→21:05)
[2017-09-17] MEDS: OLANZapine 10 MG TAB.RAPDIS PO SCH (09:29)
[2017-09-17] MEDS: *HR* LORazepam 1 MG TABLET PO SCH ×3 (09:30→21:05)
[2017-09-17] MEDS: hydroCHLOROthiazide 25 MG TABLET PO SCH (09:30)
--- NOTE | 2017-09-17 11:45 | Psychiatry Progress Note ---
Date of Encounter: 09/17/17 Time of Encounter: 11:30 Subjective Interval history: Patient seen today , case d/w staff. I am doing fine since i am here. He slept fine, still dishelved, poor eye contact , moods are depress as per him , positive paranoia , aud./visual hallucinations bunch of people laughing at me. i see them all the time and i see stupid family , because i am going to hell. still remains homicidal towards family but as per him it never works, because i do not know where they are. continue same rx plan and close monitoring. Review of Systems Psychiatric: Reports: homicidal ideation, auditory hallucinations, difficulty concentrating, irritability, mood swings Results - Vital Signs Vital Signs: Temp Pulse Resp BP Pulse Ox 97.6 F 83 16 118/73 99 09/16/17 21:00 09/16/17 21:00 09/16/17 21:00 09/16/17 21:00 09/15/17 23:16 Assessment and Plan (1) Homicidal ideation Current visit: No Status: Acute Risks, benefits, side effects, alternatives discussed w/pt: Yes Patient agreeable to treatment: Yes (2) Schizoaffective disorder, bipolar type Current visit: No Status: Acute Risks, benefits, side effects, alternatives discussed w/pt: Yes Patient agreeable to treatment: Yes (3) Cannabis abuse Current visit: No Status: Acute Risks, benefits, side effects, alternatives discussed w/pt: Yes Patient agreeable to treatment: Yes Consult Discharge Plan - Plan Referrals: [facility] [Outside] - 09/27/17 2:00 pm (Pt had appointment card for an appointment on September 27, 2017 at 1400 with Darion at ext. [phone]) Psychiatry Exam - Constitutional Vitals: Temp Pulse Resp BP Pulse Ox 97.6 F 83 16 118/73 99 09/16/17 21:00 09/16/17 21:00 09/16/17 21:00 09/16/17 21:00 09/15/17 23:16 General appearance: age & developmentally appropriate - Musculoskeletal Gait: normal Station: other Strength & Tone: normal for patient - Psychiatric Patient Orientation: Yes Person, Yes Time, Yes Place Level of alertness: Alert Behavior: uncooperative, guarded Psychomotor activity: Increased Eye Contact: Minimal Contact Mood Description: Depressed Affect description: blunted Speech Volume: Normal Speech pattern: limited Language & Vocabulary: limited Thought Process: Slowed Thinking Thought Content: Yes Homicidal ideation, Yes Paranoid delusion Perceptual Disturbances: Yes Auditory hallucinations, Yes Visual hallucinations Attention Span Ability: Unable to Sustain Attention Patient Reliability: Questionable Historian Fund of knowledge: Yes average Judgment: Poor Insight: None
[2017-09-17] MEDS: Nicotine 2 MG GUM BC PRN ×2 (15:31→21:05)
[2017-09-17] MEDS: OLANZapine 5 MG TAB.RAPDIS PO SCH (21:05)
[2017-09-18] MEDS: Divalproex (12 HR) 500 MG TABLET PO SCH ×2 (09:20→20:42)
[2017-09-18] MEDS: *HR* LORazepam 1 MG TABLET PO SCH ×3 (09:21→20:43)
[2017-09-18] MEDS: OLANZapine 10 MG TAB.RAPDIS PO SCH (09:21)
[2017-09-18] MEDS: hydroCHLOROthiazide 25 MG TABLET PO SCH (09:21)
[2017-09-18] MEDS: OLANZapine 5 MG TAB.RAPDIS PO PRN (13:33)
--- NOTE | 2017-09-18 17:37 | Psychiatry Progress Note ---
Date of Encounter: 09/18/17 Time of Encounter: 16:50 Subjective Interval history: Patient seen for follow-up. Case discussed with treatment team. He will continue to be isolating, paranoid, disheveled with poor ADLs. Continued to present homicidal ideation toward his family and reporting feeling scared. Review of Systems Psychiatric: Reports: homicidal ideation, auditory hallucinations, difficulty concentrating, irritability, mood swings Results - Vital Signs Vital Signs: Temp Pulse Resp BP Pulse Ox 97.6 F 78 17 115/82 99 09/18/17 09:00 09/18/17 09:00 09/18/17 09:00 09/18/17 09:00 09/15/17 23:16 Assessment and Plan (1) Schizoaffective disorder, bipolar type Current visit: No Status: Acute Plan: Continue hospitalization, Close observation, Suicide Precautions per unit protocol, Encourage participation in unit milieu, Group Therapy, Monitor sleep, Monitor appetite Risks, benefits, side effects, alternatives discussed w/pt: Yes Patient agreeable to treatment: Yes Consult Discharge Plan - Plan Referrals: Amalia Tejada [facility] [Outside] - 09/27/17 2:00 pm (The above appointment is with Darion Ambrose for outpatient mental health counseling services. You will also see Dena English for outpatient psychiatric assessment and medication management services on 10/02/2017 at 1:00pm.) Psychiatry Exam - Constitutional Vitals: Temp Pulse Resp BP Pulse Ox 97.6 F 78 17 115/82 99 09/18/17 09:00 09/18/17 09:00 09/18/17 09:00 09/18/17 09:00 09/15/17 23:16 General appearance: well-nourished, unkempt, disheveled, bizarre - Musculoskeletal Gait: normal Station: relaxed Strength & Tone: normal for patient - Psychiatric Patient Orientation: Yes Person, Yes Time, Yes Place Level of alertness: Alert Behavior: calm, cooperative, nervous, guarded, withdrawn Psychomotor activity: Slowed Eye Contact: Minimal Contact Mood Description: Depressed, Anxious Affect description: constricted, blunted, dysphoric, anxious Speech Volume: Normal Speech pattern: clear, limited, impoverished Language & Vocabulary: consistent with education Thought Process: Circumstantial, Flight of Ideas, Thought Blocking, Disorganized Thought Content: No Suicidal ideation, Yes Homicidal ideation, Yes Overt delusions, Yes Paranoid delusion Perceptual Disturbances: Yes Auditory hallucinations, No Visual hallucinations Attention Span Ability: Unable to Focus Memory Description: Grossly Intact Patient Reliability: Reliable Historian Fund of knowledge: Yes abstraction ability, Yes average, Yes aware of current events Intelligence Estimate: Average Judgment: Limited Insight: Partial
[2017-09-18] MEDS: Nicotine 2 MG GUM BC PRN ×2 (17:53→19:11)
[2017-09-18] MEDS: OLANZapine 5 MG TAB.RAPDIS PO SCH (20:42)
[2017-09-18] MEDS: hydrOXYzine pamoate 25 MG CAPSULE PO PRN (23:24)
[2017-09-19] MEDS: Divalproex (12 HR) 500 MG TABLET PO SCH ×2 (09:44→20:06)
[2017-09-19] MEDS: *HR* LORazepam 1 MG TABLET PO SCH ×3 (09:45→20:07)
[2017-09-19] MEDS: OLANZapine 10 MG TAB.RAPDIS PO SCH (09:45)
[2017-09-19] MEDS: hydroCHLOROthiazide 25 MG TABLET PO SCH (09:46)
--- NOTE | 2017-09-19 14:40 | Psychiatry Progress Note ---
Date of Encounter: 09/19/17 Time of Encounter: 14:15 Subjective Interval history: Patient seen for follow-up. Case discussed with treatment team. He is showing some improvement, he tell me that he attended his first group. He is more interactive with staff. Continued to be disheveled with poor ADLs. He is asking to be discharged and refusing to have a Depakote level. Review of Systems Psychiatric: Reports: homicidal ideation, auditory hallucinations, difficulty concentrating, irritability, mood swings Results - Vital Signs Vital Signs: Temp Pulse Resp BP Pulse Ox 97.1 F L 59 16 105/54 99 09/19/17 09:00 09/19/17 09:00 09/19/17 09:00 09/19/17 09:00 09/15/17 23:16 Assessment and Plan (1) Schizoaffective disorder, bipolar type Current visit: No Status: Acute Plan: Continue hospitalization, Close observation, Suicide Precautions per unit protocol, Encourage participation in unit milieu, Group Therapy, Monitor sleep, Monitor appetite Additional Plan: Depakote level in a.m. Discussed with the patient. Risks, benefits, side effects, alternatives discussed w/pt: Yes Patient agreeable to treatment: Yes Consult Discharge Plan - Plan Referrals: Amalia Tejada [facility] [Outside] - 09/27/17 2:00 pm (The above appointment is with Darion Ambrose for outpatient mental health counseling services. You will also see Dena English for outpatient psychiatric assessment and medication management services on 10/02/2017 at 1:00pm.) Psychiatry Exam - Constitutional Vitals: Temp Pulse Resp BP Pulse Ox 97.1 F L 59 16 105/54 99 09/19/17 09:00 09/19/17 09:00 09/19/17 09:00 09/19/17 09:00 09/15/17 23:16 General appearance: unkempt, disheveled, bizarre - Musculoskeletal Gait: normal Station: relaxed Strength & Tone: normal for patient - Psychiatric Patient Orientation: Yes Person, Yes Time, Yes Place Level of alertness: Alert Behavior: calm, cooperative Psychomotor activity: Normal Eye Contact: Maintains Eye Contact Mood Description: Euthymic/stable Affect description: congruent with mood, blunted, flat Speech Volume: Normal Speech pattern: normal rate, normal rhythm, normal tone, fluent, spontaneous Language & Vocabulary: consistent with education Thought Process: Linear, Goal Oriented, Thought Blocking, Disorganized Thought Content: No Suicidal ideation, No Homicidal ideation, No Overt delusions Perceptual Disturbances: No Auditory hallucinations, No Visual hallucinations Attention Span Ability: Capable of Focused Attention Memory Description: Grossly Intact Patient Reliability: Reliable Historian Fund of knowledge: Yes abstraction ability, Yes aware of current events Intelligence Estimate: Average Judgment: Limited Insight: Partial
[2017-09-19] MEDS: Nicotine 2 MG GUM BC PRN (19:29)
[2017-09-19] MEDS: OLANZapine 5 MG TAB.RAPDIS PO SCH (20:07)
[2017-09-20] MEDS: Divalproex (12 HR) 500 MG TABLET PO SCH ×2 (08:34→19:59)
[2017-09-20] MEDS: *HR* LORazepam 1 MG TABLET PO SCH ×3 (08:34→20:00)
[2017-09-20] MEDS: hydroCHLOROthiazide 25 MG TABLET PO SCH (08:34)
[2017-09-20] MEDS: OLANZapine 10 MG TAB.RAPDIS PO SCH (08:34)
--- NOTE | 2017-09-20 14:51 | Psychiatry Progress Note ---
Date of Encounter: 09/20/17 Time of Encounter: 14:48 Subjective Interval history: Patient was seen for follow-up with nursing staff. Patient Depakote level is still pending. He is compliant with medication and reports feeling better, some improvement in his ADLs. He agreed to change his status to voluntary to complete his treatment. He is cooperative and interactive. Not agitated or paranoid. Denies any problem with sleep. Overall showing improvement. Discharge plans are completed by social work. Review of Systems Psychiatric: Reports: homicidal ideation, auditory hallucinations, difficulty concentrating, irritability, mood swings Results - Vital Signs Vital Signs: Temp Pulse Resp BP Pulse Ox 97.4 F L 82 18 117/75 99 09/20/17 09:00 09/20/17 09:00 09/20/17 09:00 09/20/17 09:00 09/15/17 23:16 Assessment and Plan (1) Schizoaffective disorder, bipolar type Current visit: No Status: Acute Plan: Continue hospitalization, Close observation, Suicide Precautions per unit protocol, Encourage participation in unit milieu, Group Therapy, Monitor sleep, Monitor appetite Risks, benefits, side effects, alternatives discussed w/pt: Yes Patient agreeable to treatment: Yes Consult Discharge Plan - Plan Referrals: Amalia Tejada [facility] [Outside] - 09/27/17 2:00 pm (The above appointment is with Darion Ambrose for outpatient mental health counseling services. You will also see Dena English for outpatient psychiatric assessment and medication management services on 10/02/2017 at 1:00pm.) Psychiatry Exam - Constitutional Vitals: Temp Pulse Resp BP Pulse Ox 97.4 F L 82 18 117/75 99 09/20/17 09:00 09/20/17 09:00 09/20/17 09:00 09/20/17 09:00 09/15/17 23:16 General appearance: age & developmentally appropriate, well-groomed, well- nourished - Musculoskeletal Gait: normal Station: relaxed Strength & Tone: normal for patient - Psychiatric Patient Orientation: Yes Person, Yes Time, Yes Place Level of alertness: Alert Behavior: calm, cooperative, guarded, withdrawn Psychomotor activity: Normal Eye Contact: Maintains Eye Contact Mood Description: Euthymic/stable Affect description: congruent with mood, constricted, blunted Speech Volume: Normal Speech pattern: normal rate, normal rhythm, normal tone, fluent, spontaneous Language & Vocabulary: consistent with education Thought Process: Linear, Goal Oriented Thought Content: No Suicidal ideation, No Homicidal ideation, No Overt delusions Perceptual Disturbances: No Auditory hallucinations, No Visual hallucinations Attention Span Ability: Capable of Focused Attention Memory Description: Grossly Intact Patient Reliability: Reliable Historian Fund of knowledge: Yes abstraction ability, Yes aware of current events Intelligence Estimate: Average Judgment: Limited Insight: Partial
[2017-09-20] MEDS: traZODone 50 MG TABLET PO PRN (20:00)
[2017-09-20] MEDS: hydrOXYzine pamoate 25 MG CAPSULE PO PRN (20:00)
[2017-09-20] MEDS: OLANZapine 5 MG TAB.RAPDIS PO SCH (20:00)
[2017-09-20] MEDS: Nicotine 2 MG GUM BC PRN (21:12)
[2017-09-21] MEDS: hydroCHLOROthiazide 25 MG TABLET PO SCH (09:19)
[2017-09-21] MEDS: OLANZapine 10 MG TAB.RAPDIS PO SCH (09:19)
[2017-09-21] MEDS: *HR* LORazepam 1 MG TABLET PO SCH ×3 (09:19→20:32)
[2017-09-21] MEDS: Divalproex (12 HR) 500 MG TABLET PO SCH ×2 (09:21→20:33)
--- NOTE | 2017-09-21 13:06 | Psychiatry Progress Note ---
Date of Encounter: 09/21/17 Time of Encounter: 12:15 Subjective Interval history: Patient is seen for follow-up. Case discussed with treatment team. Staff report that he experienced some paranoia and auditory hallucination yesterday he was able to fall asleep with trazodone. Today he denied having any auditory or visual hallucinations he is calm and appropriate and looking forward to go home. He is not presenting any suicidal or homicidal ideation and his he is compliant with medication. Review of Systems Psychiatric: Reports: homicidal ideation, auditory hallucinations, difficulty concentrating, irritability, mood swings Results - Vital Signs Vital Signs: Temp Pulse Resp BP Pulse Ox 97 F L 72 18 110/79 99 09/21/17 09:00 09/21/17 09:00 09/21/17 09:00 09/21/17 09:00 09/15/17 23:16 Assessment and Plan (1) Schizoaffective disorder, bipolar type Current visit: No Status: Acute Plan: Continue hospitalization, Close observation, Suicide Precautions per unit protocol, Encourage participation in unit milieu, Group Therapy, Monitor sleep, Monitor appetite Risks, benefits, side effects, alternatives discussed w/pt: Yes Patient agreeable to treatment: Yes Consult Discharge Plan - Plan Referrals: Amalia Tejada [facility] [Outside] - 09/27/17 2:00 pm (The above appointment is with Darion Ambrose for outpatient mental health counseling services. You will also see Dena Engilsh for outpatient psychiatric assessment and medication management services on 10/02/2017 at 1:00pm.) Psychiatry Exam - Constitutional Vitals: Temp Pulse Resp BP Pulse Ox 97 F L 72 18 110/79 99 09/21/17 09:00 09/21/17 09:00 09/21/17 09:00 09/21/17 09:00 09/15/17 23:16 General appearance: age & developmentally appropriate, well-nourished, unkempt, bizarre - Musculoskeletal Gait: normal Station: relaxed Strength & Tone: normal for patient - Psychiatric Patient Orientation: Yes Person, Yes Time, Yes Place Level of alertness: Alert Behavior: calm, cooperative, guarded, distractible Psychomotor activity: Normal Eye Contact: Fleeting Contact Mood Description: Anxious Affect description: congruent with mood, blunted, dysphoric Speech Volume: Normal Speech pattern: normal rate, normal rhythm, normal tone, fluent, spontaneous Language & Vocabulary: consistent with education Thought Process: Linear, Goal Oriented Thought Content: No Suicidal ideation, No Homicidal ideation, No Overt delusions Perceptual Disturbances: No Auditory hallucinations, No Visual hallucinations Attention Span Ability: Capable of Focused Attention Memory Description: Grossly Intact Patient Reliability: Reliable Historian Fund of knowledge: Yes abstraction ability, Yes aware of current events Intelligence Estimate: Average Judgment: Limited Insight: Partial
[2017-09-21] MEDS: OLANZapine 5 MG TAB.RAPDIS PO SCH (20:32)
[2017-09-21] MEDS: traZODone 50 MG TABLET PO PRN (20:32)
[2017-09-21] MEDS: hydrOXYzine pamoate 25 MG CAPSULE PO PRN (20:32)
--- NOTE | 2017-09-22 09:33 | Discharge Summary ---
Date of Encounter: 09/22/17 Time of Encounter: 09:23 Diagnosis - Discharge Diagnosis (1) Schizoaffective disorder, bipolar type Status: Acute Medications - Discharge Medications Prescriptions: Divalproex (24 HR) [Depakote ER (24 HR)] 1,000 mg PO BID #120 tab.er.24h LORazepam [Ativan] 1 mg PO TID 10 Days #30 tablet OLANZapine [Zyprexa Zydis] 10 mg PO QDPC 10 Days #20 tab.rapdis OLANZapine [Zyprexa Zydis] 15 mg PO HS #90 tab.rapdis Divalproex (24 HR) [Depakote ER (24 HR)] 1,000 mg PO BID #120 tab.er.24h [Rx] LORazepam [Ativan] 1 mg PO TID 10 Days #30 tablet 09/22/17 [Rx] OLANZapine [Zyprexa Zydis] 10 mg PO QDPC 10 Days #20 tab.rapdis 09/22/17 [Rx] OLANZapine [Zyprexa Zydis] 15 mg PO HS #90 tab.rapdis 09/22/17 [Rx] 3 Allergy/AdvReac Type Severity Reaction Status Date / Time chlorpromazine Allergy Hives Verified 09/16/17 10:23 [From Thorazine] haloperidol [From Haldol] AdvReac Intermediate See Verified 09/16/17 10:23 Comments Provider Date of admission: 09/15/17 23:19 Primary care physician: PCP NONE Discharging clinician: Joaquin Fernandez Psychiatry Exam - Constitutional Vitals: Temp Pulse Resp BP Pulse Ox 98.5 F 87 16 113/79 99 09/21/17 20:42 09/21/17 20:42 09/21/17 20:42 09/21/17 20:42 09/15/17 23:16 Hospital Course Hospital course: Mr. Barrientos is a 31 year old male - Time Spent with Patient Total time spent providing and/or coordinating discharge services: Assessment and Plan - Follow up Plan Follow up with: Amalia Tejada [facility] [Outside] - 09/27/17 2:00 pm (The above appointment is with Darion Ambrose for outpatient mental health counseling services. You will also see Dena English for outpatient psychiatric assessment and medication management services on 10/02/2017 at 1:00pm.)
[2017-09-22] MEDS: hydroCHLOROthiazide 25 MG TABLET PO SCH (09:46)
[2017-09-22] MEDS: Divalproex (12 HR) 500 MG TABLET PO SCH (09:46)
[2017-09-22] MEDS: OLANZapine 10 MG TAB.RAPDIS PO SCH (09:46)
[2017-09-22] MEDS: *HR* LORazepam 1 MG TABLET PO SCH ×2 (09:46→15:16)
--- NOTE | 2017-09-22 09:48 | Discharge Summary ---
Date of Encounter: 09/22/17 Time of Encounter: 09:46 Diagnosis - Discharge Diagnosis (1) Schizoaffective disorder, bipolar type Status: Acute Medications - Discharge Medications Prescriptions: Divalproex (24 HR) [Depakote ER (24 HR)] 1,000 mg PO BID #120 tab.er.24h LORazepam [Ativan] 1 mg PO TID 10 Days #30 tablet OLANZapine [Zyprexa Zydis] 10 mg PO QDPC 10 Days #20 tab.rapdis OLANZapine [Zyprexa Zydis] 15 mg PO HS #90 tab.rapdis Divalproex (24 HR) [Depakote ER (24 HR)] 1,000 mg PO BID #120 tab.er.24h [Rx] LORazepam [Ativan] 1 mg PO TID 10 Days #30 tablet 09/22/17 [Rx] OLANZapine [Zyprexa Zydis] 10 mg PO QDPC 10 Days #20 tab.rapdis 09/22/17 [Rx] OLANZapine [Zyprexa Zydis] 15 mg PO HS #90 tab.rapdis 09/22/17 [Rx] 3 Allergy/AdvReac Type Severity Reaction Status Date / Time chlorpromazine Allergy Hives Verified 09/16/17 10:23 [From Thorazine] haloperidol [From Haldol] AdvReac Intermediate See Verified 09/16/17 10:23 Comments Provider Date of admission: 09/15/17 23:19 Primary care physician: PCP NONE Discharging clinician: Joaquin Fernandez Psychiatry Exam - Constitutional Vitals: Temp Pulse Resp BP Pulse Ox 98.5 F 87 16 113/79 99 09/21/17 20:42 09/21/17 20:42 09/21/17 20:42 09/21/17 20:42 09/15/17 23:16 General appearance: age & developmentally appropriate, well-groomed, well- nourished, bizarre - Musculoskeletal Gait: normal Station: relaxed Strength & Tone: normal for patient - Psychiatric Patient Orientation: Yes Person, Yes Time, Yes Place Level of alertness: Alert Behavior: calm, cooperative, guarded Psychomotor activity: Normal Eye Contact: Minimal Contact Mood Description: Euthymic/stable Affect description: congruent with mood, full range Speech Volume: Normal Speech pattern: normal rate, normal rhythm, normal tone, fluent, spontaneous Language & Vocabulary: consistent with education Thought Process: Linear, Goal Oriented Thought Content: No Suicidal ideation, No Homicidal ideation, No Overt delusions Perceptual Disturbances: No Auditory hallucinations, No Visual hallucinations Attention Span Ability: Capable of Focused Attention Memory Description: Grossly Intact Patient Reliability: Reliable Historian Fund of knowledge: Yes abstraction ability, Yes aware of current events Intelligence Estimate: Average Judgment: Limited Insight: Partial Hospital Course Hospital course: Mr. Barrientos is a 31 year old male admitted for evaluation and treatment of excessive patient schizoaffective disorder with paranoia and homicidal ideation and noncompliance with medication. For details of the admission please see H&P On the unit patient medication were adjusted and started Depakote and olanzapine in addition to lorazepam and when necessary medications. Initially patient was self isolating actively hallucinating and having homicidal thoughts toward his family and she could not take care of his activities of daily living. Later on he started showing improvement he was sleeping adequately not agitated he was able to have a coherent and logical conversation he was not combative and he denied any suicidal or homicidal ideation he denied any hallucinations he was tolerating medication without any side effects he is ADLs improved. On discharge patient was medically stable compliant with medication nonsuicidal and nonpsychotic his discharge plans were completed by social work including medication packaging and follow-up appointments he is discharged in stable condition. - Time Spent with Patient Total time spent providing and/or coordinating discharge services: Less than 30 minutes Assessment and Plan - Patient/Caregiver Discharge Instructions Activity: resume usual activities as tolerated Diet: regular diet - Follow up Plan Follow up with: Amalia Tejada [facility] [Outside] - 09/27/17 2:00 pm (The above appointment is with Darion Ambrose for outpatient mental health counseling services. You will also see Dena English for outpatient psychiatric assessment and medication management services on 10/02/2017 at 1:00pm.) Functional capacity at discharge: independent ambulation Overall status at discharge: Stable Disposition: Home, Self-Care Quality - Multiple Antipsychotics Patient discharged on 2 or more antipsychotic medications: No Procedures - Procedures Procedures: Medication Management, Crisis Stabilization, Supportive Therapy, Group Therapy, Psychoeducational Therapy
[2017-09-22 09:49] VITALS: BP 110/78
[2017-09-22] MEDS: Nicotine 2 MG GUM BC PRN (14:26)
[2017-09-22 23:35] LABS: Valproate Free 14 ug/mL (7-23); Valproate Total 94 ug/mL (50-125)
[2017-09-24 14:26] LABS: Valproate % Free 15 % (5-18)
== END 2017-09-22 17:15 | disposition home or self-care (01) | DRG 750 ==
LOC: EMEROO 18:32 → 1ANU 23:19 → SUATTDRO 23:19 → 1ANU 23:37
PROVIDERS: ADMIT Psychiatry & Neurology Psychiatry; ATTEND Psychiatry & Neurology Psychiatry

== ENCOUNTER 2017-11-08 17:42 | Inpatient (IN) ==
--- NOTE | 2017-11-08 17:49 | Emergency Department Note ---
Disposition Clinical Impression: Psychosis, Marijuana abuse, Abnormal urinalysis Disposition: Admitted As Inpatient Referrals: NONE,PCP [Primary Care Provider] - Forms: ED Satisfaction Letter General Adult HPI - General Chief complaint: ED Psychiatric Symptoms Stated complaint: psych Time Seen by Provider: 11/08/17 17:48 - History of Present Illness HPI Narrative: 31-year-old male with a history of psychiatric disease reports emergency department with his mother, there is concern for increasing psychosis, he has a known history of schizophrenia. The patient feels like demons are chasing him, he has reportedly been experiencing auditory and visual hallucinations. The patient and mother both deny physical complaints. The patient has had no chest pain shortness breath abdominal pain vomiting or diarrhea. There has been no trouble walking talking hearing seeing or speaking. He describes command hallucinations. There is no history of fever or headache neck stiffness rash convulsion or syncope. No trauma. No self-injurious behavior attempted overdose. There is no history of back pain or her nares symptomatology. The patient has been having increasing psychiatric concerns over the last few days, he did not want to come to the hospital to until today. Pain Scale: 0 - Related Data Previous Rx's Medication Instructions Recorded Divalproex (24 HR) [Depakote ER 1,000 mg PO BID #120 tab.er.24h 09/22/17 (24 HR)] LORazepam [Ativan] 1 mg PO TID 10 Days #30 tablet 09/22/17 OLANZapine [Zyprexa Zydis] 10 mg PO QDPC 10 Days #20 09/22/17 tab.rapdis OLANZapine [Zyprexa Zydis] 15 mg PO HS #90 tab.rapdis 09/22/17 Allergies Allergy/AdvReac Type Severity Reaction Status Date / Time chlorpromazine Allergy Hives Verified 11/08/17 18:22 [From Thorazine] haloperidol [From Haldol] AdvReac Intermediate See Verified 11/08/17 18:22 Comments All systems ED: reviewed and negative except as stated. Past Medical History - Past Medical History Medical history: Reports: non-contributory, asthma Surgical history: Reports: non-contributory, arthroscopy, cholecystectomy Psychiatric history: Reports: bipolar, schizophrenia, previous psychiatric hospitalization - Social History Smoking Status: Current every day smoker Smokeless Tobacco Status: No Alcohol use: Reports: occasionally Drug use: Reports: cocaine, opiates, marijuana, methamphetamine, IV Drug Use, prescription drug abuse Physical Exam - General Limitations: altered mental status General appearance: alert, in no apparent distress, other (Answers basic questions properly when not distracted, follows basic commands without difficulty.) - Head Head exam: atraumatic, normocephalic - Eye Eye exam: Present: normal appearance, PERRL, EOMI. Absent: scleral icterus, conjunctival injection, nystagmus, miosis, mydriasis, periorbital swelling - ENT ENT exam: normal exam, normal oropharynx, mucous membranes moist, normal external ear exam - Neck Neck exam: Present: normal inspection, full ROM, trachea midline. Absent: tenderness - Chest Chest inspection: Present: normal inspection, symmetric chest wall rise. Absent : tenderness - Respiratory Respiratory exam: Present: normal lung sounds bilaterally. Absent: respiratory distress, wheezes, stridor, accessory muscle use, prolonged expiratory phase - Cardiovascular Cardiovascular exam: Present: regular rate, normal rhythm, normal heart sounds - Abdominal Exam Abdominal exam: Present: soft, Non-Tender, normal bowel sounds. Absent: tenderness, distention, guarding, rebound, rigidity, trauma - Extremities Exam Extremities exam: Present: normal inspection, full ROM, normal capillary refill. Absent: tenderness, pedal edema, joint swelling, calf tenderness - Expanded Lower Extremity Exam Neurovascular/Tendon exam: Present: normal capillary refill. Absent: pulse deficit, motor deficit, sensory deficit, tendon deficit, extremity cold to touch , pallor - Back Exam Back exam: Present: normal inspection, full ROM. Absent: tenderness, CVA tenderness (R), CVA tenderness (L), vertebral tenderness - Neurological Exam Neurological exam: Present: alert, CN II-XII intact. Absent: motor sensory deficit - Psychiatric Psychiatric exam: Present: normal mood - Skin Skin exam: Present: warm, dry, intact, normal color. Absent: rash, cyanosis, diaphoresis, erythema, pallor, mottled Course Vital Signs Temperature 98.7 F 11/08/17 17:43 Pulse Rate 86 11/08/17 17:43 Respiratory Rate 18 11/08/17 17:43 Blood Pressure 135/87 11/08/17 17:43 O2 Sat by Pulse Oximetry 98 11/08/17 17:43 Temperature 98.7 F 11/08/17 17:55 Pulse Rate 86 11/08/17 17:55 Respiratory Rate 18 05/02/18 17:55 Blood Pressure 135/87 11/08/17 17:55 O2 Sat by Pulse Oximetry 98 11/08/17 17:55 Oxygen Delivery Oxygen Delivery Room Air Medical Decision Making - MDM Narrative Medical decision making narrative: The patient appears to be psychotic. Laboratory studies reveal an abnormal urinalysis and marijuana. Geodon was given in the ED. I consulted with the psychiatric prescreener who are recommending hospitalization. The patient is been accepted to the psychiatric service and is pending admission. - Lab Data Lab results reviewed: Yes I reviewed the patient's lab results. Result diagrams: 11/08/17 19:12 11/08/17 19:12 Lab Results 11/08/17 11/08/17 11/08/17 Range/Units 18:24 18:24 19:12 WBC 9.0 (4.3-11.1) K/mcL RBC 4.97 (4.19-5.50) M/mcL Hgb 14.1 (12.9-16.9) g/dL Hct 42.4 (37.5-50.1) % MCV 85.3 (83.0-100.0) fL MCH 28.4 (28.0-33.3) pg MCHC 33.3 (31.6-35.5) g/dL RDW 13.4 (11.5-14.5) % Plt Count 193 (140-400) K/mcL MPV 12.6 H (9.4-12.4) fL Immature Gran % 0.2 (0-4) % Seg Neutrophils % 55.0 % Lymphocytes % 34.3 % Monocytes % 8.3 % Eosinophils % 1.8 % Basophils % 0.4 % Neutrophils # 4.9 (1.6-8.9) K/mcL Lymphocytes # 3.1 (0.6-4.6) K/mcL Monocytes # 0.7 (0.0-1.3) K/mcL Eosinophils # 0.2 (0.0-0.6) K/mcL Basophils # 0.0 (0.0-0.2) K/mcL Sodium (136-145) mEq/L Potassium (3.5-5.1) mEq/L Chloride (98-107) mEq/L Carbon Dioxide (23-29) mEq/L BUN (6-20) mg/dL Creatinine (0.70-1.30) mg/dL Est GFR ( Amer) (> 60) Est GFR (Non-Af Amer) (> 60) BUN/Creatinine Ratio (6-26) Glucose (70-105) mg/dL Calculated Osmolality (280-300) Calcium (8.6-10.3) mg/dL Total Bilirubin (0.3-1.0) mg/dL Direct Bilirubin (0.0-0.2) mg/dL Indirect Bilirubin (0.0-1.2) mg/dL AST (13-39) Units/L ALT (7-52) Units/L Alkaline Phosphatase (34-104) Units/L Serum Total Protein (6.4-8.9) g/dL Albumin (3.5-5.7) g/dL Globulin (2.4-3.5) g/dL Albumin/Globulin Ratio (1.1-2.2) Urine Color Dark Yellow (Yellow) Urine Clarity Clear (Clear) Urine pH 6.0 (5.0-8.0) pH Units Ur Specific [place] > 1.030 H (1.010-1.025) Urine Protein Trace (Neg-Trace) mg/dL Urine Glucose (UA) Normal (Normal) mg/dL Urine Ketones Trace H (Negative) mg/dL Urine Blood Negative (Negative) Urine Nitrite Negative (Negative) Urine Bilirubin Small H (Negative) Urine Urobilinogen Normal (Normal) mg/dL Ur Leukocyte Esterase Negative (Negative) Urine Microscopic RBC 5-15 H (0-3) per hpf Urine Microscopic WBC 3-5 H (0-3) per hpf Ur Squamous Epith Cells Many H (None-Few) per lpf Urine Bacteria None Seen (None-Few) per hpf Hyaline Casts None Seen (None-Few) per lpf Salicylates (15.0-30.0) mg/dL Urine Opiates Screen Negative (Mzwnov=049) ng/mL Acetaminophen (10-20) mcg/mL Ur Barbiturates Screen Negative (Gxitca=998) ng/mL Ur Phencyclidine Scrn Negative (Cutoff=25) ng/mL Ur Amphetamines Screen Negative (Qhibjz=3212) ng/mL U Benzodiazepines Scrn Negative (Qatvyq=143) ng/mL Urine Cocaine Screen Negative (Cutoff= 300) ng/mL U Marijuana (THC) Screen Positive H (Cutoff = 50) ng/mL Ethyl Alcohol (Less than 10) mg/dL 11/08/17 Range/Units 19:12 WBC (4.3-11.1) K/mcL RBC (4.19-5.50) M/mcL Hgb (12.9-16.9) g/dL Hct (37.5-50.1) % MCV (83.0-100.0) fL MCH (28.0-33.3) pg MCHC (31.6-35.5) g/dL RDW (11.5-14.5) % Plt Count (140-400) K/mcL MPV (9.4-12.4) fL Immature Gran % (0-4) % Seg Neutrophils % % Lymphocytes % % Monocytes % % Eosinophils % % Basophils % % Neutrophils # (1.6-8.9) K/mcL Lymphocytes # (0.6-4.6) K/mcL Monocytes # (0.0-1.3) K/mcL Eosinophils # (0.0-0.6) K/mcL Basophils # (0.0-0.2) K/mcL Sodium 142 (136-145) mEq/L Potassium 3.8 (3.5-5.1) mEq/L Chloride 110 H (98-107) mEq/L Carbon Dioxide 22 L (23-29) mEq/L BUN 16 (6-20) mg/dL Creatinine 0.76 (0.70-1.30) mg/dL Est GFR ( Amer) > 60 (> 60) Est GFR (Non-Af Amer) > 60 (> 60) BUN/Creatinine Ratio 21 (6-26) Glucose 101 (70-105) mg/dL Calculated Osmolality 295 (280-300) Calcium 9.1 (8.6-10.3) mg/dL Total Bilirubin 0.4 (0.3-1.0) mg/dL Direct Bilirubin 0.1 (0.0-0.2) mg/dL Indirect Bilirubin 0.3 (0.0-1.2) mg/dL AST 13 (13-39) Units/L ALT 13 (7-52) Units/L Alkaline Phosphatase 48 (34-104) Units/L Serum Total Protein 7.0 (6.4-8.9) g/dL Albumin 4.1 (3.5-5.7) g/dL Globulin 2.9 (2.4-3.5) g/dL Albumin/Globulin Ratio 1.4 (1.1-2.2) Urine Color (Yellow) Urine Clarity (Clear) Urine pH (5.0-8.0) pH Units Ur Specific [place] (1.010-1.025) Urine Protein (Neg-Trace) mg/dL Urine Glucose (UA) (Normal) mg/dL Urine Ketones (Negative) mg/dL Urine Blood (Negative) Urine Nitrite (Negative) Urine Bilirubin (Negative) Urine Urobilinogen (Normal) mg/dL Ur Leukocyte Esterase (Negative) Urine Microscopic RBC (0-3) per hpf Urine Microscopic WBC (0-3) per hpf Ur Squamous Epith Cells (None-Few) per lpf Urine Bacteria (None-Few) per hpf Hyaline Casts (None-Few) per lpf Salicylates < 2.5 L (15.0-30.0) mg/dL Urine Opiates Screen (Aikxxw=795) ng/mL Acetaminophen < 10 L (10-20) mcg/mL Ur Barbiturates Screen (Ufilnd=241) ng/mL Ur Phencyclidine Scrn (Cutoff=25) ng/mL Ur Amphetamines Screen (Fvhunw=1158) ng/mL U Benzodiazepines Scrn (Oehhyv=299) ng/mL Urine Cocaine Screen (Cutoff= 300) ng/mL U Marijuana (THC) Screen (Cutoff = 50) ng/mL Ethyl Alcohol < 10 (Less than 10) mg/dL
[2017-11-08 18:55] LABS: Bilirubin,Urine Small (Negative); Blood,Urine Negative (Negative); Clarity,Urine Clear (Clear); Color,Urine Dark Yellow (Yellow); Glucose,Urine (UA) Normal (Normal); Ketones,Urine Trace mg/dL (Negative); Leukocyte Esterase,Urine Negative (Negative); Nitrite,Urine Negative (Negative); Protein,Urine Trace mg/dL (Neg-Trace); Specific Gravity,Urine > 1.030 (1.010-1.025); Urobilinogen,Urine Normal (Normal)
[2017-11-08 18:59] LABS: Bacteria,Urine None Seen per hpf (None-Few); Hyaline Casts,Urine None Seen per lpf (None-Few); Squamous Epithelial Cell,Urine Many per lpf (None-Few)
[2017-11-08 19:04] LABS: Amphetamine Screen,Urine Negative ng/mL (Cutoff=1000); Barbiturate Screen,Urine Negative ng/mL (Cutoff=200); Benzodiazepines Screen,Urine Negative ng/mL (Cutoff=200); Cannabinoid Screen,Urine Positive ng/mL (Cutoff = 50); Cocaine Screen,Urine Negative ng/mL (Cutoff= 300); Opiate Screen,Urine Negative ng/mL (Cutoff=300); Phencyclidine Screen,Urine Negative ng/mL (Cutoff=25)
[2017-11-08 19:40] LABS: Basophils % 0.4 %; Eosinophils # 0.2 K/mcL (0.0-0.6); Eosinophils % 1.8 %; Hematocrit 42.4 % (37.5-50.1); Hemoglobin 14.1 g/dL (12.9-16.9); Immature Granulocytes % 0.2 % (0-4); Lymphocytes # 3.1 K/mcL (0.6-4.6); Lymphocytes % 34.3 %; Mean Corpuscular HGB Conc 33.3 g/dL (31.6-35.5); Mean Corpuscular Hemoglobin 28.4 pg (28.0-33.3); Mean Corpuscular Volume 85.3 fL (83.0-100.0); Mean Platelet Volume 12.6 fL (9.4-12.4); Monocytes # 0.7 K/mcL (0.0-1.3); Monocytes % 8.3 %; Neutrophils # 4.9 K/mcL (1.6-8.9); Platelet Count 193 K/mcL (140-400); Red Blood Count 4.97 M/mcL (4.19-5.50); Red Cell Distribution Width 13.4 % (11.5-14.5)
[2017-11-08 20:01] LABS: Acetaminophen < 10 mcg/mL (10-20)
[2017-11-08 20:03] LABS: Alanine Aminotransferase 13 Units/L (7-52); Albumin 4.1 g/dL (3.5-5.7); Albumin/Globulin Ratio 1.4 (1.1-2.2); Alkaline Phosphatase 48 Units/L (34-104); Aspartate Amino Transferase 13 Units/L (13-39); BUN/Creatinine Ratio 21 (6-26); Bilirubin,Direct 0.1 mg/dL (0.0-0.2); Bilirubin,Indirect 0.3 mg/dL (0.0-1.2); Bilirubin,Total 0.4 mg/dL (0.3-1.0); Blood Urea Nitrogen 16 mg/dL (6-20); Calcium 9.1 mg/dL (8.6-10.3); Carbon Dioxide 22 mEq/L (23-29); Chloride 110 mEq/L (98-107); Ethanol < 10 mg/dL (Less than 10); Globulin 2.9 g/dL (2.4-3.5); Glucose 101 mg/dL (70-105); Osmolality,Calculated 295 (280-300); Potassium 3.8 mEq/L (3.5-5.1); Salicylate < 2.5 mg/dL (15.0-30.0); Sodium 142 mEq/L (136-145); eGFR For African Americans > 60 (> 60); eGFR For Non-African Americans > 60 (> 60)
[2017-11-08] MEDS ORDERED: Ziprasidone 20 MG CAPSULE PO ONE (20:47)
[2017-11-08] MEDS ORDERED: MOM Conc 10 ML UD.LIQ PO PRN (22:40)
[2017-11-08] MEDS ORDERED: Mag Hydrox/Al Hydrox/Simeth 30 ML UDC PO PRN (22:40)
[2017-11-08] MEDS ORDERED: *HR* LORazepam 2 MG/ML VIAL IM PRN (22:40)
[2017-11-08] MEDS ORDERED: Ziprasidone injection 20 MG/ML VIAL IM PRN (22:52)
[2017-11-08] MEDS: traZODone 50 MG TABLET PO PRN (23:57)
[2017-11-09 05:08] LABS: Valproate 59 mcg/mL (50-100)
--- NOTE | 2017-11-09 10:54 | Psychiatry History & Physical ---
Date of Encounter: 11/09/17 Time of Encounter: 10:30 History of Present Illness Patient Stated Chief Complaint: i hear voices Medicare Admission Attestation: For traditional Medicare patients the provided hospital inpatient services are reasonable and necessary and in the case of services not specified as inpatient -only under 42 CFR 419.22 (n), that they are appropriately provided as inpatient services in accordance 42 CFR 412.3. For Critical Access Hospital the patient may reasonably be expected to be discharged or transferred to a hospital within 96 hours after admission to the Critical Access Hospital. Admitted From: Emergency Dept Plans for Post Hospital Care: Home History of Present Illness: Mr. Barrientos is a 31 year old male admitted from ER bought in as agitated and , having hallucinations and paranoia. Mr Barrientos is known to this facility , carries dx of Scizoaffective disorder Bipolar type, he has multiple inpatient hospitalization , this year 08/05/2017 and 09/24 Records reviewed , Patient lives by himself, gets SSI . During this admission he is positive for marijuana , having auditory hallucinations telling him he is going to hell and he gets irritable and is very paranoid , FEELS DEMONS CHASING HIM AND HAVING COMMANDING HALLUCINATIONS AND VISUAL HALLUCINATION During his session today he was irritable, no eye contact and poor historian and wanted to leave the room, restless and difficulty providing a full history . He has h/o non compliance and agreed has not taken his zyprexa as it makes his heart feel funny and does not like it , but is taking depakote and lorazepam , his depakote level was 59 , so he is taking other medications and not anti psychotic and now extremely paranoid and having auditory hallucinations which are not leaving him alone, he is dishelved, long nails , un kempt hair. He remains restless, agitated and poor eye contact. Past history significant for schizoaffective disorder, non compliance multiple inpatient psych admissions, this year 2 , this is his third and in was in [place] for 90 days. Medically Overweight and h/o ASTHMA Past Med Surg Social Fam HX - Past Medical History Medical history: non-contributory, asthma - Past Psychiatric History Psychiatric history: Reports: schizophrenia, previous psychiatric hospitalization Family psychiatric history: Unknown Family History of Suicide: None - Past Surgical History Surgical History: non-contributory, arthroscopy, cholecystectomy - Social History Smoking Status: Current every day smoker Smokeless Tobacco Status: No Alcohol use: occasionally Drug use: cocaine, opiates, marijuana, methamphetamine, IV Drug Use, prescription drug abuse - Family History Grandfather Adopted: No Family Member Ethnicity: Non- Living Status: Still Living Hx Family Cardiac Disorders: No Hx Family Respiratory Disorders: No Hx Family Cancer: No Hx Family GI Disorders: No Hx Family Endocrine Disorder: Yes (THYROID DISORDER) Hx Family Neuromuscular Disorders: No Hx Family Neurologic Disorders: No Hx Family HEENT Disorders: No Hx Family Autoimmune Disorders: No Medications & Allergies Divalproex (24 HR) [Depakote ER (24 HR)] 1,000 mg PO BID #120 tab.er.24h [Rx] LORazepam [Ativan] 1 mg PO TID 10 Days #30 tablet 09/22/17 [Rx] OLANZapine [Zyprexa Zydis] 10 mg PO QDPC 10 Days #20 tab.rapdis 09/22/17 [Rx] OLANZapine [Zyprexa Zydis] 15 mg PO HS #90 tab.rapdis 09/22/17 [Rx] 3 Allergy/AdvReac Type Severity Reaction Status Date / Time chlorpromazine Allergy Hives Verified 11/09/17 10:54 [From Thorazine] haloperidol [From Haldol] AdvReac Intermediate See Verified 11/09/17 10:54 Comments Review of Systems Constitutional: Denies: fever, chills, weakness, weight change Eyes: Denies: eye pain, vision change Ears, Nose, Throat: Denies: ear pain, throat pain, dental pain, hearing loss, congestion Cardiovascular: Denies: chest pain, palpitations, dyspnea on exertion Respiratory: Denies: cough, dyspnea, wheezes Gastrointestinal: Denies: abdominal pain, nausea, vomiting, diarrhea, constipation Genitourinary male: Denies: urgency, dysuria, frequency, genital lesions Musculoskeletal: Denies: joint swelling, joint pain Integumentary: Denies: rash, lesions, pruritus Neurological: Denies: headache, weakness, numbness, memory loss Psychiatric: Reports: abnormal sleep pattern, auditory hallucinations, irritability, mood swings Endocrine: Denies: fatigue, heat or cold intolerance Hematologic/Lymphatic: Denies: easy bruising, lymphadenopathy Allergic/Immunologic: Denies: urticaria, itchy eyes Exam - HEENT Head exam IM: Present: atraumatic Eye exam IM: Present: EOMI, normal appearance, PERRL ENT exam IM: Present: normal exam - Neurological Neurological exam: Present: CN II-XII intact - Respiratory Respiratory exam IM: Present: CTAB - Constitutional Vitals: Temp Pulse Resp BP Pulse Ox 97.4 F L 83 18 130/95 98 11/09/17 08:50 11/09/17 08:50 11/09/17 08:50 11/09/17 08:50 11/08/17 17:55 General appearance: well-groomed, well-nourished, disheveled, obese - Musculoskeletal Gait: slow Station: relaxed Strength & Tone: normal for patient - Psychiatric Patient Orientation: Yes Person, Yes Time, Yes Place Level of alertness: Alert Behavior: uncooperative, guarded Psychomotor activity: Increased Eye Contact: Minimal Contact Mood Description: Irritable Affect description: blunted Speech Volume: Normal Speech pattern: slowed Language & Vocabulary: consistent with education Thought Process: Thought Blocking Thought Content: Yes Preoccupation, Yes Paranoid delusion Perceptual Disturbances: Yes Auditory hallucinations, Yes Visual hallucinations Attention Span Ability: Unable to Sustain Attention Memory Description: Grossly Intact Patient Reliability: Questionable Historian Fund of knowledge: Yes abstraction ability Intelligence Estimate: Average Judgment: Poor Insight: Minimal Results - Labs Labs: Laboratory Last Values WBC 9.0 K/mcL (4.3-11.1) 11/08/17 19:12 RBC 4.97 M/mcL (4.19-5.50) 11/08/17 19:12 Hgb 14.1 g/dL (12.9-16.9) 11/08/17 19:12 Hct 42.4 % (37.5-50.1) 11/08/17 19:12 MCV 85.3 fL (83.0-100.0) 11/08/17 19:12 MCH 28.4 pg (28.0-33.3) 11/08/17 19:12 MCHC 33.3 g/dL (31.6-35.5) 11/08/17 19:12 RDW 13.4 % (11.5-14.5) 11/08/17 19:12 Plt Count 193 K/mcL (140-400) 11/08/17 19:12 MPV 12.6 fL (9.4-12.4) H 11/08/17 19:12 Immature Gran % 0.2 % (0-4) 11/08/17 19:12 Seg Neutrophils % 55.0 % 11/08/17 19:12 Lymphocytes % 34.3 % 11/08/17 19:12 Monocytes % 8.3 % 11/08/17 19:12 Eosinophils % 1.8 % 11/08/17 19:12 Basophils % 0.4 % 11/08/17 19:12 Neutrophils # 4.9 K/mcL (1.6-8.9) 11/08/17 19:12 Lymphocytes # 3.1 K/mcL (0.6-4.6) 11/08/17 19:12 Monocytes # 0.7 K/mcL (0.0-1.3) 11/08/17 19:12 Eosinophils # 0.2 K/mcL (0.0-0.6) 11/08/17 19:12 Basophils # 0.0 K/mcL (0.0-0.2) 11/08/17 19:12 Sodium 142 mEq/L (136-145) 11/08/17 19:12 Potassium 3.8 mEq/L (3.5-5.1) 11/08/17 19:12 Chloride 110 mEq/L (98-107) H 11/08/17 19:12 Carbon Dioxide 22 mEq/L (23-29) L 11/08/17 19:12 BUN 16 mg/dL (6-20) 11/08/17 19:12 Creatinine 0.76 mg/dL (0.70-1.30) 11/08/17 19:12 Est GFR ( Amer) > 60 (> 60) 11/08/17 19:12 Est GFR (Non-Af Amer) > 60 (> 60) 11/08/17 19:12 BUN/Creatinine Ratio 21 (6-26) 11/08/17 19:12 Glucose 101 mg/dL (70-105) 11/08/17 19:12 Calculated Osmolality 295 (280-300) 11/08/17 19:12 Calcium 9.1 mg/dL (8.6-10.3) 11/08/17 19:12 Total Bilirubin 0.4 mg/dL (0.3-1.0) 11/08/17 19:12 Direct Bilirubin 0.1 mg/dL (0.0-0.2) 11/08/17 19:12 Indirect Bilirubin 0.3 mg/dL (0.0-1.2) 11/08/17 19:12 AST 13 Units/L (13-39) 11/08/17 19:12 ALT 13 Units/L (7-52) 11/08/17 19:12 Alkaline Phosphatase 48 Units/L (34-104) 11/08/17 19:12 Serum Total Protein 7.0 g/dL (6.4-8.9) 11/08/17 19:12 Albumin 4.1 g/dL (3.5-5.7) 11/08/17 19:12 Globulin 2.9 g/dL (2.4-3.5) 11/08/17 19:12 Albumin/Globulin Ratio 1.4 (1.1-2.2) 11/08/17 19:12 Urine Color Dark Yellow (Yellow) 11/08/17 18:24 Urine Clarity Clear (Clear) 11/08/17 18:24 Urine pH 6.0 pH Units (5.0-8.0) 11/08/17 18:24 Ur Specific [place] > 1.030 (1.010-1.025) H 11/08/17 18:24 Urine Protein Trace mg/dL (Neg-Trace) 11/08/17 18:24 Urine Glucose (UA) Normal mg/dL (Normal) 11/08/17 18:24 Urine Ketones Trace mg/dL (Negative) H 11/08/17 18:24 Urine Blood Negative (Negative) 11/08/17 18:24 Urine Nitrite Negative (Negative) 11/08/17 18:24 Urine Bilirubin Small (Negative) H 11/08/17 18:24 Urine Urobilinogen Normal mg/dL (Normal) 11/08/17 18:24 Ur Leukocyte Esterase Negative (Negative) 11/08/17 18:24 Urine Microscopic RBC 5-15 per hpf (0-3) H 11/08/17 18:24 Urine Microscopic WBC 3-5 per hpf (0-3) H 11/08/17 18:24 Ur Squamous Epith Cells Many per lpf (None-Few) H 11/08/17 18:24 Urine Bacteria None Seen per hpf (None-Few) 05/02/18 18:24 Hyaline Casts None Seen per lpf (None-Few) 11/08/17 18:24 Random Vancomycin Cancelled 11/08/17 19:12 Salicylates < 2.5 mg/dL (15.0-30.0) L 11/08/17 19:12 Urine Opiates Screen Negative ng/mL (Ufnfob=213) 11/08/17 18:24 Acetaminophen < 10 mcg/mL (10-20) L 11/08/17 19:12 Ur Barbiturates Screen Negative ng/mL (Ejspbm=177) 11/08/17 18:24 Valproic Acid 59 mcg/mL (50-100) 11/08/17 19:12 Ur Phencyclidine Scrn Negative ng/mL (Cutoff=25) 11/08/17 18:24 Ur Amphetamines Screen Negative ng/mL (Zxbrei=5785) 11/08/17 18:24 U Benzodiazepines Scrn Negative ng/mL (Tvyeec=037) 11/08/17 18:24 Urine Cocaine Screen Negative ng/mL (Cutoff= 300) 11/08/17 18:24 U Marijuana (THC) Screen Positive ng/mL (Cutoff = 50) H 11/08/17 18:24 Ethyl Alcohol < 10 mg/dL (Less than 10) 11/08/17 19:12 Assessment and Plan (1) Schizoaffective disorder, bipolar type Current visit: No Status: Acute Plan: Admit inpatient for safety and stabilization, Close observation, Suicide Precautions per unit protocol, Encourage participation in unit milieu, Group Therapy, Monitor sleep, Monitor appetite, Secure weapons, Family/Supportive other meeting Additional Plan: Patient will be started on invega and plan to give long acting injection as non compliance and multiple inpatient secondary to non compliance. Risks, benefits, side effects, alternatives discussed w/pt: Yes Patient agreeable to treatment: Yes Plans for Post Hospital Care: at Home Estimated Length of Stay (Days): 5 (2) Cannabis abuse Current visit: Yes Status: Chronic Plan: Admit inpatient for safety and stabilization, Suicide Precautions per unit protocol, Encourage participation in unit milieu, Group Therapy, Monitor sleep, Monitor appetite, Family/Supportive other meeting Risks, benefits, side effects, alternatives discussed w/pt: Yes Patient agreeable to treatment : Yes Plans for Post Hospital Care: at Home
[2017-11-09] MEDS: Divalproex (12 HR) 500 MG TABLET PO SCH ×2 (11:55→21:09)
[2017-11-09] MEDS: Nicotine 2 MG GUM BC PRN ×2 (15:18→21:06)
[2017-11-09] MEDS: *HR* LORazepam 1 MG TABLET PO PRN (18:11)
[2017-11-09] MEDS: traZODone 50 MG TABLET PO PRN (21:19)
[2017-11-10] MEDS: hydrOXYzine pamoate 25 MG CAPSULE PO PRN (05:45)
[2017-11-10] MEDS: Divalproex (12 HR) 500 MG TABLET PO SCH ×2 (09:23→20:53)
--- NOTE | 2017-11-10 11:59 | Psychiatry Progress Note ---
Date of Encounter: 11/10/17 Time of Encounter: 11:44 Subjective Interval history: Patient seen today case d/w treatment team , last night had to be redirected as was having psychosis and some agitation. Today states I am better, voices are still there and constantly telling him he is going to hell, he is internally preoccupied. in his room states it is scarier to be awake so i sleep and in my room. remains psychotic. zydid prn 5 ng q 6h given for agitation and continue invega , will increase dose slowly. patient agreed with long acting injection. he remained restless and did not wanted to talk more. denies side effects. Review of Systems Psychiatric: Reports: abnormal sleep pattern, auditory hallucinations, irritability, mood swings Results - Vital Signs Vital Signs: Temp Pulse Resp BP Pulse Ox 97.9 F 74 18 116/86 98 11/10/17 09:00 11/10/17 09:00 11/10/17 09:00 11/10/17 09:00 11/08/17 17:55 Assessment and Plan (1) Schizoaffective disorder, bipolar type Current visit: No Status: Acute Plan: Continue hospitalization, Close observation, Suicide Precautions per unit protocol, Encourage participation in unit milieu, Group Therapy, Monitor sleep, Monitor appetite, Family/Supportive other meeting Risks, benefits, side effects, alternatives discussed w/pt: Yes Patient agreeable to treatment: Yes (2) Cannabis abuse Current visit: Yes Status: Chronic Risks, benefits, side effects, alternatives discussed w/pt: Yes Patient agreeable to treatment: Yes Consult Discharge Plan - Plan Referrals: Amalia Tejada [facility] [Outside] - 11/23/17 11:00 am (The above appointment is with Darion Chávez for outpatient mental health counseling services. You will also see Dena English for outpatient psychiatric assessment and medication management services on 12/28/2017 at 2:30pm.) Psychiatry Exam - Constitutional Vitals: Temp Pulse Resp BP Pulse Ox 97.9 F 74 18 116/86 98 11/10/17 09:00 11/10/17 09:00 11/10/17 09:00 11/10/17 09:00 11/08/17 17:55 General appearance: age & developmentally appropriate, well-groomed, well- nourished - Musculoskeletal Gait: slow Station: relaxed Strength & Tone: normal for patient - Psychiatric Patient Orientation: Yes Person, Yes Time, Yes Place Level of alertness: Alert Behavior: uncooperative, guarded, distractible Psychomotor activity: Increased Eye Contact: Minimal Contact Mood Description: Anxious, Irritable Affect description: blunted Speech Volume: Normal Speech pattern: slowed Language & Vocabulary: limited Thought Process: Thought Blocking Thought Content: Yes Preoccupation, Yes Paranoid delusion Perceptual Disturbances: Yes Reacting to internal stimuli, Yes Auditory hallucinations Attention Span Ability: Unable to Sustain Attention Memory Description: Grossly Intact Patient Reliability: Reliable Historian Fund of knowledge: Yes abstraction ability Intelligence Estimate: Average Judgment: Limited Insight: Minimal
[2017-11-10] MEDS: traZODone 50 MG TABLET PO PRN (22:11)
[2017-11-10] MEDS: Nicotine 2 MG GUM BC PRN (22:11)
[2017-11-10] MEDS: *HR* LORazepam 1 MG TABLET PO PRN (23:50)
[2017-11-11] MEDS: Divalproex (12 HR) 500 MG TABLET PO SCH ×2 (09:16→20:32)
--- NOTE | 2017-11-11 11:48 | Psychiatry Progress Note ---
Date of Encounter: 11/11/17 Time of Encounter: 11:25 Subjective Interval history: Patient seen today , case d/w staff . I am fine today but poor eye contact , does not want to talk , somewhat restless , dishelved, sleep good as per him. give answer in short sentence or one word. voices are still there and he is irritable, paranoid and anxious. will increase invega to 6 mg , plan to switch to injectable which he agreed. i am agitatd when asked about homicide thoughts, denied suicidal thoughts, denies side effects. continue stabilization for psychosis and agitation. Review of Systems Psychiatric: Reports: abnormal sleep pattern, auditory hallucinations, irritability, mood swings Results - Vital Signs Vital Signs: Temp Pulse Resp BP Pulse Ox 98.2 F 98 18 137/88 98 11/10/17 20:14 11/10/17 20:14 11/10/17 20:14 11/10/17 20:14 11/08/17 17:55 Assessment and Plan (1) Schizoaffective disorder, bipolar type Current visit: No Status: Acute Plan: Continue hospitalization, Close observation, Suicide Precautions per unit protocol, Encourage participation in unit milieu, Group Therapy, Monitor sleep, Monitor appetite, Family/Supportive other meeting Risks, benefits, side effects, alternatives discussed w/pt: Yes Patient agreeable to treatment: Yes (2) Cannabis abuse Current visit: Yes Status: Chronic Risks, benefits, side effects, alternatives discussed w/pt: Yes Patient agreeable to treatment: Yes Consult Discharge Plan - Plan Referrals: Amalia Tejada [facility] [Outside] - 11/23/17 11:00 am (The above appointment is with Darion Chávez for outpatient mental health counseling services. You will also see Dena English for outpatient psychiatric assessment and medication management services on 12/28/2017 at 2:30pm.) Psychiatry Exam - Constitutional Vitals: Temp Pulse Resp BP Pulse Ox 98.2 F 98 18 137/88 98 11/10/17 20:14 11/10/17 20:14 11/10/17 20:14 11/10/17 20:14 11/08/17 17:55 General appearance: disheveled - Musculoskeletal Gait: normal Station: other Strength & Tone: normal for patient - Psychiatric Patient Orientation: Yes Person, Yes Time, Yes Place Level of alertness: Alert Behavior: uncooperative, guarded, distractible Psychomotor activity: Increased Eye Contact: Minimal Contact Mood Description: Anxious, Irritable Affect description: blunted Speech Volume: Normal Speech pattern: slowed Language & Vocabulary: consistent with education Thought Process: Linear, Goal Oriented Thought Content: Yes Paranoid delusion Perceptual Disturbances: Yes Auditory hallucinations Attention Span Ability: Unable to Sustain Attention Memory Description: Grossly Intact Patient Reliability: Reliable Historian Fund of knowledge: Yes average Intelligence Estimate: Average Judgment: Limited Insight: Minimal
[2017-11-11] MEDS: Nicotine 2 MG GUM BC PRN (13:59)
[2017-11-11] MEDS: *HR* LORazepam 1 MG TABLET PO PRN (17:06)
[2017-11-11] MEDS: OLANZapine 5 MG TAB.RAPDIS PO PRN (17:06)
[2017-11-11] MEDS: traZODone 50 MG TABLET PO PRN (20:32)
--- NOTE | 2017-11-12 10:53 | Psychiatry Progress Note ---
Date of Encounter: 11/12/17 Time of Encounter: 10:28 Subjective Interval history: Patient seen today , case d/w staff no event last night. Patient has been compliant with his medication , but not attending groups ad in his room , isolative, he has not been agitated but is preoccupied internally , talking to self at times in session and admits to auditory hallucination and visual hallucination ,he is dishelved and has unkempt hair, denies side effects Continue stabilization as patient remains psychotic with a/v hallucinations, paranoia , invega was increased to 6 mg and after one week can be given invega sustenna which he has agreed to take. Review of Systems Psychiatric: Reports: abnormal sleep pattern, auditory hallucinations, irritability, mood swings Results - Vital Signs Vital Signs: Temp Pulse Resp BP Pulse Ox 98.3 F 98 18 134/90 98 11/11/17 20:36 11/11/17 20:36 11/11/17 20:36 11/11/17 20:36 11/08/17 17:55 Assessment and Plan (1) Schizoaffective disorder, bipolar type Current visit: No Status: Acute Plan: Continue hospitalization, Close observation, Suicide Precautions per unit protocol, Encourage participation in unit milieu, Group Therapy, Monitor sleep, Monitor appetite, Secure weapons, Family/Supportive other meeting Risks, benefits, side effects, alternatives discussed w/pt: Yes Patient agreeable to treatment: Yes (2) Cannabis abuse Current visit: Yes Status: Chronic Risks, benefits, side effects, alternatives discussed w/pt: Yes Patient agreeable to treatment: Yes Consult Discharge Plan - Plan Referrals: Amalia Tejada [facility] [Outside] - 11/23/17 11:00 am (The above appointment is with Darion Chávez for outpatient mental health counseling services. You will also see Dena English for outpatient psychiatric assessment and medication management services on 12/28/2017 at 2:30pm.) Psychiatry Exam - Constitutional Vitals: Temp Pulse Resp BP Pulse Ox 98.3 F 98 18 134/90 98 11/11/17 20:36 11/11/17 20:36 11/11/17 20:36 11/11/17 20:36 11/08/17 17:55 General appearance: disheveled - Musculoskeletal Gait: slow Station: other Strength & Tone: normal for patient - Psychiatric Patient Orientation: Yes Person, Yes Time, Yes Place Level of alertness: Alert Behavior: guarded, distractible Psychomotor activity: Catatonic Mood Description: Anxious, Irritable Affect description: blunted Speech Volume: Soft/Quiet Speech pattern: slowed Language & Vocabulary: consistent with education Thought Process: Slowed Thinking Thought Content: Yes Preoccupation, Yes Paranoid delusion Perceptual Disturbances: Yes Reacting to internal stimuli, Yes Auditory hallucinations, Yes Visual hallucinations Attention Span Ability: Unable to Sustain Attention Memory Description: Grossly Intact Patient Reliability: Reliable Historian Fund of knowledge: Yes average Intelligence Estimate: Average Judgment: Limited Insight: Minimal
[2017-11-12] MEDS: Divalproex (12 HR) 500 MG TABLET PO SCH ×2 (10:57→20:31)
[2017-11-12] MEDS: Nicotine 2 MG GUM BC PRN (18:05)
[2017-11-12] MEDS: traZODone 50 MG TABLET PO PRN (22:31)
[2017-11-13] MEDS: OLANZapine 5 MG TAB.RAPDIS PO PRN (00:36)
[2017-11-13] MEDS: *HR* LORazepam 1 MG TABLET PO PRN (00:36)
[2017-11-13] MEDS: Divalproex (12 HR) 500 MG TABLET PO SCH ×2 (09:23→20:36)
--- NOTE | 2017-11-13 12:04 | Psychiatry Progress Note ---
Date of Encounter: 11/13/17 Time of Encounter: 09:10 Subjective Interval history: Jorge Alberto is seen today for follow-up of his schizoaffective disorder. Patient's case was reviewed in treatment team and previous notes reviewed.. He really presented to the hospital with severe paranoia and auditory hallucinations. Patient reports he does continue to hear voices and they tell him that they are going to do bad things to him. He remains scared. Patient states he has difficulty trusting people because he is worried someone might hurt him. He is willing to continue to take the Invega. Discussed the possibility of IM injection on discharge and patient is still agreeable. He is taking Zyprexa when necessary for severe agitation and psychosis. Patient reports some difficulty sleeping but remains a poor historian at times and is not able to give much more detail. Per nursing notes patient only slept about 4 hours and was very restless last night and he did receive Zyprexa dose at that time. Review of Systems Constitutional: Denies: fever, chills, weakness, weight change Eyes: Denies: eye pain, vision change Ears, Nose, Throat: Denies: ear pain, throat pain, dental pain, hearing loss, congestion Cardiovascular: Denies: chest pain, palpitations, dyspnea on exertion Respiratory: Denies: cough, dyspnea, wheezes Gastrointestinal: Denies: abdominal pain, nausea, vomiting, diarrhea, constipation Musculoskeletal: Denies: joint swelling, joint pain Neurological: Denies: headache, weakness, numbness, memory loss Psychiatric: Reports: anxiety, abnormal sleep pattern, auditory hallucinations, difficulty concentrating, irritability, mood swings, panic attacks Results - Vital Signs Vital Signs: Temp Pulse Resp BP Pulse Ox 98.2 F 84 18 148/95 98 11/12/17 20:08 11/12/17 20:08 11/12/17 20:08 11/12/17 20:08 11/08/17 17:55 Assessment and Plan (1) Schizoaffective disorder, bipolar type Current visit: No Status: Acute Plan: Continue hospitalization, Close observation, Suicide Precautions per unit protocol, Encourage participation in unit milieu, Group Therapy, Monitor sleep, Monitor appetite Additional Plan: Patient remains psychotic. We will continue Invega with plans to potentially increase and uses injectable on discharge. Probate paperwork will be filed as patient is unable to consent to voluntary admission secondary to mental status. We will encourage group attendance when possible. Monitor sleep patterns. Risks, benefits, side effects, alternatives discussed w/pt: Yes Patient agreeable to treatment: Yes (2) Cannabis abuse Current visit: Yes Status: Chronic Additional Plan: Discharge patient's cannabis use as this may be affecting his mood and psychotic disorder. Risks, benefits, side effects, alternatives discussed w/pt: Yes Patient agreeable to treatment: Yes Consult Discharge Plan - Plan Referrals: [place] [facility] Tejada [facility] [Outside] - 11/23/17 11:00 am (The above appointment is with Darion Chávez for outpatient mental health counseling services. You will also see Dena English for outpatient psychiatric assessment and medication management services on 12/28/2017 at 2:30pm.) Psychiatry Exam - Constitutional Vitals: Temp Pulse Resp BP Pulse Ox 98.2 F 84 18 148/95 98 11/12/17 20:08 11/12/17 20:08 11/12/17 20:08 11/12/17 20:08 11/08/17 17:55 General appearance: disheveled, obese - Musculoskeletal Gait: normal Station: stiff Strength & Tone: normal for patient - Psychiatric Patient Orientation: Yes Person, Yes Place Level of alertness: Alert Behavior: guarded, suspicious Psychomotor activity: Slowed Eye Contact: Diverts Contact Mood Description: Other (Patient reports that he is scared.) Affect description: flat, incongruent with mood Speech Volume: Normal Speech pattern: slowed Language & Vocabulary: limited, difficulty finding words Thought Process: Thought Blocking, [place], Slowed Thinking Thought Content: No Suicidal ideation, No Homicidal ideation, Yes Paranoid delusion Perceptual Disturbances: Yes Reacting to internal stimuli, Yes Auditory hallucinations Attention Span Ability: Unable to Focus Memory Description: Immediate Intact, Recent Impaired, Remote Impaired Patient Reliability: Questionable Historian Fund of knowledge: Yes average Intelligence Estimate: Average Judgment: Limited Insight: Minimal
[2017-11-13] MEDS: traZODone 50 MG TABLET PO PRN (20:36)
[2017-11-13] MEDS: hydrOXYzine pamoate 25 MG CAPSULE PO PRN (22:15)
[2017-11-14] MEDS: Acetaminophen 325 MG TABLET PO PRN (01:00)
[2017-11-14] MEDS: *HR* LORazepam 1 MG TABLET PO PRN ×2 (03:00→22:14)
--- NOTE | 2017-11-14 08:21 | Psychiatry Progress Note ---
Date of Encounter: 11/14/17 Time of Encounter: 08:20 Subjective Interval history: Amadou is a 31-year-old male with schizoaffective disorder bipolar type who is seen today for follow-up. He remained withdrawn to his room. Patient has minimal interaction with staff and then only to get needs met. He does appear to be responding to internal stimuli at times. He reports this morning that he is still scared and has feelings of paranoia that are very strong today. He denies side effects from the Invega. He slept about 2-1/2 hours last night. Patient willing to adjust sleep meds. Review of Systems ROS limited: due to patient condition Psychiatric: Reports: anxiety, abnormal sleep pattern, auditory hallucinations, difficulty concentrating, irritability, mood swings, panic attacks Results - Vital Signs Vital Signs: Temp Pulse Resp BP Pulse Ox 97.5 F L 91 18 130/80 98 11/13/17 21:00 11/13/17 21:00 11/13/17 21:00 11/13/17 21:00 11/08/17 17:55 Assessment and Plan (1) Schizoaffective disorder, bipolar type Current visit: No Status: Acute Plan: Continue hospitalization, Close observation, Suicide Precautions per unit protocol, Encourage participation in unit milieu, Group Therapy, Monitor sleep, Monitor appetite Additional Plan: Plan to increase Invega once he has been on 6mg dosage for 4 days. Increase trazodone to 100 mg by mouth daily at bedtime for improvement in sleep. Encourage appropriate ADLs. Plan for probate hearing. Risks, benefits, side effects, alternatives discussed w/pt: Yes Patient agreeable to treatment: Yes (2) Cannabis abuse Current visit: Yes Status: Chronic Risks, benefits, side effects, alternatives discussed w/pt: Yes Patient agreeable to treatment: Yes Consult Discharge Plan - Plan Referrals: Amalia Tejada [facility] [Outside] - 11/23/17 11:00 am (The above appointment is with Darion Chávez for outpatient mental health counseling services. You will also see Dena English for outpatient psychiatric assessment and medication management services on 12/28/2017 at 2:30pm.) Psychiatry Exam - Constitutional Vitals: Temp Pulse Resp BP Pulse Ox 97.5 F L 91 18 130/80 98 11/13/17 21:00 11/13/17 21:00 11/13/17 21:00 11/13/17 21:00 11/08/17 17:55 General appearance: unkempt, disheveled - Musculoskeletal Gait: slow Station: stiff Strength & Tone: normal for patient - Psychiatric Patient Orientation: Yes Person, Yes Circumstance Level of alertness: Alert Behavior: guarded, suspicious Psychomotor activity: Slowed Eye Contact: Diverts Contact Mood Description: Anxious Affect description: flat Speech Volume: Normal Speech pattern: normal rate, normal rhythm, normal tone Language & Vocabulary: limited Thought Process: Thought Blocking, Disorganized, Slowed Thinking Thought Content: No Suicidal ideation, No Homicidal ideation, Yes Paranoid delusion, Yes Gnosticism delusion Perceptual Disturbances: Yes Reacting to internal stimuli, Yes Auditory hallucinations Attention Span Ability: Unable to Focus, Unable to Sustain Attention Memory Description: Immediate Intact Patient Reliability: Not Reliable Historian Fund of knowledge: Yes average Intelligence Estimate: Average Judgment: Limited Insight: Minimal
[2017-11-14] MEDS: Divalproex (12 HR) 500 MG TABLET PO SCH ×2 (08:53→20:41)
[2017-11-14] MEDS: hydrOXYzine pamoate 25 MG CAPSULE PO PRN ×2 (17:23→20:41)
[2017-11-14] MEDS: OLANZapine 5 MG TAB.RAPDIS PO PRN (20:43)
[2017-11-14] MEDS ORDERED: traZODone 50 MG TABLET PO PRN (21:00)
[2017-11-15] MEDS: Divalproex (12 HR) 500 MG TABLET PO SCH ×2 (09:00→21:14)
--- NOTE | 2017-11-15 11:17 | Psychiatry Progress Note ---
Date of Encounter: 11/15/17 Time of Encounter: 09:00 Subjective Interval history: Patient seen today multiple times for follow-up of his schizoaffective disorder. He is initially not agreeable to taking Invega shot. Patient would like to go home. He remains very paranoid, delusional, agitated at times. He is more organized today than in previous days. Patient finally decides he is willing to take the shot. He will continue to take his meds by mouth until it is time for transitioning to IM medication. He is still struggling with sleep issues. Staff report patient is very restless at nighttime. He also appears religiously preoccupied at times. Review of Systems ROS limited: due to patient condition Psychiatric: Reports: anxiety, abnormal sleep pattern, auditory hallucinations, difficulty concentrating, irritability, mood swings, panic attacks Results - Vital Signs Vital Signs: Temp Pulse Resp BP Pulse Ox 97.8 F 70 18 124/85 98 11/15/17 09:00 11/15/17 09:00 11/15/17 09:00 11/15/17 09:00 11/08/17 17:55 Assessment and Plan (1) Schizoaffective disorder, bipolar type Current visit: No Status: Acute Plan: Continue hospitalization, Close observation, Suicide Precautions per unit protocol, Encourage participation in unit milieu, Group Therapy, Monitor sleep, Monitor appetite Additional Plan: Increase Invega to 9 mg by mouth daily. Increase trazodone to 200 mg by mouth daily at bedtime for improvement in sleep. Encourage appropriate ADLs. Probate hearing tomorrow. Risks, benefits, side effects, alternatives discussed w/pt: Yes Patient agreeable to treatment: Yes (2) Cannabis abuse Current visit: Yes Status: Chronic Risks, benefits, side effects, alternatives discussed w/pt: Yes Patient agreeable to treatment: Yes Consult Discharge Plan - Plan Referrals: Amalia Tejada [facility] [Outside] - 11/23/17 11:00 am (The above appointment is with Darion Chávez for outpatient mental health counseling services. You will also see Dena English for outpatient psychiatric assessment and medication management services on 12/28/2017 at 2:30pm.) Psychiatry Exam - Constitutional Vitals: Temp Pulse Resp BP Pulse Ox 97.8 F 70 18 124/85 98 11/15/17 09:00 11/15/17 09:00 11/15/17 09:00 11/15/17 09:00 11/08/17 17:55 General appearance: well-nourished, unkempt, disheveled - Musculoskeletal Gait: brisk Station: slouched Strength & Tone: normal for patient - Psychiatric Patient Orientation: Yes Person, Yes Circumstance Level of alertness: Alert Behavior: guarded, suspicious Psychomotor activity: Increased Eye Contact: Intense Contact Mood Description: Euthymic/stable Affect description: flat Speech Volume: Normal Speech pattern: disorganized, rambling Language & Vocabulary: limited Thought Process: [place] Thought Content: No Suicidal ideation, No Homicidal ideation, Yes Paranoid delusion, Yes Orthodoxy delusion, Yes Grandiose delusion Perceptual Disturbances: Yes Reacting to internal stimuli, Yes Auditory hallucinations, No Visual hallucinations Attention Span Ability: Unable to Focus, Unable to Sustain Attention Memory Description: Immediate Intact, Recent Impaired, Remote Impaired Patient Reliability: Not Reliable Historian Fund of knowledge: Yes average Intelligence Estimate: Average Judgment: Poor Insight: None
[2017-11-15] MEDS: Nicotine 2 MG GUM BC PRN (12:46)
[2017-11-15] MEDS: OLANZapine 5 MG TAB.RAPDIS PO PRN (17:53)
[2017-11-15] MEDS: *HR* LORazepam 1 MG TABLET PO PRN (17:53)
[2017-11-15] MEDS: traZODone 50 MG TABLET PO SCH (21:14)
[2017-11-16] MEDS: Divalproex (12 HR) 500 MG TABLET PO SCH ×2 (08:49→21:00)
--- NOTE | 2017-11-16 12:16 | Psychiatry Progress Note ---
Date of Encounter: 11/16/17 Time of Encounter: 10:35 Subjective Interval history: Brain is seen today for follow-up of his schizoaffective disorder. He denies issues with increase in his medication. He is now willing to entertain IM Invega shot prior to discharge. Last night he reported visual hallucinations and seeing demons. He continues to be agitated at times. He does appear to be repot responding to internal stimuli at times. He remains religiously preoccupied. Review of Systems ROS limited: due to patient condition Psychiatric: Reports: anxiety, abnormal sleep pattern, auditory hallucinations, difficulty concentrating, irritability, mood swings, panic attacks Results - Vital Signs Vital Signs: Temp Pulse Resp BP Pulse Ox 97.3 F L 78 18 117/82 98 11/16/17 09:00 11/16/17 09:00 11/16/17 09:00 11/16/17 09:00 11/08/17 17:55 Assessment and Plan (1) Schizoaffective disorder, bipolar type Current visit: No Status: Acute Plan: Continue hospitalization, Close observation, Suicide Precautions per unit protocol, Encourage participation in unit milieu, Group Therapy, Monitor sleep, Monitor appetite Additional Plan: Continue current dosage of Invega as this was just adjusted yesterday. Plan for long-acting injectable version on discharge. Probate hearing today. Risks, benefits, side effects, alternatives discussed w/pt: Yes Patient agreeable to treatment: Yes (2) Cannabis abuse Current visit: Yes Status: Chronic Risks, benefits, side effects, alternatives discussed w/pt: Yes Patient agreeable to treatment: Yes Consult Discharge Plan - Plan Referrals: Amalia Tejada [facility] [Outside] - 11/23/17 11:00 am (The above appointment is with Darion Chávez for outpatient mental health counseling services. You will also see Dena English for outpatient psychiatric assessment and medication management services on 12/28/2017 at 2:30pm. [facility] Transportation will take you back and forth for both of these appointments. It is very important to keep your transportation schedule in order to continue receiving services.) Psychiatry Exam - Constitutional Vitals: Temp Pulse Resp BP Pulse Ox 97.3 F L 78 18 117/82 98 11/16/17 09:00 11/16/17 09:00 11/16/17 09:00 11/16/17 09:00 11/08/17 17:55 General appearance: disheveled, bizarre - Musculoskeletal Gait: slow Station: stiff Strength & Tone: normal for patient - Psychiatric Patient Orientation: Yes Person, Yes Place Level of alertness: Alert Behavior: guarded, suspicious Psychomotor activity: Normal Eye Contact: Intense Contact Mood Description: Euthymic/stable Affect description: flat, dysphoric Speech pattern: slowed, limited Language & Vocabulary: limited Thought Process: Thought Blocking, Slowed Thinking Thought Content: No Suicidal ideation, No Homicidal ideation, Yes Paranoid delusion, Yes Confucianism delusion Perceptual Disturbances: Yes Reacting to internal stimuli, Yes Auditory hallucinations, Yes Visual hallucinations Attention Span Ability: Unable to Focus, Unable to Sustain Attention Memory Description: Immediate Intact, Recent Impaired, Remote Impaired Patient Reliability: Not Reliable Historian Fund of knowledge: No abstraction ability, Yes average, No aware of current events Intelligence Estimate: Average Judgment: Limited Insight: Minimal
[2017-11-16] MEDS: Nicotine 2 MG GUM BC PRN (15:50)
[2017-11-16] MEDS: hydrOXYzine pamoate 25 MG CAPSULE PO PRN (21:01)
[2017-11-16] MEDS: Acetaminophen 325 MG TABLET PO PRN (21:01)
[2017-11-16] MEDS: traZODone 50 MG TABLET PO SCH (21:04)
[2017-11-16] MEDS: OLANZapine 5 MG TAB.RAPDIS PO PRN (21:42)
[2017-11-17] MEDS: Divalproex (12 HR) 500 MG TABLET PO SCH ×2 (08:54→21:06)
--- NOTE | 2017-11-17 13:14 | Psychiatry Progress Note ---
Date of Encounter: 11/17/17 Time of Encounter: 11:00 Subjective Interval history: Amadou is seen today for follow-up. Patient continues to verbalize an understanding of the back he needs to take the by mouth medications prior to being given the shot. He did become agitated last night secondary to another patient creating a disturbance. He did require when necessary medications. Today he continues to report auditory hallucinations. Thought blocking noted on interview. Encouraged patient to shower. Review of Systems Psychiatric: Reports: anxiety, abnormal sleep pattern, auditory hallucinations, difficulty concentrating, irritability, mood swings, panic attacks Results - Vital Signs Vital Signs: Temp Pulse Resp BP Pulse Ox 97.8 F 73 20 120/79 98 11/17/17 09:00 11/17/17 09:00 11/17/17 09:00 11/17/17 09:00 11/08/17 17:55 Assessment and Plan (1) Schizoaffective disorder, bipolar type Current visit: No Status: Acute Plan: Continue hospitalization, Close observation, Suicide Precautions per unit protocol, Encourage participation in unit milieu, Group Therapy, Monitor sleep, Monitor appetite Additional Plan: Patient is tolerating by mouth Invega. Plan to give IM shot on date of discharge. Recommended dosing one-shot upon discharge and one shot about a week after discharge and then once monthly. Continue to monitor for improvement and continue hospitalization until patient is stabilized. Risks, benefits, side effects, alternatives discussed w/pt: Yes Patient agreeable to treatment: Yes (2) Cannabis abuse Current visit: Yes Status: Chronic Risks, benefits, side effects, alternatives discussed w/pt: Yes Patient agreeable to treatment: Yes Consult Discharge Plan - Plan Referrals: Amalia Tejada [facility] [Outside] - 11/23/17 11:00 am (The above appointment is with Darion Chávez for outpatient mental health counseling services. You will also see Dena English for outpatient psychiatric assessment and medication management services on 12/28/2017 at 2:30pm. [facility] Transportation will take you back and forth for both of these appointments. It is very important to keep your transportation schedule in order to continue receiving services.) Psychiatry Exam - Constitutional Vitals: Temp Pulse Resp BP Pulse Ox 97.8 F 73 20 120/79 98 11/17/17 09:00 11/17/17 09:00 11/17/17 09:00 11/17/17 09:00 11/08/17 17:55 General appearance: unkempt, disheveled - Musculoskeletal Gait: other (Patient lying in bed) Station: relaxed Strength & Tone: normal for patient - Psychiatric Patient Orientation: Yes Person, Yes Time, Yes Place Level of alertness: Alert Behavior: guarded, suspicious Psychomotor activity: Slowed Eye Contact: Diverts Contact Mood Description: Euthymic/stable Affect description: flat Speech Volume: Normal Speech pattern: slowed Language & Vocabulary: limited Thought Process: [place], Slowed Thinking Thought Content: No Suicidal ideation, No Homicidal ideation, Yes Paranoid delusion, Yes Muslim delusion Perceptual Disturbances: Yes Reacting to internal stimuli, Yes Auditory hallucinations, No Visual hallucinations Attention Span Ability: Unable to Focus Memory Description: Immediate Intact, Recent Intact, Remote Impaired Patient Reliability: Not Reliable Historian Fund of knowledge: No abstraction ability, Yes average, Yes aware of current events Intelligence Estimate: Above [place] Judgment: Poor Insight: Minimal
[2017-11-17] MEDS: OLANZapine 5 MG TAB.RAPDIS PO PRN (19:44)
[2017-11-17] MEDS: *HR* LORazepam 1 MG TABLET PO PRN (19:44)
[2017-11-17] MEDS: traZODone 50 MG TABLET PO SCH (21:06)
[2017-11-18] MEDS: Divalproex (12 HR) 500 MG TABLET PO SCH ×2 (10:32→21:11)
[2017-11-18] MEDS: hydrOXYzine pamoate 25 MG CAPSULE PO PRN (14:19)
[2017-11-18] MEDS: OLANZapine 5 MG TAB.RAPDIS PO PRN ×2 (14:20→19:45)
--- NOTE | 2017-11-18 16:35 | Psychiatry Progress Note ---
Date of Encounter: 11/18/17 Time of Encounter: 15:40 Subjective Interval history: Pt is a 31 yo, , male, who presents for Schizoaffective Bipolar type, currently paranoid and religiously preoccupied. Pt noted that he feels he is improving slowly. Pt noted he is optimistic about his paliperidone injection. Pt denied any side effects to current medications. Pt noted he felt safe and comfortable on the unit. Pt was in agreement with current treatment plan. Pt noted that he is doing pretty good today. Pt noted he slept 12 hours last night. Pt noted his appetite is improved. Pt rated his depression a 10, on a scale of zero to ten with ten being the worst and zero being none. Pt rate his anxiety a 10, on the same scale. Pt denied any visual hallucinations. Pt noted Auditory hallucinations of voices telling him your going to hell. Pt denied any thoughts to harm himself or anyone else. Tobacco: 1 ppd Alcohol: Denies Street: weed about 3 times per month. Caffeine: 2-3 drinks per day Pt denies any hx of HIV, Hep C, TBI or Seizures. 1.Interval hx 2.Continue current medications 3.Review current labs 4.Pt had an opportunity to ask questions and discuss current treatment plan. 5.Supportive therapy was provided 6.Pt encouraged to consider group or individual therapy 7.Pt was in agreement with treatment plan. 8.Pt was educated on the risks benefits and side effects of current medications. Review of Systems Psychiatric: Reports: anxiety, abnormal sleep pattern, auditory hallucinations, difficulty concentrating, irritability, mood swings, panic attacks Results - Vital Signs Vital Signs: Temp Pulse Resp BP Pulse Ox 97.6 F 105 18 131/80 98 11/18/17 09:00 11/18/17 09:00 11/18/17 09:00 11/18/17 09:00 11/08/17 17:55 Consult Discharge Plan - Plan Referrals: Amalia Tejada [facility] [Outside] - 11/23/17 11:00 am (The above appointment is with Darion Chávez for outpatient mental health counseling services. You will also see Dena English for outpatient psychiatric assessment and medication management services on 12/28/2017 at 2:30pm. [facility] Transportation will take you back and forth for both of these appointments. It is very important to keep your transportation schedule in order to continue receiving services.) Psychiatry Exam - Constitutional Vitals: Temp Pulse Resp BP Pulse Ox 97.6 F 105 18 131/80 98 11/18/17 09:00 11/18/17 09:00 11/18/17 09:00 11/18/17 09:00 11/08/17 17:55
[2017-11-18] MEDS: *HR* LORazepam 1 MG TABLET PO PRN (19:45)
[2017-11-18] MEDS: Acetaminophen 325 MG TABLET PO PRN (21:11)
[2017-11-18] MEDS: traZODone 50 MG TABLET PO SCH (21:11)
[2017-11-19] MEDS: Divalproex (12 HR) 500 MG TABLET PO SCH ×2 (09:17→20:23)
[2017-11-19] MEDS: Nicotine 2 MG GUM BC PRN (12:52)
[2017-11-19] MEDS: hydrOXYzine pamoate 25 MG CAPSULE PO PRN (12:53)
[2017-11-19] MEDS: OLANZapine 5 MG TAB.RAPDIS PO PRN ×2 (12:53→20:24)
--- NOTE | 2017-11-19 14:00 | Psychiatry Progress Note ---
Date of Encounter: 11/19/17 Time of Encounter: 13:20 Subjective Interval history: Pt is a 31 yo, , male, who presents for Schizoaffective Bipolar type, currently paranoid and religiously preoccupied. Pt continues to note that he feels he is improving slowly. Pt noted he is optimistic about his paliperidone injection, plan to give injection tomorrow 234 mg IM Q28 days with follow up boster injection of 156 mg with in 5-7 days. Pt denied any side effects to current medications. Pt noted he felt safe and comfortable on the unit. Pt was in agreement with current treatment plan. Pt noted that he is doing pretty good today. Pt noted he slept 12 hours last night. Pt noted his appetite is improved. Pt rated his depression a 2, on a scale of zero to ten with ten being the worst and zero being none. Pt rate his anxiety a 8, on the same scale. Pt denied any visual hallucinations. Pt noted occasional Auditory hallucinations of voices telling him your going to hell. Pt noted the auditory hallucinations have reduced significantly. Pt denied any thoughts to harm himself or anyone else. Tobacco: 1 ppd Alcohol: [address]: weed about 3 times per month. Caffeine: 2-3 drinks per day Pt denies any hx of HIV, Hep C, TBI or Seizures. MSE: Alert and Oriented x3 Appearance: neatly groomed dressed in appropriate civilian attire Behavior: friendly, courteous, polite Speech: Fluent, normal tone, normal rate Mood: pretty good Affect: mood congruent Thought content: no HI noted, no SI noted, religiously peroccupied delusions noted Psychosis: noted chronic auditory hallucinations. Thought Process: Linear coherent goal directed however can be circumferential at times. Judgment: poor. Insight: questionable. 1.Interval hx 2.Continue current medications 3.Review current labs 4.Pt had an opportunity to ask questions and discuss current treatment plan. 5.Supportive therapy was provided 6.Pt encouraged to consider group or individual therapy 7.Pt was in agreement with treatment plan. 8.Pt was educated on the risks benefits and side effects of current medications. 9. Start Paliperidone injection 234 mg IM [id number] once medication can be obtained, then follow up with in 5-7 days for booster injection of 156 mg IM for mood. Review of Systems Psychiatric: Reports: anxiety, abnormal sleep pattern, auditory hallucinations, difficulty concentrating, irritability, mood swings, panic attacks Results - Vital Signs Vital Signs: Temp Pulse Resp BP Pulse Ox 98 F 88 14 120/85 98 11/19/17 09:00 11/19/17 09:00 11/19/17 09:00 11/19/17 09:00 11/08/17 17:55 Assessment and Plan (1) Psychosis Current visit: No Status: Acute Qualifiers: Psychosis type: schizoaffective disorder Schizoaffective disorder type: bipolar Qualified Code(s): F25.0 - Schizoaffective disorder, bipolar type (2) Anxiety disorder Current visit: No Status: Acute Qualifiers: Anxiety disorder type: unspecified anxiety disorder Qualified Code(s): F41.9 - Anxiety disorder, unspecified (3) Schizoaffective disorder, bipolar type Current visit: No Status: Acute Risks, benefits, side effects, alternatives discussed w/pt: Yes Patient agreeable to treatment: Yes (4) Suicidal ideation Current visit: No Status: Acute (5) Cannabis abuse Current visit: Yes Status: Chronic Risks, benefits, side effects, alternatives discussed w/pt: Yes Patient agreeable to treatment: Yes Consult Discharge Plan - Plan Referrals: Amalia Tejada [facility] [Outside] - 11/23/17 11:00 am (The above appointment is with Darion Chávez for outpatient mental health counseling services. You will also see Dena English for outpatient psychiatric assessment and medication management services on 12/28/2017 at 2:30pm. [facility] Transportation will take you back and forth for both of these appointments. It is very important to keep your transportation schedule in order to continue receiving services.) Psychiatry Exam - Constitutional Vitals: Temp Pulse Resp BP Pulse Ox 98 F 88 14 120/85 98 11/19/17 09:00 11/19/17 09:00 11/19/17 09:00 11/19/17 09:00 11/08/17 17:55
[2017-11-19] MEDS: traZODone 50 MG TABLET PO SCH (20:24)
[2017-11-19] MEDS: *HR* LORazepam 1 MG TABLET PO PRN (20:24)
[2017-11-19] MEDS ORDERED: Ziprasidone 20 MG CAPSULE PO PRN (21:50)
[2017-11-20] MEDS: Divalproex (12 HR) 500 MG TABLET PO SCH ×2 (09:54→20:21)
[2017-11-20] MEDS: Nicotine 2 MG GUM BC PRN (11:58)
--- NOTE | 2017-11-20 12:24 | Psychiatry Progress Note ---
Date of Encounter: 11/20/17 Time of Encounter: 12:00 Subjective Interval history: Pt is a 31 yo, , male, who presents for Schizoaffective Bipolar type, currently paranoid and religiously preoccupied. Pt continues to note that he feels he is improving slowly, "I am actually happy today....I like what I am on. " Pt noted he is optimistic about his paliperidone injection, plan to give injection when becomes available 234 mg IM Q28 days with follow up boster injection of 156 mg with in 5-7 days. Pt denied any side effects to current medications. Pt noted he felt safe and comfortable on the unit. Pt was in agreement with current treatment plan. Pt noted that he is doing really good I am actually happy today. Pt noted he slept 11 hours last night. Pt noted his appetite is improved. Pt rated his depression a 2, on a scale of zero to ten with ten being the worst and zero being none. Pt rate his anxiety a 8, on the same scale. Pt denied any visual hallucinations. Pt noted occasional Auditory hallucinations of voices "however they are significantly reduced..... Pt denied any thoughts to harm himself or anyone else. Pt noted he feels he is nearing stablilty for D/C home. No TD noted, AIMS= 1 Pt educated on the risks benifits and side-effects of Paliperidone including TD and it can be pernment. Pt agreed to continue current medication and move to injection. Tobacco: 1 ppd Alcohol: [address]: weed about 3 times per month. Caffeine: 2-3 drinks per day MSE: Alert and Oriented x3 Appearance: neatly groomed dressed in appropriate civilian attire Behavior: friendly, courteous, polite Speech: Fluent, normal tone, normal rate Mood: pretty good...I am actually happy Affect: mood congruent Thought content: no HI noted, no SI noted, religiously peroccupied delusions noted however reduced Psychosis: noted chronic auditory hallucinations.however noted significantly reduced Thought Process: Linear coherent goal directed however can be circumferential at times. Judgment: questionable. Insight: questionable. 1.Interval hx 2.Continue current medications 3.Review current labs 4.Pt had an opportunity to ask questions and discuss current treatment plan. 5.Supportive therapy was provided 6.Pt encouraged to consider group or individual therapy 7.Pt was in agreement with treatment plan. 8.Pt was educated on the risks benefits and side effects of current medications. 9. Start Paliperidone injection 234 mg IM [id number] once medication can be obtained, then follow up with in 5-7 days for booster injection of 156 mg IM for mood. Review of Systems Psychiatric: Reports: anxiety, abnormal sleep pattern, auditory hallucinations, difficulty concentrating, irritability, mood swings, panic attacks Results - Vital Signs Vital Signs: Temp Pulse Resp BP Pulse Ox 98.2 F 76 14 119/82 98 11/20/17 09:00 11/20/17 09:00 11/20/17 09:00 11/20/17 09:00 11/08/17 17:55 Assessment and Plan (1) Psychosis Current visit: No Status: Acute Plan: Continue hospitalization Qualifiers: Psychosis type: schizoaffective disorder Schizoaffective disorder type: bipolar Qualified Code(s): F25.0 - Schizoaffective disorder, bipolar type (2) Anxiety disorder Current visit: No Status: Acute Plan: Continue hospitalization Qualifiers: Anxiety disorder type: unspecified anxiety disorder Qualified Code(s): F41.9 - Anxiety disorder, unspecified (3) Schizoaffective disorder, bipolar type Current visit: No Status: Acute Plan: Continue hospitalization Risks, benefits, side effects, alternatives discussed w/pt: Yes Patient agreeable to treatment: Yes (4) Suicidal ideation Current visit: No Status: Acute (5) Cannabis abuse Current visit: Yes Status: Chronic Risks, benefits, side effects, alternatives discussed w/pt: Yes Patient agreeable to treatment: Yes Consult Discharge Plan - Plan Referrals: Amalia Tejada [facility] [Outside] - 11/23/17 11:00 am (The above appointment is with Darion Chávez for outpatient mental health counseling services. You will also see Dena English for outpatient psychiatric assessment and medication management services on 12/28/2017 at 2:30pm. [facility] Transportation will take you back and forth for both of these appointments. It is very important to keep your transportation schedule in order to continue receiving services.) Psychiatry Exam - Constitutional Vitals: Temp Pulse Resp BP Pulse Ox 98.2 F 76 14 119/82 98 11/20/17 09:00 11/20/17 09:00 11/20/17 09:00 11/20/17 09:00 11/08/17 17:55 General appearance: age & developmentally appropriate - Musculoskeletal Gait: normal Strength & Tone: normal for patient - Psychiatric Patient Orientation: Yes Person, Yes Time, Yes Place Level of alertness: Alert Behavior: calm Psychomotor activity: Normal Eye Contact: Maintains Eye Contact Mood Description: Euthymic/stable Affect description: congruent with mood Speech Volume: Normal Speech pattern: normal rate Language & Vocabulary: consistent with education Thought Process: Intact Thought Content: Yes Intact, Yes Preoccupation Perceptual Disturbances: Yes Auditory hallucinations Attention Span Ability: Capable of Focused Attention Memory Description: Grossly Intact Patient Reliability: Questionable Historian Fund of knowledge: Yes average Intelligence Estimate: Average Judgment: Limited Insight: Partial
[2017-11-20] MEDS: hydrOXYzine pamoate 25 MG CAPSULE PO PRN ×2 (13:38→21:59)
[2017-11-20] MEDS ORDERED: (Paliperidone Palmitate [Invega Sustenna] 234 MG) IM SCH (13:45)
[2017-11-20] MEDS: Acetaminophen 325 MG TABLET PO PRN ×2 (17:24→20:28)
[2017-11-20] MEDS: traZODone 50 MG TABLET PO SCH (20:21)
[2017-11-20] MEDS: OLANZapine 5 MG TAB.RAPDIS PO PRN (20:29)
[2017-11-21] MEDS: Divalproex (12 HR) 500 MG TABLET PO SCH (08:20)
[2017-11-21 09:47] VITALS: BP 133/89
--- NOTE | 2017-11-21 10:42 | Discharge Summary ---
Date of Encounter: 11/21/17 Time of Encounter: 10:30 Diagnosis - Discharge Diagnosis (1) Psychosis Priority: Primary Status: Acute Qualifiers: Psychosis type: schizoaffective disorder Schizoaffective disorder type: bipolar Qualified Code(s): F25.0 - Schizoaffective disorder, bipolar type (2) Anxiety disorder Priority: Primary Status: Acute Qualifiers: Anxiety disorder type: unspecified anxiety disorder Qualified Code(s): F41.9 - Anxiety disorder, unspecified (3) Schizoaffective disorder, bipolar type Priority: Primary Status: Acute (4) Suicidal ideation Priority: Primary Status: Acute (5) Cannabis abuse Priority: Secondary Status: Chronic Medications - Discharge Medications Prescriptions: Paliperidone Palmitate [Invega Sustenna] 234 mg IM QMONTH #1 syringe Benztropine [Cogentin] 1 mg PO HS #30 tablet Divalproex (12 HR) [Depakote (12 HR)] 500 mg PO BID #60 tablet. hydrOXYzine pamoate [HydrOXYzine Pamoate] 25 mg PO TID PRN #90 capsule PRN Reason: Anxiety Paliperidone [Invega] 12 mg PO DAILY 5 Days #10 tab.er.24 LORazepam [Ativan] 1 mg PO TID 10 Days #30 tablet 09/22/17 [Rx] Paliperidone Palmitate [Invega Sustenna] 156 mg IM 11/20/17 [History] Benztropine [Cogentin] 1 mg PO HS #30 tablet 11/21/17 [Rx] Divalproex (12 HR) [Depakote (12 HR)] 500 mg PO BID #60 tablet. 11/21/17 [Rx] Paliperidone Palmitate [Invega Sustenna] 234 mg IM QMONTH #1 syringe 11/21/17 [ Rx] Paliperidone [Invega] 12 mg PO DAILY 5 Days #10 tab.er.24 11/21/17 [Rx] hydrOXYzine pamoate [HydrOXYzine Pamoate] 25 mg PO TID PRN #90 capsule 11/21/17 [Rx] 3 Allergy/AdvReac Type Severity Reaction Status Date / Time chlorpromazine Allergy Hives Verified 11/09/17 10:54 [From Thorazine] haloperidol [From Haldol] AdvReac Intermediate See Verified 11/09/17 10:54 Comments Provider Date of admission: 11/08/17 22:37 Primary care physician: PCP NONE Discharging clinician: Paco Beltran Psychiatry Exam - Constitutional Vitals: Temp Pulse Resp BP Pulse Ox 97.4 F L 94 16 133/89 98 11/21/17 09:00 11/21/17 09:00 11/21/17 09:00 11/21/17 09:00 11/08/17 17:55 - Psychiatric Patient Orientation: Yes Person, Yes Time, Yes Place, Yes Circumstance Level of alertness: Alert Behavior: calm, cooperative Psychomotor activity: Normal Eye Contact: Maintains Eye Contact Mood Description: Euthymic/stable Affect description: congruent with mood Speech Volume: Normal Speech pattern: normal rate Language & Vocabulary: consistent with education Thought Process: Intact, Logical, Linear, Goal Oriented Thought Content: Yes Intact Perceptual Disturbances: Yes Auditory hallucinations Attention Span Ability: Capable of Focused Attention Memory Description: Grossly Intact Patient Reliability: Questionable Historian Fund of knowledge: Yes average Intelligence Estimate: Average Judgment: Fair Insight: Partial (Pt note hx of chronic auditory halluciantions even at baseline ) Hospital Course Hospital course: Pt is a 31 yo, , male, who presents for Schizoaffective Bipolar type, currently paranoid and religiously preoccupied. Pt continues to note that he feels he is improving slowly, "I am actually happy today....I like what I am on. " Pt noted he is optimistic about his paliperidone injection, plan to give injection when becomes available 234 mg IM Q28 days with follow up booster injection of 156 mg with in 5-7 days. Pt denied any side effects to current medications. Pt noted he felt safe and comfortable on the unit. Pt was in agreement with current treatment plan. Pt noted that he is doing really good , I feel safe and comfortable for D/C home. Pt noted he slept 11 hours last night. Pt noted his appetitecontinues to improve. Pt rated his depression a 2, on a scale of zero to ten with ten being the worst and zero being none. Pt rate his anxiety a 5, on the same scale. Pt denied any visual hallucinations. Pt noted occasional Auditory hallucinations of voices " however they are significantly reduced..... Pt denied any thoughts to harm himself or anyone else. Pt noted he feels safe and comfortable for D/C home. No TD noted, AIMS= 1 Pt educated on the risks benefits and side-effects of Paliperidone including TD and it can be permanent. Pt agreed to continue current medication and move to injection. Tobacco: 1 ppd Alcohol: Denies [address]: weed about 3 times per month. Caffeine: 2-3 drinks per day MSE: Alert and Oriented x3 Appearance: neatly groomed dressed in appropriate civilian attire Behavior: friendly, courteous, polite Speech: Fluent, normal tone, normal rate Mood: pretty good...I am actually happy Affect: mood congruent Thought content: no HI noted, no SI noted, religiously preoccupied delusions noted, however reduced Psychosis: noted chronic auditory hallucinations.however noted significantly reduced Thought Process: Linear coherent goal directed however can be circumferential at times. Judgment: questionable. Insight: questionable. 1.Interval hx 2.Continue current medications 3.Review current labs 4.Pt had an opportunity to ask questions and discuss current treatment plan. 5.Supportive therapy was provided 6.Pt encouraged to consider group or individual therapy 7.Pt was in agreement with treatment plan. 8.Pt was educated on the risks benefits and side effects of current medications. 9. Start Paliperidone injection 234 mg IM [id number] once medication can be obtained, then follow up with in 5-7 days for booster injection of 156 mg IM for mood 10. Take all medications as prescribed 11. Abstain from any alcohol or illict substances 12. Follow up with all scheduled appointments 13. Discharge PT home, with follow up appointment at [facility]. Time spent discussing smoking cessation with patient: 3 to 10 minutes Does patient wish to continue nicotine replacement upon disc: No - Time Spent with Patient Total time spent providing and/or coordinating discharge services: Greater than 30 minutes Assessment and Plan - Patient/Caregiver Discharge Instructions Activity: resume usual activities as tolerated Diet: regular diet - Follow up Plan Follow up with: [facility] [Outside] - 11/23/17 11:00 am (The above appointment is with Darion Chávez for outpatient mental health counseling services. You will also see the nurse, Mark Joseph, on 11/24/2017 at 4:30pm for your booster injection of Invega 156 mg. This injection medication has been given to your mother to hold and you need to take it with you to your appointment. You will also see Mark Joseph on 12/18/2017 at 3:30pm for your 4 week injection of Invega 234 mg. This injection medication has been sent to [facility] and will be delivered to at the clinic where he will have it ready to give. You will also see Dena English for outpatient psychiatric assessment and medication management services on 12/28/2017 at 2: 30pm. [facility] Transportation will take you back and forth for all of these appointments. It is very important to keep your transportation schedule in order to continue receiving services.) Overall status at discharge: Stable Disposition: Home Health Service Quality - Multiple Antipsychotics Patient discharged on 2 or more antipsychotic medications: No (PT was on muliple antipsychotics while admitted however thery were for PRN) - Additional Details Additional Details: PT was on multipule antipsychotics while on the unit however the additonal medication was PRN for agitation
== END 2017-11-21 13:20 | disposition home health service (06) | DRG 750 ==
LOC: EMEROO 17:42 → SUATTDRO 22:37 → 1ANU 22:37
PROVIDERS: ADMIT Psychiatry & Neurology Psychiatry; ATTEND General Practice

== ENCOUNTER 2019-01-06 20:35 | Inpatient (IN) ==
[2019-01-06 21:57] LABS: Bilirubin,Urine Small (Negative); Blood,Urine Negative (Negative); Clarity,Urine Cloudy (Clear); Color,Urine Orange (Yellow); Glucose,Urine (UA) Normal (Normal); Ketones,Urine Trace mg/dL (Negative); Leukocyte Esterase,Urine Negative (Negative); Nitrite,Urine Negative (Negative); PH,Urine 5.5 pH Units (5.0-8.0); Protein,Urine 30 mg/dL (Neg-Trace); Specific Gravity,Urine > 1.030 (1.010-1.025); Urobilinogen,Urine Normal (Normal)
[2019-01-06 22:00] LABS: Bacteria,Urine None Seen per hpf (None-Few); Hyaline Casts,Urine Few per lpf (None-Few); RBC,Urine 0-3 per hpf (0-3); Squamous Epithelial Cell,Urine Many per lpf (None-Few); WBC,Urine 0-3 per hpf (0-3)
[2019-01-06 22:09] LABS: Amphetamine Screen,Urine Negative ng/mL (Cutoff=1000); Barbiturate Screen,Urine Negative ng/mL (Cutoff=200); Benzodiazepines Screen,Urine Negative ng/mL (Cutoff=200); Cannabinoid Screen,Urine Positive ng/mL (Cutoff = 50); Cocaine Screen,Urine Negative ng/mL (Cutoff= 300); Opiate Screen,Urine Negative ng/mL (Cutoff=300); Phencyclidine Screen,Urine Negative ng/mL (Cutoff=25)
[2019-01-06 22:12] LABS: Basophils % 0.3 %; Eosinophils # 0.2 K/mcL (0.0-0.6); Eosinophils % 1.2 %; Hematocrit 36.5 % (37.5-50.1); Immature Granulocytes % 0.2 % (0-4); Lymphocytes # 2.7 K/mcL (0.6-4.6); Lymphocytes % 19.4 %; Mean Corpuscular HGB Conc 32.9 g/dL (31.6-35.5); Mean Corpuscular Hemoglobin 28.3 pg (28.0-33.3); Mean Corpuscular Volume 86.1 fL (83.0-100.0); Mean Platelet Volume 11.3 fL (9.4-12.4); Monocytes # 1.8 K/mcL (0.0-1.3); Platelet Count 185 K/mcL (140-400); Red Blood Count 4.24 M/mcL (4.19-5.50); Red Cell Distribution Width 12.6 % (11.5-14.5); Segmented Neutrophils % 65.9 %; White Blood Count 13.7 K/mcL (4.3-11.1)
[2019-01-06 22:32] LABS: Acetaminophen < 10 mcg/mL (10-20); BUN/Creatinine Ratio 25 (6-26); Blood Urea Nitrogen 16 mg/dL (6-20); Calcium 8.7 mg/dL (8.6-10.3); Carbon Dioxide 26 mEq/L (23-29); Chloride 106 mEq/L (98-107); Ethanol < 10 mg/dL (Less than 10); Glucose 115 mg/dL (70-105); Osmolality,Calculated 290 (280-300); Potassium 3.1 mEq/L (3.5-5.1); Salicylate < 2.5 mg/dL (15.0-30.0); Sodium 139 mEq/L (136-145); eGFR For African Americans > 60 (> 60); eGFR For Non-African Americans > 60 (> 60)
[2019-01-07] MEDS ORDERED: Potassium Effervescent 25 MEQ TABLET.EFF PO ONE (06:02)
[2019-01-07] MEDS ORDERED: hydrOXYzine pamoate 25 MG CAPSULE PO PRN (10:59)
[2019-01-07] MEDS ORDERED: Mag Hydrox/Al Hydrox/Simeth 30 ML UDC PO PRN (10:59)
[2019-01-07] MEDS ORDERED: Haloperidol Lactate 5 MG/ML VIAL IM PRN (10:59)
[2019-01-07] MEDS ORDERED: MOM Conc 10 ML UD.LIQ PO PRN (10:59)
[2019-01-07] MEDS ORDERED: *HR* LORazepam 2 MG/ML VIAL IM PRN (10:59)
[2019-01-07] MEDS: Nicotine 2 MG GUM BC PRN (18:12)
[2019-01-07] MEDS: Perphenazine 2 MG TABLET PO SCH ×2 (18:12→20:52)
[2019-01-07] MEDS: OLANZapine 10 MG TAB.RAPDIS PO SCH (20:52)
[2019-01-07] MEDS: Ibuprofen 400 MG TABLET PO PRN (20:52)
[2019-01-07] MEDS: traZODone 50 MG TABLET PO PRN (20:53)
[2019-01-07] MEDS: hydrOXYzine pamoate 25 MG CAPSULE PO PRN (20:53)
[2019-01-07] MEDS: Divalproex (24 HR) 500 MG TABLET PO SCH (20:53)
[2019-01-08] MEDS: Budesonide/Formoterol 160/4.5 1 PUFF INH IH SCH ×3 (02:15→21:50)
[2019-01-08] MEDS: Perphenazine 2 MG TABLET PO SCH ×3 (09:39→20:54)
[2019-01-08] MEDS: Nicotine 2 MG GUM BC PRN ×2 (17:29→21:05)
[2019-01-08] MEDS: *HR* LORazepam 1 MG TABLET PO PRN ×2 (17:46→21:04)
[2019-01-08] MEDS: Divalproex (24 HR) 500 MG TABLET PO SCH (20:54)
[2019-01-08] MEDS: OLANZapine 10 MG TAB.RAPDIS PO SCH (20:54)
[2019-01-08] MEDS: traZODone 50 MG TABLET PO PRN (20:54)
[2019-01-08] MEDS: hydrOXYzine pamoate 25 MG CAPSULE PO PRN (21:05)
[2019-01-08] MEDS ORDERED: Ziprasidone 20 MG CAPSULE PO PRN (21:06)
[2019-01-08] MEDS ORDERED: Ziprasidone 20 MG in Water for inj. (sterile) 1 ML IM PRN (21:06)
[2019-01-08] MEDS: Ziprasidone 20 MG CAPSULE PO PRN (21:40)
[2019-01-09] MEDS: Perphenazine 2 MG TABLET PO SCH ×3 (08:47→20:26)
[2019-01-09] MEDS: Budesonide/Formoterol 160/4.5 1 PUFF INH IH SCH ×2 (08:52→20:49)
[2019-01-09] MEDS: Nicotine 2 MG GUM BC PRN ×4 (12:09→20:42)
[2019-01-09] MEDS: *HR* LORazepam 1 MG TABLET PO PRN ×2 (12:12→22:19)
[2019-01-09] MEDS: Ziprasidone 20 MG CAPSULE PO PRN ×2 (12:12→22:19)
[2019-01-09] MEDS: hydrOXYzine pamoate 25 MG CAPSULE PO PRN (17:01)
[2019-01-09] MEDS: traZODone 50 MG TABLET PO PRN (20:26)
[2019-01-09] MEDS: OLANZapine 10 MG TAB.RAPDIS PO SCH (20:26)
[2019-01-09] MEDS: Divalproex (24 HR) 500 MG TABLET PO SCH (20:26)
[2019-01-10] MEDS: Perphenazine 2 MG TABLET PO SCH ×3 (08:26→20:49)
[2019-01-10] MEDS: Nicotine 2 MG GUM BC PRN ×3 (09:07→20:36)
[2019-01-10] MEDS: Budesonide/Formoterol 160/4.5 1 PUFF INH IH SCH ×2 (09:08→20:50)
[2019-01-10] MEDS: *HR* LORazepam 1 MG TABLET PO PRN (14:47)
[2019-01-10] MEDS: Divalproex (24 HR) 500 MG TABLET PO SCH (20:48)
[2019-01-10] MEDS: traZODone 50 MG TABLET PO PRN (20:49)
[2019-01-10] MEDS: OLANZapine 10 MG TAB.RAPDIS PO SCH (20:49)
[2019-01-10] MEDS: Ziprasidone 20 MG CAPSULE PO PRN (21:34)
[2019-01-11] MEDS: Perphenazine 2 MG TABLET PO SCH ×3 (09:19→21:07)
[2019-01-11] MEDS: Nicotine 2 MG GUM BC PRN ×3 (09:20→18:00)
[2019-01-11] MEDS: Budesonide/Formoterol 160/4.5 1 PUFF INH IH SCH ×2 (09:21→21:09)
[2019-01-11] MEDS: Divalproex (24 HR) 500 MG TABLET PO SCH (21:07)
[2019-01-11] MEDS: Ibuprofen 400 MG TABLET PO PRN (21:07)
[2019-01-11] MEDS: OLANZapine 10 MG TAB.RAPDIS PO SCH (21:08)
[2019-01-11] MEDS: traZODone 50 MG TABLET PO PRN (21:08)
[2019-01-11] MEDS: hydrOXYzine pamoate 25 MG CAPSULE PO PRN (21:24)
[2019-01-12] MEDS: Nicotine 2 MG GUM BC PRN ×3 (08:53→21:49)
[2019-01-12] MEDS: Perphenazine 2 MG TABLET PO SCH ×3 (08:53→20:51)
[2019-01-12] MEDS: Budesonide/Formoterol 160/4.5 1 PUFF INH IH SCH ×2 (10:00→20:49)
[2019-01-12] MEDS: Artificial Tears SOLN 15 ML BOTTLE BOTH EYES PRN (14:14)
[2019-01-12] MEDS: Ibuprofen 400 MG TABLET PO PRN ×2 (14:51→20:52)
[2019-01-12] MEDS: hydrOXYzine pamoate 25 MG CAPSULE PO PRN (17:40)
[2019-01-12] MEDS: Divalproex (24 HR) 500 MG TABLET PO SCH (20:51)
[2019-01-12] MEDS: OLANZapine 10 MG TAB.RAPDIS PO SCH (20:52)
[2019-01-13] MEDS: Perphenazine 2 MG TABLET PO SCH ×3 (08:01→20:42)
[2019-01-13] MEDS: Nicotine 2 MG GUM BC PRN ×3 (09:11→17:24)
[2019-01-13] MEDS: *HR* LORazepam 1 MG TABLET PO PRN (09:43)
[2019-01-13] MEDS: Ziprasidone 20 MG CAPSULE PO PRN (09:43)
[2019-01-13] MEDS: Budesonide/Formoterol 160/4.5 1 PUFF INH IH SCH ×2 (09:56→20:39)
[2019-01-13] MEDS: Ibuprofen 400 MG TABLET PO PRN (20:40)
[2019-01-13] MEDS: OLANZapine 10 MG TAB.RAPDIS PO SCH (20:41)
[2019-01-13] MEDS: Divalproex (24 HR) 500 MG TABLET PO SCH (20:41)
[2019-01-14] MEDS: Perphenazine 2 MG TABLET PO SCH ×3 (08:51→21:12)
[2019-01-14] MEDS: Budesonide/Formoterol 160/4.5 1 PUFF INH IH SCH ×2 (09:19→21:17)
[2019-01-14] MEDS: hydrOXYzine pamoate 25 MG CAPSULE PO PRN ×2 (12:36→21:12)
[2019-01-14] MEDS: Ibuprofen 400 MG TABLET PO PRN (16:13)
[2019-01-14] MEDS: OLANZapine 10 MG TAB.RAPDIS PO SCH (21:12)
[2019-01-14] MEDS: traZODone 50 MG TABLET PO PRN (21:12)
[2019-01-14] MEDS: Divalproex (24 HR) 500 MG TABLET PO SCH (21:12)
[2019-01-15] MEDS: hydrOXYzine pamoate 25 MG CAPSULE PO PRN ×2 (04:26→20:45)
[2019-01-15 07:50] LABS: Chol/HDL Ratio 3.5 (0-4.9)
[2019-01-15] MEDS: Perphenazine 2 MG TABLET PO SCH ×3 (08:28→20:48)
[2019-01-15 08:53] LABS: Estimated Average Glucose 108 mg/dl
[2019-01-15 09:17] LABS: Thyroid Stimulating Hormone 2.152 mcIU/mL (0.340-5.600)
[2019-01-15] MEDS: Budesonide/Formoterol 160/4.5 1 PUFF INH IH SCH ×2 (09:36→19:02)
[2019-01-15] MEDS: Ziprasidone 20 MG CAPSULE PO PRN (09:56)
[2019-01-15] MEDS: *HR* LORazepam 1 MG TABLET PO PRN (09:56)
[2019-01-15] MEDS: Nicotine 2 MG GUM BC PRN ×2 (13:13→18:03)
[2019-01-15] MEDS: traZODone 50 MG TABLET PO PRN (20:46)
[2019-01-15] MEDS: OLANZapine 10 MG TAB.RAPDIS PO SCH (20:46)
[2019-01-15] MEDS: Divalproex (24 HR) 500 MG TABLET PO SCH (20:46)
[2019-01-16] MEDS: Nicotine 2 MG GUM BC PRN (07:14)
[2019-01-16] MEDS: Perphenazine 2 MG TABLET PO SCH (08:44)
[2019-01-16] MEDS: Budesonide/Formoterol 160/4.5 1 PUFF INH IH SCH ×2 (09:03→22:00)
[2019-01-16] MEDS: Ibuprofen 400 MG TABLET PO PRN (11:06)
[2019-01-16] MEDS: hydrOXYzine pamoate 25 MG CAPSULE PO PRN (15:38)
[2019-01-16] MEDS: *HR* LORazepam 1 MG TABLET PO PRN (16:43)
[2019-01-16] MEDS: Ziprasidone 20 MG CAPSULE PO PRN (16:43)
[2019-01-16] MEDS: Perphenazine 8 MG TABLET PO SCH (21:06)
[2019-01-16] MEDS: Divalproex (24 HR) 500 MG TABLET PO SCH (21:06)
[2019-01-16] MEDS: OLANZapine 10 MG TAB.RAPDIS PO SCH (21:07)
[2019-01-16] MEDS: traZODone 50 MG TABLET PO PRN (22:17)
[2019-01-17] MEDS: Artificial Tears SOLN 15 ML BOTTLE BOTH EYES PRN ×2 (03:33→10:37)
[2019-01-17] MEDS: hydrOXYzine pamoate 25 MG CAPSULE PO PRN (04:24)
[2019-01-17] MEDS: Perphenazine 8 MG TABLET PO SCH ×2 (09:51→20:39)
[2019-01-17] MEDS: Budesonide/Formoterol 160/4.5 1 PUFF INH IH SCH ×2 (09:52→20:40)
[2019-01-17] MEDS: Nicotine 2 MG GUM BC PRN (18:30)
[2019-01-17] MEDS: *HR* LORazepam 1 MG TABLET PO PRN (19:31)
[2019-01-17] MEDS: Ziprasidone 20 MG CAPSULE PO PRN (19:31)
[2019-01-17] MEDS: Divalproex (24 HR) 500 MG TABLET PO SCH (20:39)
[2019-01-17] MEDS: OLANZapine 10 MG TAB.RAPDIS PO SCH (20:40)
[2019-01-18] MEDS: Perphenazine 8 MG TABLET PO SCH ×3 (10:19→20:02)
[2019-01-18] MEDS: Budesonide/Formoterol 160/4.5 1 PUFF INH IH SCH ×2 (10:20→22:14)
[2019-01-18] MEDS: *HR* LORazepam 1 MG TABLET PO PRN ×2 (14:13→20:02)
[2019-01-18] MEDS: Nicotine 2 MG GUM BC PRN (14:14)
[2019-01-18] MEDS: Ziprasidone 20 MG CAPSULE PO PRN ×2 (14:14→20:02)
[2019-01-18] MEDS: Divalproex (24 HR) 500 MG TABLET PO SCH (20:02)
[2019-01-18] MEDS: Ibuprofen 400 MG TABLET PO PRN (20:02)
[2019-01-18] MEDS: OLANZapine 10 MG TAB.RAPDIS PO SCH (20:03)
[2019-01-18] MEDS: traZODone 50 MG TABLET PO PRN (20:03)
[2019-01-18] MEDS: hydrOXYzine pamoate 25 MG CAPSULE PO PRN (22:13)
[2019-01-19] MEDS: Nicotine 2 MG GUM BC PRN ×2 (06:48→08:38)
[2019-01-19] MEDS: Perphenazine 8 MG TABLET PO SCH ×3 (08:38→20:59)
[2019-01-19] MEDS: Budesonide/Formoterol 160/4.5 1 PUFF INH IH SCH ×2 (12:02→20:58)
[2019-01-19] MEDS: *HR* LORazepam 1 MG TABLET PO PRN (15:39)
[2019-01-19] MEDS: Ziprasidone 20 MG CAPSULE PO PRN (15:39)
[2019-01-19] MEDS: Divalproex (24 HR) 500 MG TABLET PO SCH (20:59)
[2019-01-19] MEDS: OLANZapine 10 MG TAB.RAPDIS PO SCH (20:59)
[2019-01-20] MEDS: Perphenazine 8 MG TABLET PO SCH ×3 (09:20→20:22)
[2019-01-20] MEDS: Budesonide/Formoterol 160/4.5 1 PUFF INH IH SCH ×2 (09:20→20:23)
[2019-01-20] MEDS: Nicotine 2 MG GUM BC PRN (13:48)
[2019-01-20] MEDS: *HR* LORazepam 1 MG TABLET PO PRN (19:45)
[2019-01-20] MEDS: Ziprasidone 20 MG CAPSULE PO PRN (19:45)
[2019-01-20] MEDS: Divalproex (24 HR) 500 MG TABLET PO SCH (20:21)
[2019-01-20] MEDS: OLANZapine 10 MG TAB.RAPDIS PO SCH (20:22)
[2019-01-21] MEDS: Perphenazine 8 MG TABLET PO SCH ×3 (09:38→20:27)
[2019-01-21] MEDS: Budesonide/Formoterol 160/4.5 1 PUFF INH IH SCH ×2 (09:50→20:29)
[2019-01-21] MEDS: Divalproex (24 HR) 500 MG TABLET PO SCH (20:25)
[2019-01-21] MEDS: OLANZapine 10 MG TAB.RAPDIS PO SCH (20:26)
[2019-01-21] MEDS: Ziprasidone 20 MG CAPSULE PO PRN (20:26)
[2019-01-21] MEDS: traZODone 50 MG TABLET PO PRN (20:26)
[2019-01-22] MEDS: Perphenazine 8 MG TABLET PO SCH ×3 (08:27→20:53)
[2019-01-22] MEDS: Budesonide/Formoterol 160/4.5 1 PUFF INH IH SCH ×2 (09:45→22:00)
[2019-01-22] MEDS: *HR* LORazepam 1 MG TABLET PO PRN (16:03)
[2019-01-22] MEDS: Ziprasidone 20 MG CAPSULE PO PRN (16:03)
[2019-01-22] MEDS: Nicotine 2 MG GUM BC PRN (18:24)
[2019-01-22] MEDS: hydrOXYzine pamoate 25 MG CAPSULE PO PRN ×2 (19:55→20:53)
[2019-01-22] MEDS: Divalproex (24 HR) 500 MG TABLET PO SCH (20:52)
[2019-01-22] MEDS: Ibuprofen 400 MG TABLET PO PRN (20:53)
[2019-01-22] MEDS: OLANZapine 10 MG TAB.RAPDIS PO SCH (20:53)
[2019-01-22] MEDS: traZODone 50 MG TABLET PO PRN (20:53)
[2019-01-23] MEDS: Perphenazine 8 MG TABLET PO SCH ×3 (09:51→21:54)
[2019-01-23] MEDS: Budesonide/Formoterol 160/4.5 1 PUFF INH IH SCH ×2 (10:18→21:56)
[2019-01-23] MEDS: Nicotine 2 MG GUM BC PRN (17:51)
[2019-01-23] MEDS: Divalproex (24 HR) 500 MG TABLET PO SCH (21:54)
[2019-01-23] MEDS: OLANZapine 10 MG TAB.RAPDIS PO SCH (21:54)
[2019-01-23] MEDS: *HR* LORazepam 1 MG TABLET PO PRN (21:54)
[2019-01-23] MEDS: traZODone 50 MG TABLET PO PRN (21:55)
[2019-01-24] MEDS: Perphenazine 8 MG TABLET PO SCH ×3 (09:55→20:48)
[2019-01-24] MEDS: Budesonide/Formoterol 160/4.5 1 PUFF INH IH SCH ×2 (10:57→20:47)
[2019-01-24] MEDS: *HR* LORazepam 1 MG TABLET PO PRN (11:43)
[2019-01-24] MEDS: Ziprasidone 20 MG CAPSULE PO PRN (11:44)
[2019-01-24] MEDS: Nicotine 2 MG GUM BC PRN (18:09)
[2019-01-24] MEDS: OLANZapine 10 MG TAB.RAPDIS PO SCH (20:47)
[2019-01-24] MEDS: hydrOXYzine pamoate 25 MG CAPSULE PO PRN (20:47)
[2019-01-24] MEDS: Divalproex (24 HR) 500 MG TABLET PO SCH (20:47)
[2019-01-24] MEDS: traZODone 50 MG TABLET PO PRN (20:48)
[2019-01-25] MEDS: Perphenazine 8 MG TABLET PO SCH ×3 (09:46→20:19)
[2019-01-25] MEDS: Budesonide/Formoterol 160/4.5 1 PUFF INH IH SCH ×2 (10:13→20:21)
[2019-01-25] MEDS: Nicotine 2 MG GUM BC PRN (13:14)
[2019-01-25] MEDS: Ziprasidone 20 MG CAPSULE PO PRN (17:31)
[2019-01-25] MEDS: *HR* LORazepam 1 MG TABLET PO PRN (17:32)
[2019-01-25] MEDS: hydrOXYzine pamoate 25 MG CAPSULE PO PRN ×2 (17:32→20:18)
[2019-01-25] MEDS: traZODone 50 MG TABLET PO PRN (20:18)
[2019-01-25] MEDS: OLANZapine 10 MG TAB.RAPDIS PO SCH (20:18)
[2019-01-25] MEDS: Divalproex (24 HR) 500 MG TABLET PO SCH (20:19)
[2019-01-26] MEDS: Perphenazine 8 MG TABLET PO SCH ×3 (08:31→19:58)
[2019-01-26] MEDS: Budesonide/Formoterol 160/4.5 1 PUFF INH IH SCH ×2 (08:44→20:00)
[2019-01-26] MEDS: *HR* LORazepam 1 MG TABLET PO PRN (16:25)
[2019-01-26] MEDS: Ziprasidone 20 MG CAPSULE PO PRN (16:25)
[2019-01-26] MEDS: Nicotine 2 MG GUM BC PRN (19:25)
[2019-01-26] MEDS: hydrOXYzine pamoate 25 MG CAPSULE PO PRN (19:57)
[2019-01-26] MEDS: traZODone 50 MG TABLET PO PRN (19:58)
[2019-01-26] MEDS: OLANZapine 10 MG TAB.RAPDIS PO SCH (19:58)
[2019-01-26] MEDS: Divalproex (24 HR) 500 MG TABLET PO SCH (19:58)
[2019-01-27] MEDS: Perphenazine 8 MG TABLET PO SCH ×3 (10:12→20:49)
[2019-01-27] MEDS: Budesonide/Formoterol 160/4.5 1 PUFF INH IH SCH (10:16)
[2019-01-27] MEDS: traZODone 50 MG TABLET PO PRN (20:49)
[2019-01-27] MEDS: Divalproex (24 HR) 500 MG TABLET PO SCH (20:49)
[2019-01-27] MEDS: OLANZapine 10 MG TAB.RAPDIS PO SCH (20:50)
[2019-01-28] MEDS: Budesonide/Formoterol 160/4.5 1 PUFF INH IH SCH ×3 (02:51→20:26)
[2019-01-28] MEDS: Perphenazine 8 MG TABLET PO SCH ×3 (09:42→20:14)
[2019-01-28] MEDS: Nicotine 2 MG GUM BC PRN ×2 (12:49→17:25)
[2019-01-28] MEDS: *HR* LORazepam 1 MG TABLET PO PRN (15:27)
[2019-01-28] MEDS: Ziprasidone 20 MG CAPSULE PO PRN (15:27)
[2019-01-28] MEDS: Divalproex (24 HR) 500 MG TABLET PO SCH (20:15)
[2019-01-28] MEDS: OLANZapine 10 MG TAB.RAPDIS PO SCH (20:15)
[2019-01-28] MEDS: Artificial Tears SOLN 15 ML BOTTLE BOTH EYES PRN (20:27)
[2019-01-29] MEDS: Perphenazine 8 MG TABLET PO SCH ×4 (09:10→21:02)
[2019-01-29] MEDS: Budesonide/Formoterol 160/4.5 1 PUFF INH IH SCH ×2 (10:02→22:00)
[2019-01-29] MEDS: Nicotine 2 MG GUM BC PRN (17:10)
[2019-01-29] MEDS: Ziprasidone 20 MG CAPSULE PO PRN (18:10)
[2019-01-29] MEDS: *HR* LORazepam 1 MG TABLET PO PRN (18:10)
[2019-01-29] MEDS: traZODone 50 MG TABLET PO PRN (21:02)
[2019-01-29] MEDS: hydrOXYzine pamoate 25 MG CAPSULE PO PRN (21:02)
[2019-01-29] MEDS: OLANZapine 10 MG TAB.RAPDIS PO SCH (21:02)
[2019-01-29] MEDS: Divalproex (24 HR) 500 MG TABLET PO SCH (21:03)
[2019-01-30] MEDS: Perphenazine 8 MG TABLET PO SCH ×4 (09:07→20:34)
[2019-01-30] MEDS: Budesonide/Formoterol 160/4.5 1 PUFF INH IH SCH ×2 (09:08→20:34)
[2019-01-30] MEDS: Nicotine 2 MG GUM BC PRN ×2 (12:19→19:13)
[2019-01-30] MEDS: Divalproex (24 HR) 500 MG TABLET PO SCH (20:34)
[2019-01-30] MEDS: OLANZapine 10 MG TAB.RAPDIS PO SCH (20:34)
[2019-01-30] MEDS: hydrOXYzine pamoate 25 MG CAPSULE PO PRN (20:38)
[2019-01-30] MEDS: traZODone 50 MG TABLET PO PRN (20:38)
[2019-01-31] MEDS: Perphenazine 8 MG TABLET PO SCH (08:32)
[2019-01-31 09:29] VITALS: BP 111/76
[2019-01-31] MEDS: Budesonide/Formoterol 160/4.5 1 PUFF INH IH SCH (09:31)
== END 2019-01-31 11:06 | disposition home or self-care (01) | DRG 750 ==
LOC: EMEROOARM 20:35 → 1ANU 01-07 10:45 → SUATTDRO 01-07 10:45 → 1ANU 01-07 11:53
PROVIDERS: ADMIT Psychiatry & Neurology Psychiatry; ATTEND Psychiatry & Neurology Psychiatry

== ENCOUNTER 2019-03-16 18:38 | Inpatient (IN) ==
--- NOTE | 2019-03-16 18:53 | Emergency Department Note ---
Disposition Clinical Impression: Hallucinations Schizophrenia Qualifiers: Schizophrenia type: unspecified Qualified Code(s): F20.9 - Schizophrenia, unspecified Disposition: Admitted As Inpatient Referrals: NONE,PCP [Primary Care Provider] - Forms: ED Satisfaction Letter Time of Disposition: 21:28 Psych HPI - General Chief Complaint: ED Psychiatric Symptoms Stated Complaint: Psych Eval Time Seen by Provider: 03/16/19 18:47 Source: patient, EMS Mode of arrival: EMS Limitations: no limitations Nursing Notes Reviewed: Yes Vital Signs Reviewed: Yes - History of Present Illness HPI Narrative: 33M with PMHx of schizophrenia presents to the emergency department via EMS due to weakness and worsening hallucinations. Patient states that he has been taking all of his medications at his hallucinations are getting worse and he fears that he will be taken hour daily and. He also complains of generalized weakness but states he has been walking around a lot outside. He is homeless but his mother lives in town. Patient denies homicidal and suicidal ideations. He has not taken any drugs today but states he drank a little bit of a beer. - Related Data Previous Rx's Medication Instructions Recorded Albuterol Sulfate [Ventolin Hfa] 2 puff IH Q6H PRN #1 hfa.aer.ad 01/31/19 Artificial Tears SOLN [Akwa Tears] 1 drop BOTH EYES QID PRN #1 bottle 01/31/19 Benztropine Mesylate 1 mg PO HS #15 tablet 01/31/19 Budesonide/Formoterol 160/4.5 2 puff IH BIDR #1 inh 01/31/19 [Symbicort 160/4.5] Divalproex (24 HR) [Depakote ER 1,000 mg PO HS #30 tab.er.24h 01/31/19 (24 HR)] OLANZapine [Zyprexa Zydis] 20 mg PO HS #30 tab.rapdis 01/31/19 Perphenazine [Trilafon] 8 mg PO QID #60 tablet 01/31/19 hydrOXYzine pamoate [Vistaril] 50 mg PO Q6HR PRN #45 capsule 01/31/19 traZODone [TraZODone] 50 mg PO HS PRN #15 tablet 01/31/19 Allergies Allergy/AdvReac Type Severity Reaction Status Date / Time chlorpromazine Allergy Hives Verified 03/16/19 18:47 [From Thorazine] haloperidol [From Haldol] AdvReac Intermediate See Verified 03/16/19 18:47 Comments All systems ED: reviewed and negative except as stated. Review of Systems: As Per HPI Constitutional: Reports: weakness. Denies: fever, chills Cardiovascular: Denies: chest pain, palpitations, dyspnea on exertion Respiratory: Denies: cough, dyspnea, wheezes Gastrointestinal: Denies: abdominal pain, nausea, vomiting Musculoskeletal: Denies: back pain, neck pain Integumentary: Denies: rash Psychiatric: Reports: auditory hallucinations, visual hallucinations. Denies: suicidal thoughts, homicidal thoughts Endocrine: Reports: fatigue Past Medical History - Past Medical History Attestation: Yes The following information was validated with the patient. Source: patient Medical history: Reports: asthma, other Surgical history: Reports: non-contributory, arthroscopy, cholecystectomy Psychiatric history: Reports: anxiety, depression, schizophrenia, previous psychiatric hospitalization - Social History Smoking Status: Current every day smoker Smokeless Tobacco Status: Yes Alcohol use: Reports: rarely, recent Drug use: Reports: marijuana, methamphetamine Physical Exam - General Limitations: no limitations General appearance: alert, anxious - Head Head exam: atraumatic, normocephalic - Eye Eye exam: Present: normal appearance, EOMI - Chest Chest inspection: Present: normal inspection. Absent: tenderness, rash - Respiratory Respiratory exam: Present: normal lung sounds bilaterally. Absent: wheezes - Cardiovascular Cardiovascular exam: Present: regular rate, normal rhythm - Abdominal Exam Abdominal exam: Present: soft, Non-Tender. Absent: distention, guarding, rebound, rigidity - Extremities Exam Extremities exam: Present: normal inspection. Absent: tenderness, pedal edema - Neurological Exam Neurological exam: Present: alert, oriented X3 - Psychiatric Psychiatric exam: Present: flat affect - Skin Skin exam: Present: warm, dry, intact Course Vital Signs Temperature 98.8 F 03/16/19 18:42 Pulse Rate 90 03/16/19 18:42 Respiratory Rate 20 03/16/19 18:42 Blood Pressure 131/81 03/16/19 18:42 O2 Sat by Pulse Oximetry 99 03/16/19 18:42 Temperature 98.8 F 03/16/19 18:42 Pulse Rate 90 03/16/19 18:42 Respiratory Rate 20 09/07/19 18:42 Blood Pressure 131/81 03/16/19 18:42 O2 Sat by Pulse Oximetry 99 03/16/19 18:42 Oxygen Delivery Oxygen Delivery Room Air Psych - MDM Narrative Medical decision making narrative: Patient presents with worsening hallucinations and generalized weakness. We will obtain psych clearance labs, cpk and EKG and treat any abnormalities that we find. We will then consult with [facility] for help in management of this patient. [id number] has evaluated the patient and has accepted him for admission. - Lab Data Result diagrams: 03/16/19 19:19 03/16/19 19:19 Lab Results 03/16/19 03/16/19 03/16/19 Range/Units 18:54 18:54 19:19 WBC 11.8 H (4.3-11.1) K/mcL RBC 4.41 (4.19-5.50) M/mcL Hgb 12.4 L (12.9-16.9) g/dL Hct 38.6 (37.5-50.1) % MCV 87.5 (83.0-100.0) fL MCH 28.1 (28.0-33.3) pg MCHC 32.1 (31.6-35.5) g/dL RDW 13.7 (11.5-14.5) % Plt Count 210 (140-400) K/mcL MPV 11.3 (9.4-12.4) fL Immature Gran % 0.3 (0-4) % Seg Neutrophils % 56.6 % Lymphocytes % 29.9 % Monocytes % 10.3 % Eosinophils % 2.6 % Basophils % 0.3 % Neutrophils # 6.7 (1.6-8.9) K/mcL Lymphocytes # 3.5 (0.6-4.6) K/mcL Monocytes # 1.2 (0.0-1.3) K/mcL Eosinophils # 0.3 (0.0-0.6) K/mcL Basophils # 0.0 (0.0-0.2) K/mcL Sodium (136-145) mEq/L Potassium (3.5-5.1) mEq/L Chloride (98-107) mEq/L Carbon Dioxide (23-29) mEq/L BUN (6-20) mg/dL Creatinine (0.70-1.30) mg/dL Est GFR ( Amer) (> 60) Est GFR (Non-Af Amer) (> 60) BUN/Creatinine Ratio (6-26) Glucose (70-105) mg/dL Calculated Osmolality (280-300) Calcium (8.6-10.3) mg/dL Creatine Kinase (30-223) Units/L Urine Color Yellow (Yellow) Urine Clarity Clear (Clear) Urine pH 6.5 (5.0-8.0) pH Units Ur Specific [place] 1.027 H (1.010-1.025) Urine Protein Negative (Neg-Trace) mg/dL Urine Glucose (UA) Normal (Normal) mg/dL Urine Ketones Negative (Negative) mg/dL Urine Blood Negative (Negative) Urine Nitrite Negative (Negative) Urine Bilirubin Negative (Negative) Urine Urobilinogen 2.0 H (Normal) mg/dL Ur Leukocyte Esterase Negative (Negative) Salicylates (15.0-30.0) mg/dL Urine Opiates Screen Negative (Eykrqf=751) ng/mL Ur Buprenorphine Scrn Negative (Cutoff=5) ng/mL Acetaminophen (10-20) mcg/mL Ur Barbiturates Screen Negative (Bkvnxt=908) ng/mL Ur Phencyclidine Scrn Negative (Cutoff=25) ng/mL Ur Amphetamines Screen Negative (Itwork=7572) ng/mL U Benzodiazepines Scrn Negative (Euimpj=198) ng/mL Urine Cocaine Screen Negative (Cutoff= 300) ng/mL U Marijuana (THC) Screen Positive H (Cutoff = 50) ng/mL Ur Drug Screen Interp See Below Ethyl Alcohol (Less than 10) mg/dL 03/16/19 Range/Units 19:19 WBC (4.3-11.1) K/mcL RBC (4.19-5.50) M/mcL Hgb (12.9-16.9) g/dL Hct (37.5-50.1) % MCV (83.0-100.0) fL MCH (28.0-33.3) pg MCHC (31.6-35.5) g/dL RDW (11.5-14.5) % Plt Count (140-400) K/mcL MPV (9.4-12.4) fL Immature Gran % (0-4) % Seg Neutrophils % % Lymphocytes % % Monocytes % % Eosinophils % % Basophils % % Neutrophils # (1.6-8.9) K/mcL Lymphocytes # (0.6-4.6) K/mcL Monocytes # (0.0-1.3) K/mcL Eosinophils # (0.0-0.6) K/mcL Basophils # (0.0-0.2) K/mcL Sodium 139 (136-145) mEq/L Potassium 3.5 (3.5-5.1) mEq/L Chloride 109 H (98-107) mEq/L Carbon Dioxide 24 (23-29) mEq/L BUN 11 (6-20) mg/dL Creatinine 0.79 (0.70-1.30) mg/dL Est GFR ( Amer) > 60 (> 60) Est GFR (Non-Af Amer) > 60 (> 60) BUN/Creatinine Ratio 14 (6-26) Glucose 91 (70-105) mg/dL Calculated Osmolality 287 (280-300) Calcium 8.8 (8.6-10.3) mg/dL Creatine Kinase 135 (30-223) Units/L Urine Color (Yellow) Urine Clarity (Clear) Urine pH (5.0-8.0) pH Units Ur Specific [place] (1.010-1.025) Urine Protein (Neg-Trace) mg/dL Urine Glucose (UA) (Normal) mg/dL Urine Ketones (Negative) mg/dL Urine Blood (Negative) Urine Nitrite (Negative) Urine Bilirubin (Negative) Urine Urobilinogen (Normal) mg/dL Ur Leukocyte Esterase (Negative) Salicylates < 2.5 L (15.0-30.0) mg/dL Urine Opiates Screen (Vdnrbr=126) ng/mL Ur Buprenorphine Scrn (Cutoff=5) ng/mL Acetaminophen < 10 L (10-20) mcg/mL Ur Barbiturates Screen (Vfuijf=054) ng/mL Ur Phencyclidine Scrn (Cutoff=25) ng/mL Ur Amphetamines Screen (Hyhifl=4721) ng/mL U Benzodiazepines Scrn (Fuetdt=275) ng/mL Urine Cocaine Screen (Cutoff= 300) ng/mL U Marijuana (THC) Screen (Cutoff = 50) ng/mL Ur Drug Screen Interp Ethyl Alcohol < 10 (Less than 10) mg/dL - EKG Data EKG attestation: Yes I reviewed and interpreted this EKG. EKG results narrative: EKG obtained at 1922 and 03/16/2019 Heart rate 80 bpm, MN interval 212, QRS duration 95, QT 372, QTC 4:30 Sinus rhythm with first-degree heart block. No signs of significant ST segment elevations or depressions. No other acute T-wave abnormalities. No significant changes when compared to previous EKG dated 01/03/2019. Psychiatric Medical Clearance - Medical Clearance Checklist Medical History: No Social History Section defined Current Vitals: Last Vital Signs Temp 98.8 F 03/16/19 18:42 Pulse 90 03/16/19 18:42 Resp 20 03/16/19 18:42 BP 131/81 03/16/19 18:42 Pulse Ox 99 03/16/19 18:42 Psychiatric Lab Panel: Drug Levels and Toxicity 03/16/19 03/16/19 18:54 19:19 Urine Opiates Screen Negative Acetaminophen < 10 L Ur Barbiturates Screen Negative Ur Phencyclidine Scrn Negative Ur Amphetamines Screen Negative U Benzodiazepines Scrn Negative Urine Cocaine Screen Negative U Marijuana (THC) Screen Positive H Ethyl Alcohol < 10 Abnormal Labs: Abnormal lab results WBC 11.8 K/mcL (4.3-11.1) H 03/16/19 19:19 Hgb 12.4 g/dL (12.9-16.9) L 03/16/19 19:19 Chloride 109 mEq/L (98-107) H 03/16/19 19:19 Ur Specific [place] 1.027 (1.010-1.025) H 03/16/19 18:54 Urine Urobilinogen 2.0 mg/dL (Normal) H 03/16/19 18:54 Salicylates < 2.5 mg/dL (15.0-30.0) L 03/16/19 19:19 Acetaminophen < 10 mcg/mL (10-20) L 03/16/19 19:19 U Marijuana (THC) Screen Positive ng/mL (Cutoff = 50) H 03/16/19 18:54 Statement of Medical Clearance: I have evaluated the patient, reviewed diagnostic information, and certify that the patient's medical condition is sufficiently stable that transfer to the psychiatric unit does not pose a significant risk of deterioration.
--- NOTE | 2019-03-16 19:11 | Emergency Department Note ---
Disposition Clinical Impression: Hallucinations Schizophrenia Qualifiers: Schizophrenia type: unspecified Qualified Code(s): F20.9 - Schizophrenia, unspecified Disposition: Admitted As Inpatient Condition: Undetermined Time of Disposition: 21:43 General Adult HPI - General Chief complaint: ED Psychiatric Symptoms Stated complaint: Psych Eval Time Seen by Provider: 03/16/19 18:47 Source: patient, EMS Mode of arrival: EMS Limitations: no limitations - History of Present Illness Pain Scale: 0 - Related Data Previous Rx's Medication Instructions Recorded Albuterol Sulfate [Ventolin Hfa] 2 puff IH Q6H PRN #1 hfa.aer.ad 01/31/19 Artificial Tears SOLN [Akwa Tears] 1 drop BOTH EYES QID PRN #1 bottle 01/31/19 Benztropine Mesylate 1 mg PO HS #15 tablet 01/31/19 Budesonide/Formoterol 160/4.5 2 puff IH BIDR #1 inh 01/31/19 [Symbicort 160/4.5] Divalproex (24 HR) [Depakote ER 1,000 mg PO HS #30 tab.er.24h 01/31/19 (24 HR)] OLANZapine [Zyprexa Zydis] 20 mg PO HS #30 tab.rapdis 01/31/19 Perphenazine [Trilafon] 8 mg PO QID #60 tablet 01/31/19 hydrOXYzine pamoate [Vistaril] 50 mg PO Q6HR PRN #45 capsule 01/31/19 traZODone [TraZODone] 50 mg PO HS PRN #15 tablet 01/31/19 Allergies Allergy/AdvReac Type Severity Reaction Status Date / Time chlorpromazine Allergy Hives Verified 03/16/19 18:47 [From Thorazine] haloperidol [From Haldol] AdvReac Intermediate See Verified 03/16/19 18:47 Comments Constitutional: Reports: weakness. Denies: fever, chills Cardiovascular: Denies: chest pain, palpitations, dyspnea on exertion Respiratory: Denies: cough, dyspnea, wheezes Gastrointestinal: Denies: abdominal pain, nausea, vomiting Musculoskeletal: Denies: back pain, neck pain Integumentary: Denies: rash Psychiatric: Reports: auditory hallucinations, visual hallucinations. Denies: suicidal thoughts, homicidal thoughts Endocrine: Reports: fatigue Past Medical History - Past Medical History Medical history: Reports: asthma, other Surgical history: Reports: non-contributory, arthroscopy, cholecystectomy Psychiatric history: Reports: anxiety, depression, schizophrenia, previous psychiatric hospitalization - Social History Smoking Status: Current every day smoker Smokeless Tobacco Status: Yes Alcohol use: Reports: rarely, recent Drug use: Reports: marijuana, methamphetamine Physical Exam - General Limitations: no limitations General appearance: alert, anxious Course Vital Signs Temperature 98.8 F 03/16/19 18:42 Pulse Rate 90 03/16/19 18:42 Respiratory Rate 20 03/16/19 18:42 Blood Pressure 131/81 03/16/19 18:42 O2 Sat by Pulse Oximetry 99 03/16/19 18:42 Temperature 98.8 F 03/16/19 18:42 Pulse Rate 90 03/16/19 18:42 Respiratory Rate 20 03/16/19 18:42 Blood Pressure 131/81 03/16/19 18:42 O2 Sat by Pulse Oximetry 99 03/16/19 18:42 Oxygen Delivery Oxygen Delivery Room Air Medical Decision Making - Lab Data Result diagrams: 03/16/19 19:19 03/16/19 19:19 Lab Results 03/16/19 03/16/19 03/16/19 Range/Units 18:54 18:54 19:19 WBC 11.8 H (4.3-11.1) K/mcL RBC 4.41 (4.19-5.50) M/mcL Hgb 12.4 L (12.9-16.9) g/dL Hct 38.6 (37.5-50.1) % MCV 87.5 (83.0-100.0) fL MCH 28.1 (28.0-33.3) pg MCHC 32.1 (31.6-35.5) g/dL RDW 13.7 (11.5-14.5) % Plt Count 210 (140-400) K/mcL MPV 11.3 (9.4-12.4) fL Immature Gran % 0.3 (0-4) % Seg Neutrophils % 56.6 % Lymphocytes % 29.9 % Monocytes % 10.3 % Eosinophils % 2.6 % Basophils % 0.3 % Neutrophils # 6.7 (1.6-8.9) K/mcL Lymphocytes # 3.5 (0.6-4.6) K/mcL Monocytes # 1.2 (0.0-1.3) K/mcL Eosinophils # 0.3 (0.0-0.6) K/mcL Basophils # 0.0 (0.0-0.2) K/mcL Sodium (136-145) mEq/L Potassium (3.5-5.1) mEq/L Chloride (98-107) mEq/L Carbon Dioxide (23-29) mEq/L BUN (6-20) mg/dL Creatinine (0.70-1.30) mg/dL Est GFR ( Amer) (> 60) Est GFR (Non-Af Amer) (> 60) BUN/Creatinine Ratio (6-26) Glucose (70-105) mg/dL Calculated Osmolality (280-300) Calcium (8.6-10.3) mg/dL Creatine Kinase (30-223) Units/L Urine Color Yellow (Yellow) Urine Clarity Clear (Clear) Urine pH 6.5 (5.0-8.0) pH Units Ur Specific [place] 1.027 H (1.010-1.025) Urine Protein Negative (Neg-Trace) mg/dL Urine Glucose (UA) Normal (Normal) mg/dL Urine Ketones Negative (Negative) mg/dL Urine Blood Negative (Negative) Urine Nitrite Negative (Negative) Urine Bilirubin Negative (Negative) Urine Urobilinogen 2.0 H (Normal) mg/dL Ur Leukocyte Esterase Negative (Negative) Salicylates (15.0-30.0) mg/dL Urine Opiates Screen Negative (Jdblis=869) ng/mL Ur Buprenorphine Scrn Negative (Cutoff=5) ng/mL Acetaminophen (10-20) mcg/mL Ur Barbiturates Screen Negative (Qtzokh=063) ng/mL Ur Phencyclidine Scrn Negative (Cutoff=25) ng/mL Ur Amphetamines Screen Negative (Xcoynv=0366) ng/mL U Benzodiazepines Scrn Negative (Gknyyh=516) ng/mL Urine Cocaine Screen Negative (Cutoff= 300) ng/mL U Marijuana (THC) Screen Positive H (Cutoff = 50) ng/mL Ur Drug Screen Interp See Below Ethyl Alcohol (Less than 10) mg/dL 03/16/19 Range/Units 19:19 WBC (4.3-11.1) K/mcL RBC (4.19-5.50) M/mcL Hgb (12.9-16.9) g/dL Hct (37.5-50.1) % MCV (83.0-100.0) fL MCH (28.0-33.3) pg MCHC (31.6-35.5) g/dL RDW (11.5-14.5) % Plt Count (140-400) K/mcL MPV (9.4-12.4) fL Immature Gran % (0-4) % Seg Neutrophils % % Lymphocytes % % Monocytes % % Eosinophils % % Basophils % % Neutrophils # (1.6-8.9) K/mcL Lymphocytes # (0.6-4.6) K/mcL Monocytes # (0.0-1.3) K/mcL Eosinophils # (0.0-0.6) K/mcL Basophils # (0.0-0.2) K/mcL Sodium 139 (136-145) mEq/L Potassium 3.5 (3.5-5.1) mEq/L Chloride 109 H (98-107) mEq/L Carbon Dioxide 24 (23-29) mEq/L BUN 11 (6-20) mg/dL Creatinine 0.79 (0.70-1.30) mg/dL Est GFR ( Amer) > 60 (> 60) Est GFR (Non-Af Amer) > 60 (> 60) BUN/Creatinine Ratio 14 (6-26) Glucose 91 (70-105) mg/dL Calculated Osmolality 287 (280-300) Calcium 8.8 (8.6-10.3) mg/dL Creatine Kinase 135 (30-223) Units/L Urine Color (Yellow) Urine Clarity (Clear) Urine pH (5.0-8.0) pH Units Ur Specific [place] (1.010-1.025) Urine Protein (Neg-Trace) mg/dL Urine Glucose (UA) (Normal) mg/dL Urine Ketones (Negative) mg/dL Urine Blood (Negative) Urine Nitrite (Negative) Urine Bilirubin (Negative) Urine Urobilinogen (Normal) mg/dL Ur Leukocyte Esterase (Negative) Salicylates < 2.5 L (15.0-30.0) mg/dL Urine Opiates Screen (Zcxxot=562) ng/mL Ur Buprenorphine Scrn (Cutoff=5) ng/mL Acetaminophen < 10 L (10-20) mcg/mL Ur Barbiturates Screen (Xdzlkw=896) ng/mL Ur Phencyclidine Scrn (Cutoff=25) ng/mL Ur Amphetamines Screen (Lkaqbf=8705) ng/mL U Benzodiazepines Scrn (Bsgeqw=813) ng/mL Urine Cocaine Screen (Cutoff= 300) ng/mL U Marijuana (THC) Screen (Cutoff = 50) ng/mL Ur Drug Screen Interp Ethyl Alcohol < 10 (Less than 10) mg/dL Attestation Statement - Attestation Attestation: I examined this patient and my medical decision-making was reviewed with the Resident Physician. I agree with the documented findings, disposition and treatment plan as described except to the extent set forth below. Patient to the ED with a chief complaint of generalized weakness. Patient states is been walking for days. He has schizophrenia and his medications are not working. He feels weak all over like he cannot walk anymore. History of schizophrenia. Patient states he is taking his medicine but he still hallucinating. He is in no acute distress on examination., Cooperative. Plan. Basic labs and EKG. EKG is reviewed with the resident. Unchanged from prior. Admitted to [facility].
[2019-03-16 19:14] LABS: Bilirubin,Urine Negative (Negative); Blood,Urine Negative (Negative); Clarity,Urine Clear (Clear); Color,Urine Yellow (Yellow); Glucose,Urine (UA) Normal (Normal); Ketones,Urine Negative (Negative); Leukocyte Esterase,Urine Negative (Negative); Nitrite,Urine Negative (Negative); PH,Urine 6.5 pH Units (5.0-8.0); Protein,Urine Negative (Neg-Trace); Specific Gravity,Urine 1.027 (1.010-1.025)
[2019-03-16 19:24] LABS: Amphetamine Screen,Urine Negative ng/mL (Cutoff=1000); Barbiturate Screen,Urine Negative ng/mL (Cutoff=200); Benzodiazepines Screen,Urine Negative ng/mL (Cutoff=200); Cannabinoid Screen,Urine Positive ng/mL (Cutoff = 50); Cocaine Screen,Urine Negative ng/mL (Cutoff= 300); Opiate Screen,Urine Negative ng/mL (Cutoff=300); Phencyclidine Screen,Urine Negative ng/mL (Cutoff=25)
[2019-03-16 19:37] LABS: Basophils % 0.3 %; Eosinophils # 0.3 K/mcL (0.0-0.6); Eosinophils % 2.6 %; Hematocrit 38.6 % (37.5-50.1); Hemoglobin 12.4 g/dL (12.9-16.9); Immature Granulocytes % 0.3 % (0-4); Lymphocytes # 3.5 K/mcL (0.6-4.6); Lymphocytes % 29.9 %; Mean Corpuscular HGB Conc 32.1 g/dL (31.6-35.5); Mean Corpuscular Hemoglobin 28.1 pg (28.0-33.3); Mean Corpuscular Volume 87.5 fL (83.0-100.0); Mean Platelet Volume 11.3 fL (9.4-12.4); Monocytes # 1.2 K/mcL (0.0-1.3); Monocytes % 10.3 %; Neutrophils # 6.7 K/mcL (1.6-8.9); Platelet Count 210 K/mcL (140-400); Red Blood Count 4.41 M/mcL (4.19-5.50); Red Cell Distribution Width 13.7 % (11.5-14.5); Segmented Neutrophils % 56.6 %; White Blood Count 11.8 K/mcL (4.3-11.1)
[2019-03-16 19:53] LABS: Acetaminophen < 10 mcg/mL (10-20); BUN/Creatinine Ratio 14 (6-26); Blood Urea Nitrogen 11 mg/dL (6-20); Calcium 8.8 mg/dL (8.6-10.3); Carbon Dioxide 24 mEq/L (23-29); Chloride 109 mEq/L (98-107); Creatine Kinase 135 Units/L (30-223); Ethanol < 10 mg/dL (Less than 10); Glucose 91 mg/dL (70-105); Osmolality,Calculated 287 (280-300); Potassium 3.5 mEq/L (3.5-5.1); Salicylate < 2.5 mg/dL (15.0-30.0); Sodium 139 mEq/L (136-145); eGFR For African Americans > 60 (> 60); eGFR For Non-African Americans > 60 (> 60)
[2019-03-16] MEDS ORDERED: Mag Hydrox/Al Hydrox/Simeth 30 ML UDC PO PRN (21:55)
[2019-03-16] MEDS ORDERED: *HR* LORazepam 1 MG TABLET PO PRN (21:55)
[2019-03-16] MEDS ORDERED: Ibuprofen 400 MG TABLET PO PRN (21:55)
[2019-03-16] MEDS ORDERED: *HR* LORazepam 2 MG/ML VIAL IM PRN (21:55)
[2019-03-16] MEDS ORDERED: traZODone 50 MG TABLET PO PRN (21:55)
[2019-03-16] MEDS ORDERED: hydrOXYzine pamoate 25 MG CAPSULE PO PRN (21:55)
[2019-03-16] MEDS ORDERED: MOM Conc 10 ML UD.LIQ PO PRN (21:55)
[2019-03-16] MEDS ORDERED: Artificial Tears SOLN 15 ML BOTTLE BOTH EYES PRN (22:01)
[2019-03-16] MEDS ORDERED: Ziprasidone 20 MG CAPSULE PO PRN (22:13)
[2019-03-16] MEDS ORDERED: Perphenazine 8 MG TABLET PO SCH (22:15)
[2019-03-16] MEDS ORDERED: OLANZapine 10 MG TAB.RAPDIS PO SCH (22:15)
[2019-03-16] MEDS ORDERED: Divalproex (24 HR) 500 MG TABLET PO SCH (22:15)
[2019-03-16] MEDS ORDERED: Ziprasidone 20 MG in Water for inj. (sterile) 1 ML IM PRN (22:19)
[2019-03-16] MEDS: Budesonide/Formoterol 160/4.5 1 PUFF INH IH SCH (22:43)
[2019-03-17] MEDS: Nicotine 2 MG GUM BC PRN ×2 (06:45→14:22)
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
[2019-03-17] MEDS: Perphenazine 8 MG TABLET PO SCH ×4 (09:52→21:43)
[2019-03-17] MEDS: Budesonide/Formoterol 160/4.5 1 PUFF INH IH SCH ×2 (11:55→21:49)
[2019-03-17] MEDS: hydrOXYzine pamoate 25 MG CAPSULE PO PRN ×2 (16:48→21:44)
[2019-03-17] MEDS ORDERED: Divalproex (24 HR) 500 MG TABLET PO SCH (21:00)
[2019-03-17] MEDS ORDERED: OLANZapine 10 MG TAB.RAPDIS PO SCH (21:00)
[2019-03-18] MEDS: Perphenazine 8 MG TABLET PO SCH (09:02)
[2019-03-18] MEDS: Budesonide/Formoterol 160/4.5 1 PUFF INH IH SCH (09:02)
--- NOTE | 2019-03-18 09:47 | Discharge Summary ---
Date of Encounter: 03/18/19 Time of Encounter: 08:30 Diagnosis - Discharge Diagnosis (1) Schizoaffective disorder, bipolar type Status: Acute Medications - Discharge Medications Albuterol Sulfate [Ventolin Hfa] 2 puff IH Q6H PRN #1 hfa.aer.ad 01/31/19 [Rx] Artificial Tears SOLN [Akwa Tears] 1 drop BOTH EYES QID PRN #1 bottle 01/31/19 [Rx] Benztropine Mesylate 1 mg PO HS #15 tablet 01/31/19 [Rx] Budesonide/Formoterol 160/4.5 [Symbicort 160/4.5] 2 puff IH BIDR #1 inh 01/31/19 [Rx] Divalproex (24 HR) [Depakote ER (24 HR)] 1,000 mg PO HS #30 tab.er.24h 01/31/19 [Rx] OLANZapine [Zyprexa Zydis] 20 mg PO HS #30 tab.rapdis 01/31/19 [Rx] Perphenazine [Trilafon] 8 mg PO QID #60 tablet 01/31/19 [Rx] hydrOXYzine pamoate [Vistaril] 50 mg PO Q6HR PRN #45 capsule 01/31/19 [Rx] traZODone [TraZODone] 50 mg PO HS PRN #15 tablet 01/31/19 [Rx] Allergy/AdvReac Type Severity Reaction Status Date / Time chlorpromazine Allergy Hives Verified 03/16/19 18:47 [From Thorazine] haloperidol [From Haldol] AdvReac Intermediate See Verified 03/16/19 18:47 Comments Results Procedures and tests throughout hospitalization: Completed Lab Orders Category Date Time Status Acetaminophen Stat Lab 03/16/19 19:19 Completed Basic Metabolic Panel Stat Lab 03/16/19 19:19 Completed Complete Blood Count [HEME] Stat Lab 03/16/19 19:19 Completed Creatine Kinase Stat Lab 03/16/19 19:19 Completed Drug Screen, Urine [UCHEM] Stat Lab 03/16/19 18:54 Completed Ethanol Stat Lab 03/16/19 19:19 Completed Salicylate Stat Lab 03/16/19 19:19 Completed Urinalysis reflex Microscopic [URIN] Stat Lab 03/16/19 18:54 Completed Lab Results 03/16/19 03/16/19 03/16/19 Range/Units 18:54 18:54 19:19 WBC 11.8 H (4.3-11.1) K/mcL RBC 4.41 (4.19-5.50) M/mcL Hgb 12.4 L (12.9-16.9) g/dL Hct 38.6 (37.5-50.1) % MCV 87.5 (83.0-100.0) fL MCH 28.1 (28.0-33.3) pg MCHC 32.1 (31.6-35.5) g/dL RDW 13.7 (11.5-14.5) % Plt Count 210 (140-400) K/mcL MPV 11.3 (9.4-12.4) fL Immature Gran % 0.3 (0-4) % Seg Neutrophils % 56.6 % Lymphocytes % 29.9 % Monocytes % 10.3 % Eosinophils % 2.6 % Basophils % 0.3 % Neutrophils # 6.7 (1.6-8.9) K/mcL Lymphocytes # 3.5 (0.6-4.6) K/mcL Monocytes # 1.2 (0.0-1.3) K/mcL Eosinophils # 0.3 (0.0-0.6) K/mcL Basophils # 0.0 (0.0-0.2) K/mcL Sodium (136-145) mEq/L Potassium (3.5-5.1) mEq/L Chloride (98-107) mEq/L Carbon Dioxide (23-29) mEq/L BUN (6-20) mg/dL Creatinine (0.70-1.30) mg/dL Est GFR ( Amer) (> 60) Est GFR (Non-Af Amer) (> 60) BUN/Creatinine Ratio (6-26) Glucose (70-105) mg/dL Calculated Osmolality (280-300) Calcium (8.6-10.3) mg/dL Creatine Kinase (30-223) Units/L Urine Color Yellow (Yellow) Urine Clarity Clear (Clear) Urine pH 6.5 (5.0-8.0) pH Units Ur Specific [place] 1.027 H (1.010-1.025) Urine Protein Negative (Neg-Trace) mg/dL Urine Glucose (UA) Normal (Normal) mg/dL Urine Ketones Negative (Negative) mg/dL Urine Blood Negative (Negative) Urine Nitrite Negative (Negative) Urine Bilirubin Negative (Negative) Urine Urobilinogen 2.0 H (Normal) mg/dL Ur Leukocyte Esterase Negative (Negative) Salicylates (15.0-30.0) mg/dL Urine Opiates Screen Negative (Qmwpkh=305) ng/mL Ur Buprenorphine Scrn Negative (Cutoff=5) ng/mL Acetaminophen (10-20) mcg/mL Ur Barbiturates Screen Negative (Bkfuqx=980) ng/mL Ur Phencyclidine Scrn Negative (Cutoff=25) ng/mL Ur Amphetamines Screen Negative (Yxoggw=3433) ng/mL U Benzodiazepines Scrn Negative (Uifbjc=776) ng/mL Urine Cocaine Screen Negative (Cutoff= 300) ng/mL U Marijuana (THC) Screen Positive H (Cutoff = 50) ng/mL Ur Drug Screen Interp See Below Ethyl Alcohol (Less than 10) mg/dL 03/16/19 Range/Units 19:19 WBC (4.3-11.1) K/mcL RBC (4.19-5.50) M/mcL Hgb (12.9-16.9) g/dL Hct (37.5-50.1) % MCV (83.0-100.0) fL MCH (28.0-33.3) pg MCHC (31.6-35.5) g/dL RDW (11.5-14.5) % Plt Count (140-400) K/mcL MPV (9.4-12.4) fL Immature Gran % (0-4) % Seg Neutrophils % % Lymphocytes % % Monocytes % % Eosinophils % % Basophils % % Neutrophils # (1.6-8.9) K/mcL Lymphocytes # (0.6-4.6) K/mcL Monocytes # (0.0-1.3) K/mcL Eosinophils # (0.0-0.6) K/mcL Basophils # (0.0-0.2) K/mcL Sodium 139 (136-145) mEq/L Potassium 3.5 (3.5-5.1) mEq/L Chloride 109 H (98-107) mEq/L Carbon Dioxide 24 (23-29) mEq/L BUN 11 (6-20) mg/dL Creatinine 0.79 (0.70-1.30) mg/dL Est GFR ( Amer) > 60 (> 60) Est GFR (Non-Af Amer) > 60 (> 60) BUN/Creatinine Ratio 14 (6-26) Glucose 91 (70-105) mg/dL Calculated Osmolality 287 (280-300) Calcium 8.8 (8.6-10.3) mg/dL Creatine Kinase 135 (30-223) Units/L Urine Color (Yellow) Urine Clarity (Clear) Urine pH (5.0-8.0) pH Units Ur Specific [place] (1.010-1.025) Urine Protein (Neg-Trace) mg/dL Urine Glucose (UA) (Normal) mg/dL Urine Ketones (Negative) mg/dL Urine Blood (Negative) Urine Nitrite (Negative) Urine Bilirubin (Negative) Urine Urobilinogen (Normal) mg/dL Ur Leukocyte Esterase (Negative) Salicylates < 2.5 L (15.0-30.0) mg/dL Urine Opiates Screen (Izwlut=895) ng/mL Ur Buprenorphine Scrn (Cutoff=5) ng/mL Acetaminophen < 10 L (10-20) mcg/mL Ur Barbiturates Screen (Ihmcim=034) ng/mL Ur Phencyclidine Scrn (Cutoff=25) ng/mL Ur Amphetamines Screen (Jzsbia=5262) ng/mL U Benzodiazepines Scrn (Atmmdf=690) ng/mL Urine Cocaine Screen (Cutoff= 300) ng/mL U Marijuana (THC) Screen (Cutoff = 50) ng/mL Ur Drug Screen Interp Ethyl Alcohol < 10 (Less than 10) mg/dL Provider Date of admission: 03/16/19 22:11 Primary care physician: PCP NONE Discharging clinician: Maria Guadalupe Castrejon Psychiatry Exam - Constitutional Vitals: Temp Pulse Resp BP Pulse Ox 99.0 F 90 20 134/79 96 03/17/19 21:00 03/17/19 21:00 03/17/19 21:00 03/17/19 21:00 03/17/19 21:00 General appearance: age & developmentally appropriate, well-nourished, disheveled - Musculoskeletal Gait: normal Station: relaxed Strength & Tone: normal for patient - Psychiatric Patient Orientation: Yes Person, Yes Time, Yes Place, Yes Circumstance Level of alertness: Alert Behavior: calm, cooperative Psychomotor activity: Normal Eye Contact: Maintains Eye Contact Mood Description: Euthymic/stable Patient description of mood: Okay Affect description: congruent with mood, blunted Speech Volume: Normal Speech pattern: normal rate, normal rhythm, normal tone, fluent, spontaneous Language & Vocabulary: consistent with education Thought Process: Linear, Goal Oriented Thought Content: No Suicidal ideation, No Homicidal ideation, No Overt delusions Perceptual Disturbances: No Auditory hallucinations, No Visual hallucinations Attention Span Ability: Capable of Focused Attention Memory Description: Grossly Intact Patient Reliability: Reliable Historian Fund of knowledge: Yes abstraction ability, Yes aware of current events Intelligence Estimate: Average Judgment: Fair Insight: Partial Hospital Course Hospital course: Mr. Barrientos is a 33 year old male who presented to the emergency room reporting increased psychosis. He also said he was concerned if he remained homeless into the winter he would . He seemed to be at his baseline once he had a day on the unit. He was compliant with his medications. He had his chronic delusions did not appear to be responding to internal stimuli. He was able to care for himself.Patient was educated of diagnosis and the risk-benefit side effects of this alternative treatment options and was monitored for responsiveness and side effects. Mood anxiety sleep and appetite interest improved as did future orientation. Self-harm thoughts subsided, thinking cleared, psychosis resolved, and mood stabilized. Patient was able to attend both individual and group therapy sessions as well as meet with the psychiatrist daily and urged to discuss any medication or treatment issues or other concerns. The patient was educated primarily by verbal means about their diagnosis and manifestations in their life. The option for treatment including group and individual therapy programming was offered to the patient in addition to the use of medications with all their potential risks, benefits, and side effects as well as the risks of not taking medication and non-adhereance were discussed with the patient at length. The patient was given the opportunity to ask questions and was noted to participate in the treatment in the planning process. The patient felt ready and eager to be discharged from the inpatient psychiatric unit to continue on with treatment as an outpatient. The patient agreed that is they were safe for this disposition. The patient was considered to be able to participate in informed consent and decision making with respect to medical, legal, and financial issues of the time of discharge. At the time of discharge the patient adamantly denied any concerns for lethality including suicidal or homicidal thoughts ideations or plans and was future oriented toward ongoing mental health care, medical follow-up and sobriety. Time spent discussing smoking cessation with patient: 3 to 10 minutes Does patient wish to continue nicotine replacement upon disc: No - Time Spent with Patient Total time spent providing and/or coordinating discharge services: 20 Less than 30 minutes Specific discharge activities: Interval history reviewed. Available labs reviewed . Psychotherapy provided. Patient had an opportunity to ask questions and address concerns. Patient was in agreement with the treatment plan. The risks benefits and side effects of medications were discussed with the patient, including alternatives and treatment. The patient was educated on the abstaining from any alcohol or illicit substances, following up with all scheduled appointments, and taking all medications as prescribed. Assessment and Plan - Patient/Caregiver Discharge Instructions Activity: resume usual activities as tolerated Diet: regular diet Additional Instructions: Continue current medications. Follow up with outpatient mental health. Encourage continued therapy in a group or individual setting. The patient was discharged to home. - Follow up Plan Follow up with: Amalia Tejada [facility] [Outside] - 03/18/19 1:00 pm (You have an appointment scheduled with Darion Ambrose on Tuesday, March 26, 2019 at 2:00 PM for Counseling and Case Management. You have an appointment scheduled for Monday, March 18, 2019 at 1:[address] Morgan Woodard for medication management. Please contact the office at least 24 hours in advance if you are unable to keep your appointment(s). ) Functional capacity at discharge: independent ambulation Overall status at discharge: Stable Disposition: Home, Self-Care Quality - Multiple Antipsychotics Patient discharged on 2 or more antipsychotic medications: Yes - Justification Documentation of: History 3 failed trials of monotherapy (Failed solo trial of Haldol, perphenazine, and Seroquel.) Procedures - Procedures Procedures: Medication Management, Crisis Stabilization, Supportive Therapy, Group Therapy, Psychoeducational Therapy
--- NOTE | 2019-03-18 10:33 | Electrocardiograph Report ---
[address] [id number] Test Date: 2019-03-16 Pat Name: Amadou Barrientos Department: [id number] Room: Gender: M Salvager: : 1985 Requested By: Maria Fernanda See Order Number: [id number] Reading MD: Reagan Cortés Measurements Intervals [place] Rate: 80 P: 59 OR: 212 QRS: 40 QRSD: 95 T: 33 QT: 372 QTc: 430 Interpretive Statements Sinus rhythm Prolonged OR interval Electronically Signed On 03-18-2019 10:31:50 EDT by Reagan Cortés
[2019-03-18 10:57] VITALS: BP 139/78
== END 2019-03-18 10:23 | disposition home or self-care (01) ==
LOC: EMEROOARM 18:38 → 1ANU 18:38 → SUATTDRO 22:11 → 1ANU 22:11
PROVIDERS: ADMIT Psychiatry & Neurology Psychiatry; ATTEND Psychiatry & Neurology Psychiatry

== ENCOUNTER 2021-01-26 16:00 | Inpatient (IN) ==
[2021-01-26 17:27] LABS: Basophils # 0.1 K/mcL (0.0-0.2); Basophils % 0.5 %; Eosinophils # 0.3 K/mcL (0.0-0.6); Eosinophils % 2.2 %; Hematocrit 39.3 % (37.5-50.1); Hemoglobin 12.7 g/dL (12.9-16.9); Immature Granulocytes % 0.3 % (0-4); Lymphocytes # 4.4 K/mcL (0.6-4.6); Lymphocytes % 30.6 %; Mean Corpuscular HGB Conc 32.3 g/dL (31.6-35.5); Mean Corpuscular Hemoglobin 27.4 pg (28.0-33.3); Mean Corpuscular Volume 84.9 fL (83.0-100.0); Mean Platelet Volume 11.6 fL (9.4-12.4); Monocytes # 1.7 K/mcL (0.0-1.3); Monocytes % 11.7 %; Neutrophils # 7.9 K/mcL (1.6-8.9); Platelet Count 183 K/mcL (140-400); Red Blood Count 4.63 M/mcL (4.19-5.50); Red Cell Distribution Width 13.5 % (11.5-14.5); Segmented Neutrophils % 54.7 %; White Blood Count 14.4 K/mcL (4.3-11.1)
[2021-01-26 17:40] LABS: Platelet Estimate Normal (Normal)
[2021-01-26 17:41] LABS: Bacteria,Urine Few per hpf (None-Few); Bilirubin,Urine Negative (Negative); Blood,Urine Negative (Negative); Clarity,Urine Clear (Clear); Color,Urine Yellow (Yellow); Glucose,Urine (UA) Normal (Normal); Ketones,Urine Trace mg/dL (Negative); Leukocyte Esterase,Urine Negative (Negative); Mucus,Urine Few per lpf (None-Few); Nitrite,Urine Negative (Negative); Protein,Urine 30 mg/dL (Neg-Trace); RBC,Urine 0-3 per hpf (0-3); Specific Gravity,Urine > 1.030 (1.010-1.025); Urobilinogen,Urine Normal (Normal); WBC,Urine 0-3 per hpf (0-3)
[2021-01-26 17:41] LABS: Reactive Lymphocytes Present (Not Present)
[2021-01-26 17:46] LABS: Amphetamine Screen,Urine Negative ng/mL (Cutoff=1000); Barbiturate Screen,Urine Negative ng/mL (Cutoff=200); Benzodiazepines Screen,Urine Negative ng/mL (Cutoff=200); Cannabinoid Screen,Urine Positive ng/mL (Cutoff = 50); Cocaine Screen,Urine Negative ng/mL (Cutoff= 300); Opiate Screen,Urine Negative ng/mL (Cutoff=300); Phencyclidine Screen,Urine Negative ng/mL (Cutoff=25)
[2021-01-26 17:47] LABS: Acetaminophen < 10 mcg/mL (10-20); BUN/Creatinine Ratio 32 (6-26); Blood Urea Nitrogen 22 mg/dL (6-20); Calcium 8.7 mg/dL (8.6-10.3); Carbon Dioxide 25 mEq/L (23-29); Chloride 106 mEq/L (98-107); Ethanol < 10 mg/dL (Less than 10); Glucose 107 mg/dL (70-105); Osmolality,Calculated 290 (280-300); Potassium 3.3 mEq/L (3.5-5.1); Salicylate < 2.5 mg/dL (15.0-30.0); Sodium 138 mEq/L (136-145); eGFR For African Americans > 60 (> 60); eGFR For Non-African Americans > 60 (> 60)
[2021-01-26 23:01] LABS: Adenovirus Not Detected (Not Detect); Bordetella Pertussis Not Detected (Not Detect); Chlamydophila pneumoniae Not Detected (Not Detect); Coronavirus 229E Not Detected (Not Detect); Coronavirus HKU1 Not Detected (Not Detect); Coronavirus NL63 Not Detected (Not Detect); Coronavirus OC43 Not Detected (Not Detect); Human Metapneumovirus Not Detected (Not Detect); Human Rhinovirus/Enterovirus Not Detected (Not Detect); Influenza A Subtype 2009 H1 Not Detected (Not Detect); Influenza B Not Detected (Not Detect); Mycoplasma pneumoniae Not Detected (Not Detect); Parainfluenza Virus 1 Not Detected (Not Detect); Parainfluenza Virus 2 Not Detected (Not Detect); Parainfluenza Virus 3 Not Detected (Not Detect); Parainfluenza Virus 4 Not Detected (Not Detect); Respiratory Syncytial Virus Not Detected (Not Detect); SARS-CoV-2 Not Detected (Not Detect)
[2021-01-26] MEDS ORDERED: *HR* LORazepam 2 MG/ML VIAL IM PRN (23:32)
[2021-01-26] MEDS ORDERED: Ziprasidone 20 MG, Closed System Device IM Kit 1 EACH in Water for inj. (sterile) 1 ML IM PRN (23:35)
[2021-01-27] MEDS: Ziprasidone 20 MG CAPSULE PO PRN (00:26)
[2021-01-27] MEDS: *HR* LORazepam 1 MG TABLET PO PRN (00:26)
[2021-01-27] MEDS: Ibuprofen 400 MG TABLET PO PRN ×2 (00:26→20:35)
[2021-01-27] MEDS ORDERED: MOM Conc 10 ML UD.LIQ PO PRN (09:52)
[2021-01-27] MEDS ORDERED: Mag Hydrox/Al Hydrox/Simeth 30 ML UDC PO PRN (09:52)
[2021-01-27] MEDS: Nicotine 2 MG GUM BC PRN ×4 (14:39→21:12)
[2021-01-27] MEDS: Acetaminophen 325 MG TABLET PO PRN (16:15)
[2021-01-27] MEDS: Temazepam 15 MG CAPSULE PO SCH (20:34)
[2021-01-27] MEDS: hydrOXYzine pamoate 25 MG CAPSULE PO PRN (20:35)
[2021-01-27] MEDS: FluPHENAZine 10 MG TABLET PO SCH (20:35)
[2021-01-27] MEDS: QUEtiapine Fumarate 25 MG TABLET PO PRN (21:12)
[2021-01-28] MEDS: hydrOXYzine pamoate 25 MG CAPSULE PO PRN ×3 (01:26→22:29)
[2021-01-28] MEDS: QUEtiapine Fumarate 25 MG TABLET PO PRN ×2 (01:26→22:29)
[2021-01-28] MEDS: Acetaminophen 325 MG TABLET PO PRN ×2 (07:24→15:13)
[2021-01-28] MEDS: Nicotine 2 MG GUM BC PRN ×4 (07:24→19:21)
[2021-01-28] MEDS: FluPHENAZine 10 MG TABLET PO SCH ×2 (08:28→20:18)
[2021-01-28] MEDS: Ibuprofen 400 MG TABLET PO PRN (19:22)
[2021-01-28] MEDS: Ziprasidone 20 MG CAPSULE PO PRN (19:23)
[2021-01-28] MEDS: *HR* LORazepam 1 MG TABLET PO PRN (19:23)
[2021-01-28] MEDS: Temazepam 15 MG CAPSULE PO SCH (20:17)
[2021-01-28] MEDS ORDERED: QUEtiapine Fumarate 25 MG TABLET PO SCH (21:00)
[2021-01-29] MEDS: Nicotine 2 MG GUM BC PRN ×5 (06:50→19:14)
[2021-01-29] MEDS: FluPHENAZine 10 MG TABLET PO SCH ×2 (08:30→20:24)
[2021-01-29] MEDS: Acetaminophen 325 MG TABLET PO PRN (10:25)
[2021-01-29] MEDS: Ziprasidone 20 MG CAPSULE PO PRN (12:46)
[2021-01-29] MEDS: hydrOXYzine pamoate 25 MG CAPSULE PO PRN (12:46)
[2021-01-29] MEDS: *HR* LORazepam 1 MG TABLET PO PRN (12:46)
[2021-01-29] MEDS: Temazepam 15 MG CAPSULE PO SCH (20:23)
[2021-01-29] MEDS: Ibuprofen 400 MG TABLET PO PRN (20:23)
[2021-01-29] MEDS: QUEtiapine Fumarate 100 MG TABLET PO SCH (20:24)
[2021-01-30] MEDS: Nicotine 2 MG GUM BC PRN ×3 (06:34→17:51)
[2021-01-30] MEDS: FluPHENAZine 10 MG TABLET PO SCH ×2 (08:37→20:39)
[2021-01-30] MEDS ORDERED: QUEtiapine Fumarate 25 MG TABLET PO SCH (09:00)
[2021-01-30] MEDS: *HR* LORazepam 1 MG TABLET PO PRN (11:24)
[2021-01-30] MEDS: Ziprasidone 20 MG CAPSULE PO PRN (11:24)
[2021-01-30] MEDS: Temazepam 15 MG CAPSULE PO SCH (20:39)
[2021-01-30] MEDS: QUEtiapine Fumarate 100 MG TABLET PO SCH (20:40)
[2021-01-31] MEDS: Acetaminophen 325 MG TABLET PO PRN (04:59)
[2021-01-31] MEDS: Nicotine 2 MG GUM BC PRN ×3 (05:33→19:10)
[2021-01-31] MEDS: FluPHENAZine 10 MG TABLET PO SCH ×2 (09:42→20:15)
[2021-01-31] MEDS: QUEtiapine Fumarate 100 MG TABLET PO SCH ×2 (09:53→20:15)
[2021-01-31] MEDS: *HR* LORazepam 1 MG TABLET PO PRN (12:34)
[2021-01-31] MEDS: Ziprasidone 20 MG CAPSULE PO PRN (12:34)
[2021-01-31] MEDS: Temazepam 15 MG CAPSULE PO SCH (20:15)
[2021-02-01] MEDS: Nicotine 2 MG GUM BC PRN (06:55)
[2021-02-01] MEDS: FluPHENAZine 10 MG TABLET PO SCH ×2 (08:56→20:49)
[2021-02-01] MEDS: QUEtiapine Fumarate 100 MG TABLET PO SCH ×2 (08:57→20:50)
[2021-02-01 09:28] VITALS: O2SAT 98
[2021-02-01] MEDS: hydrOXYzine pamoate 25 MG CAPSULE PO PRN ×2 (12:30→17:05)
[2021-02-01] MEDS: Ibuprofen 400 MG TABLET PO PRN (17:05)
[2021-02-01] MEDS: Temazepam 15 MG CAPSULE PO SCH (20:49)
[2021-02-02] MEDS: QUEtiapine Fumarate 100 MG TABLET PO SCH (08:42)
[2021-02-02] MEDS: FluPHENAZine 10 MG TABLET PO SCH (08:42)
[2021-02-02 09:44] VITALS: BP 152/111; PULSE 86; TEMP 97.7
== END 2021-02-02 10:35 | disposition home or self-care (01) | DRG 750 ==
LOC: EMEROOARM 16:00 → 1ANU 23:31
PROVIDERS: ADMIT Psychiatry & Neurology Psychiatry; ATTEND Psychiatry & Neurology Psychiatry

== ENCOUNTER 2021-07-12 10:16 | Inpatient (IN) ==
[2021-07-12 11:04] LABS: Basophils # 0.1 K/mcL (0.0-0.2); Basophils % 0.4 %; Eosinophils # 0.1 K/mcL (0.0-0.6); Eosinophils % 0.8 %; Hematocrit 43.4 % (37.5-50.1); Hemoglobin 14.1 g/dL (12.9-16.9); Immature Granulocytes % 0.4 % (0-4); Lymphocytes # 1.9 K/mcL (0.6-4.6); Lymphocytes % 13.5 %; Mean Corpuscular HGB Conc 32.5 g/dL (31.6-35.5); Mean Corpuscular Hemoglobin 27.6 pg (28.0-33.3); Mean Corpuscular Volume 85.1 fL (83.0-100.0); Mean Platelet Volume 11.6 fL (9.4-12.4); Monocytes % 7.2 %; Platelet Count 223 K/mcL (140-400); Red Cell Distribution Width 13.7 % (11.5-14.5); Segmented Neutrophils % 77.7 %; White Blood Count 14.1 K/mcL (4.3-11.1)
[2021-07-12 11:13] LABS: Acetaminophen < 10 mcg/mL (10-20); Alanine Aminotransferase 29 Units/L (7-52); Albumin 4.3 g/dL (3.5-5.7); Albumin/Globulin Ratio 1.3 (1.1-2.2); Alkaline Phosphatase 72 Units/L (34-104); Aspartate Amino Transferase 23 Units/L (13-39); BUN/Creatinine Ratio 30 (6-26); Bilirubin,Direct 0.3 mg/dL (0.0-0.2); Bilirubin,Indirect 1.6 mg/dL (0.0-1.0); Bilirubin,Total 1.9 mg/dL (0.3-1.0); Blood Urea Nitrogen 27 mg/dL (6-20); Calcium 9.5 mg/dL (8.6-10.3); Carbon Dioxide 24 mEq/L (23-29); Chloride 105 mEq/L (98-107); Chol/HDL Ratio 6.8 (0-4.9); Cholesterol 183 mg/dL (< 200); Ethanol < 10 mg/dL (Less than 10); Globulin 3.2 g/dL (2.4-3.5); Glucose 106 mg/dL (70-105); HDL Cholesterol 27 mg/dL (40-59); LDL Cholesterol,Calculated 139 mg/dL (< 100); Osmolality,Calculated 290 (280-300); Potassium 3.5 mEq/L (3.5-5.1); Salicylate < 2.5 mg/dL (15.0-30.0); Sodium 137 mEq/L (136-145); Total Protein 7.5 g/dL (6.4-8.9); Triglycerides 85 mg/dL (< 150); eGFR For African Americans > 60 (> 60); eGFR For Non-African Americans > 60 (> 60)
[2021-07-12 11:24] LABS: Thyroid Stimulating Hormone 0.717 mcIU/mL (0.340-5.600)
[2021-07-12 11:28] LABS: Estimated Average Glucose 120 mg/dl; Hemoglobin A1C 5.8 %
[2021-07-12 12:00] LABS: Bacteria,Urine Few per hpf (None-Few); Bilirubin,Urine Negative (Negative); Blood,Urine Negative (Negative); Clarity,Urine Clear (Clear); Color,Urine Yellow (Yellow); Glucose,Urine (UA) Normal (Normal); Ketones,Urine 100 mg/dL (Negative); Leukocyte Esterase,Urine Negative (Negative); Mucus,Urine Moderate per lpf (None-Few); Nitrite,Urine Negative (Negative); Protein,Urine 50 mg/dL (Neg-Trace); Specific Gravity,Urine > 1.030 (1.010-1.025); WBC,Urine 0-3 per hpf (0-3)
[2021-07-12 12:09] LABS: Amphetamine Screen,Urine Positive ng/mL (Cutoff=1000); Barbiturate Screen,Urine Negative ng/mL (Cutoff=200); Benzodiazepines Screen,Urine Positive ng/mL (Cutoff=200); Cannabinoid Screen,Urine Positive ng/mL (Cutoff = 50); Cocaine Screen,Urine Positive ng/mL (Cutoff= 300); Opiate Screen,Urine Negative ng/mL (Cutoff=300); Phencyclidine Screen,Urine Negative ng/mL (Cutoff=25)
[2021-07-12 14:02] LABS: Influenza A PCR Negative (Negative); Influenza B PCR Negative (Negative); Resp. Syncytial Virus PCR Negative (Negative); SARS-CoV-2 by PCR (In House) Negative (Negative)
[2021-07-12] MEDS ORDERED: traZODone 50 MG TABLET PO PRN (14:23)
[2021-07-12] MEDS ORDERED: Mag Hydrox/Al Hydrox/Simeth 30 ML UDC PO PRN (14:23)
[2021-07-12] MEDS ORDERED: Ibuprofen 400 MG TABLET PO PRN (14:23)
[2021-07-12] MEDS ORDERED: Acetaminophen 325 MG TABLET PO PRN (14:23)
[2021-07-12] MEDS ORDERED: MOM Conc 10 ML UD.LIQ PO PRN (14:23)
[2021-07-12] MEDS ORDERED: *HR* LORazepam 2 MG/ML VIAL IM PRN (14:23)
[2021-07-12] MEDS: *HR* LORazepam 1 MG TABLET PO PRN (20:51)
[2021-07-12] MEDS ORDERED: QUEtiapine Fumarate 25 MG TABLET PO SCH (21:00)
[2021-07-12] MEDS: Temazepam 15 MG CAPSULE PO PRN (22:31)
[2021-07-12] MEDS: hydrOXYzine pamoate 25 MG CAPSULE PO PRN (22:31)
[2021-07-13] MEDS: Nicotine 2 MG GUM BC PRN ×2 (11:36→16:09)
[2021-07-13] MEDS: *HR* LORazepam 1 MG TABLET PO PRN (11:55)
[2021-07-13] MEDS: FluPHENAZine 10 MG TABLET PO SCH (20:38)
[2021-07-13] MEDS: QUEtiapine Fumarate 100 MG TABLET PO SCH (20:38)
[2021-07-13] MEDS: hydrOXYzine pamoate 25 MG CAPSULE PO PRN (20:38)
[2021-07-14] MEDS: FluPHENAZine 10 MG TABLET PO SCH ×2 (08:53→20:14)
[2021-07-14] MEDS: QUEtiapine Fumarate 100 MG TABLET PO SCH ×2 (08:53→20:14)
[2021-07-14] MEDS: Nicotine 2 MG GUM BC PRN ×2 (16:58→19:42)
[2021-07-14] MEDS: hydrOXYzine pamoate 25 MG CAPSULE PO PRN (20:14)
[2021-07-14] MEDS ORDERED: FluPHENAZine 10 MG TABLET PO SCH (21:00)
[2021-07-15] MEDS: QUEtiapine Fumarate 100 MG TABLET PO SCH ×2 (09:30→20:11)
[2021-07-15] MEDS: Nicotine 2 MG GUM BC PRN ×4 (09:31→19:37)
[2021-07-15] MEDS: hydrOXYzine pamoate 25 MG CAPSULE PO PRN ×2 (15:53→20:11)
[2021-07-15] MEDS: FluPHENAZine 10 MG TABLET PO SCH (20:10)
[2021-07-15] MEDS: Temazepam 15 MG CAPSULE PO PRN (20:32)
[2021-07-16] MEDS: QUEtiapine Fumarate 100 MG TABLET PO SCH (10:18)
[2021-07-16 10:40] VITALS: BP 139/80; PULSE 89; TEMP 97.8; O2SAT 96
== END 2021-07-16 11:25 | disposition other institution (70) | DRG 750 ==
LOC: EMEROOARM 10:16 → 1ANU 14:19
PROVIDERS: ADMIT Psychiatry & Neurology Psychiatry; ATTEND Psychiatry & Neurology Psychiatry

== ENCOUNTER 2021-08-06 23:50 | Inpatient (IN) ==
[2021-08-07 01:21] LABS: Bilirubin,Urine Negative (Negative); Blood,Urine Negative (Negative); Clarity,Urine Clear (Clear); Color,Urine Yellow (Yellow); Glucose,Urine (UA) Normal (Normal); Ketones,Urine 10 mg/dL (Negative); Leukocyte Esterase,Urine Negative (Negative); Mucus,Urine Many per lpf (None-Few); Nitrite,Urine Negative (Negative); PH,Urine 5.5 pH Units (5.0-8.0); Protein,Urine 30 mg/dL (Neg-Trace); Specific Gravity,Urine > 1.030 (1.010-1.025); Squamous Epithelial Cell,Urine Few per hpf (None-Few); Urobilinogen,Urine Normal (Normal); WBC,Urine 0-3 per hpf (0-3)
[2021-08-07 01:34] LABS: Acetaminophen < 10 mcg/mL (10-20); BUN/Creatinine Ratio 19 (6-26); Blood Urea Nitrogen 14 mg/dL (6-20); Calcium 9.5 mg/dL (8.6-10.3); Carbon Dioxide 27 mEq/L (23-29); Chloride 105 mEq/L (98-107); Ethanol < 10 mg/dL (Less than 10); Glucose 88 mg/dL (70-105); Osmolality,Calculated 284 (280-300); Potassium 3.8 mEq/L (3.5-5.1); Salicylate < 2.5 mg/dL (15.0-30.0); Sodium 137 mEq/L (136-145); eGFR For African Americans > 60 (> 60); eGFR For Non-African Americans > 60 (> 60)
[2021-08-07 01:41] LABS: Amphetamine Screen,Urine Positive ng/mL (Cutoff=1000); Barbiturate Screen,Urine Negative ng/mL (Cutoff=200); Benzodiazepines Screen,Urine Negative ng/mL (Cutoff=200); Cannabinoid Screen,Urine Positive ng/mL (Cutoff = 50); Cocaine Screen,Urine Negative ng/mL (Cutoff= 300); Opiate Screen,Urine Negative ng/mL (Cutoff=300); Phencyclidine Screen,Urine Negative ng/mL (Cutoff=25)
[2021-08-07 01:48] LABS: Influenza A PCR Negative (Negative); Influenza B PCR Negative (Negative); Resp. Syncytial Virus PCR Negative (Negative)
[2021-08-07 01:51] LABS: SARS-CoV-2 by PCR (In House) Negative (Negative)
[2021-08-07 01:57] LABS: Basophils % 0.3 %; Eosinophils # 0.2 K/mcL (0.0-0.6); Eosinophils % 1.8 %; Hematocrit 43.7 % (37.5-50.1); Hemoglobin 14.3 g/dL (12.9-16.9); Immature Granulocytes % 0.3 % (0-4); Lymphocytes # 2.5 K/mcL (0.6-4.6); Lymphocytes % 19.2 %; Mean Corpuscular HGB Conc 32.7 g/dL (31.6-35.5); Mean Corpuscular Hemoglobin 27.7 pg (28.0-33.3); Mean Corpuscular Volume 84.5 fL (83.0-100.0); Mean Platelet Volume 11.8 fL (9.4-12.4); Monocytes # 0.9 K/mcL (0.0-1.3); Monocytes % 6.6 %; Neutrophils # 9.4 K/mcL (1.6-8.9); Platelet Count 233 K/mcL (140-400); Red Blood Count 5.17 M/mcL (4.19-5.50); Segmented Neutrophils % 71.8 %; White Blood Count 13.1 K/mcL (4.3-11.1)
[2021-08-07] MEDS ORDERED: MOM Conc 10 ML UD.LIQ PO PRN (09:11)
[2021-08-07] MEDS ORDERED: Nicotine 21 MG PATCH.TD24 TD PRN (09:11)
[2021-08-07] MEDS ORDERED: Mag Hydrox/Al Hydrox/Simeth 30 ML UDC PO PRN (09:11)
[2021-08-07] MEDS ORDERED: QUEtiapine Fumarate 25 MG TABLET PO PRN (09:11)
[2021-08-07] MEDS ORDERED: Haloperidol Lactate 5 MG/ML VIAL IM PRN (09:11)
[2021-08-07] MEDS ORDERED: haloperidoL 5 MG TABLET PO PRN (09:11)
[2021-08-07] MEDS ORDERED: Acetaminophen 325 MG TABLET PO PRN (09:11)
[2021-08-07] MEDS ORDERED: Nicotine 21 MG PATCH.TD24 TD SCH (11:15)
[2021-08-07] MEDS ORDERED: Ziprasidone 20 MG, Closed System Device IM Kit 1 EACH in Water for inj. (sterile) 1 ML IM PRN (11:16)
[2021-08-07] MEDS ORDERED: *HR* LORazepam 2 MG/ML VIAL IM PRN (11:18)
[2021-08-07] MEDS: Nicotine 2 MG GUM BC PRN (17:26)
[2021-08-07] MEDS: hydrOXYzine pamoate 25 MG CAPSULE PO PRN (22:50)
[2021-08-07] MEDS: FluPHENAZine 10 MG TABLET PO SCH (22:51)
[2021-08-07] MEDS: QUEtiapine Fumarate 100 MG TABLET PO SCH (22:51)
[2021-08-07] MEDS: Temazepam 15 MG CAPSULE PO SCH (22:52)
[2021-08-08] MEDS: QUEtiapine Fumarate 100 MG TABLET PO SCH ×2 (10:05→20:55)
[2021-08-08] MEDS: *HR* LORazepam 1 MG TABLET PO PRN (14:32)
[2021-08-08] MEDS: Temazepam 15 MG CAPSULE PO SCH (20:55)
[2021-08-08] MEDS: FluPHENAZine 10 MG TABLET PO SCH (20:55)
[2021-08-09] MEDS: QUEtiapine Fumarate 100 MG TABLET PO SCH ×2 (08:15→20:13)
[2021-08-09] MEDS: *HR* LORazepam 1 MG TABLET PO PRN ×2 (10:42→15:08)
[2021-08-09] MEDS: Nicotine 2 MG GUM BC PRN ×3 (14:37→20:05)
[2021-08-09] MEDS: FluPHENAZine 10 MG TABLET PO SCH (20:12)
[2021-08-09] MEDS: Temazepam 15 MG CAPSULE PO SCH (20:13)
[2021-08-10] MEDS: QUEtiapine Fumarate 100 MG TABLET PO SCH ×2 (08:49→20:53)
[2021-08-10 10:34] VITALS: O2SAT 100
[2021-08-10] MEDS: *HR* LORazepam 1 MG TABLET PO PRN ×2 (11:37→15:18)
[2021-08-10] MEDS: hydrOXYzine pamoate 25 MG CAPSULE PO PRN (11:37)
[2021-08-10] MEDS: Nicotine 2 MG GUM BC PRN ×2 (14:54→15:49)
[2021-08-10] MEDS: FluPHENAZine 10 MG TABLET PO SCH (20:53)
[2021-08-10] MEDS: Temazepam 15 MG CAPSULE PO SCH (20:53)
[2021-08-11] MEDS: QUEtiapine Fumarate 100 MG TABLET PO SCH (08:28)
[2021-08-11] MEDS: Nicotine 2 MG GUM BC PRN (08:29)
[2021-08-11 08:50] VITALS: BP 130/90; PULSE 81; TEMP 97.8
[2021-08-11] MEDS: *HR* LORazepam 1 MG TABLET PO PRN (10:41)
== END 2021-08-11 19:22 | disposition other institution (70) | DRG 750 ==
LOC: EMEROOARM 23:50 → 1ANU 08-07 09:28
PROVIDERS: ADMIT Psychiatry & Neurology Psychiatry; ATTEND Psychiatry & Neurology Psychiatry

== ENCOUNTER 2021-09-08 14:00 | Inpatient (IN) ==
[2021-09-08 15:14] LABS: Basophils # 0.1 K/mcL (0.0-0.2); Basophils % 0.5 %; Eosinophils # 0.3 K/mcL (0.0-0.6); Hematocrit 42.7 % (37.5-50.1); Hemoglobin 13.5 g/dL (12.9-16.9); Immature Granulocytes % 0.2 % (0-4); Lymphocytes # 3.5 K/mcL (0.6-4.6); Lymphocytes % 36.3 %; Mean Corpuscular HGB Conc 31.6 g/dL (31.6-35.5); Mean Corpuscular Volume 88.6 fL (83.0-100.0); Mean Platelet Volume 11.5 fL (9.4-12.4); Monocytes # 0.8 K/mcL (0.0-1.3); Platelet Count 213 K/mcL (140-400); Red Blood Count 4.82 M/mcL (4.19-5.50); Red Cell Distribution Width 14.3 % (11.5-14.5); White Blood Count 9.7 K/mcL (4.3-11.1)
[2021-09-08 15:22] LABS: Estimated Average Glucose 114 mg/dl; Hemoglobin A1C 5.6 %
[2021-09-08 16:00] LABS: Acetaminophen < 10 mcg/mL (10-20); Alanine Aminotransferase 18 Units/L (7-52); Albumin 3.8 g/dL (3.5-5.7); Albumin/Globulin Ratio 1.5 (1.1-2.2); Alkaline Phosphatase 53 Units/L (34-104); Aspartate Amino Transferase 16 Units/L (13-39); BUN/Creatinine Ratio 23 (6-26); Bilirubin,Direct 0.1 mg/dL (0.0-0.2); Bilirubin,Indirect 0.5 mg/dL (0.0-1.0); Bilirubin,Total 0.6 mg/dL (0.3-1.0); Blood Urea Nitrogen 14 mg/dL (6-20); Calcium 8.9 mg/dL (8.6-10.3); Carbon Dioxide 23 mEq/L (23-29); Chloride 108 mEq/L (98-107); Chol/HDL Ratio 4.3 (0-4.9); Cholesterol 152 mg/dL (< 200); Ethanol < 10 mg/dL (Less than 10); Globulin 2.6 g/dL (2.4-3.5); Glucose 92 mg/dL (70-105); HDL Cholesterol 35 mg/dL (40-59); LDL Cholesterol,Calculated 92 mg/dL (< 100); Osmolality,Calculated 286 (280-300); Potassium 3.7 mEq/L (3.5-5.1); Salicylate < 2.5 mg/dL (15.0-30.0); Sodium 138 mEq/L (136-145); Thyroid Stimulating Hormone 0.727 mcIU/mL (0.340-5.600); Total Protein 6.4 g/dL (6.4-8.9); Triglycerides 123 mg/dL (< 150); eGFR For African Americans > 60 (> 60); eGFR For Non-African Americans > 60 (> 60)
[2021-09-08 16:21] LABS: Amorphous Sediment,Urine Few per hpf (None-Few); Bilirubin,Urine Negative (Negative); Blood,Urine Negative (Negative); Clarity,Urine Clear (Clear); Color,Urine Yellow (Yellow); Glucose,Urine (UA) Normal (Normal); Ketones,Urine Negative (Negative); Leukocyte Esterase,Urine Negative (Negative); Mucus,Urine Few per lpf (None-Few); Nitrite,Urine Negative (Negative); PH,Urine 6.5 pH Units (5.0-8.0); Protein,Urine 30 mg/dL (Neg-Trace); Specific Gravity,Urine > 1.030 (1.010-1.025); Squamous Epithelial Cell,Urine Few per hpf (None-Few); WBC,Urine 0-3 per hpf (0-3)
[2021-09-08 16:48] LABS: Amphetamine Screen,Urine Negative ng/mL (Cutoff=1000); Barbiturate Screen,Urine Negative ng/mL (Cutoff=200); Benzodiazepines Screen,Urine Negative ng/mL (Cutoff=200); Cannabinoid Screen,Urine Positive ng/mL (Cutoff = 50); Cocaine Screen,Urine Negative ng/mL (Cutoff= 300); Opiate Screen,Urine Negative ng/mL (Cutoff=300); Phencyclidine Screen,Urine Negative ng/mL (Cutoff=25)
[2021-09-08 18:59] LABS: Influenza A PCR Negative (Negative); Influenza B PCR Negative (Negative); Resp. Syncytial Virus PCR Negative (Negative); SARS-CoV-2 by PCR (In House) Negative (Negative)
[2021-09-08] MEDS ORDERED: *HR* LORazepam 2 MG/ML VIAL IM PRN (19:52)
[2021-09-08] MEDS ORDERED: QUEtiapine Fumarate 25 MG TABLET PO PRN (19:52)
[2021-09-08] MEDS ORDERED: *HR* LORazepam 1 MG TABLET PO PRN (19:52)
[2021-09-08] MEDS ORDERED: Ibuprofen 400 MG TABLET PO PRN (19:52)
[2021-09-08] MEDS ORDERED: chlorproMAZINE 25 MG TABLET PO PRN (19:59)
[2021-09-08] MEDS ORDERED: ChlorproMAZINE 25 MG/ML AMPUL IM PRN (20:02)
[2021-09-08] MEDS: Temazepam 15 MG CAPSULE PO SCH (22:42)
[2021-09-08] MEDS: hydrOXYzine pamoate 25 MG CAPSULE PO PRN (22:42)
[2021-09-08] MEDS: FluPHENAZine 10 MG TABLET PO SCH (22:42)
[2021-09-08] MEDS: QUEtiapine Fumarate 100 MG TABLET PO SCH (22:43)
[2021-09-08] MEDS: Acetaminophen 325 MG TABLET PO PRN (22:43)
[2021-09-09] MEDS ORDERED: Nicotine 2 MG GUM BC PRN (03:43)
[2021-09-09] MEDS: QUEtiapine Fumarate 100 MG TABLET PO SCH ×2 (09:22→20:24)
[2021-09-09] MEDS ORDERED: Mag Hydrox/Al Hydrox/Simeth 30 ML UDC PO PRN (12:04)
[2021-09-09] MEDS ORDERED: MOM Conc 10 ML UD.LIQ PO PRN (12:04)
[2021-09-09] MEDS: FluPHENAZine 10 MG TABLET PO SCH (20:23)
[2021-09-09] MEDS: Temazepam 15 MG CAPSULE PO SCH (20:23)
[2021-09-09] MEDS: Acetaminophen 325 MG TABLET PO PRN (20:24)
[2021-09-09] MEDS: hydrOXYzine pamoate 25 MG CAPSULE PO PRN (20:24)
[2021-09-10] MEDS: QUEtiapine Fumarate 100 MG TABLET PO SCH (08:48)
[2021-09-10 09:25] VITALS: BP 122/87; PULSE 92; TEMP 97.3; O2SAT 99
== END 2021-09-10 18:50 | disposition other institution (70) | DRG 750 ==
LOC: EMEROOARM 14:00 → 1ANU 21:51
PROVIDERS: ADMIT Psychiatry & Neurology Psychiatry; ATTEND Psychiatry & Neurology Psychiatry